=== PATIENT | male | born 1940 | race Caucasian/White ===

== ENCOUNTER 2018-08-10 09:41 | Emergency (ER) | payer MEDICARE, OTHER, SELFPAY ==
[2018-08-10] VITALS (43 sets, daily range): BP systolic 120–156; BP diastolic 71–111; PULSE 92–158; RESP 1–31; TEMP 36.7–37; O2SAT 88–97
--- NOTE | 2018-08-10 09:46 | W.ED.GENAD ---
Discharge Plan Discharge Details Chief Complaint: SOB Reason For Visit: JUD Primary Care Provider: Sania Cherry ED Provider: Fariba Howell Home Meds and New Rx's Prescriptions: No Action ibuprofen 200 mg tablet 600 mg PO QID PRNRF: 0 enoxaparin [Lovenox] 100 mg/mL syringe 100 mg SC Q12H RF: 0 warfarin 5 mg tablet 5 mg PO DAILY Qty: 90 RF: 0 emy [id number] [Apple Cider Vinegar Plus] 1 EACH tablet 2 tab PO BID RF: 0 Chamomile 350 mg PO BID RF: 0 Discharge Data Discharge Date/Time-TO BE ENTERED AT DEPARTURE: 08/10/18 13:53 Medical Decision Making MDM Narrative Medical decision making narrative: Adebayo Amin is a 78 y/o man presents emergency department with shortness of breath. On exam patient is tachycardic, hypoxic, and also tachypneic with minimal exertion. At rest his respiratory rate is acceptable. Concern for PE vs PNA vs less likely COPD vs ACS vs other. Exam/hx not c/w with acute emergent aortic pathology. Plan for EKG, CXR, screening labs, CT chest, IV, telemetry. Pt attempted to stand to use urinal, and become tachypneic in 30s and increasingly tachycardic. High suspicion for PE at this time. Pt believes he may have been treated for a blood clot in his leg in the distant past. Plan for empiric heparinbolus and gtt, Pt to go to CT [facility]. Saddle PE found on CT. Pt continues to be tachycardic but comfortable without respiratory distress when at rest. [facility] contacted emergently when CT resulted, Pt accepted to MICU with plan for transport by helicopter. Accepting physician requests no TPA at this time, they will further evaluate for need at [facility]. No further intervention requested. Will continue heparin gtt. BP continues to be acceptable. No change on multiple reassessments. Pt to be transported to [facility] by air. Clinical Impression: saddle pulmonary embolus Disposition: transfer to [facility] Medical Records Medical records reviewed: Yes I reviewed the patient's medical records. Imaging Data Radiologic Study: Attestation: I personally reviewed and interpreted this imaging study as follows: Radiologist's impression: PORTABLE AP CHEST: Comparison is 11/30/16. The heart is normal in size. The lungs are clear. The mediastinal structures and pleura appear intact. CONCLUSION: Normal chest. PE CHEST CT: CT angiography was performed with multi slice acquisition and multi planar and 3D reconstruction. CT scan of the chest was performed according to the pulmonary embolus protocol. Comparison chest x-ray from the same day. There are filling defects present consistent with pulmonary emboli. There is a saddle embolus bridging the bifurcation of the main pulmonary artery. Extensive thrombus is seen involving branches of the pulmonary arteries in all five lobes. The greatest burden is seen in the left upper lobe and right lower lobe. The heart is mildly enlarged. There does appear to be some evidence suggesting right ventricular dysfunction. No significant pericardial effusion is seen. No significant mediastinal, hilar or axillary adenopathy is present. No pleural effusion or pneumothorax is identified. Atelectatic changes are seen in the lungs. No focal consolidating infiltrates are appreciated. The tracheobronchial tree is unremarkable. No pulmonary nodules are present. Upper abdominal images show no acute abnormality. Note is made of a small hiatal hernia. 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 The thoracic aorta is of normal caliber. No aneurysm or dissection is appreciated. 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 The largest burden is seen in the left upper lobe and right lower lobe. Findings in the heart raise the question of right ventricular dysfunction. Lab Data Lab results reviewed: Yes I reviewed the patient's lab results. Laboratory Tests Range/Units 08/10/18 08/10/18 08/10/18 09:50 09:50 09:50 WBC (4.4-10.8) k/cumm 5.25 RBC (4.50-6.00) m/cumm 5.25 Hgb (13.5-17.5) g/dL 18.1 H Hct (40.0-50.0) % 50.9 H MCV (80-95) fL 97.0 H MCH (27.0-33.0) pg 34.5 H MCHC (32.0-36.0) g/dL 35.6 RDW (11.8-14.1) % 12.3 Plt Count (130-400) x1000/uL 176 MPV (8.0-11.0) fL 9.6 Immature Gran % 0.2 Neutrophils % 47.9 Lymphocytes % 37.1 Monocytes % 11.0 Eosinophils % 3.0 Basophils % 0.8 Absolute Neutrophils (1.2-6.7) k/cumm 2.51 Absolute Lymphocytes (1.2-3.4) k/cumm 1.95 Absolute Monocytes (0.11-0.7) k/cumm 0.58 Absolute Eosinophils (0.0-0.7) k/cumm 0.16 Absolute Basophils (0.0-0.2) k/cumm 0.04 PT (9.3-10.8) sec INR (1.0-3.5) D-Dimer (<500) ng/mlFEU 4325 H VBG pH (7.32-7.43) VBG pCO2 (34-47) mm/Hg VBG pO2 (28-44) mm/Hg VBG HCO3 (22-28) mmol/L VBG Total CO2 (22-29) mmol/L VBG O2 Saturation (70-80) % VBG Base Excess (-3-3) mmol/L Sodium (136-145) mmol/L 139 Potassium (3.5-5.1) mmol/L 3.2 L Chloride (98-107) mmol/L 103 Carbon Dioxide (21.0-32.0) mmol/L 25.9 Anion Gap (3-11) mmol/L 10.1 BUN (7-18) mg/dL 6 L Creatinine (0.70-1.30) mg/dL 0.84 Estimated GFR/1.73 m2 (mL/min/1.73m2) >= 60.00 Glucose (70-100) mg/dL 140 H Lactate (0.6-1.4) mmol/L Calcium (8.5-10.1) mg/dL 8.4 L Total Bilirubin (0.2-1.0) mg/dL 1.5 H AST (15-37) U/L 30 ALT (12-78) U/L 45 Alkaline Phosphatase (46-116) U/L 86 Troponin I (0.00-0.06) ng/mL 0.05 NT-Pro-B Natriuret Pep ( - 299) pg/mL Total Protein (6.4-8.2) g/dL 7.3 Albumin (3.4-5.0) g/dL 3.5 Urine Color (Yellow) Urine Clarity Urine pH (5-8) Ur Specific [place] (1.005-1.025) Urine Protein (Negative) mg/dL Urine Ketones (Negative) mg/dL Urine Blood (Negative) Urine Nitrite (Negative) Urine Bilirubin (Negative) Urine Urobilinogen (Up TO 0.2) EU/dL Ur Leukocyte Esterase (Negative) Urine Glucose (Negative) mg/dL Range/Units 08/10/18 08/10/18 08/10/18 09:50 09:50 09:50 WBC (4.4-10.8) k/cumm RBC (4.50-6.00) m/cumm Hgb (13.5-17.5) g/dL Hct (40.0-50.0) % MCV (80-95) fL MCH (27.0-33.0) pg MCHC (32.0-36.0) g/dL RDW (11.8-14.1) % Plt Count (130-400) x1000/uL MPV (8.0-11.0) fL Immature Gran % Neutrophils % Lymphocytes % Monocytes % Eosinophils % Basophils % Absolute Neutrophils (1.2-6.7) k/cumm Absolute Lymphocytes (1.2-3.4) k/cumm Absolute Monocytes (0.11-0.7) k/cumm Absolute Eosinophils (0.0-0.7) k/cumm Absolute Basophils (0.0-0.2) k/cumm PT (9.3-10.8) sec INR (1.0-3.5) D-Dimer (<500) ng/mlFEU VBG pH (7.32-7.43) 7.46 H VBG pCO2 (34-47) mm/Hg 36 VBG pO2 (28-44) mm/Hg 60 H VBG HCO3 (22-28) mmol/L 26 VBG Total CO2 (22-29) mmol/L 21 L VBG O2 Saturation (70-80) % 92 H VBG Base Excess (-3-3) mmol/L 1.7 Sodium (136-145) mmol/L Potassium (3.5-5.1) mmol/L Chloride (98-107) mmol/L Carbon Dioxide (21.0-32.0) mmol/L Anion Gap (3-11) mmol/L BUN (7-18) mg/dL Creatinine (0.70-1.30) mg/dL Estimated GFR/1.73 m2 (mL/min/1.73m2) Glucose (70-100) mg/dL Lactate (0.6-1.4) mmol/L 2.8 H Calcium (8.5-10.1) mg/dL Total Bilirubin (0.2-1.0) mg/dL AST (15-37) U/L ALT (12-78) U/L Alkaline Phosphatase (46-116) U/L Troponin I (0.00-0.06) ng/mL NT-Pro-B Natriuret Pep ( - 299) pg/mL 296 Total Protein (6.4-8.2) g/dL Albumin (3.4-5.0) g/dL Urine Color (Yellow) Urine Clarity Urine pH (5-8) Ur Specific [place] (1.005-1.025) Urine Protein (Negative) mg/dL Urine Ketones (Negative) mg/dL Urine Blood (Negative) Urine Nitrite (Negative) Urine Bilirubin (Negative) Urine Urobilinogen (Up TO 0.2) EU/dL Ur Leukocyte Esterase (Negative) Urine Glucose (Negative) mg/dL Range/Units 08/10/18 08/10/18 08/10/18 09:54 11:00 14:00 WBC (4.4-10.8) k/cumm RBC (4.50-6.00) m/cumm Hgb (13.5-17.5) g/dL Hct (40.0-50.0) % MCV (80-95) fL MCH (27.0-33.0) pg MCHC (32.0-36.0) g/dL RDW (11.8-14.1) % Plt Count (130-400) x1000/uL MPV (8.0-11.0) fL Immature Gran % Neutrophils % Lymphocytes % Monocytes % Eosinophils % Basophils % Absolute Neutrophils (1.2-6.7) k/cumm Absolute Lymphocytes (1.2-3.4) k/cumm Absolute Monocytes (0.11-0.7) k/cumm Absolute Eosinophils (0.0-0.7) k/cumm Absolute Basophils (0.0-0.2) k/cumm PT (9.3-10.8) sec 10.9 H INR (1.0-3.5) 1.1 D-Dimer (<500) ng/mlFEU VBG pH (7.32-7.43) VBG pCO2 (34-47) mm/Hg VBG pO2 (28-44) mm/Hg VBG HCO3 (22-28) mmol/L VBG Total CO2 (22-29) mmol/L VBG O2 Saturation (70-80) % VBG Base Excess (-3-3) mmol/L Sodium (136-145) mmol/L Potassium (3.5-5.1) mmol/L Chloride (98-107) mmol/L Carbon Dioxide (21.0-32.0) mmol/L Anion Gap (3-11) mmol/L BUN (7-18) mg/dL Creatinine (0.70-1.30) mg/dL Estimated GFR/1.73 m2 (mL/min/1.73m2) Glucose (70-100) mg/dL Lactate (0.6-1.4) mmol/L Calcium (8.5-10.1) mg/dL Total Bilirubin (0.2-1.0) mg/dL AST (15-37) U/L ALT (12-78) U/L Alkaline Phosphatase (46-116) U/L Troponin I (0.00-0.06) ng/mL Cancelled NT-Pro-B Natriuret Pep ( - 299) pg/mL Total Protein (6.4-8.2) g/dL Albumin (3.4-5.0) g/dL Urine Color (Yellow) Yellow Urine Clarity Clear Urine pH (5-8) 7.5 Ur Specific [place] (1.005-1.025) 1.015 Urine Protein (Negative) mg/dL Negative Urine Ketones (Negative) mg/dL Negative Urine Blood (Negative) Negative Urine Nitrite (Negative) Negative Urine Bilirubin (Negative) Negative Urine Urobilinogen (Up TO 0.2) EU/dL 0.2 Ur Leukocyte Esterase (Negative) Negative Urine Glucose (Negative) mg/dL Negative ECG Data Interpretation: EKG shows accelerated junctional rhythm vs ST (prior h/o 1st degree block) with left axis, known LBBB, does not meet STEMI criteria EKG #2 shows unknown tachydysrthmia as above at 124, does not meet STEMI criteria HPI - General Adult General Mode of arrival: EMS. Date/Time Provider Initiated Documentation: 08/10/18 09:46. Limitations to Documentation: no limitations. Information obtained by: patient, RN notes reviewed and old records reviewed. HPI Narrative: Adebayo Amin is a 78 y/o man with h/o tension, sleep apnea, anxiety, and GERD presenting to the emergency department with shortness of breath and lightheadedness. [facility] began to feel like he was having an anxiety attack. He felt short of breath and very anxious, did have some lightheadedness if he was going to pass out. Patient reports that he has had similar symptoms in the past he presented to the emergency department for. At that time he reports that he had a full workup and they found nothing at home and was having a panic attack. Patient reports that he was not exerting himself when symptoms started. He reports that in the past 2 days he has been in his usual state of health without symptoms or recent illness. He reports that he has been eating and drinking normally. No recent travel. Patient reports chest pressure that is coming and going since onset of symptoms this morning, very mild right now. He denies any other pain. Denies fever. Denies cough, vomiting, diarrhea, swelling, weakness, numbness, tingling, visual changes. He reports no history of pulmonary disease and has never smoked. No oxygen requirement at home. Related Data Home Medications Medication Instructions Recorded Confirmed Chamomile 350 mg PO BID 05/23/14 08/13/18 emy [id number]-tea 2 tab PO BID 05/23/14 08/13/18 [Apple Cider Vinegar Plus] enoxaparin 100 mg/mL subcutaneous 100 mg SC Q12H 08/13/18 08/13/18 syringe ibuprofen 200 mg tablet 600 mg PO QID PRN tab 08/13/18 08/13/18 warfarin 5 mg tablet 5 mg PO DAILY #90 tab 08/17/18 08/18/18 Previous Rx's Medication Instructions Recorded warfarin 5 mg tablet 5 mg PO DAILY #90 tab 08/17/18 Allergies Allergy/AdvReac Type Severity Reaction Status Date / Time codeine AdvReac Mild Nausea Verified 08/13/18 10:56 Review of Systems Review of Systems Constitutional: denies fevers Eyes: denies eye pain ENT: denies facial pain, dental pain, sore throat Cardiovascular: reports chest pain, denies edema Respiratory: reports SOB, denies cough GI: denies abdominal pain, vomiting, diarrhea : denies flank pain MSK: denies back pain, neck pain, arthralgias, myalgias Skin: denies rash Neuro: denies headaches, weakness, reports lightheadedness PFSH Family History Mother Heart disease Alzheimer disease Father Heart disease Sister Colon cancer Sister Heart disease Brother Diabetes Medical History History of total hip arthroplasty (Acute) History of total knee replacement (Acute 05/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) Loss of teeth due to extraction (Acute ~06/2013) S/P cataract extraction and insertion of intraocular lens (Acute ~03/17/14) S/P cataract extraction and insertion of intraocular lens (Acute 03/31/14) Social History Smoking/Tobacco Use Status: Former Tobacco Use quit date: 12/23/97 alcohol intake: current alcohol intake frequency: a few times a week Alcohol type: beer Surgical History H/O elbow surgery (Acute) S/P trigger finger release (Acute) H/O shoulder surgery (Chronic) Endoscopic Carpal Tunnel release (06/19/15) Exam Narrative Exam Narrative: Constitutional: [id number], pleasant, converses in short sentences HENT: head atraumatic, normocephalic normal inspection, mucous membranes moist Eyes: conjunctiva normal, sclera normal, pupils 3mm b/l Neck: no stridor, normal ROM, trachea midline Chest: normal inspection Resp: occasional mild tachypnea at rest, able to speak in full sentences. Develops moderate resp distress with getting out of bed, standing. LCTAB Cardio: tachycardic normal rhythm, no murmur appreciated GI: abdomen soft, non-tender, non-distended Back: normal inspection, no rash Skin: warm, dry, normal color, no rash Neuro: alert, not altered, grossly non-focal, normal tone Ext: no edema Psych: normal mood, normal affect, normal behavior Critical Care Time Critical Care Time: Yes Total Critical Care Time: 45 Attestation: I have spent greater than 45 minutes of critical care time with this critically ill patient.
--- NOTE | 2018-08-10 09:53 | DI.RAD_ITS ---
SYMPTOMS/DIAGNOSIS: SHORTNESS OF BREATH, CHEST PAIN PORTABLE AP CHEST: Comparison is 10/23/16. The heart is normal in size. The lungs are clear. The mediastinal structures and pleura appear intact. CONCLUSION: Normal chest.
[2018-08-10 10:10] LABS: Abs Immature Grans 0.01 k/cumm (0.0-0.09); Absolute Basophil Count 0.04 k/cumm (0.0-0.2); Absolute Eosinophil Count 0.16 k/cumm (0.0-0.7); Absolute Lymphocyte Count 1.95 k/cumm (1.2-3.4); Absolute Monocyte Count 0.58 k/cumm (0.11-0.7); Absolute Neutrophil Count 2.51 k/cumm (1.2-6.7); Basophils % 0.8; HCT 50.9 % (40.0-50.0); HGB 18.1 g/dL (13.5-17.5); Immature Grans % 0.2; Lymphocytes % 37.1; Mean Corp. HGB Concentration 35.6 g/dL (32.0-36.0); Mean Corpuscular Hemoglobin 34.5 pg (27.0-33.0); Mean Platelet Volume 9.6 fL (8.0-11.0); Neutrophils % 47.9; Platelet Count 176 x1000/uL (130-400); RBC 5.25 m/cumm (4.50-6.00); RBC Distribution Width 12.3 % (11.8-14.1); White Blood Cell Count 5.25 k/cumm (4.4-10.8)
[2018-08-10 10:11] LABS: BE (Venous) 1.7 mmol/L (-3-3); HCO3 (Venous) 26 mmol/L (22-28); O2 Sat (Venous) 92 % (70-80); TCO2 (Venous) 21 mmol/L (22-29); pCO2 (Venous) 36 mm/Hg (34-47); pH (Venous) 7.46 (7.32-7.43); pO2 (Venous) 60 mm/Hg (28-44)
[2018-08-10] MEDS: Normal Saline 500 ML IV (10:12)
[2018-08-10 10:13] LABS: Lactate-non-spesis 2.8 mmol/L (0.6-1.4)
[2018-08-10] MEDS: Normal Saline Flush 10 ML SYR IVP (10:15)
[2018-08-10 10:32] LABS: ALT 45 U/L (12-78); AST 30 U/L (15-37); Albumin 3.5 g/dL (3.4-5.0); Alkaline Phosphatase 86 U/L (46-116); Anion Gap 10.1 mmol/L (3-11); BUN 6 mg/dL (7-18); Bilirubin, Total 1.5 mg/dL (0.2-1.0); CO2 25.9 mmol/L (21.0-32.0); CREATININE 0.84 mg/dL (0.70-1.30); Calcium 8.4 mg/dL (8.5-10.1); Chloride 103 mmol/L (98-107); Glucose 140 mg/dL (70-100); Potassium 3.2 mmol/L (3.5-5.1); Sodium 139 mmol/L (136-145); Total Protein 7.3 g/dL (6.4-8.2); Troponin I 0.05 ng/mL (0.00-0.06)
[2018-08-10 10:37] LABS: NT-proBNP 296 pg/mL
--- NOTE | 2018-08-10 10:39 | ED.GENADUL_ITS ---
Discharge Plan Discharge Details Chief Complaint: SOB Reason For Visit: JUD Primary Care Provider: Sania Cherry ED Provider: Fariba Howell Home Meds and New Rx's Prescriptions: No Action ibuprofen 200 mg tablet 600 mg PO QID PRNRF: 0 enoxaparin [Lovenox] 100 mg/mL syringe 100 mg SC Q12H RF: 0 warfarin 5 mg tablet 5 mg PO DAILY Qty: 90 RF: 0 emy [id number] [Apple Cider Vinegar Plus] 1 EACH tablet 2 tab PO BID RF: 0 Chamomile 350 mg PO BID RF: 0 Discharge Data Discharge Date/Time-TO BE ENTERED AT DEPARTURE: 08/10/18 13:53 Medical Decision Making MDM Narrative Medical decision making narrative: Adebayo Amin is a 78 y/o man presents emergency department with shortness of breath. On exam patient is tachycardic, hypoxic, and also tachypneic with minimal exertion. At rest his respiratory rate is acceptable. Concern for PE vs PNA vs less likely COPD vs ACS vs other. Exam/hx not c/w with acute emergent aortic pathology. Plan for EKG, CXR, screening labs, CT chest, IV, telemetry. Pt attempted to stand to use urinal, and become tachypneic in 30s and increasingly tachycardic. High suspicion for PE at this time. Pt believes he may have been treated for a blood clot in his leg in the distant past. Plan for empiric heparinbolus and gtt, Pt to go to CT [facility]. Saddle PE found on CT. Pt continues to be tachycardic but comfortable without respiratory distress when at rest. [facility] [place] when CT resulted, Pt accepted to [facility]U with plan for transport by helicopter. Accepting physician requests no TPA at this time, they will further evaluate for need at [facility] No further intervention requested. Will continue heparin gtt. BP continues to be acceptable. No change on multiple reassessments. Pt to be transported [place] [facility] [place]. Clinical Impression: saddle pulmonary embolus Disposition: transfer to [facility] Medical Records Medical records reviewed: Yes I reviewed the patient's medical records. Imaging Data Radiologic Study: Attestation: I personally reviewed and interpreted this imaging study as follows: Radiologist's impression: PORTABLE AP CHEST: Comparison is 11/30/16. The heart is normal in size. The lungs are clear. The mediastinal structures and pleura appear intact. CONCLUSION: Normal chest. PE CHEST CT: CT angiography was performed with multi slice acquisition and multi planar and 3D reconstruction. CT scan of the chest was performed according to the pulmonary embolus protocol. Comparison chest x-ray from the same day. There are filling defects present consistent with pulmonary emboli. There is a saddle embolus bridging the bifurcation of the main pulmonary artery. Extensive thrombus is seen involving branches of the pulmonary arteries in all five lobes. The greatest burden is seen in the left upper lobe and right lower lobe. The heart is mildly enlarged. There does appear to be some evidence suggesting right ventricular dysfunction. No significant pericardial effusion is seen. No significant mediastinal, hilar or axillary adenopathy is present. No pleural effusion or pneumothorax is identified. Atelectatic changes are seen in the lungs. No focal consolidating infiltrates are appreciated. The tracheobronchial tree is unremarkable. No pulmonary nodules are present. Upper abdominal images show no acute abnormality. Note is made of a small hiatal hernia. 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 The thoracic aorta is of normal caliber. No aneurysm or dissection is appreciated. 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 The largest burden is seen in the left upper lobe and right lower lobe. Findings in the heart raise the question of right ventricular dysfunction. Lab Data Lab results reviewed: Yes I reviewed the patient's lab results. Laboratory Tests Range/Units 08/10/18 08/10/18 08/10/18 09:50 09:50 09:50 WBC (4.4-10.8) k/cumm 5.25 RBC (4.50-6.00) m/cumm 5.25 Hgb (13.5-17.5) g/dL 18.1 H Hct (40.0-50.0) % 50.9 H MCV (80-95) fL 97.0 H MCH (27.0-33.0) pg 34.5 H MCHC (32.0-36.0) g/dL 35.6 RDW (11.8-14.1) % 12.3 Plt Count (130-400) x1000/uL 176 MPV (8.0-11.0) fL 9.6 Immature Gran % 0.2 Neutrophils % 47.9 Lymphocytes % 37.1 Monocytes % 11.0 Eosinophils % 3.0 Basophils % 0.8 Absolute Neutrophils (1.2-6.7) k/cumm 2.51 Absolute Lymphocytes (1.2-3.4) k/cumm 1.95 Absolute Monocytes (0.11-0.7) k/cumm 0.58 Absolute Eosinophils (0.0-0.7) k/cumm 0.16 Absolute Basophils (0.0-0.2) k/cumm 0.04 PT (9.3-10.8) sec INR (1.0-3.5) D-Dimer (<500) ng/mlFEU 4325 H VBG pH (7.32-7.43) VBG pCO2 (34-47) mm/Hg VBG pO2 (28-44) mm/Hg VBG HCO3 (22-28) mmol/L VBG Total CO2 (22-29) mmol/L VBG O2 Saturation (70-80) % VBG Base Excess (-3-3) mmol/L Sodium (136-145) mmol/L 139 Potassium (3.5-5.1) mmol/L 3.2 L Chloride (98-107) mmol/L 103 Carbon Dioxide (21.0-32.0) mmol/L 25.9 Anion Gap (3-11) mmol/L 10.1 BUN (7-18) mg/dL 6 L Creatinine (0.70-1.30) mg/dL 0.84 Estimated GFR/1.73 m2 (mL/min/1.73m2) >= 60.00 Glucose (70-100) mg/dL 140 H Lactate (0.6-1.4) mmol/L Calcium (8.5-10.1) mg/dL 8.4 L Total Bilirubin (0.2-1.0) mg/dL 1.5 H AST (15-37) U/L 30 ALT (12-78) U/L 45 Alkaline Phosphatase (46-116) U/L 86 Troponin I (0.00-0.06) ng/mL 0.05 NT-Pro-B Natriuret Pep ( - 299) pg/mL Total Protein (6.4-8.2) g/dL 7.3 Albumin (3.4-5.0) g/dL 3.5 Urine Color (Yellow) Urine Clarity Urine pH (5-8) Ur Specific [place] (1.005-1.025) Urine Protein (Negative) mg/dL Urine Ketones (Negative) mg/dL Urine Blood (Negative) Urine Nitrite (Negative) Urine Bilirubin (Negative) Urine Urobilinogen (Up TO 0.2) EU/dL Ur Leukocyte Esterase (Negative) Urine Glucose (Negative) mg/dL Range/Units 08/10/18 08/10/18 08/10/18 09:50 09:50 09:50 WBC (4.4-10.8) k/cumm RBC (4.50-6.00) m/cumm Hgb (13.5-17.5) g/dL Hct (40.0-50.0) % MCV (80-95) fL MCH (27.0-33.0) pg MCHC (32.0-36.0) g/dL RDW (11.8-14.1) % Plt Count (130-400) x1000/uL MPV (8.0-11.0) fL Immature Gran % Neutrophils % Lymphocytes % Monocytes % Eosinophils % Basophils % Absolute Neutrophils (1.2-6.7) k/cumm Absolute Lymphocytes (1.2-3.4) k/cumm Absolute Monocytes (0.11-0.7) k/cumm Absolute Eosinophils (0.0-0.7) k/cumm Absolute Basophils (0.0-0.2) k/cumm PT (9.3-10.8) sec INR (1.0-3.5) D-Dimer (<500) ng/mlFEU VBG pH (7.32-7.43) 7.46 H VBG pCO2 (34-47) mm/Hg 36 VBG pO2 (28-44) mm/Hg 60 H VBG HCO3 (22-28) mmol/L 26 VBG Total CO2 (22-29) mmol/L 21 L VBG O2 Saturation (70-80) % 92 H VBG Base Excess (-3-3) mmol/L 1.7 Sodium (136-145) mmol/L Potassium (3.5-5.1) mmol/L Chloride (98-107) mmol/L Carbon Dioxide (21.0-32.0) mmol/L Anion Gap (3-11) mmol/L BUN (7-18) mg/dL Creatinine (0.70-1.30) mg/dL Estimated GFR/1.73 m2 (mL/min/1.73m2) Glucose (70-100) mg/dL Lactate (0.6-1.4) mmol/L 2.8 H Calcium (8.5-10.1) mg/dL Total Bilirubin (0.2-1.0) mg/dL AST (15-37) U/L ALT (12-78) U/L Alkaline Phosphatase (46-116) U/L Troponin I (0.00-0.06) ng/mL NT-Pro-B Natriuret Pep ( - 299) pg/mL 296 Total Protein (6.4-8.2) g/dL Albumin (3.4-5.0) g/dL Urine Color (Yellow) Urine Clarity Urine pH (5-8) Ur Specific [place] (1.005-1.025) Urine Protein (Negative) mg/dL Urine Ketones (Negative) mg/dL Urine Blood (Negative) Urine Nitrite (Negative) Urine Bilirubin (Negative) Urine Urobilinogen (Up TO 0.2) EU/dL Ur Leukocyte Esterase (Negative) Urine Glucose (Negative) mg/dL Range/Units 08/10/18 08/10/18 08/10/18 09:54 11:00 14:00 WBC (4.4-10.8) k/cumm RBC (4.50-6.00) m/cumm Hgb (13.5-17.5) g/dL Hct (40.0-50.0) % MCV (80-95) fL MCH (27.0-33.0) pg MCHC (32.0-36.0) g/dL RDW (11.8-14.1) % Plt Count (130-400) x1000/uL MPV (8.0-11.0) fL Immature Gran % Neutrophils % Lymphocytes % Monocytes % Eosinophils % Basophils % Absolute Neutrophils (1.2-6.7) k/cumm Absolute Lymphocytes (1.2-3.4) k/cumm Absolute Monocytes (0.11-0.7) k/cumm Absolute Eosinophils (0.0-0.7) k/cumm Absolute Basophils (0.0-0.2) k/cumm PT (9.3-10.8) sec 10.9 H INR (1.0-3.5) 1.1 D-Dimer (<500) ng/mlFEU VBG pH (7.32-7.43) VBG pCO2 (34-47) mm/Hg VBG pO2 (28-44) mm/Hg VBG HCO3 (22-28) mmol/L VBG Total CO2 (22-29) mmol/L VBG O2 Saturation (70-80) % VBG Base Excess (-3-3) mmol/L Sodium (136-145) mmol/L Potassium (3.5-5.1) mmol/L Chloride (98-107) mmol/L Carbon Dioxide (21.0-32.0) mmol/L Anion Gap (3-11) mmol/L BUN (7-18) mg/dL Creatinine (0.70-1.30) mg/dL Estimated GFR/1.73 m2 (mL/min/1.73m2) Glucose (70-100) mg/dL Lactate (0.6-1.4) mmol/L Calcium (8.5-10.1) mg/dL Total Bilirubin (0.2-1.0) mg/dL AST (15-37) U/L ALT (12-78) U/L Alkaline Phosphatase (46-116) U/L Troponin I (0.00-0.06) ng/mL Cancelled NT-Pro-B Natriuret Pep ( - 299) pg/mL Total Protein (6.4-8.2) g/dL Albumin (3.4-5.0) g/dL Urine Color (Yellow) Yellow Urine Clarity Clear Urine pH (5-8) 7.5 Ur Specific [place] (1.005-1.025) 1.015 Urine Protein (Negative) mg/dL Negative Urine Ketones (Negative) mg/dL Negative Urine Blood (Negative) Negative Urine Nitrite (Negative) Negative Urine Bilirubin (Negative) Negative Urine Urobilinogen (Up TO 0.2) EU/dL 0.2 Ur Leukocyte Esterase (Negative) Negative Urine Glucose (Negative) mg/dL Negative ECG Data Interpretation: EKG shows accelerated junctional rhythm vs ST (prior h/o 1st degree block) with left axis, known LBBB, does not meet STEMI criteria EKG #2 shows unknown tachydysrthmia as above at 124, does not meet STEMI criteria HPI - General Adult General Mode of arrival: EMS . Date/Time Provider Initiated Documentation: 08/10/18 09:46 . Limitations to Documentation: no limitations . Information obtained by: patient, RN notes reviewed and old records reviewed . HPI Narrative: Adebayo Amin is a 78 y/o man with h/o tension, sleep apnea, anxiety, and GERD presenting to the emergency department with shortness of breath and lightheadedness. [facility] began to feel like he was having an anxiety attack. He felt short of breath and very anxious, did have some lightheadedness if he was going to pass out. Patient reports that he has had similar symptoms in the past he presented to the emergency department for. At that time he reports that he had a full workup and they found nothing at home and was having a panic attack. Patient reports that he was not exerting himself when symptoms started. He reports that in the past 2 days he has been in his usual state of health without symptoms or recent illness. He reports that he has been eating and drinking normally. No recent travel. Patient reports chest pressure that is coming and going since onset of symptoms this morning, very mild right now. He denies any other pain. Denies fever. Denies cough, vomiting, diarrhea, swelling, weakness, numbness, tingling, visual changes. He reports no history of pulmonary disease and has never smoked. No oxygen requirement at home. Related Data Home Medications Medication Instructions Recorded Confirmed Chamomile 350 mg PO BID 05/23/14 08/13/18 emy [id number] 2 tab PO BID 05/23/14 08/13/18 [Apple Cider Vinegar Plus] enoxaparin 100 mg/mL subcutaneous 100 mg SC Q12H 08/13/18 08/13/18 syringe ibuprofen 200 mg tablet 600 mg PO QID PRN tab 08/13/18 08/13/18 warfarin 5 mg tablet 5 mg PO DAILY #90 tab 08/17/18 08/18/18 Previous Rx's Medication Instructions Recorded warfarin 5 mg tablet 5 mg PO DAILY #90 tab 08/17/18 Allergies Allergy/AdvReac Type Severity Reaction Status Date / Time codeine AdvReac Mild Nausea Verified 08/13/18 10:56 Review of Systems Review of Systems Constitutional: denies fevers Eyes: denies eye pain ENT: denies facial pain, dental pain, sore throat Cardiovascular: reports chest pain, denies edema Respiratory: reports SOB, denies cough GI: denies abdominal pain, vomiting, diarrhea : denies flank pain MSK: denies back pain, neck pain, arthralgias, myalgias Skin: denies rash Neuro: denies headaches, weakness, reports lightheadedness PFSH Family History Mother Heart disease Alzheimer disease Father Heart disease Sister Colon cancer Sister Heart disease Brother Diabetes Medical History History of total hip arthroplasty (Acute) History of total knee replacement (Acute 05/30/14) Loss of teeth due to extraction (Acute ~06/2013) S/P cataract extraction and insertion of intraocular lens (Acute ~03/17/14) S/P cataract extraction and insertion of intraocular lens (Acute 03/31/14) Social History Smoking/Tobacco Use Status: Former Tobacco Use quit date: 12/23/97 alcohol intake: current alcohol intake frequency: a few times a week Alcohol type: beer Surgical History H/O elbow surgery (Acute) S/P trigger finger release (Acute) H/O shoulder surgery (Chronic) Endoscopic Carpal Tunnel release (06/19/15) Exam Narrative Exam Narrative: Constitutional: [id number], pleasant, converses in short sentences HENT: head atraumatic, normocephalic normal inspection, mucous membranes moist Eyes: conjunctiva normal, sclera normal, pupils 3mm b/l Neck: no stridor, normal ROM, trachea midline Chest: normal inspection Resp: occasional mild tachypnea at rest, able to speak in full sentences. Develops moderate resp distress with getting out of bed, standing. LCTAB Cardio: tachycardic normal rhythm, no murmur appreciated GI: abdomen soft, non-tender, non-distended Back: normal inspection, no rash Skin: warm, dry, normal color, no rash Neuro: alert, not altered, grossly non-focal, normal tone Ext: no edema Psych: normal mood, normal affect, normal behavior Critical Care Time Critical Care Time: Yes Total Critical Care Time: 45 Attestation: I have spent greater than 45 minutes of critical care time with this critically ill patient.
--- NOTE | 2018-08-10 10:50 | DI.CT_ITS ---
SYMPTOMS/DIAGNOSIS: SHORTNESS OF BREATH, HYPOXIA PE CHEST CT: CT angiography was performed with multi slice acquisition and multi planar and 3D reconstruction. CT scan of the chest was performed according to the pulmonary embolus protocol. Comparison chest x-ray from the same day. There are filling defects present consistent with pulmonary emboli. There is a saddle embolus bridging the bifurcation of the main pulmonary artery. Extensive thrombus is seen involving branches of the pulmonary arteries in all five lobes. The greatest burden is seen in the left upper lobe and right lower lobe. The heart is mildly enlarged. There does appear to be some evidence suggesting right ventricular dysfunction. No significant pericardial effusion is seen. No significant mediastinal, hilar or axillary adenopathy is present. No pleural effusion or pneumothorax is identified. Atelectatic changes are seen in the lungs. No focal consolidating infiltrates are appreciated. The tracheobronchial tree is unremarkable. No pulmonary nodules are present. Upper abdominal images show no acute abnormality. Note is made of a small hiatal hernia. 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 The thoracic aorta is of normal caliber. No aneurysm or dissection is appreciated. 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 The largest burden is seen in the left upper lobe and right lower lobe. Findings in the heart raise the question of right ventricular dysfunction. The findings were discussed at 12:00 p.m. on 08/10/[address] Fariba Howell of the emergency department.
[2018-08-10 10:54] LABS: D-Dimer 4325 ng/mlFEU (<500)
[2018-08-10] MEDS: Aspirin 81 MG CHEW 324 MG CH (11:02)
[2018-08-10] MEDS: Albuterol/Ipratropium 3 ML UPD VIAL UPD (11:03)
[2018-08-10 11:16] LABS: Bilirubin Negative (Negative); Blood Negative (Negative); Clarity Clear; Glucose Negative (Negative); Ketones Negative (Negative); Leukocyte Esterase Negative (Negative); Nitrite Negative (Negative); Specific Gravity 1.015 (1.005-1.025); Urobilinogen 0.2 EU/dL (Up TO 0.2); pH 7.5 (5-8)
[2018-08-10 11:30] LABS: INR 1.1 (1.0-3.5); Prothrombin Time 10.9 sec (9.3-10.8)
[2018-08-10] MEDS: Omnipaque 350 MG/ML 100 ML BTL IJ (11:51)
== END 2018-08-10 13:53 ==
LOC: ER 11:05
PROVIDERS: Emergency Provider Student in an Organized Health Care Education/Training Program; PCP Nurse Practitioner
DX: I26.92 Saddle embolus of pulmonary artery without acute cor pulmonale (principal); R79.1 Abnormal coagulation profile; I10 Essential (primary) hypertension
CPT/HCPCS: 36415; 36416; 71275; 80053; 82805; 82962; 93005; 94640; 96361; 96365; 96376; 99291; 71045; 81003; 83605; 83880; 84484; 85025; 85379; 85610; 93010; J3490; J7620

== ENCOUNTER 2018-08-15 09:06 | Outpatient (CLI) | payer MEDICARE, OTHER, SELFPAY ==
[2018-08-15 10:12] LABS: INR 1.3 (1.0-3.5); Prothrombin Time 12.9 sec (9.3-10.8)
== END 2018-08-15 09:26 ==
PROVIDERS: PCP Nurse Practitioner; Visit Provider Nurse Practitioner
DX: I26.99 Other pulmonary embolism without acute cor pulmonale (principal); I82.409 Acute embolism and thrombosis of unspecified deep veins of unspecified lower extremity
CPT/HCPCS: 36415; 85610

== ENCOUNTER 2018-08-20 01:35 | Outpatient (RCR) | payer MEDICARE, OTHER, SELFPAY ==
[2018-08-13] MEDS: Enoxaparin 100 MG/ML SYR SC (20:05)
[2018-08-14 08:36] LABS: Prothrombin Time 11.2 sec (9.3-10.8)
[2018-08-14 08:41] LABS: INR 1.1 (1.0-3.5)
[2018-08-14] MEDS: Enoxaparin 100 MG/ML SYR SC ×2 (08:45→19:45)
[2018-08-15] MEDS: Enoxaparin 100 MG/ML SYR SC ×2 (10:06→20:06)
[2018-08-16] MEDS: Enoxaparin 100 MG/ML SYR SC ×2 (08:18→19:55)
[2018-08-17] MEDS: Enoxaparin 100 MG/ML SYR SC ×2 (11:41→19:55)
[2018-08-18 07:52] LABS: INR 1.5 (1.0-3.5); Prothrombin Time 14.7 sec (9.3-10.8)
[2018-08-18] MEDS: Enoxaparin 100 MG/ML SYR SC ×2 (08:04→19:45)
[2018-08-19 08:32] LABS: Prothrombin Time 18.6 sec (9.3-10.8)
[2018-08-19 08:34] LABS: INR 1.9 (1.0-3.5)
[2018-08-19] MEDS: Enoxaparin 100 MG/ML SYR SC ×2 (08:38→19:42)
[2018-08-20 08:19] LABS: INR 2.2 (1.0-3.5)
[2018-08-20] MEDS: Enoxaparin 100 MG/ML SYR SC (08:31)
== END 2018-08-23 23:59 | disposition home or self-care (01) ==
LOC: INF 01:35
PROVIDERS: PCP Nurse Practitioner; Visit Provider Internal Medicine
DX: I26.99 Other pulmonary embolism without acute cor pulmonale (principal); I82.409 Acute embolism and thrombosis of unspecified deep veins of unspecified lower extremity; Z79.01 Long term (current) use of anticoagulants
CPT/HCPCS: 36415; 96365; 96372; 85610; J1650

== ENCOUNTER → 2018-09-07 08:37 | Outpatient (BNVA) | payer MEDICARE, OTHER, SELFPAY | PROVIDERS: Visit Provider Urology | DX: N40.0 Benign prostatic hyperplasia without lower urinary tract symptoms (principal) | CPT/HCPCS: 99213 ==

== ENCOUNTER 2018-10-04 04:07 | Emergency (ER) | payer MEDICARE, OTHER, SELFPAY ==
[2018-10-04] VITALS (7 sets, daily range): BP systolic 159–165; BP diastolic 73–84; PULSE 88–130; RESP 16–22; TEMP 36.8; O2SAT 6–94
--- NOTE | 2018-10-04 04:27 | W.ED.GENAD ---
Discharge Plan Disposition Patient Disposition: HOME Condition: Improving Discharge Details Chief Complaint: Chest Pain Clinical Impression: Atypical chest pain Primary Care Provider: Sania Cherry ED Provider: Sunil Hawthorne Home Meds and New Rx's Prescriptions: Continue trazodone 50 mg tablet 25 mg PO BID PRN (Reason: anxiety) Qty: 30 RF: 5 warfarin 5 mg tablet 5 mg PO DAILY Qty: 90 RF: 0 emy [id number] [Apple Cider Vinegar Plus] 1 EACH tablet 2 tab PO BID RF: 0 Chamomile 350 mg PO BID RF: 0 Discharge Instructions Instructions: Chest Pain (ED) Additional Instructions: Please hold (skip) 1 dose of your warfarin and then restart. We will ask our care managers to arrange an outpatient follow-up this week at [facility] internal medicine for recheck. As we discussed, you declined further observation and repeat blood work. Return at any time for recurrent sensation of palpitations, shortness of breath, chest discomfort, or any other acute concerns. Medical Decision Making 78-year-old male presents from home with complaint of rapid heart rate and shortness of breath that began after getting out of bed 3:30 in the morning. His past medical recent history is notable for a large pulmonary embolism diagnosed on August 10 for which he is taking an anticoagulant (warfarin). Oxygenation is within normal limits, he is afebrile, his initial pulse at triage was 130, in the 90s time of my exam. Differential diagnosis includes recurrent pulmonary embolism, dysrhythmia, ACS. Patient was placed in a registered nurse cardiac, given small fluid bolus, referred for laboratory testing, EKG and CT scan of the chest. Patient has an elevated INR of 5. He has otherwise reassuring laboratories with a negative troponin and unremarkable BNP. CT scan of the chest without significant acute findings. As the patient is within 30 days of having venous and pulmonary embolism, I feel he is high risk for recurrent embolism and therefore will have him skip 1 dose of his anticoagulant and then resume; we will ask care management to arrange follow-up in clinic this week. I offered & discussed with him further observation and repeat troponin which he declines. He states he feels better and wishes to be discharged home. He will return for any recurrence of symptoms Lab Data Lab results reviewed: Yes I reviewed the patient's lab results. Laboratory Results - last 24 hr 10/04/18 10/04/18 04:30 04:30 WBC 6.76 RBC 5.20 Hgb 17.7 H Hct 48.4 MCV 93.1 MCH 34.0 H MCHC 36.6 H RDW 12.3 Plt Count 274 MPV 9.2 Immature Gran % 0.1 Neutrophils % 51.8 Lymphocytes % 37.4 Monocytes % 9.3 Eosinophils % 1.0 Basophils % 0.4 Absolute Neutrophils 3.49 Absolute Lymphocytes 2.53 Absolute Monocytes 0.63 Absolute Eosinophils 0.07 Absolute Basophils 0.03 Sodium 138 Potassium 3.5 Chloride 100 Carbon Dioxide 26.6 Anion Gap 11.4 H BUN 6 L Creatinine 0.76 Estimated GFR/1.73 m2 >= 60.00 Glucose 119 H Calcium 8.8 Magnesium 1.8 Total Bilirubin 0.5 AST 32 ALT 36 Alkaline Phosphatase 72 Troponin I < 0.02 NT-Pro-B Natriuret Pep 192 Total Protein 7.1 Albumin 3.5 ECG Data Attestation: I personally reviewed and interpreted this ECG (s) as follows: Interpretation: First-degree AV block, rate 90, T waves with nonspecific changes in 1 and aVL. There is no ST segment L of HPI General Mode of arrival: ambulatory. Date/Time Provider Initiated Documentation: 10/04/18 04:20. Limitations to Documentation: no limitations. Information obtained by: patient. History of Present Illness 78 year old M presents to the emergency department with the chief complaint of Heart is pounding and short of breath, described as moderate, Quality is described as dull, and is localized to the chest. Patient reports no radiation. Patient started experiencing this minute(s) and it has been intermittent and now resolved. Rest improves symptom(s), Movement worsens symptoms . Patient notes shortness of breath. HPI Narrative: 78-year-old male presents from home stating that he got up at approximately 3:30 AM and then developed rapid heart rate that he states it measured approximately 130 with associated pounding in my chest and shortness of breath. It is improved with rest. States he has been taking his medications as prescribed after being diagnosed with bilateral pulmonary embolisms in the second week of July. Related Data Home Medications Medication Instructions Recorded Confirmed Chamomile 350 mg PO BID 05/23/14 10/04/18 emy [id number] 2 tab PO BID 05/23/14 10/04/18 [Apple Cider Vinegar Plus] warfarin 5 mg tablet 5 mg PO DAILY #90 tab 08/17/18 10/04/18 trazodone 50 mg tablet 25 mg PO BID PRN #30 tab 09/21/18 10/04/18 Previous Rx's Medication Instructions Recorded warfarin 5 mg tablet 5 mg PO DAILY #90 tab 08/17/18 trazodone 50 mg tablet 25 mg PO BID PRN #30 tab 09/21/18 Allergies Allergy/AdvReac Type Severity Reaction Status Date / Time codeine AdvReac Mild Nausea Verified 10/04/18 04:29 General Stated Complaint: Chest Pain MARTHA: 3 Review of Systems Review of Systems 8 systems reviewed and otherwise neg PFSH Family History Mother Heart disease Alzheimer disease Father Heart disease Sister Colon cancer Sister Heart disease Brother Diabetes Medical History Loss of teeth due to extraction (Acute ~06/2013) Social History lives independently: Yes number of children: 3 current occupational status: retired Smoking/Tobacco Use Status: Former Tobacco Use quit date: 12/23/97 alcohol intake: current alcohol intake frequency: a few times a month Alcohol type: beer substance use type: does not use seatbelt use: always working smoke detector in home: Yes fire extinguisher in home: Yes carbon monox detector in home: Yes Surgical History H/O elbow surgery (Acute) History of total hip arthroplasty (Acute) History of total knee replacement (Acute 05/30/14) S/P cataract extraction and insertion of intraocular lens (Acute ~03/17/14) S/P cataract extraction and insertion of intraocular lens (Acute 03/31/14) S/P trigger finger release (Acute) H/O shoulder surgery (Chronic) Endoscopic Carpal Tunnel release (06/19/15) Exam Narrative Exam Narrative: GEN: awake, alert, oriented 3. Pleasant, well groomed, interactive. HEAD: Normocephalic, atraumatic ENT: Mucous membranes moist, oropharynx unremarkable, External ear exam unremarkable EYES: PERRL, EOMI NECK: Full ROM, no GIRS, no menigismus CHEST/RESP: Nontender, clear to auscultation bilateral, no wheeze/rhonchi/rales CARDIOVASCULAR: RRR, borderline tachycardia, no murmur, rub ishmael. 2+ Rad pulse bilateral ABDOMEN: Soft, nontender, no mass. +Bowel sounds EXT: Full ROM, no edema, no rash Neuro: Grossly normal neurologic exam, conversant, interactive. Psych: Speech fluent, thoughts congruent, affect normal Course Vital Signs Temperature 36.8 C 10/04/18 04:14 Pulse 130 H 10/04/18 04:14 Respiratory Rate 22 10/04/18 04:14 Blood Pressure 165/84 H 10/04/18 04:14 Pulse Oximetry 94 L 10/04/18 04:14 Temperature 36.8 C 10/04/18 04:14 Temperature Source Skin 10/04/18 04:14 Pulse 130 H 10/04/18 04:14 Respiratory Rate 22 10/04/18 04:14 Blood Pressure 165/84 H 10/04/18 04:14 Pulse Oximetry 94 L 10/04/18 04:14 Pain Level 3 10/04/18 04:14
--- NOTE | 2018-10-04 04:32 | ED.GENADUL_ITS ---
Discharge Plan Disposition Patient Disposition: HOME Condition: Improving Discharge Details Chief Complaint: Chest Pain Clinical Impression: Atypical chest pain Primary Care Provider: Sania Cherry ED Provider: Sunil Hawthorne Home Meds and New Rx's Prescriptions: Continue trazodone 50 mg tablet 25 mg PO BID PRN (Reason: anxiety) Qty: 30 RF: 5 warfarin 5 mg tablet 5 mg PO DAILY Qty: 90 RF: 0 emy [id number]-tea [Apple Cider Vinegar Plus] 1 EACH tablet 2 tab PO BID RF: 0 Chamomile 350 mg PO BID RF: 0 Discharge Instructions Instructions: Chest Pain (ED) Additional Instructions: Please hold (skip) 1 dose of your warfarin and then restart. We will ask our care managers to arrange an outpatient follow-up this week at [facility] internal medicine for recheck. As we discussed, you declined further observation and repeat blood work. Return at any time for recurrent sensation of palpitations, shortness of breath , chest discomfort, or any other acute concerns. Medical Decision Making 78-year-old male presents from home with complaint of rapid heart rate and shortness of breath that began after getting out of bed 3:30 in the morning. His past medical recent history is notable for a large pulmonary embolism diagnosed on August 10 for which he is taking an anticoagulant (warfarin). Oxygenation is within normal limits, he is afebrile, his initial pulse at triage was 130, in the 90s time of my exam. Differential diagnosis includes recurrent pulmonary embolism, dysrhythmia, ACS. Patient was placed in a registered nurse cardiac telemetry, given small fluid bolus, referred for laboratory testing, EKG and CT scan of the chest. Patient has an elevated INR of 5. He has otherwise reassuring laboratories with a negative troponin and unremarkable BNP. CT scan of the chest without significant acute findings. As the patient is within 30 days of having venous and pulmonary embolism, I feel he is high risk for recurrent embolism and therefore will have him skip 1 dose of his anticoagulant and then resume; we will ask care management to arrange follow-up in clinic this week. I offered & discussed with him further observation and repeat troponin which he declines. He states he feels better and wishes to be discharged home. He will return for any recurrence of symptoms Lab Data Lab results reviewed: Yes I reviewed the patient's lab results. Laboratory Results - last 24 hr 10/04/18 10/04/18 04:30 04:30 WBC 6.76 RBC 5.20 Hgb 17.7 H Hct 48.4 MCV 93.1 MCH 34.0 H MCHC 36.6 H RDW 12.3 Plt Count 274 MPV 9.2 Immature Gran % 0.1 Neutrophils % 51.8 Lymphocytes % 37.4 Monocytes % 9.3 Eosinophils % 1.0 Basophils % 0.4 Absolute Neutrophils 3.49 Absolute Lymphocytes 2.53 Absolute Monocytes 0.63 Absolute Eosinophils 0.07 Absolute Basophils 0.03 Sodium 138 Potassium 3.5 Chloride 100 Carbon Dioxide 26.6 Anion Gap 11.4 H BUN 6 L Creatinine 0.76 Estimated GFR/1.73 m2 >= 60.00 Glucose 119 H Calcium 8.8 Magnesium 1.8 Total Bilirubin 0.5 AST 32 ALT 36 Alkaline Phosphatase 72 Troponin I < 0.02 NT-Pro-B Natriuret Pep 192 Total Protein 7.1 Albumin 3.5 ECG Data Attestation: I personally reviewed and interpreted this ECG (s) as follows: Interpretation: First-degree AV block, rate 90, T waves with nonspecific changes in 1 and aVL. There is no ST segment L of HPI General Mode of arrival: ambulatory . Date/Time Provider Initiated Documentation: 10/04/18 04:20 . Limitations to Documentation: no limitations . Information obtained by: patient . History of Present Illness 78 year old M presents to the emergency department with the chief complaint of Heart is pounding and short of breath, described as moderate, Quality is described as dull, and is localized to the chest. Patient reports no radiation. Patient started experiencing this minute(s) and it has been intermittent and now resolved. Rest improves symptom(s), Movement worsens symptoms . Patient notes shortness of breath. HPI Narrative: 78-year-old male presents from home stating that he got up at approximately 3:30 AM and then developed rapid heart rate that he states it measured approximately 130 with associated pounding in my chest and shortness of breath. It is improved with rest. States he has been taking his medications as prescribed after being diagnosed with bilateral pulmonary embolisms in the second week of July. Related Data Home Medications Medication Instructions Recorded Confirmed Chamomile 350 mg PO BID 05/23/14 10/04/18 emy [id number]-tea 2 tab PO BID 05/23/14 10/04/18 [Apple Cider Vinegar Plus] warfarin 5 mg tablet 5 mg PO DAILY #90 tab 08/17/18 10/04/18 trazodone 50 mg tablet 25 mg PO BID PRN #30 tab 09/21/18 10/04/18 Previous Rx's Medication Instructions Recorded warfarin 5 mg tablet 5 mg PO DAILY #90 tab 08/17/18 trazodone 50 mg tablet 25 mg PO BID PRN #30 tab 09/21/18 Allergies Allergy/AdvReac Type Severity Reaction Status Date / Time codeine AdvReac Mild Nausea Verified 10/04/18 04:29 General Stated Complaint: Chest Pain MARTHA: 3 Review of Systems Review of Systems 8 systems reviewed and otherwise neg PFSH Family History Mother Heart disease Alzheimer disease Father Heart disease Sister Colon cancer Sister Heart disease Brother Diabetes Medical History Loss of teeth due to extraction (Acute ~06/2013) Social History lives independently: Yes number of children: 3 current occupational status: retired Smoking/Tobacco Use Status: Former Tobacco Use quit date: 12/23/97 alcohol intake: current alcohol intake frequency: a few times a month Alcohol type: beer substance use type: does not use seatbelt use: always working smoke detector in home: Yes fire extinguisher in home: Yes carbon monox detector in home: Yes Surgical History H/O elbow surgery (Acute) History of total hip arthroplasty (Acute) History of total knee replacement (Acute 05/30/14) S/P cataract extraction and insertion of intraocular lens (Acute ~03/17/14) S/P cataract extraction and insertion of intraocular lens (Acute 03/31/14) S/P trigger finger release (Acute) H/O shoulder surgery (Chronic) Endoscopic Carpal Tunnel release (06/19/15) Exam Narrative Exam Narrative: GEN: awake, alert, oriented 3. Pleasant, well groomed, interactive. HEAD: Normocephalic, atraumatic ENT: Mucous membranes moist, oropharynx unremarkable, External ear exam unremarkable EYES: PERRL, EOMI NECK: Full ROM, no GRIS, no menigismus CHEST/RESP: Nontender, clear to auscultation bilateral, no wheeze/rhonchi/rales CARDIOVASCULAR: RRR, borderline tachycardia, no murmur, rub ishmael. 2+ Rad pulse bilateral ABDOMEN: Soft, nontender, no mass. +Bowel sounds EXT: Full ROM, no edema, no rash Neuro: Grossly normal neurologic exam, conversant, interactive. Psych: Speech fluent, thoughts congruent, affect normal Course Vital Signs Temperature 36.8 C 10/04/18 04:14 Pulse 130 H 10/04/18 04:14 Respiratory Rate 22 10/04/18 04:14 Blood Pressure 165/84 H 10/04/18 04:14 Pulse Oximetry 94 L 10/04/18 04:14 Temperature 36.8 C 10/04/18 04:14 Temperature Source Skin 10/04/18 04:14 Pulse 130 H 10/04/18 04:14 Respiratory Rate 22 10/04/18 04:14 Blood Pressure 165/84 H 10/04/18 04:14 Pulse Oximetry 94 L 10/04/18 04:14 Pain Level 3 10/04/18 04:14
[2018-10-04] MEDS: Normal Saline 250 ML IV (04:36)
[2018-10-04 04:40] LABS: Abs Immature Grans 0.01 k/cumm (0.0-0.09); Absolute Basophil Count 0.03 k/cumm (0.0-0.2); Absolute Eosinophil Count 0.07 k/cumm (0.0-0.7); Absolute Lymphocyte Count 2.53 k/cumm (1.2-3.4); Absolute Monocyte Count 0.63 k/cumm (0.11-0.7); Absolute Neutrophil Count 3.49 k/cumm (1.2-6.7); Basophils % 0.4; HCT 48.4 % (40.0-50.0); HGB 17.7 g/dL (13.5-17.5); Immature Grans % 0.1; Lymphocytes % 37.4; Mean Corp. HGB Concentration 36.6 g/dL (32.0-36.0); Mean Corpuscular Volume 93.1 fL (80-95); Mean Platelet Volume 9.2 fL (8.0-11.0); Monocytes % 9.3; Neutrophils % 51.8; Platelet Count 274 x1000/uL (130-400); RBC Distribution Width 12.3 % (11.8-14.1); White Blood Cell Count 6.76 k/cumm (4.4-10.8)
[2018-10-04 04:55] LABS: ALT 36 U/L (12-78); AST 32 U/L (15-37); Albumin 3.5 g/dL (3.4-5.0); Alkaline Phosphatase 72 U/L (46-116); Anion Gap 11.4 mmol/L (3-11); BUN 6 mg/dL (7-18); Bilirubin, Total 0.5 mg/dL (0.2-1.0); CO2 26.6 mmol/L (21.0-32.0); CREATININE 0.76 mg/dL (0.70-1.30); Calcium 8.8 mg/dL (8.5-10.1); Chloride 100 mmol/L (98-107); Glucose 119 mg/dL (70-100); Magnesium 1.8 mg/dL (1.8-2.4); NT-proBNP 192 pg/mL; Potassium 3.5 mmol/L (3.5-5.1); Sodium 138 mmol/L (136-145); Total Protein 7.1 g/dL (6.4-8.2)
[2018-10-04 04:56] LABS: Troponin I < 0.02 ng/mL (0.00-0.06)
[2018-10-04 05:05] LABS: Prothrombin Time 53.5 sec (9.3-10.8)
[2018-10-04 05:24] LABS: INR 5.8 (1.0-3.5)
[2018-10-04] MEDS: Omnipaque 350 MG/ML 100 ML BTL IJ (05:27)
--- NOTE | 2018-10-04 05:30 | DI.CT_ITS ---
SYMPTOMS/DIAGNOSIS: SHORTNESS OF BREATH, RECENT H/O PE CT SCAN OF THE CHEST: CT scan of the chest was performed according to the pulmonary embolus protocol. Comparison examination is 08/10/2018. There is no evidence of a pulmonary embolus. The thoracic aorta is of normal caliber. No aneurysm or dissection is seen. The heart size is within normal limits. No significant pericardial effusion is seen. Coronary artery calcifications are present. No significant pleural effusion or pneumothorax is identified. Mild central lobular emphysematous changes are present in the lungs. Mild dependent atelectatic changes are seen in the lung bases. No significant thoracic adenopathy is present. There is a fluid-filled distal esophagus. This may reflect gastroesophageal reflux disease. There is a question of mild thickening of the peribronchial region and bronchitis should be considered. The bones are intact. IMPRESSION: 1. No evidence of a pulmonary embolus, thoracic aortic dissection or aneurysm. 2. Nonspecific peribronchial cuffing. This may reflect acute or chronic bronchial infection or reactive airway disease.
--- NOTE | 2018-10-04 05:53 | DI.VRAD_ITS ---
EXAM: CT Angiography Chest With Intravenous Contrast EXAM DATE/TIME: 10/04/2018 4:59 AM CLINICAL HISTORY: 78 years old, male; Signs and symptoms; Shortness of breath; Patient HX: SOB since july, patient states had pins put in lungs in july. Patient difficult historian. Recent pe, and dvt. TECHNIQUE: Axial computed tomographic angiography images of the chest with intravenous contrast using CT angiography protocol. All CT scans at this facility use at least one of these dose optimization techniques: automated exposure control; mA and/or kV adjustment per patient size (includes targeted exams where dose is matched to clinical indication); or iterative reconstruction. Coronal and sagittal reformatted images were created and reviewed. MIP reconstructed images were created and reviewed. CONTRAST: 100 ml of omnipaque 350 administered intravenously. COMPARISON: CT CHEST FOR PULMONARY EMBOLUS 02/04/2014 2:43 PM FINDINGS: Pulmonary arteries: There is no evidence for PE. Aorta: Normal. No aortic aneurysm. No aortic dissection. Lungs: Basilar dependent pulmonary atelectasis is present. Peribronchial cuffing is present which is nonspecific, and which may reflect acute or chronic bronchial inflammation. Alternatively, this may reflect an element of reactive airways disease. Basilar dependent pulmonary atelectasis is present. Pleural space: Normal. No pneumothorax. No pleural effusion. Heart: Normal. No cardiomegaly. No pericardial effusion. Mediastinum: Fluid present within the esophagus may reflect GERD Postoperative appearance left hilum. Probable chronic postoperative appearance involving the left lower lobe with non-enhancement of pulmonary vessels including pulmonary veins. No filling defect is identified Bones/joints: Unremarkable. No acute fracture. Soft tissues: Unremarkable. Lymph nodes: Unremarkable. No enlarged lymph nodes. IMPRESSION: Nonspecific peribronchial cuffing. Dictated and Authenticated by: Kenton Leon MD. Ordering:RITU ZARATE MD
== END 2018-10-04 06:20 | disposition home or self-care (01) ==
LOC: ER 06:24
PROVIDERS: Emergency Provider Emergency Medicine; PCP Nurse Practitioner
DX: R07.89 Other chest pain (principal); R79.1 Abnormal coagulation profile; T45.515A Adverse effect of anticoagulants, initial encounter; R06.02 Shortness of breath; Z79.01 Long term (current) use of anticoagulants; Z86.711 Personal history of pulmonary embolism; I10 Essential (primary) hypertension
CPT/HCPCS: 36415; 71275; 80053; 93005; 99285; 71045; 83735; 83880; 84484; 85025; 85610; 85730; 93010; 99284; J3490

== ENCOUNTER 2018-10-04 11:38 | Emergency (ER) | payer MEDICARE, OTHER, SELFPAY ==
[2018-10-04] VITALS (23 sets, daily range): BP systolic 136–160; BP diastolic 71–83; PULSE 66–101; RESP 11–26; TEMP 37.1; O2SAT 92–96
--- NOTE | 2018-10-04 11:47 | DI.RAD_ITS ---
SYMPTOM/DIAGNOSIS: SHORT OF BREATH CHEST X-RAY: Portable AP view. Comparison 08/10/18. There is poor inspiration. Cardiac silhouette appears mildly enlarged. Pulmonary vasculature is within normal limits. No focal consolidating infiltrates, effusions or pneumothoraces are identified. Degenerative changes are seen in the spine. IMPRESSION: No acute pulmonary process.
--- NOTE | 2018-10-04 11:59 | W.ED.GENAD ---
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 He was seen earlier this morning and had negative lab work and CTA that showed no acute pathology, no new Pe. He did not want to stay for second troponin at that time. He went home and again had HR in the 150's so came here. He denies chest pain and HR is now in the 90's, nursing notes his HR when they initially put him on the monitor was 120 and his ekg shows sinus rhythm. Given CTA earlier today do not feel another CTA at this time indicated. Will monitor for arrythmias and evaluate for cardiac ischemia and electrolyte abnormalties and obtain portable chest for possible ptx Differential Diagnosis pe, svt, afib with rvr, electrolyte abnormality ECG Data Attestation: I personally reviewed and interpreted this ECG (s) as follows: Prior ECG tracings: available for review Interpretation: sinus rhythm, rate of 93, 1st degree av block, no acute st t wave changes HPI General Mode of arrival: ambulatory. Date/Time Provider Initiated Documentation: 10/04/18 11:40. Limitations to Documentation: no limitations. Information obtained by: patient. History of Present Illness 78 year old M presents to the emergency department with the chief complaint of shortness of breath, described as moderate, Patient started experiencing this hour(s) (8) and it has been intermittent. No relieving factors improve symptom(s), No exacerbating factors reported . Patient did receive the following treatments prior to arrival, none Related Data Home Medications Medication Instructions Recorded Confirmed Chamomile 350 mg PO BID 05/23/14 10/04/18 emy [id number]-tea 2 tab PO BID 05/23/14 10/04/18 [Apple Cider Vinegar Plus] trazodone 50 mg tablet 25 mg PO BID PRN #30 tab 09/21/18 10/04/18 warfarin 5 mg PO DIRECTED 10/04/18 10/04/18 Previous Rx's Medication Instructions Recorded trazodone 50 mg tablet 25 mg PO BID PRN #30 tab 09/21/18 Allergies Allergy/AdvReac Type Severity Reaction Status Date / Time codeine AdvReac Mild Nausea Verified 10/04/18 11:51 General Stated Complaint: SOB MARTHA: 2 Review of Systems Review of Systems All systems reviewed & are unremarkable except as noted in HPI and below Constitutional Denies chills, Denies fever(s) and Denies weakness Eyes Denies loss of vision ENT Denies change in voice Cardiovascular Denies chest pain Gastrointestinal Denies abdominal pain, Denies nausea and Denies vomiting Genitourinary Denies dysuria Musculoskeletal Denies joint swelling Integumentary/Breasts Denies rash Neurologic Denies loss of vision and Denies weakness Psychiatric Denies depression Endocrine Denies cold intolerance and Denies heat intolerance Allergic/Immunologic Denies urticaria PFSH Family History Mother Heart disease Alzheimer disease Father Heart disease Sister Colon cancer Sister Heart disease Brother Diabetes Medical History Loss of teeth due to extraction (Acute ~06/2013) Social History lives independently: Yes number of children: 3 current occupational status: retired Smoking/Tobacco Use Status: Former Tobacco Use quit date: 12/23/97 alcohol intake: current alcohol intake frequency: a few times a month Alcohol type: beer substance use type: does not use seatbelt use: always working smoke detector in home: Yes fire extinguisher in home: Yes carbon monox detector in home: Yes Surgical History H/O elbow surgery (Acute) History of total hip arthroplasty (Acute) History of total knee replacement (Acute 05/30/14) S/P cataract extraction and insertion of intraocular lens (Acute ~03/17/14) S/P cataract extraction and insertion of intraocular lens (Acute 03/31/14) S/P trigger finger release (Acute) H/O shoulder surgery (Chronic) Endoscopic Carpal Tunnel release (06/19/15) Exam Const General: no acute distress Orientation: alert HENMT Head: normal to inspection Ears: external ears normal General nose exam: external nose normal Mouth: moist mucous membranes Eyes General: appearance normal, both eyes and all related structures Neck Neck: normal visual inspection Resp Effort & Inspection: normal respiratory effort and able to speak in complete sentences Cardio Rate: regular rate Skin General skin exam: no rashes or lesions noted Neuro General: alert and oriented x3 Extrem General: normal to inspection Psych Mental Status: mental status grossly normal Course Vital Signs Temperature 37.1 C 10/04/18 11:44 Pulse 99 H 10/04/18 11:44 Respiratory Rate 20 10/04/18 11:44 Temperature 37.1 C 10/04/18 11:44 Temperature Source Skin 10/04/18 11:44 Pulse 99 H 10/04/18 11:44 Respiratory Rate 20 10/04/18 11:44 Respiratory Effort 10/04/18 11:47 Oxygen Delivery Method Room Air 10/04/18 11:44 Oxygen Flow Rate 0 10/04/18 11:44
--- NOTE | 2018-10-04 12:03 | ED.GENADUL_ITS ---
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 He was seen earlier this morning and had negative lab work and CTA that showed no acute pathology, no new Pe. He did not want to stay for second troponin at that time. He went home and again had HR in the 150's so came here. He denies chest pain and HR is now in the 90's , nursing notes his HR when they initially put him on the monitor was 120 and his ekg shows sinus rhythm. Given CTA earlier today do not feel another CTA at this time indicated. Will monitor for arrythmias and evaluate for cardiac ischemia and electrolyte abnormalties and obtain portable chest for possible ptx Differential Diagnosis pe, svt, afib with rvr, electrolyte abnormality ECG Data Attestation: I personally reviewed and interpreted this ECG (s) as follows: Prior ECG tracings: available for review Interpretation: sinus rhythm, rate of 93, 1st degree av block, no acute st t wave changes HPI General Mode of arrival: ambulatory . Date/Time Provider Initiated Documentation: 10/04/18 11:40 . Limitations to Documentation: no limitations . Information obtained by: patient . History of Present Illness 78 year old M presents to the emergency department with the chief complaint of shortness of breath, described as moderate, Patient started experiencing this hour(s) (8) and it has been intermittent. No relieving factors improve symptom(s), No exacerbating factors reported . Patient did receive the following treatments prior to arrival, none Related Data Home Medications Medication Instructions Recorded Confirmed Chamomile 350 mg PO BID 05/23/14 10/04/18 emy [id number]-Jr-[id number]-tea 2 tab PO BID 05/23/14 10/04/18 [Apple Cider Vinegar Plus] trazodone 50 mg tablet 25 mg PO BID PRN #30 tab 09/21/18 10/04/18 warfarin 5 mg PO DIRECTED 10/04/18 10/04/18 Previous Rx's Medication Instructions Recorded trazodone 50 mg tablet 25 mg PO BID PRN #30 tab 09/21/18 Allergies Allergy/AdvReac Type Severity Reaction Status Date / Time codeine AdvReac Mild Nausea Verified 10/04/18 11:51 General Stated Complaint: SOB MARTHA: 2 Review of Systems Review of Systems All systems reviewed & are unremarkable except as noted in HPI and below Constitutional Denies chills, Denies fever(s) and Denies weakness Eyes Denies loss of vision ENT Denies change in voice Cardiovascular Denies chest pain Gastrointestinal Denies abdominal pain, Denies nausea and Denies vomiting Genitourinary Denies dysuria Musculoskeletal Denies joint swelling Integumentary/Breasts Denies rash Neurologic Denies loss of vision and Denies weakness Psychiatric Denies depression Endocrine Denies cold intolerance and Denies heat intolerance Allergic/Immunologic Denies urticaria PFSH Family History Mother Heart disease Alzheimer disease Father Heart disease Sister Colon cancer Sister Heart disease Brother Diabetes Medical History Loss of teeth due to extraction (Acute ~06/2013) Social History lives independently: Yes number of children: 3 current occupational status: retired Smoking/Tobacco Use Status: Former Tobacco Use quit date: 12/23/97 alcohol intake: current alcohol intake frequency: a few times a month Alcohol type: beer substance use type: does not use seatbelt use: always working smoke detector in home: Yes fire extinguisher in home: Yes carbon monox detector in home: Yes Surgical History H/O elbow surgery (Acute) History of total hip arthroplasty (Acute) History of total knee replacement (Acute 05/30/14) S/P cataract extraction and insertion of intraocular lens (Acute ~03/17/14) S/P cataract extraction and insertion of intraocular lens (Acute 03/31/14) S/P trigger finger release (Acute) H/O shoulder surgery (Chronic) Endoscopic Carpal Tunnel release (06/19/15) Exam Const General: no acute distress Orientation: alert HENMT Head: normal to inspection Ears: external ears normal General nose exam: external nose normal Mouth: moist mucous membranes Eyes General: appearance normal, both eyes and all related structures Neck Neck: normal visual inspection Resp Effort & Inspection: normal respiratory effort and able to speak in complete sentences Cardio Rate: regular rate Skin General skin exam: no rashes or lesions noted Neuro General: alert and oriented x3 Extrem General: normal to inspection Psych Mental Status: mental status grossly normal Course Vital Signs Temperature 37.1 C 10/04/18 11:44 Pulse 99 H 10/04/18 11:44 Respiratory Rate 20 10/04/18 11:44 Temperature 37.1 C 10/04/18 11:44 Temperature Source Skin 10/04/18 11:44 Pulse 99 H 10/04/18 11:44 Respiratory Rate 20 10/04/18 11:44 Respiratory Effort 10/04/18 11:47 Oxygen Delivery Method Room Air 10/04/18 11:44 Oxygen Flow Rate 0 10/04/18 11:44
[2018-10-04 12:11] LABS: Prothrombin Time 49.6 sec (9.3-10.8)
[2018-10-04 12:12] LABS: ALT 36 U/L (12-78); AST 30 U/L (15-37); Albumin 3.8 g/dL (3.4-5.0); Alkaline Phosphatase 77 U/L (46-116); Anion Gap 9.1 mmol/L (3-11); BUN 6 mg/dL (7-18); Bilirubin, Total 0.9 mg/dL (0.2-1.0); CO2 26.9 mmol/L (21.0-32.0); CREATININE 0.83 mg/dL (0.70-1.30); Calcium 9.5 mg/dL (8.5-10.1); Chloride 99 mmol/L (98-107); Glucose 121 mg/dL (70-100); Magnesium 1.6 mg/dL (1.8-2.4); Potassium 3.6 mmol/L (3.5-5.1); Sodium 135 mmol/L (136-145); Total Protein 7.3 g/dL (6.4-8.2)
[2018-10-04 12:14] LABS: Troponin I < 0.02 ng/mL (0.00-0.06)
[2018-10-04 12:23] LABS: Abs Immature Grans 0.03 k/cumm (0.0-0.09); Absolute Basophil Count 0.04 k/cumm (0.0-0.2); Absolute Eosinophil Count 0.02 k/cumm (0.0-0.7); Absolute Lymphocyte Count 1.79 k/cumm (1.2-3.4); Absolute Neutrophil Count 4.76 k/cumm (1.2-6.7); Basophils % 0.5; Eosinophils % 0.3; HCT 49.5 % (40.0-50.0); HGB 17.6 g/dL (13.5-17.5); Immature Grans % 0.4; Lymphocytes % 24.4; Mean Corp. HGB Concentration 35.6 g/dL (32.0-36.0); Mean Corpuscular Volume 92.9 fL (80-95); Mean Platelet Volume 9.5 fL (8.0-11.0); Monocytes % 9.5; Neutrophils % 64.9; Platelet Count 275 x1000/uL (130-400); RBC 5.33 m/cumm (4.50-6.00); RBC Distribution Width 12.3 % (11.8-14.1); White Blood Cell Count 7.34 k/cumm (4.4-10.8)
[2018-10-04 12:27] LABS: INR 5.4 (1.0-3.5)
--- NOTE | 2018-10-04 12:31 | DI.VRAD_ITS ---
EXAM: XR Chest, 1 View EXAM DATE/TIME: 10/04/2018 12:02 PM CLINICAL HISTORY: 78 years old, male; Signs and symptoms; Shortness of breath TECHNIQUE: XR of the chest, 1 view. COMPARISON: CR XR PORTABLE CHEST AP 08/10/2018 10:22 AM FINDINGS: Lungs: Low lung volumes Bibasilar atelectasis Pleural space: Unremarkable. No pleural effusion. No pneumothorax. Heart/Mediastinum: Cardiomegaly Bones/joints: Degenerative changes in the thoracic spine and glenohumeral joints IMPRESSION: No acute process Dictated and Authenticated by: Benitez Charles MD. Ordering:AZRA RUEDA MD
[2018-10-04 14:13] LABS: Troponin I < 0.02 ng/mL (0.00-0.06)
== END 2018-10-04 14:28 | disposition home or self-care (01) ==
PROVIDERS: Emergency Provider Emergency Medicine; PCP Nurse Practitioner
DX: R06.2 Wheezing (principal); Z79.01 Long term (current) use of anticoagulants; Z86.711 Personal history of pulmonary embolism; I10 Essential (primary) hypertension
CPT/HCPCS: 36415; 80053; 93005; 99285; 71045; 83735; 84484; 85025; 85610; 85730; 93010; 99284

== ENCOUNTER 2018-10-06 01:37 | Outpatient (CLI) | payer MEDICARE, OTHER, SELFPAY ==
--- NOTE | 2018-10-29 12:09 | ZIOP_ITS ---
ZIO Patch INTERPRETATION DATE OF DICTATION October 29, 2018 ANALYSIS TIME 12 days and 13 hours. INDICATION Premature ventricular contractions. Predominant underlying rhythm is sinus rhythm with first-degree AV block. Average heart rate when in sinus 72 beats per minute, minimum heart rate when in sinus rhythm 48 beats per minute, maximum heart rate in sinus rhythm 132 beats per minute. Rare short bursts of nonsustained VT. 6 in total. Longest lasting 7 beats. Frequent bursts of SVT, 1722 in total. The longest lasting 51.6 seconds. Some of these episodes of SVT were symptomatic. Second-degree AV block Mobitz type I noted nocturnally. Otherwise rare isolated atrial ectopy. Occasional isolated ventricular ectopy accounting for 1% of total beats. 13 patient triggered events correspond to SVT and sinus rhythm. 13 diary entries with symptoms such as shortness of breath, fluttering, chest pressure corresponding to bursts of SVT occasionally, and otherwise symptoms such as fluttering and racing and shortness of breath mostly corresponding to sinus rhythm. Overall sinus rhythm with frequent bursts of SVT with some of these bursts being symptomatic. Ramona Kwan M.D. SILVESTRE/mik T - 10/29/2018
== END 2018-10-06 01:57 ==
PROVIDERS: PCP Nurse Practitioner; Visit Provider Family Medicine
DX: I49.3 Ventricular premature depolarization (principal); I44.0 Atrioventricular block, first degree; I47.1 Supraventricular tachycardia; I44.1 Atrioventricular block, second degree
CPT/HCPCS: 0298T; 93225

== ENCOUNTER 2018-10-26 00:20 | Outpatient (CLI) | payer MEDICARE, OTHER, SELFPAY ==
--- NOTE | 2018-10-26 09:55 | MERGE_ITS ---
*[facility]* *[facility]* [address] [place] [address] Date of study: 10/26/2018 Transthoracic Echocardiography M-mode, complete 2D, complete spectral Doppler, and color Doppler *STUDY CONCLUSIONS* Summary: 1. Left ventricle: The cavity size was normal. The estimated ejection fraction was 40%. Diffuse hypokinesis. Findings consistent with diastolic dysfunction. There was no evidence of elevated ventricular filling pressure by Doppler parameters. 2. Aortic valve: There was mild regurgitation. 3. Mitral valve: There was mild regurgitation. 4. Left atrium: The atrium was mildly dilated. 5. Right ventricle: The cavity size was mildly dilated. Systolic function was mildly reduced. 6. Right atrium: The atrium was mildly dilated. 7. Atrial septum: No defect or patent foramen ovale was identified. 8. Pulmonary arteries: Pulmonary systolic pressure was in the range of 30mm Hg to 40mm Hg. 9. Inferior vena cava: The vessel was patent and normal in size. The respirophasic diameter changes were in the normal range (greater than or equal to 50%), consistent with normal central venous pressure. *PATIENT PRESENTATION* Height: 172.7cm ((68in) ) S/D Pressure: 133 / 64 Weight: 99.8kg ((219.5lb) ) BSA: 2.22m^2 Test start time: 10:00 AM. Test stop time: 10:50 AM. PERFORMING Unknown PERFORMING [facility] BUSINESS ADMINISTRATION TEACHER RT Deirdre (R)(CT), [facility] ORDERING Sania Cherry REFERRING Sania Cherry *PROCEDURE DATA* Procedure information: The patient was identified by two identifiers. This study was interpreted by [facility]. Pertinent images and digital data are archived for permanent storage and are available for subsequent review. Comparison was made to the study of 02/04/2014. Study status: Routine. Transthoracic echocardiography. M-mode, complete 2D, complete spectral Doppler, and color Doppler. A Transthoracic Echocardiogram was performed. Scanning was performed from the parasternal, apical, subcostal, and suprasternal notch acoustic windows. Images were obtained using an [id number] cardiac ultrasound machine. Image quality was adequate. Study completion: The patient tolerated the procedure well. History: PMH: F/u right heart failure. right heart failure with reduced right ventricular function. *CARDIAC ANATOMY* Left ventricle: The cavity size was normal. The estimated ejection fraction was 40%. Diffuse hypokinesis. The tissue Doppler parameters were abnormal. Findings consistent with diastolic dysfunction. There was no evidence of elevated ventricular filling pressure by Doppler parameters. Aortic valve: Trileaflet. Doppler: There was no stenosis. There was mild regurgitation. VTI ratio of LVOT to aortic valve: 0.63. Valve area (VTI): 2.4cm^2. Indexed valve area (VTI): 1.1cm^2/m^2. Peak velocity ratio of LVOT to aortic valve: 0.64. Valve area (Vmax): 2.4cm^2. Indexed valve area (Vmax): 1.1cm^2/m^2. Mean velocity ratio of LVOT to aortic valve: 0.61. Valve area (Vmean): 2.3cm^2. Indexed valve area (Vmean): 1cm^2/m^2. Mean gradient (S): 3.4mm Hg. Peak gradient (S): 5.9mm Hg. Aorta: Aortic root: The aortic root was normal in size. Ascending aorta: The ascending aorta was mildly dilated. Mitral valve: Doppler: There was no evidence for stenosis. There was mild regurgitation. Valve area by pressure half-time: 3.2cm^2. Indexed valve area by pressure half-time: 1.4cm^2/m^2. Left atrium: The atrium was mildly dilated. Atrial septum: No defect or patent foramen ovale was identified. Right ventricle: The cavity size was mildly dilated. Systolic function was mildly reduced. Pulmonic valve: Doppler: There was no evidence for stenosis. There was no significant regurgitation. Peak gradient (S): 4.5mm Hg. Tricuspid valve: Doppler: There was mild regurgitation. Pulmonary artery: Poorly visualized. Pulmonary systolic pressure was in the range of 30mm Hg to 40mm Hg. Right atrium: The atrium was mildly dilated. Pericardium: There was no pericardial effusion. Systemic veins: Inferior vena cava: The vessel was patent and normal in size. The respirophasic diameter changes were in the normal range (greater than or equal to 50%), consistent with normal central venous pressure. Measurements Left ventricle Value Reference LV ID, ED, PLAX 5.3 cm 3.5 - 6.0 LV ID, ES, PLAX 3.8 cm 2.1 - 4.0 LV PW thickness, ED, PLAX 0.9 cm LV end-diastolic volume, 1-p A2C 76 ml LV ejection fraction, 1-p A2C 34 % LV end-diastolic volume, 1-p A4C 73 ml LV ejection fraction, 1-p A4C 50 % LV e', lateral 0.084 m/sec LV E/e', lateral 5 LV e', medial 0.06 m/sec LV E/e', medial 8 LV e', average 0.072 m/sec LV E/e', average 6 Ventricular septum Value Reference IVS thickness, ED, PLAX 0.8 cm LVOT Value Reference LVOT ID, A-P 2.2 cm LVOT area 3.8 cm^2 LVOT peak velocity, S 0.78 m/sec LVOT mean velocity, S 0.54 m/sec LVOT VTI, S 16.4 cm LVOT peak gradient, S 2.4 mm Hg LVOT mean gradient, S 1.3 mm Hg Stroke volume (SV), LVOT DP 63 ml Stroke index (SV/bsa), LVOT DP 28 ml/m^2 Aortic valve Value Reference Aortic valve peak velocity, S 1.2 m/sec Aortic valve mean velocity, S 0.89 m/sec Aortic valve VTI, S 26.0 cm Aortic mean gradient, S 3.4 mm Hg Aortic peak gradient, S 5.9 mm Hg VTI ratio, LVOT/AV 0.63 Aortic valve area, VTI 2.4 cm^2 Velocity ratio, peak, LVOT/AV 0.64 Aortic valve area, peak velocity 2.4 cm^2 Velocity ratio, mean, LVOT/AV 0.61 Aortic valve area, mean velocity 2.3 cm^2 Aortic valve area/bsa, mean velocity 1 cm^2/m^2 Aorta Value Reference Aortic root ID, ED 3.3 cm Ascending aorta ID, A-P, S 3.5 cm Left atrium Value Reference LA ID, A-P, ES 4.5 cm LA ID/bsa, A-P 2.0 cm/m^2 <=2.2 LA area, ES, A4C 23.1 cm^2 8.8 - 23.4 LA area, ES, A2C 19 cm^2 LA volume/bsa, ES, 1-p A4C 34 ml/m^2 LA volume, ES, 2-p 56 ml LA volume/bsa, ES, 2-p 25 ml/m^2 LA/aortic root ratio 1.36 Mitral valve Value Reference Mitral E-wave peak velocity 0.45 m/sec Mitral A-wave peak velocity 0.68 m/sec Mitral deceleration time (H) 239 ms 150 - 230 Mitral pressure half-time 69 ms Mitral E/A ratio, peak 0.67 Mitral valve area, PHT, DP 3.2 cm^2 Pulmonary veins Value Reference Pulmonary vein peak velocity, S 0.58 m/sec Pulmonary vein peak velocity, D 0.48 m/sec Pulmonary vein velocity ratio, peak, 1.21 S/D Pulmonary vein A-wave reversal peak 0.28 m/sec velocity Tricuspid valve Value Reference Tricuspid regurg peak velocity 2.8 m/sec Tricuspid peak RV-RA gradient 31.3 mm Hg Right atrium Value Reference RA area, ES, A4C (H) 24.7 cm^2 8.3 - 19.5 Pulmonic valve Value Reference Pulmonic peak gradient, S 4.5 mm Hg Legend: (L) and (H) sofia values outside specified reference range. I have personally reviewed the images and have reviewed and edited the reported findings. Electronically signed by Isaac Murray MD 10/26/2018 17:40
== END 2018-10-26 00:40 ==
PROVIDERS: PCP Nurse Practitioner; Visit Provider Nurse Practitioner
DX: I50.810 Right heart failure, unspecified (principal); I50.30 Unspecified diastolic (congestive) heart failure; I34.0 Nonrheumatic mitral (valve) insufficiency; I35.1 Nonrheumatic aortic (valve) insufficiency
CPT/HCPCS: 93306

== ENCOUNTER 2018-10-29 11:20 | Outpatient (CLI) | payer MEDICARE, OTHER, SELFPAY | END 2018-10-29 11:40 | PROVIDERS: PCP Nurse Practitioner; Referring Provider Nurse Practitioner; Visit Provider Internal Medicine Cardiovascular Disease | DX: I49.3 Ventricular premature depolarization (principal); I44.0 Atrioventricular block, first degree; I47.1 Supraventricular tachycardia; I44.1 Atrioventricular block, second degree | CPT/HCPCS: 0298T ==

== ENCOUNTER 2018-11-27 09:07 | Outpatient (CLI) | payer MEDICARE, OTHER, SELFPAY ==
[2018-11-27 09:31] LABS: HCT 52.1 % (40.0-50.0); HGB 18.2 g/dL (13.5-17.5); Mean Corp. HGB Concentration 34.9 g/dL (32.0-36.0); Mean Corpuscular Hemoglobin 32.4 pg (27.0-33.0); Mean Corpuscular Volume 92.7 fL (80-95); Mean Platelet Volume 9.2 fL (8.0-11.0); Platelet Count 253 x1000/uL (130-400); RBC 5.62 m/cumm (4.50-6.00); RBC Distribution Width 13.3 % (11.8-14.1); White Blood Cell Count 8.38 k/cumm (4.4-10.8)
[2018-11-27 10:20] LABS: C-Reactive Protein 0.31 mg/dL (0.0-0.3)
[2018-11-27 11:05] LABS: ESR 3 MM/HR (1-20)
[2018-11-30 13:30] LABS: Rheumatoid Factor 8 IU/mL (<12.5)
[2018-12-02 15:07] LABS: ANA Interpretation Positive (NEGAT); ANA Titer Pattern 1:80 Speckled
== END 2018-11-27 09:27 ==
PROVIDERS: PCP Nurse Practitioner; Visit Provider Nurse Practitioner
DX: M25.50 Pain in unspecified joint (principal)
CPT/HCPCS: 36415; 85027; 85652; 86038; 86140; 86431

== ENCOUNTER → 2018-12-09 09:09 | Outpatient (BNVA) | payer MEDICARE, OTHER, SELFPAY | PROVIDERS: PCP Nurse Practitioner; Visit Provider Student in an Organized Health Care Education/Training Program | DX: I26.09 Other pulmonary embolism with acute cor pulmonale (principal); I82.413 Acute embolism and thrombosis of femoral vein, bilateral; I47.1 Supraventricular tachycardia; Z79.01 Long term (current) use of anticoagulants | CPT/HCPCS: 99205; 99215 ==

== ENCOUNTER 2018-12-10 04:57 | Emergency (ER) | payer MEDICARE, OTHER, SELFPAY ==
[2018-12-10 05:00] VITALS: BP 152/65; PULSE 75; RESP 20; TEMP 36; O2SAT 98
--- NOTE | 2018-12-10 05:10 | W.ED.GENAD ---
Discharge Plan Disposition Patient Disposition: HOME Condition: Good Discharge Details Chief Complaint: Epistaxis Clinical Impression: Left-sided epistaxis, Supratherapeutic INR Primary Care Provider: Sania Cherry ED Provider: Arpan Neville [place] Meds and New Rx's Prescriptions: No Action trazodone 50 mg tablet 50 mg PO HS PRN (Reason: insomnia) Qty: 90 RF: 3 warfarin 5 mg tablet 5 mg PO DIRECTED RF: 0 Apple Cider Vinegar Plus 1 EACH tablet 2 tab PO BID RF: 0 Chamomile 350 mg PO BID RF: 0 Discharge Instructions Instructions: Nosebleed (ED) Additional Instructions: Do not take your Coumadin tonight or tomorrow night. You may resume taking it on Friday. Return to the lab on Friday to have your INR rechecked. Use saline nose drops to keep your nasal mucosa moist. If recurrent bleeding pinch the nostrils together for at least 5-10 minutes. If unable to control bleeding return to ED. Referrals: Sania Cherry, RETAIL SELLING SPECIALIST [Primary Care Provider] - Medical Decision Making There is no active bleeding currently. He does have an area involving left nares anterior septum that is amendable to cauterization. Cotton ball soaked in phenylephrine/lidocaine mixture placed in the left nares. Area cauterized with silver nitrate. Patient tolerated procedure well. PT/INR checked. Patient's INR today is 6.6. In speaking with him he had a few beers last night. May have interfered with his INR. I do not think we need vitamin K. We will have him hold his Coumadin tonight and tomorrow night. Resume Friday night. Recheck INR on Friday. Return to ER for any further bleeding or other concerns. Lab Data Lab results reviewed: Yes I reviewed the patient's lab results. HPI General Mode of arrival: ambulatory. Date/Time Provider Initiated Documentation: 12/10/18 05:06. Limitations to Documentation: no limitations. Information obtained by: patient. HPI Narrative: Patient presents to ED with nosebleed. Patient states he had a little bit of a nosebleed a couple days ago. He is not ill, no URI symptoms. He is on Coumadin. His last INR check was okay. This morning he got up and blew his nose and had a nosebleed that would not stop. It has subsequently stopped on arrival here. He has no other complaints. Related Data Home Medications Medication Instructions Recorded Confirmed Apple Cider Vinegar Plus 2 tab PO BID 05/23/14 12/10/18 Chamomile 350 mg PO BID 05/23/14 12/10/18 trazodone 50 mg tablet 50 mg PO HS PRN #90 tab 10/21/18 12/10/18 warfarin 5 mg tablet 5 mg PO DIRECTED tab 12/09/18 12/10/18 Previous Rx's Medication Instructions Recorded trazodone 50 mg tablet 50 mg PO HS PRN #90 tab 10/21/18 Allergies Allergy/AdvReac Type Severity Reaction Status Date / Time codeine AdvReac Mild Nausea Verified 12/10/18 05:06 General Stated Complaint: Epistaxis MARTHA: 4 Review of Systems Constitutional Denies fever(s) and Denies headache(s) ENT Denies otalgia, Denies headache(s), Reports epistaxis, Denies nasal congestion, Denies nasal discharge, Denies nasal obstruction, Denies nasal trauma, Denies sinus pain, Denies sinus pressure and Denies sore throat Cardiovascular Denies chest pain, Denies syncope, Denies lightheadedness and Denies dyspnea Respiratory Denies cough and Denies dyspnea Neurologic Denies syncope and Denies headache(s) [facility] Medical History 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) DVT (deep venous thrombosis) (Chronic) Pulmonary embolism (Chronic) Hyperlipidemia (Chronic 02/13/12) Hypertension (Chronic) BPH (benign prostatic hypertrophy) (Chronic) Sleep apnea (Chronic) GERD (gastroesophageal reflux disease) (Chronic) Surgical History Endoscopic Carpal Tunnel release (Inactive 06/19/15) H/O elbow surgery (Inactive) H/O shoulder surgery (Inactive) History of total hip arthroplasty (Inactive) 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) S/P cataract extraction and insertion of intraocular lens (Inactive ~03/17/14) S/P cataract extraction and insertion of intraocular lens (Inactive 03/31/14) S/P trigger finger release (Inactive) Social History housing: house lives independently: Yes number of children: 3 current occupational status: retired Smoking/Tobacco Use Status: Former Tobacco Use quit date: 12/23/97 alcohol intake: former substance use type: does not use seatbelt use: always working smoke detector in home: Yes fire extinguisher in home: Yes carbon monox detector in home: Yes Exam Const General: cooperative and no acute distress Orientation: alert and oriented x3 HENMT Head: normocephalic and atraumatic General nose exam: external nose normal and epistaxis on the left anterior source and dried blood present; no active bleeding Mouth: oropharynx normal Neck Neck: trachea midline and supple Neuro General: alert, oriented x3, no focal motor deficits and CN's II-XI intact bilaterally Course Vital Signs Temperature 96.8 F L 12/10/18 05:00 Pulse 75 12/10/18 05:00 Respiratory Rate 20 12/10/18 05:00 Blood Pressure 152/65 H 12/10/18 05:00 Pulse Oximetry 98 12/10/18 05:00 Temperature 96.8 F L 12/10/18 05:00 Pulse 75 12/10/18 05:00 Respiratory Rate 20 12/10/18 05:00 Respiratory Effort Non-Labored 12/10/18 05:03 Blood Pressure 152/65 H 12/10/18 05:00 Blood Pressure Position Sitting 12/10/18 05:00 Pulse Oximetry 98 12/10/18 05:00 Oxygen Delivery Method Room Air 12/10/18 05:00 Oxygen Flow Rate 0 12/10/18 05:00 Pain Level 0 12/10/18 05:00 Procedures Epistaxis Control Nostril: left Nose Prepped With: lidocaine and phenylephrine Direct Inspection: anterior source identified Cautery Used: silver nitrate Patient Tolerated Procedure: well
--- NOTE | 2018-12-10 05:16 | ED.GENADUL_ITS ---
Discharge Plan Disposition Patient Disposition: HOME Condition: Good Discharge Details Chief Complaint: Epistaxis Clinical Impression: Left-sided epistaxis, Supratherapeutic INR Primary Care Provider: Sania Cherry ED Provider: Arpan Neville [place] Meds and New Rx's Prescriptions: No Action trazodone 50 mg tablet 50 mg PO HS PRN (Reason: insomnia) Qty: 90 RF: 3 warfarin 5 mg tablet 5 mg PO DIRECTED RF: 0 Apple Cider Vinegar Plus 1 EACH tablet 2 tab PO BID RF: 0 Chamomile 350 mg PO BID RF: 0 Discharge Instructions Instructions: Nosebleed (ED) Additional Instructions: Do not take your Coumadin tonight or tomorrow night. You may resume taking it on Friday. Return to the lab on Friday to have your INR rechecked. Use saline nose drops to keep your nasal mucosa moist. If recurrent bleeding pinch the nostrils together for at least 5-10 minutes. If unable to control bleeding return to ED. Referrals: Sania Cherry, DROP MAN [Primary Care Provider] - Medical Decision Making There is no active bleeding currently. He does have an area involving left nares anterior septum that is amendable to cauterization. Cotton ball soaked in phenylephrine/lidocaine mixture placed in the left nares. Area cauterized with silver nitrate. Patient tolerated procedure well. PT/INR checked. Patient's INR today is 6.6. In speaking with him he had a few beers last night. May have interfered with his INR. I do not think we need vitamin K. We will have him hold his Coumadin tonight and tomorrow night. Resume Friday night. Recheck INR on Friday. Return to ER for any further bleeding or other concerns. Lab Data Lab results reviewed: Yes I reviewed the patient's lab results. HPI General Mode of arrival: ambulatory . Date/Time Provider Initiated Documentation: 12/10/18 05:06 . Limitations to Documentation: no limitations . Information obtained by: patient . HPI Narrative: Patient presents to ED with nosebleed. Patient states he had a little bit of a nosebleed a couple days ago. He is not ill, no URI symptoms. He is on Coumadin. His last INR check was okay. This morning he got up and blew his nose and had a nosebleed that would not stop. It has subsequently stopped on arrival here. He has no other complaints. Related Data Home Medications Medication Instructions Recorded Confirmed Apple Cider Vinegar Plus 2 tab PO BID 05/23/14 12/10/18 Chamomile 350 mg PO BID 05/23/14 12/10/18 trazodone 50 mg tablet 50 mg PO HS PRN #90 tab 10/21/18 12/10/18 warfarin 5 mg tablet 5 mg PO DIRECTED tab 12/09/18 12/10/18 Previous Rx's Medication Instructions Recorded trazodone 50 mg tablet 50 mg PO HS PRN #90 tab 10/21/18 Allergies Allergy/AdvReac Type Severity Reaction Status Date / Time codeine AdvReac Mild Nausea Verified 12/10/18 05:06 General Stated Complaint: Epistaxis MARTHA: 4 Review of Systems Constitutional Denies fever(s) and Denies headache(s) ENT Denies otalgia, Denies headache(s), Reports epistaxis, Denies nasal congestion, Denies nasal discharge, Denies nasal obstruction, Denies nasal trauma, Denies sinus pain, Denies sinus pressure and Denies sore throat Cardiovascular Denies chest pain, Denies syncope, Denies lightheadedness and Denies dyspnea Respiratory Denies cough and Denies dyspnea Neurologic Denies syncope and Denies headache(s) [facility] Medical History 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) DVT (deep venous thrombosis) (Chronic) Pulmonary embolism (Chronic) Hyperlipidemia (Chronic 02/13/12) Hypertension (Chronic) BPH (benign prostatic hypertrophy) (Chronic) Sleep apnea (Chronic) GERD (gastroesophageal reflux disease) (Chronic) Surgical History Endoscopic Carpal Tunnel release (Inactive 06/19/15) H/O elbow surgery (Inactive) H/O shoulder surgery (Inactive) History of total hip arthroplasty (Inactive) 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) S/P cataract extraction and insertion of intraocular lens (Inactive ~03/17/14) S/P cataract extraction and insertion of intraocular lens (Inactive 03/31/14) S/P trigger finger release (Inactive) Social History housing: house lives independently: Yes number of children: 3 current occupational status: retired Smoking/Tobacco Use Status: Former Tobacco Use quit date: 12/23/97 alcohol intake: former substance use type: does not use seatbelt use: always working smoke detector in home: Yes fire extinguisher in home: Yes carbon monox detector in home: Yes Exam Const General: cooperative and no acute distress Orientation: alert and oriented x3 HENMT Head: normocephalic and atraumatic General nose exam: external nose normal and epistaxis on the left anterior source and dried blood present; no active bleeding Mouth: oropharynx normal Neck Neck: trachea midline and supple Neuro General: alert, oriented x3, no focal motor deficits and CN's II-XI intact bilaterally Course Vital Signs Temperature 96.8 F L 12/10/18 05:00 Pulse 75 12/10/18 05:00 Respiratory Rate 20 12/10/18 05:00 Blood Pressure 152/65 H 12/10/18 05:00 Pulse Oximetry 98 12/10/18 05:00 Temperature 96.8 F L 12/10/18 05:00 Pulse 75 12/10/18 05:00 Respiratory Rate 20 12/10/18 05:00 Respiratory Effort Non-Labored 12/10/18 05:03 Blood Pressure 152/65 H 12/10/18 05:00 Blood Pressure Position Sitting 12/10/18 05:00 Pulse Oximetry 98 12/10/18 05:00 Oxygen Delivery Method Room Air 12/10/18 05:00 Oxygen Flow Rate 0 12/10/18 05:00 Pain Level 0 12/10/18 05:00 Procedures Epistaxis Control Nostril: left Nose Prepped With: lidocaine and phenylephrine Direct Inspection: anterior source identified Cautery Used: silver nitrate Patient Tolerated Procedure: well
[2018-12-10] MEDS: Silver Nitrate Stick 1 EACH TP (05:17)
[2018-12-10 05:36] LABS: Prothrombin Time 67.2 sec (9.3-11.0)
[2018-12-10 05:40] LABS: INR 6.6 (0.9-1.1)
== END 2018-12-10 06:02 | disposition home or self-care (01) ==
LOC: ER 06:06
PROVIDERS: Emergency Provider Emergency Medicine; PCP Nurse Practitioner
DX: R04.0 Epistaxis (principal); R79.1 Abnormal coagulation profile; T45.515A Adverse effect of anticoagulants, initial encounter; Z79.01 Long term (current) use of anticoagulants; I10 Essential (primary) hypertension
CPT/HCPCS: 30901; 36415; 99283; 85610

== ENCOUNTER 2018-12-11 13:54 | Emergency (ER) | payer MEDICARE, OTHER, SELFPAY ==
[2018-12-11 13:58] VITALS: BP 174/76; PULSE 76; RESP 18; TEMP 36.7; O2SAT 98
--- NOTE | 2018-12-11 14:29 | ED.GENADUL_ITS ---
Discharge Plan Disposition Patient Disposition: HOME Discharge Details Chief Complaint: Epistaxis Clinical Impression: Epistaxis Primary Care Provider: Sanai Cherry ED Provider: Sepideh Hooker Home Meds and New Rx's Prescriptions: Continued trazodone 50 mg tablet 50 mg PO HS PRN (Reason: insomnia) Qty: 90 RF: 3 warfarin 5 mg tablet 5 mg PO DIRECTED RF: 0 Apple Cider Vinegar Plus 1 EACH tablet 2 tab PO BID RF: 0 Chamomile 350 mg PO BID RF: 0 Discharge Instructions Instructions: Nosebleed (ED) Additional Instructions: Hold your Coumadin dose for tonight. Take 2.5 mg dose of Coumadin tomorrow night and 5 mg dose Friday night and have your PT/INR checked on Friday morning. Refrain from any nose blowing or picking. If you develop any further bleeding, you can apply pressure or clamp to the nose as well as ice pack to the forehead. Return to the emergency department any worsening or new concerning symptoms. Discharge Data Discharge Date/Time-TO BE ENTERED AT DEPARTURE: 12/11/18 19:57 Discharge Physician: Sepideh Hooker Medical Decision Making 78-year-old male with a history of PE and DVT on Coumadin who presents for epistaxis since 10 AM after taking a hot shower. Patient was seen here yesterday for epistaxis from his left nares which resolved before coming to the ED. Dr. Neville had visualized an area amenable to cauterization and this area was subsequently cauterized with silver nitrate and also had phenylephrine soaked gauze placed. Patient also was noted to have a supratherapeutic INR at 6. It was thought that recent alcohol use may have contributed to this. Pt was discharged to home and advised to hold his coumadin dose last night. Today on exam, there is active bleeding noted in the left nares in septum, appears anterior. This area was cauterized with silver nitrate and placed phenylephrine soaked brody and clamp and will remove and reassess. 1744 --left nares rebleeding after removal of gauze. Will place TXA soaked gauze and clamp and reassess. 1944 --cottonball soaked in TXA removed and no further bleeding after observed for another 30 minutes after removal. There is some red mucus noted in nares b ut no active bleeding. Patient states he feels good to go home. INR 3.9 today. Patient is instructed to hold his Coumadin dose for this evening and take half of his 5 mg dose (2.5mg) tomorrow night, and take 5 mg dose Friday night. Patient usually takes 7.5 mg 3 days weekly, and 5 mg usually on other 4 days. He is instructed to follow-up for recheck of his PT/INR Friday morning. He is instructed return here at any time if worse. Medical Records Medical records reviewed: Yes I reviewed the patient's medical records. Lab Data Lab results reviewed: Yes I reviewed the patient's lab results. Laboratory Tests Range/Units 12/11/18 14:50 PT (9.3-11.0) sec 39.7 H D INR (0.9-1.1) 3.9 H D APTT (21.0-31.4) sec 40.5 H HPI General Mode of arrival: ambulatory . Date/Time Provider Initiated Documentation: 12/11/18 14:24 . Limitations to Documentation: no limitations . Information obtained by: patient . HPI Narrative: Patient is a 78-year-old male with a history of DVT and PE on Coumadin who presents with nosebleed from left nares since 10 AM this morning. Patient was seen here yesterday for nosebleed since 3 AM which had resolved upon arrival. Patient had phenylephrine soaked gauze placed in the nose while here in the ED and he was discharged home. Patient states when he was in the shower this morning, his left nares started bleeding again. Patient denies fever, chest pain, shortness of breath, headache or dizziness. Related Data Home Medications Medication Instructions Recorded Confirmed Apple Cider Vinegar Plus 2 tab PO BID 05/23/14 12/11/18 Chamomile 350 mg PO BID 05/23/14 12/10/18 trazodone 50 mg tablet 50 mg PO HS PRN #90 tab 10/21/18 12/11/18 warfarin 5 mg tablet 5 mg PO DIRECTED tab 12/09/18 12/11/18 Previous Rx's Medication Instructions Recorded trazodone 50 mg tablet 50 mg PO HS PRN #90 tab 10/21/18 Allergies Allergy/AdvReac Type Severity Reaction Status Date / Time codeine AdvReac Mild Nausea Verified 12/11/18 14:02 General Stated Complaint: Epistaxis MARTHA: 3 Review of Systems Review of Systems All systems reviewed & are unremarkable except as noted in HPI and below Constitutional Reports as per HPI, Denies chills and Denies fever(s) Eyes Denies blurry vision ENT Denies dizziness, Denies sore throat and Denies throat swelling Cardiovascular Denies chest pain and Denies dyspnea Respiratory Denies dyspnea Gastrointestinal Denies abdominal pain, Denies diarrhea and Denies vomiting Genitourinary Denies hematuria and Denies dysuria Musculoskeletal Denies back pain and Denies numbness Integumentary/Breasts Denies lesions and Denies rash Neurologic Denies dizziness and Denies numbness Allergic/Immunologic Denies throat swelling [facility] Medical History 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) DVT (deep venous thrombosis) (Chronic) Pulmonary embolism (Chronic) Hyperlipidemia (Chronic 02/13/12) Hypertension (Chronic) BPH (benign prostatic hypertrophy) (Chronic) Sleep apnea (Chronic) GERD (gastroesophageal reflux disease) (Chronic) Surgical History Endoscopic Carpal Tunnel release (Inactive 06/19/15) H/O elbow surgery (Inactive) H/O shoulder surgery (Inactive) History of total hip arthroplasty (Inactive) 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) S/P cataract extraction and insertion of intraocular lens (Inactive ~03/17/14) S/P cataract extraction and insertion of intraocular lens (Inactive 03/31/14) S/P trigger finger release (Inactive) Family History Mother Heart disease Alzheimer disease Father Heart disease Sister Colon cancer Sister Heart disease Brother Diabetes Social History housing: house lives independently: Yes number of children: 3 current occupational status: retired Smoking/Tobacco Use Status: Former Tobacco Use quit date: 12/23/97 alcohol intake: former substance use type: does not use seatbelt use: always working smoke detector in home: Yes fire extinguisher in home: Yes carbon monox detector in home: Yes Exam Const General: cooperative, healthy appearing and no acute distress HENMT Head: normal to inspection Ears: hearing grossly normal bilaterally General nose exam: epistaxis on the left anterior source and active bleeding Mouth: oral mucosae normal Throat: posterior oropharynx normal Eyes General: appearance normal, both eyes and all related structures Neck Neck: normal visual inspection Resp Effort & Inspection: normal respiratory effort and able to speak in complete sentences Auscultation: clear to auscultation bilaterally Cardio Rate: regular rate Rhythm: regular rhythm GI Palpation: soft and nontender Skin General skin exam: no rashes or lesions noted Neuro General: alert, awake and oriented x3 Motor: muscle tone normal throughout Extrem General: normal to inspection and full ROM Psych Appearance: grossly normal Affect: normal affect Course Vital Signs Temperature 98.1 F 12/11/18 13:58 Pulse 76 12/11/18 13:58 Respiratory Rate 18 12/11/18 13:58 Blood Pressure 174/76 H 12/11/18 13:58 Pulse Oximetry 98 12/11/18 13:58 Temperature 98.1 F 12/11/18 13:58 Temperature Source Temporal Artery Scan 12/11/18 13:58 Pulse 76 12/11/18 13:58 Respiratory Rate 18 12/11/18 13:58 Respiratory Effort 12/11/18 14:00 Blood Pressure 174/76 H 12/11/18 13:58 Blood Pressure Position Sitting 12/11/18 13:58 Pulse Oximetry 98 12/11/18 13:58 Oxygen Delivery Method Room Air 12/11/18 13:58 Oxygen Flow Rate 0 12/11/18 13:58 Pain Level 0 12/11/18 13:58
[2018-12-11 15:34] LABS: INR 3.9 (0.9-1.1); PTT Activated 40.5 sec (21.0-31.4); Prothrombin Time 39.7 sec (9.3-11.0)
--- NOTE | 2018-12-11 16:24 | NUR.NOTE ---
Nursing Note: Late Entry 1600 - Pt. still awaiting MD [place], pt. is in no acute distress. Has ambulated to restroom with steady gait, in NAD. Epistaxis continues, minimally. MD Hooker is at the bedside currently.
--- NOTE | 2018-12-11 16:27 | NUR.NOTE ---
Nursing Note: MD Hooker at the bedside applying silver nitrate.
[2018-12-11] MEDS: Tranexamic Acid 1,000 MG/10 ML VIAL 1000 MG NS (18:20)
[2018-12-11 18:49] VITALS: BP 167/76; PULSE 76; RESP 18; O2SAT 94
== END 2018-12-11 19:57 | disposition home or self-care (01) ==
PROVIDERS: Emergency Provider Physician Assistant; PCP Nurse Practitioner
DX: R04.0 Epistaxis (principal); T45.515A Adverse effect of anticoagulants, initial encounter; Z79.01 Long term (current) use of anticoagulants; Z86.711 Personal history of pulmonary embolism; I10 Essential (primary) hypertension
CPT/HCPCS: 30901; 36415; 85610; 85730

== ENCOUNTER 2018-12-11 22:37 | Emergency (ER) | payer MEDICARE, OTHER, SELFPAY ==
[2018-12-11 22:39] VITALS: BP 174/90; PULSE 78; RESP 16; TEMP 36.6; O2SAT 96
[2018-12-11] MEDS: Lidocaine 2% Viscous 15 ML CUP (22:50)
--- NOTE | 2018-12-11 23:10 | W.ED.GENAD ---
Discharge Plan Disposition Patient Disposition: HOME Condition: Good Discharge Details Chief Complaint: Epistaxis Clinical Impression: Epistaxis Primary Care Provider: Sania Cherry ED Provider: Jagdeep Ramirez Home Meds and New Rx's Prescriptions: No Action trazodone 50 mg tablet 50 mg PO HS PRN (Reason: insomnia) Qty: 90 RF: 3 warfarin 5 mg tablet 5 mg PO DIRECTED RF: 0 Apple Cider Vinegar Plus 1 EACH tablet 2 tab PO BID RF: 0 Chamomile 350 mg PO BID RF: 0 Discharge Instructions Instructions: Nosebleed (ED) Additional Instructions: If you start bleeding again please return immediately or contact us in the emergency department at [phone]. Please return on Friday to have the Rhino Rocket taken out. if you notice any worsening of your symptoms, or any new symptoms such as vomiting, diarrhea, fever, chills, shortness of breath, chest pain, numbness, weakness, or fainting , please return immediately to the emergency department for reevaluation. Please follow up with your primary care provider as soon as possible for reassessment and reevaluation. As always, it was a pleasure participating in your medical care today. Referrals: Sania Cherry, NAOMI [Primary Care Provider] - Discharge Data Discharge Date/Time-TO BE ENTERED AT DEPARTURE: 12/11/18 23:16 Medical Decision Making This is a very pleasant 78-year-old male was on Coumadin for DVTs who presents for evaluation of epistaxis. Unfortunately the gentleman has had 2 visits already for treatment of his epistaxis, chemical and pharmaceutical management seems to not be managing it well at this time as he has had Afrin, phenylephrine and TXA with unfortunate return of his bleeding. Physical exam shows no signs of airway compromise. No contraindications to Rhino Rocket. A Rhino Rocket was placed in the patient's left nare, he had complete cessation of his bleeding after this. He tolerated the procedure well. Patient will be discharged home with instructions to closely follow up with his primary care provider or return here Friday morning to have his Rhino Rocket removed. We discussed red flags which return and the patient understands. I have extensively reviewed the treatment plan and discharge instructions with the patient and their family. I have addressed all patient concerns at this time. The patient and family was made aware of what symptoms to monitor for that would warrant a return to the emergency department. Discussed the plan with the patient and family, they demonstrate verbal understanding and agreement with our assessment and plan at this time. HPI General Date/Time Provider Initiated Documentation: 12/11/18 22:38. HPI Narrative: This is a 78-year-old male who is on Coumadin for history of DVTs who presents for his third time today for epistaxis in his nose. Earlier the patient's INR was greater than 6, however repeat today showed that the INR came down to 3. He had 2 episodes of bleeding from his nose earlier today where he was given phenylephrine, Afrin, and TXA. He was eventually discharged home. Unfortunately when he went home he short returned shortly thereafter with repeat bleed from his left nare. He denies any pain, he denies any difficulty breathing. He denies picking at his nose. He has no other complaints at this time. Related Data Home Medications Medication Instructions Recorded Confirmed Apple Cider Vinegar Plus 2 tab PO BID 05/23/14 12/11/18 Chamomile 350 mg PO BID 05/23/14 12/10/18 trazodone 50 mg tablet 50 mg PO HS PRN #90 tab 10/21/18 12/11/18 warfarin 5 mg tablet 5 mg PO DIRECTED tab 12/09/18 12/11/18 Previous Rx's Medication Instructions Recorded trazodone 50 mg tablet 50 mg PO HS PRN #90 tab 10/21/18 Allergies Allergy/AdvReac Type Severity Reaction Status Date / Time codeine AdvReac Mild Nausea Verified 12/11/18 14:02 General Stated Complaint: Epistaxis MARTHA: 3 Review of Systems Review of Systems All systems reviewed & are unremarkable except as noted in HPI and below [facility] Social History housing: house lives independently: Yes number of children: 3 current occupational status: retired Smoking/Tobacco Use Status: Former Tobacco Use quit date: 12/23/97 alcohol intake: former substance use type: does not use seatbelt use: always working smoke detector in home: Yes fire extinguisher in home: Yes carbon monox detector in home: Yes Exam Narrative Exam Narrative: 1.Const: Well-nourished, Well-developed, appearing stated age 2.Eyes: PERRL, no conjunctival injection, and symmetrical lids. 3.ENT: Patient demonstrates bleeding from the anterior component of his left nare. Presumed to be Emily box plexus. No bleeding in the posterior oropharynx. Airway is clear. No other signs of abnormality on exam. 4.CVS: +S1/S2, No murmurs or gallops. Peripheral pulses 2+ and equal in all extremities. Brisk capillary refill in all extremities. 5.RESP: Unlabored respiratory effort. Clear to auscultation bilaterally. No wheezes rales or rhonchi 6.GI: Soft, Nontender/Nondistended, No hepatosplenomegaly. No guarding or rebound. 7.MSK: Normocephalic/Atraumatic, Extremities w/o deformity or ttp No cyanosis or clubbing, Normal movement of all extremities 8.Skin: Warm, Dry. No rashes or lesions. 9.Neuro: ad operations specialist II-XII grossly intact. Sensation grossly intact, no focal neurologic deficits. 10.Psych: (AAO) x3. Appropriate mood and affect Course Vital Signs Temperature 36.6 C 12/11/18 22:39 Pulse 78 12/11/18 22:39 Respiratory Rate 16 12/11/18 22:39 Blood Pressure 174/90 H 12/11/18 22:39 Pulse Oximetry 96 12/11/18 22:39 Temperature 36.6 C 12/11/18 22:39 Temperature Source Skin 12/11/18 22:39 Pulse 78 12/11/18 22:39 Respiratory Rate 16 12/11/18 22:39 Respiratory Effort Non-Labored 12/11/18 22:42 Blood Pressure 174/90 H 12/11/18 22:39 Blood Pressure Position Sitting 12/11/18 22:39 Pulse Oximetry 96 12/11/18 22:39 Oxygen Delivery Method Room Air 12/11/18 22:39 Oxygen Flow Rate 0 12/11/18 22:39 Pain Level 0 12/11/18 22:39
--- NOTE | 2018-12-11 23:13 | ED.GENADUL_ITS ---
Discharge Plan Disposition Patient Disposition: HOME Condition: Good Discharge Details Chief Complaint: Epistaxis Clinical Impression: Epistaxis Primary Care Provider: Sania Cherry ED Provider: Jagdeep Ramirez Home Meds and New Rx's Prescriptions: No Action trazodone 50 mg tablet 50 mg PO HS PRN (Reason: insomnia) Qty: 90 RF: 3 warfarin 5 mg tablet 5 mg PO DIRECTED RF: 0 Apple Cider Vinegar Plus 1 EACH tablet 2 tab PO BID RF: 0 Chamomile 350 mg PO BID RF: 0 Discharge Instructions Instructions: Nosebleed (ED) Additional Instructions: If you start bleeding again please return immediately or contact us in the emergency department at [phone]. Please return on Friday to have the Rhino Rocket taken out. if you notice any worsening of your symptoms, or any new symptoms such as vomiting, diarrhea, fever, chills, shortness of breath, chest pain, numbness, weakness, or fainting , please return immediately to the emergency department for reevaluation. Please follow up with your primary care provider as soon as possible for reassessment and reevaluation. As always, it was a pleasure participating in your medical care today. Referrals: Sania Cherry, NAOMI [Primary Care Provider] - Discharge Data Discharge Date/Time-TO BE ENTERED AT DEPARTURE: 12/11/18 23:16 Medical Decision Making This is a very pleasant 78-year-old male was on Coumadin for DVTs who presents for evaluation of epistaxis. Unfortunately the gentleman has had 2 visits already for treatment of his epistaxis, chemical and pharmaceutical management seems to not be managing it well at this time as he has had Afrin, phenylephrine and TXA with unfortunate return of his bleeding. Physical exam shows no signs of airway compromise. No contraindications to Rhino Rocket. A Rhino Rocket was placed in the patient's left nare, he had complete cessation of his bleeding after this. He tolerated the procedure well. Patient will be discharged home with instructions to closely follow up with his primary care provider or return here Friday morning to have his Rhino Rocket removed. We discussed red flags which return and the patient understands. I have extensively reviewed the treatment plan and discharge instructions with the patient and their family. I have addressed all patient concerns at this time. The patient and family was made aware of what symptoms to monitor for that would warrant a return to the emergency department. Discussed the plan with the patient and family, they demonstrate verbal understanding and agreement with our assessment and plan at this time. HPI General Date/Time Provider Initiated Documentation: 12/11/18 22:38 . HPI Narrative: This is a 78-year-old male who is on Coumadin for history of DVTs who presents for his third time today for epistaxis in his nose. Earlier the patient's INR was greater than 6, however repeat today showed that the INR came down to 3. He had 2 episodes of bleeding from his nose earlier today where he was given phenylephrine, Afrin, and TXA. He was eventually discharged home. Unfortunately when he went home he short returned shortly thereafter with repeat bleed from his left nare. He denies any pain, he denies any difficulty breathing. He denies picking at his nose. He has no other complaints at this time. Related Data Home Medications Medication Instructions Recorded Confirmed Apple Cider Vinegar Plus 2 tab PO BID 05/23/14 12/11/18 Chamomile 350 mg PO BID 05/23/14 12/10/18 trazodone 50 mg tablet 50 mg PO HS PRN #90 tab 10/21/18 12/11/18 warfarin 5 mg tablet 5 mg PO DIRECTED tab 12/09/18 12/11/18 Previous Rx's Medication Instructions Recorded trazodone 50 mg tablet 50 mg PO HS PRN #90 tab 10/21/18 Allergies Allergy/AdvReac Type Severity Reaction Status Date / Time codeine AdvReac Mild Nausea Verified 12/11/18 14:02 General Stated Complaint: Epistaxis MARTHA: 3 Review of Systems Review of Systems All systems reviewed & are unremarkable except as noted in HPI and below REPLACED BY [facility] Social History housing: house lives independently: Yes number of children: 3 current occupational status: retired Smoking/Tobacco Use Status: Former Tobacco Use quit date: 12/23/97 alcohol intake: former substance use type: does not use seatbelt use: always working smoke detector in home: Yes fire extinguisher in home: Yes carbon monox detector in home: Yes Exam Narrative Exam Narrative: 1.Const: Well-nourished, Well-developed, appearing stated age 2.Eyes: PERRL, no conjunctival injection, and symmetrical lids. 3.ENT: Patient demonstrates bleeding from the anterior component of his left nare. Presumed to be Emily box plexus. No bleeding in the posterior oropharynx. Airway is clear. No other signs of abnormality on exam. 4.CVS: +S1/S2, No murmurs or gallops. Peripheral pulses 2+ and equal in all extremities. Brisk capillary refill in all extremities. 5.RESP: Unlabored respiratory effort. Clear to auscultation bilaterally. No wheezes rales or rhonchi 6.GI: Soft, Nontender/Nondistended, No hepatosplenomegaly. No guarding or rebound. 7.MSK: Normocephalic/Atraumatic, Extremities w/o deformity or ttp No cyanosis or clubbing, Normal movement of all extremities 8.Skin: Warm, Dry. No rashes or lesions. 9.Neuro: arrow point attacher II-XII grossly intact. Sensation grossly intact, no focal neurologic deficits. 10.Psych: (AAO) x3. Appropriate mood and affect Course Vital Signs Temperature 36.6 C 12/11/18 22:39 Pulse 78 12/11/18 22:39 Respiratory Rate 16 12/11/18 22:39 Blood Pressure 174/90 H 12/11/18 22:39 Pulse Oximetry 96 12/11/18 22:39 Temperature 36.6 C 12/11/18 22:39 Temperature Source Skin 12/11/18 22:39 Pulse 78 12/11/18 22:39 Respiratory Rate 16 12/11/18 22:39 Respiratory Effort Non-Labored 12/11/18 22:42 Blood Pressure 174/90 H 12/11/18 22:39 Blood Pressure Position Sitting 12/11/18 22:39 Pulse Oximetry 96 12/11/18 22:39 Oxygen Delivery Method Room Air 12/11/18 22:39 Oxygen Flow Rate 0 12/11/18 22:39 Pain Level 0 12/11/18 22:39
== END 2018-12-11 23:16 | disposition home or self-care (01) ==
PROVIDERS: Emergency Provider Student in an Organized Health Care Education/Training Program; PCP Nurse Practitioner
DX: R04.0 Epistaxis (principal)
CPT/HCPCS: 30901

== ENCOUNTER 2018-12-12 02:26 | Emergency (ER) | payer MEDICARE, OTHER, SELFPAY ==
--- NOTE | 2018-12-12 02:41 | ED.GENADUL_ITS ---
Discharge Plan Disposition Patient Disposition: HOME Condition: Good Discharge Details Chief Complaint: Epistaxis Clinical Impression: Epistaxis Primary Care Provider: Sania Cherry ED Provider: Jagdeep Ramirez Home Meds and New Rx's Prescriptions: No Action trazodone 50 mg tablet 50 mg PO HS PRN (Reason: insomnia) Qty: 90 RF: 3 warfarin 5 mg tablet 5 mg PO DIRECTED RF: 0 Apple Cider Vinegar Plus 1 EACH tablet 2 tab PO BID RF: 0 Chamomile 350 mg PO BID RF: 0 Discharge Instructions Instructions: Nosebleed (ED) Additional Instructions: Please return on Friday to have the nasal packing removed. If your bleeding returns please contact us to return immediately. If you notice any worsening of your symptoms, or any new symptoms such as vomiting, diarrhea, fever, chills, shortness of breath, chest pain, numbness, weakness, or fainting , please return immediately to the emergency department for reevaluation. Please follow up with your primary care provider as soon as possible for reassessment and reevaluation. As always, it was a pleasure participating in your medical care today. Referrals: Sania Cherry, [employer] REPAIRER [Primary Care Provider] - Medical Decision Making This is a pleasant 78-year-old gentleman who is on warfarin for an official valve who presents for epistaxis. This is his fourth time presenting for this. On his last visit I did assess him and placed a Rhino Rocket. He initially had some continued bleeding in spite of this however the bleeding eventually stopped and the patient requested to be discharged. He was discharged. However 2-3 hours later his bleeding returned and he came in for further evaluation. On my exam this time the bleeding appears to be less coming from the anterior component more so from the just below the inferior turbinate slightly posterior from the left nare. The area was saturated with medical use cocaine, and then a Merocel packing was placed for better absorption and ergonomics to the interior of the nose. Patient tolerated this well, bleeding is completely resolved. With resolution of his symptoms I feel that definitive management has been achieved at this time to the best of her capabilities. Patient will be discharg ed home. I have extensively reviewed the treatment plan and discharge instructions with the patient. I have addressed all patient concerns at this time. The patient was made aware of what symptoms to monitor for that would warrant a return to the emergency department. Discussed the plan with the patient, they demonstrate verbal understanding and agreement with our assessment and plan at this time. HPI General Date/Time Provider Initiated Documentation: 12/12/18 02:39 . HPI Narrative: This is a 78-year-old male who is on warfarin for aortic heart valve who presents today for epistaxis. He has been here 3 times already today for epistaxis in the left nose. Rhino Rocket was placed on his last visit after chemical and pharmaceutical mechanisms were unsuccessful. Bleeding appears to be mainly in his anterior component over Emily box plexus. The Rhino Rocket did notably tamponade this area but was not able to completely tampon on the anterior component. However in spite of this the patient had resolution of his bleeding and requested discharge home. Patient was discharged however roughly 3 hours later he had return of his bleeding symptoms. He has no additional complaints at this time. Related Data Home Medications Medication Instructions Recorded Confirmed Apple Cider Vinegar Plus 2 tab PO BID 05/23/14 12/11/18 Chamomile 350 mg PO BID 05/23/14 12/10/18 trazodone 50 mg tablet 50 mg PO HS PRN #90 tab 10/21/18 12/11/18 warfarin 5 mg tablet 5 mg PO DIRECTED tab 12/09/18 12/11/18 Previous Rx's Medication Instructions Recorded trazodone 50 mg tablet 50 mg PO HS PRN #90 tab 10/21/18 Allergies Allergy/AdvReac Type Severity Reaction Status Date / Time codeine AdvReac Mild Nausea Verified 12/11/18 14:02 General MARTHA: 3 Review of Systems Review of Systems All systems reviewed & are unremarkable except as noted in HPI and below PFSH Social History housing: house lives independently: Yes number of children: 3 current occupational status: retired Smoking/Tobacco Use Status: Former Tobacco Use quit date: 12/23/97 alcohol intake: former substance use type: does not use seatbelt use: always working smoke detector in home: Yes fire extinguisher in home: Yes carbon monox detector in home: Yes Exam Narrative Exam Narrative: 1.Const: Well-nourished, Well-developed, appearing stated age 2.Eyes: PERRL, no conjunctival injection, and symmetrical lids. 3.ENT: Atraumatic external nose and ears. Moist MM. Neck: Symmetric, trachea midline, No thyromegaly. After notable cleaning, bleeding appears to be coming less from the anterior component more from the area below the inferior turbinate roughly 1 cm posterior from the nares. No other abnormalities on the left. No abnormalities on the right 4.CVS: +S1/S2, No murmurs or gallops. Peripheral pulses 2+ and equal in all extremities. Brisk capillary refill in all extremities. 5.RESP: Unlabored respiratory effort. Clear to auscultation bilaterally. No wheezes rales or rhonchi 6.GI: Soft, Nontender/Nondistended, No hepatosplenomegaly. No guarding or rebound. 7.MSK: Normocephalic/Atraumatic, Extremities w/o deformity or ttp No cyanosis or clubbing, Normal movement of all extremities 8.Skin: Warm, Dry. No rashes or lesions. 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 Sensation grossly intact, no focal neurologic deficits. 10.Psych: (AAO) x3. Appropriate mood and affect
[2018-12-12 02:45] VITALS: BP 162/67; PULSE 74; RESP 18; TEMP 36.4; O2SAT 99
== END 2018-12-12 03:21 | disposition home or self-care (01) ==
PROVIDERS: Emergency Provider Student in an Organized Health Care Education/Training Program; PCP Nurse Practitioner
DX: R04.0 Epistaxis (principal); I10 Essential (primary) hypertension; Z79.01 Long term (current) use of anticoagulants
CPT/HCPCS: 30901

== ENCOUNTER 2018-12-14 07:35 | Outpatient (CLI) | payer MEDICARE, OTHER, SELFPAY ==
[2018-12-14 08:01] LABS: INR 1.5 (0.9-1.1)
== END 2018-12-14 07:55 ==
PROVIDERS: PCP Nurse Practitioner; Visit Provider Nurse Practitioner
DX: I26.99 Other pulmonary embolism without acute cor pulmonale (principal); I82.409 Acute embolism and thrombosis of unspecified deep veins of unspecified lower extremity; Z79.01 Long term (current) use of anticoagulants
CPT/HCPCS: 36415; 85610

== ENCOUNTER 2018-12-14 08:48 | Emergency (ER) | payer MEDICARE, OTHER, SELFPAY ==
[2018-12-14 08:52] VITALS: BP 153/73; PULSE 86; RESP 16; TEMP 36.7; O2SAT 98
--- NOTE | 2018-12-14 08:52 | W.ED.GENAD ---
Discharge Plan Disposition Patient Disposition: HOME Condition: Stable Discharge Details Chief Complaint: Recheck Clinical Impression: Encounter for removal of nasal packing Primary Care Provider: Sania Cherry ED Provider: Isaac Oshea Home Meds and New Rx's Prescriptions: No Action trazodone 50 mg tablet 50 mg PO HS PRN (Reason: insomnia) Qty: 90 RF: 3 warfarin 5 mg tablet 5 mg PO DIRECTED RF: 0 Apple Cider Vinegar Plus 1 EACH tablet 2 tab PO BID RF: 0 Chamomile 350 mg PO BID RF: 0 Discharge Instructions Additional Instructions: do not blow your nose or pick your nose for 3 days if bleeding recurs and you can't control it with pressure return to the emergency department I have placed you on the follow up list to get set up with a Ear, nose and throat specialist Medical Decision Making 78 yo male comes in with left nasal packing removal. He had it placed 2 days ago and has not had any bleeding since. I removed the packing from the left nare without difficulty, has no bleeding now. I advised not to blow his nose or pick his nose for at least 3 days. I am also going to place him on the f/u list to see ENT given this seems to be a recurrent problem for him. Differential Diagnosis epistaxis, packing removal HPI General Mode of arrival: ambulatory. Date/Time Provider Initiated Documentation: 12/14/18 08:48. Limitations to Documentation: no limitations. Information obtained by: patient. History of Present Illness 78 year old M presents to the emergency department with the chief complaint of left nasal packing removal, and is localized to the face. Patient reports no radiation. Patient started experiencing this day(s) (2) and it has been constant. No relieving factors improve symptom(s), No exacerbating factors reported . Patient notes no other symptoms.. Related Data Home Medications Medication Instructions Recorded Confirmed Apple Cider Vinegar Plus 2 tab PO BID 05/23/14 12/14/18 Chamomile 350 mg PO BID 05/23/14 12/14/18 trazodone 50 mg tablet 50 mg PO HS PRN #90 tab 10/21/18 12/14/18 warfarin 5 mg tablet 5 mg PO DIRECTED tab 12/09/18 12/14/18 Previous Rx's Medication Instructions Recorded trazodone 50 mg tablet 50 mg PO HS PRN #90 tab 10/21/18 Allergies Allergy/AdvReac Type Severity Reaction Status Date / Time codeine AdvReac Mild Nausea Verified 12/14/18 08:57 General MARTHA: 3 Review of Systems Review of Systems All systems reviewed & are unremarkable except as noted in HPI and below Constitutional Denies chills, Denies fever(s) and Denies weakness Cardiovascular Denies chest pain Gastrointestinal Denies abdominal pain, Denies nausea and Denies vomiting Integumentary/Breasts Denies rash Neurologic Denies weakness [facility] Medical History 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) DVT (deep venous thrombosis) (Chronic) Pulmonary embolism (Chronic) Hyperlipidemia (Chronic 02/13/12) Hypertension (Chronic) BPH (benign prostatic hypertrophy) (Chronic) Sleep apnea (Chronic) GERD (gastroesophageal reflux disease) (Chronic) Surgical History Endoscopic Carpal Tunnel release (Inactive 06/19/15) H/O elbow surgery (Inactive) H/O shoulder surgery (Inactive) History of total hip arthroplasty (Inactive) 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) S/P cataract extraction and insertion of intraocular lens (Inactive ~03/17/14) S/P cataract extraction and insertion of intraocular lens (Inactive 03/31/14) S/P trigger finger release (Inactive) Family History Mother Heart disease Alzheimer disease Father Heart disease Sister Colon cancer Sister Heart disease Brother Diabetes Social History housing: house lives independently: Yes number of children: 3 current occupational status: retired Smoking/Tobacco Use Status: Former Tobacco Use quit date: 12/23/97 alcohol intake: former substance use type: does not use seatbelt use: always working smoke detector in home: Yes fire extinguisher in home: Yes carbon monox detector in home: Yes Exam Const General: no acute distress Orientation: alert HENMT Head: normal to inspection Ears: external ears normal Mouth: moist mucous membranes Eyes General: appearance normal, both eyes and all related structures Neck Neck: normal visual inspection Resp Effort & Inspection: normal respiratory effort and able to speak in complete sentences Cardio Rate: regular rate Skin General skin exam: no rashes or lesions noted Neuro General: alert and oriented x3 Extrem General: normal to inspection Psych Mental Status: mental status grossly normal
--- NOTE | 2018-12-14 09:03 | ED.GENADUL_ITS ---
Discharge Plan Disposition Patient Disposition: HOME Condition: Stable Discharge Details Chief Complaint: Recheck Clinical Impression: Encounter for removal of nasal packing Primary Care Provider: Sania Cherry ED Provider: Isaac Oshea Home Meds and New Rx's Prescriptions: No Action trazodone 50 mg tablet 50 mg PO HS PRN (Reason: insomnia) Qty: 90 RF: 3 warfarin 5 mg tablet 5 mg PO DIRECTED RF: 0 Apple Cider Vinegar Plus 1 EACH tablet 2 tab PO BID RF: 0 Chamomile 350 mg PO BID RF: 0 Discharge Instructions Additional Instructions: do not blow your nose or pick your nose for 3 days if bleeding recurs and you can't control it with pressure return to the emergency department I have placed you on the follow up list to get set up with a Ear, nose and throat specialist Medical Decision Making 78 yo male comes in with left nasal packing removal. He had it placed 2 days ago and has not had any bleeding since. I removed the packing from the left nare without difficulty, has no bleeding now. I advised not to blow his nose or pick his nose for at least 3 days. I am also going to place him on the f/u list to see ENT given this seems to be a recurrent problem for him. Differential Diagnosis epistaxis, packing removal HPI General Mode of arrival: ambulatory . Date/Time Provider Initiated Documentation: 12/14/18 08:48 . Limitations to Documentation: no limitations . Information obtained by: patient . History of Present Illness 78 year old M presents to the emergency department with the chief complaint of left nasal packing removal, and is localized to the face. Patient reports no radiation. Patient started experiencing this day(s) (2) and it has been constant. No relieving factors improve symptom(s), No exacerbating factors reported . Patient notes no other symptoms.. Related Data Home Medications Medication Instructions Recorded Confirmed Apple Cider Vinegar Plus 2 tab PO BID 05/23/14 12/14/18 Chamomile 350 mg PO BID 05/23/14 12/14/18 trazodone 50 mg tablet 50 mg PO HS PRN #90 tab 10/21/18 12/14/18 warfarin 5 mg tablet 5 mg PO DIRECTED tab 12/09/18 12/14/18 Previous Rx's Medication Instructions Recorded trazodone 50 mg tablet 50 mg PO HS PRN #90 tab 10/21/18 Allergies Allergy/AdvReac Type Severity Reaction Status Date / Time codeine AdvReac Mild Nausea Verified 12/14/18 08:57 General MARTHA: 3 Review of Systems Review of Systems All systems reviewed & are unremarkable except as noted in HPI and below Constitutional Denies chills, Denies fever(s) and Denies weakness Cardiovascular Denies chest pain Gastrointestinal Denies abdominal pain, Denies nausea and Denies vomiting Integumentary/Breasts Denies rash Neurologic Denies weakness [facility] Medical History 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) DVT (deep venous thrombosis) (Chronic) Pulmonary embolism (Chronic) Hyperlipidemia (Chronic 02/13/12) Hypertension (Chronic) BPH (benign prostatic hypertrophy) (Chronic) Sleep apnea (Chronic) GERD (gastroesophageal reflux disease) (Chronic) Surgical History Endoscopic Carpal Tunnel release (Inactive 06/19/15) H/O elbow surgery (Inactive) H/O shoulder surgery (Inactive) History of total hip arthroplasty (Inactive) 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) S/P cataract extraction and insertion of intraocular lens (Inactive ~03/17/14) S/P cataract extraction and insertion of intraocular lens (Inactive 03/31/14) S/P trigger finger release (Inactive) Family History Mother Heart disease Alzheimer disease Father Heart disease Sister Colon cancer Sister Heart disease Brother Diabetes Social History housing: house lives independently: Yes number of children: 3 current occupational status: retired Smoking/Tobacco Use Status: Former Tobacco Use quit date: 12/23/97 alcohol intake: former substance use type: does not use seatbelt use: always working smoke detector in home: Yes fire extinguisher in home: Yes carbon monox detector in home: Yes Exam Const General: no acute distress Orientation: alert HENMT Head: normal to inspection Ears: external ears normal Mouth: moist mucous membranes Eyes General: appearance normal, both eyes and all related structures Neck Neck: normal visual inspection Resp Effort & Inspection: normal respiratory effort and able to speak in complete sentences Cardio Rate: regular rate Skin General skin exam: no rashes or lesions noted Neuro General: alert and oriented x3 Extrem General: normal to inspection Psych Mental Status: mental status grossly normal
--- NOTE | 2018-12-14 10:25 | PDOC.ERCMPRO ---
Care Management Progress Note 12/14-Dr. Oshea requested assistance with an ENT f/u within one week for epistaxis. Referral faxed to ENT this am.
== END 2018-12-14 09:06 | disposition home or self-care (01) ==
LOC: ER 09:08
PROVIDERS: Emergency Provider Emergency Medicine; PCP Nurse Practitioner
DX: R04.0 Epistaxis (principal)
CPT/HCPCS: 36415; 99281; 85610

== ENCOUNTER 2018-12-16 00:22 | Outpatient (CLI) | payer MEDICARE, OTHER, SELFPAY ==
--- NOTE | 2018-12-16 07:24 | MERGEMPI_ITS ---
*[facility]* *[facility]* [address] [place] [address] Myocardial Perfusion Imaging - SPECT Regadenoson Date of study: 12/16/2018 (Report amended ) *PATIENT PRESENTATION* Height: 172.7cm (68in) Blood Pressure: Weight: 98.6kg (217lb) BSA: 2.21m^2 Referring physician: Yanet Del Cid Ordering physician: Anastacio Guy Impressions: - Normal perfusion by Tc99m Sestamibi Imaging. - Abnormal contraction consistent with cardiomyopathy. Summary: 1. Myocardial perfusion imaging: No myocardial perfusion defects noted. 2. The left ventricular end-systolic volume is 92ml. The calculated left ventricular ejection fraction after stress: 45%. LV global systolic function is mildly reduced. Diffuse left ventricular regional motion abnormalities. LV function most likely underestimated due to gating error. 3. Stress ECG conclusions: The stress ECG is negative. 4. Baseline ECG: Normal sinus rhythm with left bundle branch block. 5. Imaging information: gated. Image quality reduced due to body habitus. Indication: I47.2 R06.02. History: REASON FOR VISIT: NON SUSTAINED VENTRICULAR TACHYCARDIA. CHEST PAIN. PULMONARY EMBOLISM. Risk factors: Cholesterol: 172mg/dl. HDL: 76mg/dl. LDL: 81mg/dl. Triglycerides: 80mg/dl. ALLEGIES: CODEINE. MEDICATIONS: TRAZODONE 50 MG Q HS. WARFARIN 5 MG DAILY. APPLE CIDER VINEGAR 2 TABS BID. CHAMOMILE 350 MG BID. Imaging Technique: Protocol: Regadenoson. Acquisition: Gated SPECT; 1 day - rest/stress. The patient was imaged in the supine position. Attenuation correction used. Isotope administration: - Rest. Tc[99m]-sestamibi. Dose: 11.5mCi. Injection time: 09:45 AM. Injection to stress time: 00:45. - Stress. Tc[99m]-sestamibi. Dose: 33mCi. Injection time: 12:20 PM. 1-2 min before end of exercise Baseline ECG: SINUS RHYTHM. INCOMPLETE LBBB. 1ST DEGREE AVB. HR 69 BPM. Normal sinus rhythm with left bundle branch block. Stress protocol: +--------+--+ + + !Stage !HR!BP (mmHg) !Comments ! +--------+--+ + + !Baseline!69!130/76 (94) ! ! +--------+--+ + + !1 min !88!126/70 (89) !Inject Regadenoson.! +--------+--+ + + !3 min !76!130/76 (94) ! ! +--------+--+ + + !5 min !74!136/70 (92) ! ! +--------+--+ + + !6 min !75!142/82 (102)! ! +--------+--+ + + * Stress results: The rate-pressure product for the peak heart rate and blood pressure was 37892nw Hg/min. Stress ECG: STRESS TEST ENDED IN 6 MINUTES & 35 SECONDS. PT EXPERIENCE NO SIGNIFICANT SIDE EFFECTS FROM LEXISCAN INJECTION. NORMAL HEART RATE AND BLOOD PRESSURE RESPONSE TO LEXISCAN INJECTION. INTERMITTENT PVCs & PACs. NO ANGINA NO SIGNIFICANT ST SEGMENT CHANGES The stress ECG is negative. Myocardial perfusion: Imaging information: gated. Image quality reduced due to body habitus. The left ventricle is mildly dilated. No myocardial perfusion defects noted. Ventricular Function (Wall Motion): The left ventricular end-systolic volume is 92ml. The calculated left ventricular ejection fraction after stress: 45%. LV global systolic function is mildly reduced. Diffuse left ventricular regional motion abnormalities. Study data: Anastacio Guy MD supervised and was readily available during the procedure. This study was interpreted by [facility]. Study status: Routine. Consent: The risks, benefits, and alternatives to the procedure were explained to the patient and informed consent was obtained. Procedure: Initial setup. A baseline ECG was recorded. Surface ECG leads and manual cuff blood pressure measurements were monitored. Heart sounds: Normal. Lung sounds: Normal. Regadenoson stress test. Stress testing was performed, with regadenoson by intravenous bolus, for a total dose of 0.4mgover 10.00sec, followed by a 5ml saline flush. The infusion was terminated due to per protocol. Study completion: All catheters inserted during the procedure were removed. The patient tolerated the procedure well and was discharged from the lab. Discharge: The patient left the laboratory in stable condition. Birthdate: Patient birthdate: 1940. Sex: Gender: male. Study date: Study date: 12/16/2018. Study time: 07:24 AM. Signature Documentation: - The imaging portion of this study was interpreted by [employer] Anastacio Guy MD. - The Stress ECG portion of this study was interpreted by Anastacio Guy MD. Electronically signed by Anastacio Guy 12/23/2018 16:13
[2018-12-16] MEDS: Regadenoson 0.4 MG/5 ML SYR IVP (13:06)
== END 2018-12-16 00:42 ==
PROVIDERS: PCP Nurse Practitioner; Visit Provider Student in an Organized Health Care Education/Training Program
DX: I47.2 Ventricular tachycardia (principal); R06.02 Shortness of breath; R94.30 Abnormal result of cardiovascular function study, unspecified; I25.2 Old myocardial infarction
CPT/HCPCS: 78452; 93016; 93018; 93017; J2785

== ENCOUNTER 2019-02-01 13:00 | Outpatient (CLI) | payer MEDICARE, OTHER, SELFPAY ==
--- NOTE | 2019-02-01 13:00 | DI.RAD_ITS ---
SYMPTOMS/DIAGNOSIS: HAND PAIN, M79.643 RIGHT HAND: Three views. At the interphalangeal joints of the hand, varying degrees of joint space narrowing and periarticular spurring are present. The findings are most marked at the distal interphalangeal joints of the index, middle and ring fingers. There is mild narrowing of the 2nd metacarpophalangeal joint, but the metacarpophalangeal joints appear fairly well maintained. The carpal joints appear well maintained. Vascular calcifications are seen in the soft tissues. No suspicious lytic or sclerotic lesions are seen. IMPRESSION: Moderate osteoarthritis of the right hand. LEFT HAND: Three views. There are varying degrees of joint space narrowing and periarticular spurring in the interphalangeal joints of the left hand. Mild periarticular spurring is seen at the 1st carpometacarpal joint. The metacarpophalangeal joints appear fairly well maintained. Vascular calcifications are seen in the soft tissues. IMPRESSION: Moderate osteoarthritis of the left hand.
== END 2019-02-01 13:20 ==
PROVIDERS: PCP Nurse Practitioner; Visit Provider Nurse Practitioner
DX: M79.641 Pain in right hand (principal); M79.642 Pain in left hand; M19.041 Primary osteoarthritis, right hand; M19.042 Primary osteoarthritis, left hand; M18.11 Unilateral primary osteoarthritis of first carpometacarpal joint, right hand; M18.12 Unilateral primary osteoarthritis of first carpometacarpal joint, left hand
CPT/HCPCS: 73130

== ENCOUNTER 2019-05-11 11:13 | Outpatient (REF) | payer MEDICARE, OTHER, SELFPAY ==
[2019-05-11 14:23] LABS: HCT 49.3 % (40.0-50.0); Mean Corp. HGB Concentration 34.5 g/dL (32.0-36.0); Mean Corpuscular Hemoglobin 31.9 pg (27.0-33.0); Mean Corpuscular Volume 92.5 fL (80-95); Mean Platelet Volume 10.1 fL (8.0-11.0); Platelet Count 273 x1000/uL (130-400); RBC 5.33 m/cumm (4.50-6.00); RBC Distribution Width 14.2 % (11.8-14.1); White Blood Cell Count 5.91 k/cumm (4.4-10.8)
[2019-05-11 14:46] LABS: ALT 28 U/L (12-78); AST 26 U/L (15-37); Albumin 3.8 g/dL (3.4-5.0); Alkaline Phosphatase 74 U/L (46-116); Anion Gap 12.8 mmol/L (3-11); BUN 10 mg/dL (7-18); Bilirubin, Total 0.9 mg/dL (0.2-1.0); CO2 24.2 mmol/L (21.0-32.0); CREATININE 0.82 mg/dL (0.70-1.30); Calcium 8.9 mg/dL (8.5-10.1); Chloride 102 mmol/L (98-107); Glucose 107 mg/dL (70-100); Potassium 4.2 mmol/L (3.5-5.1); Sodium 139 mmol/L (136-145); Total Protein 6.9 g/dL (6.4-8.2)
[2019-05-11 14:59] LABS: Calculated LDL 103; Cholesterol 197 mg/dL (50-200); HDL Cholesterol 72 mg/dL (40-60); Triglyceride 111 mg/dL (30-150)
[2019-05-11 16:17] LABS: Hemoglobin A1C 5.4 % (4.5-6.2)
== END 2019-05-11 11:33 ==
LOC: LBN 11:13
PROVIDERS: PCP Nurse Practitioner; Visit Provider Nurse Practitioner
DX: E78.5 Hyperlipidemia, unspecified (principal); I10 Essential (primary) hypertension; R71.8 Other abnormality of red blood cells; R73.01 Impaired fasting glucose
CPT/HCPCS: 80053; 80061; 83721; 85027; 83036

== ENCOUNTER → 2019-07-16 08:42 | Outpatient (BNVA) | payer MEDICARE, OTHER, SELFPAY | PROVIDERS: PCP Nurse Practitioner; Referring Provider Nurse Practitioner; Visit Provider Physical Therapy Assistant | DX: Z12.11 Encounter for screening for malignant neoplasm of colon (principal); Z86.010 Personal history of colon polyps; Z80.0 Family history of malignant neoplasm of digestive organs; I10 Essential (primary) hypertension ==

== ENCOUNTER 2019-08-02 09:53 | Day surgery (SDC) | payer MEDICARE, OTHER, SELFPAY ==
--- NOTE | 2019-08-02 07:13 | W.COLOREPORT ---
Date of service: 08/02/19 Time of Service: 12:26 Colonoscopy Report Date of procedure: 08/02/19 Pre-op diagnosis general: Hx of polyps Post-op diagnosis procedure note: same (Colorectal polyps x19) Procedure: Colonoscopy with polypectomy by cold forceps and hot snare Surgeon: Katelynn Ram Anesthesia proc note operative: other (General/ ASA 3/Vern Sanchez CRNA) Estimated blood loss (mL): 5 Pathology: other (cecal polyp x2, Ascending polyp x13, transverse polyp x3, sigmoid polyp x1) Complications: None Disposition: same day Indications: Mrs. Amin is a pleasant 78 year old male seen in the office for another colonoscopy. His last colonoscopy was in 2012 and he had a tubular adenoma. Risks, benefits and complications have been reviewed. Complications include but are not limited to bleeding, pain, perforation, missed small lesion/polyp, sore throat, aspiration and adverse reaction to the medications. Questions were entertained and answered to their satisfaction and they wished to proceed. No guarantees were given or implied. Prep: Miralax/Dulcolax Procedure Start Time: 12:26 Procedure End Time: 13:34 Retraction Time: 60 minutes Findings: 19 sessile polyps throughout the colon. Most in the right colon Procedure Description: After informed consent was obtained the patient was taken to the procedure room and placed in a left decubitous position. Monitors were applied and a time out was done. The patients name, date of , procedure, allergies to medications and metal in their body was reviewed. The patient was then sedated. Once sedated and comfortable a rectal exam was done. External exam was normal. Internal exam revealed a normal sphincter tone and no palpable masses. Prostate felt smooth. The scope was then introduced and retro-flexed. No internal hemorrhoids, masses or polyps were identified. The scope was then advanced to the cecum with some difficulty. The TI and appendiceal orifice were identified. The prep was adequate. The scope was then slowly retracted over 60 minutes back into the rectum. Polyps were removed with cold forceps and hot snare in the cecum and ascending colon x13, with cold forceps and hot snare in the transverse colon x3, and the sigmoid colon x1. The scope was removed and the patient was woken up and taken back to Same day surgery in stable condition. The patient tolerated the procedure well and there were no immediate complications. Follow up: The patient should follow up in 1 year unless they develop changes in bowel habits or other new gastrointestinal complaints.
--- NOTE | 2019-08-02 07:15 | W.PM.DSUDISC ---
Discharge Plan Disposition Patient Disposition: HOME Condition: Good Discharge Details Reason For Visit: Colonoscopy Attending Provider: Katelynn Ram Primary Care Provider: Sania Cherry Home Meds and New Rx's Prescriptions: Continued trazodone 50 mg tablet 50 mg PO HS PRN (Reason: insomnia) Qty: 90 RF: 3 warfarin 5 mg tablet 5 mg PO DIRECTED RF: 0 enoxaparin [Lovenox] 100 mg/mL syringe 100 mg subcut ONCE Qty: 1 RF: 0 Apple Cider Vinegar Plus 1 EACH tablet 2 tab PO BID RF: 0 Chamomile 350 mg PO DAILY RF: 0 Cbd Oil PO RF: 0 Discontinued polyethylene glycol 3350 17 gram/dose powder 238 g PO ONCE Qty: 238 RF: 0 bisacodyl [Dulcolax (bisacodyl)] 5 mg tablet,delayed release (DR/EC) 5 mg PO ONCE Qty: 4 RF: 0 Discharge Instructions Instructions: Diverticulosis (ED), Colorectal Polyps (GEN) Additional Instructions: Findings: 19 polyps and moderate diverticulosis Follow up: 1 year Please call if you develop: fevers >101.5 Nausea or Vomiting Abdominal pain that is not transient DAY SURGERY UNIT POST ENDOSCOPY INSTRUCTIONS 1. Because there will be medication in your system for the next 24 hours, you may feel a little sleepy. Your coordination will be affected. Therefore: a. Do not drive or operate dangerous equipment for 24 hours. b. Do not drink alcohol beverages for 24 hours (not even beer). c. Plan to go home and rest for the day. 2. Generally there are no restrictions on your activity after a day or so has gone by, but you may feel a bit fatigued for a few days. 3 After you arrive home you may have a light meal and return to a normal diet as you can tolerate it without feeling sick to your stomach. 4. After surgery, you may feel pain or discomfort. This should be only transient, but if it persists please contact your doctor. 5. If there are any questions regarding the findings of your procedure, please feel free to contact your doctor. 6. If you are unable to contact your doctor with a problem, contact the hospital at [phone]. 7. Continue all your regular medications unless directed otherwise. I understand the above instructions and have no questions. Signature of Patient or Responsible Adult Escort Date/Time Name of Responsible Adult Escort Signature of Nurse Date/Time Activity:: Activity as Tolerated Diet:: As Tolerated Discharge Orders Discharge Orders: Discharge Order (Routine); Ordered 08/02/19 Ordered By: Katelynn Ram DS: Diagnosis Discharge Diagnosis (1) S/P colonoscopy: Status: Acute (2) Diverticulosis:
[2019-08-02 10:08] VITALS: BP 129/79; PULSE 69; RESP 16; TEMP 35.9; O2SAT 97
[2019-08-02] MEDS: Lactated Ringers 1,000 ML 80 ML IV (11:36)
--- NOTE | 2019-08-02 12:35 | BOWEL_PTH ---
PATIENT: Adebayo Amin JR LOC: [facility] U#:[id number] AGE/SX: 78/M ROOM: RE08/02/[address]: Katelynn Ram MD : 1940 BED: DIS: 08/02/2019 SPEC #: [id number] RECD: 08/02/19 18:08 STATUS: REBEKA REJanes #: [id number] CRISTINA: 08/02/19 12:[address]: Katelynn Ram DEPT: Surgical Specimen RECD BY: Patricia Gutierres ENTERED: 08/02/19 18:10 SP TYPE: Bowel OTHR DR: Sania Cherry APRN Tissues: 1 - BIOPSY BOWEL 2 - BIOPSY BOWEL 3 - BIOPSY BOWEL 4 - BIOPSY BOWEL Procedures: GROSS AND MICRO LEVEL 4 Comments: [id number]
[2019-08-02 14:04] VITALS: BP 150/80; PULSE 58; RESP 16; TEMP 36.5; O2SAT 97
== END 2019-08-02 14:30 | disposition home or self-care (01) ==
LOC: SUR 10:00
PROVIDERS: PCP Nurse Practitioner; Visit Provider Surgery
PROC: 0DJD8ZZ Inspection of Lower Intestinal Tract, Via Natural or Artificial Opening Endoscopic (ICD-10-PCS; CPT 45378; principal; 2019-08-02 11:45)
DX: Z12.11 Encounter for screening for malignant neoplasm of colon (principal); Z86.010 Personal history of colon polyps; D12.0 Benign neoplasm of cecum; D12.2 Benign neoplasm of ascending colon; D12.3 Benign neoplasm of transverse colon; K63.5 Polyp of colon; Z80.0 Family history of malignant neoplasm of digestive organs; Z79.01 Long term (current) use of anticoagulants; K21.9 Gastro-esophageal reflux disease without esophagitis; I10 Essential (primary) hypertension; F17.210 Nicotine dependence, cigarettes, uncomplicated
CPT/HCPCS: 45385; 45380; 88305

== ENCOUNTER 2019-08-11 02:04 | Outpatient (RCR) | payer MEDICARE, OTHER, SELFPAY ==
[2019-07-28] MEDS: Enoxaparin 100 MG/ML SYR SC ×2 (10:27→18:49)
[2019-07-29] MEDS: Enoxaparin 100 MG/ML SYR SC ×2 (08:10→18:59)
[2019-07-30] MEDS: Enoxaparin 100 MG/ML SYR SC ×2 (08:05→18:38)
[2019-07-31] MEDS: Enoxaparin 100 MG/ML SYR SC ×2 (07:33→18:48)
[2019-08-01] MEDS: Enoxaparin 100 MG/ML SYR SC (07:57)
[2019-08-03] MEDS: Enoxaparin 100 MG/ML SYR SC ×2 (08:09→19:38)
[2019-08-04 09:07] LABS: INR 1.1 (0.9-1.1); Prothrombin Time 10.7 sec (9.3-11.0)
[2019-08-04] MEDS: Enoxaparin 100 MG/ML SYR SC (09:25)
[2019-08-05 08:48] LABS: INR 1.3 (0.9-1.1)
[2019-08-05] MEDS: Enoxaparin 100 MG/ML SYR SC ×2 (09:04→19:00)
[2019-08-06 08:15] LABS: INR 1.4 (0.9-1.1); Prothrombin Time 14.3 sec (9.3-11.0)
[2019-08-09 08:38] LABS: INR 1.1 (0.9-1.1)
[2019-08-09] MEDS: Enoxaparin 100 MG/ML SYR SC ×2 (08:49→19:02)
[2019-08-10 07:56] LABS: INR 1.1 (0.9-1.1); Prothrombin Time 11.1 sec (9.3-11.0)
[2019-08-10] MEDS: Enoxaparin 100 MG/ML SYR SC (08:30)
== END 2019-08-23 23:59 | disposition home or self-care (01) ==
LOC: INF 02:04
PROVIDERS: PCP Nurse Practitioner; Visit Provider Nurse Practitioner
DX: I26.99 Other pulmonary embolism without acute cor pulmonale (principal); I82.403 Acute embolism and thrombosis of unspecified deep veins of lower extremity, bilateral
CPT/HCPCS: 36415; 36592; 96372; 85610; J1650

== ENCOUNTER → 2019-09-07 10:01 | Outpatient (BNVA) | payer MEDICARE, OTHER, SELFPAY | PROVIDERS: PCP Nurse Practitioner; Referring Provider Nurse Practitioner; Visit Provider Internal Medicine Cardiovascular Disease | DX: I50.810 Right heart failure, unspecified (principal); I11.0 Hypertensive heart disease with heart failure; I42.9 Cardiomyopathy, unspecified | CPT/HCPCS: 99204 ==

== ENCOUNTER → 2019-09-10 07:57 | Outpatient (BNVA) | payer MEDICARE, OTHER, SELFPAY | PROVIDERS: PCP Nurse Practitioner; Referring Provider Nurse Practitioner; Visit Provider Urology | DX: N40.1 Benign prostatic hyperplasia with lower urinary tract symptoms (principal); R39.14 Feeling of incomplete bladder emptying; I10 Essential (primary) hypertension; Z79.01 Long term (current) use of anticoagulants | CPT/HCPCS: 81003; 99213 ==

== ENCOUNTER 2019-11-09 11:31 | Outpatient (CLI) | payer MEDICARE, OTHER, SELFPAY ==
[2019-11-09 12:16] LABS: CREATININE 0.83 mg/dL (0.70-1.30)
--- NOTE | 2019-11-09 12:34 | DI.CT_ITS ---
EXAM: CT CHEST PE CTA CLINICAL HISTORY: SOB, CP, hx PE, sometimes misses Warfarin dose. TECHNIQUE: 100 cc Omnipaque 350 IV. PE protocol. Axial CT angiography was performed with multi-slice acquisition and multi-planar and/or 3D reconstruc tions. FINDINGS: No pulmonary emboli or aortic dissection is seen. There are dependent changes in the lungs. No inf iltrates, pleural or pericardial effusions are seen. Changes in the spine with bridging syndesmophyt es may indicate ankylosing spondylitis. The visualized portions of the upper abdomen are unremarkabl e. IMPRESSION: No evidence of pulmonary emboli or other acute abnormality.
[2019-11-09] MEDS: Omnipaque 350 MG/ML 100 ML BTL IJ (12:46)
== END 2019-11-09 11:51 ==
PROVIDERS: PCP Nurse Practitioner; Visit Provider Nurse Practitioner
DX: R06.02 Shortness of breath (principal); R07.9 Chest pain, unspecified; Z79.01 Long term (current) use of anticoagulants; Z86.711 Personal history of pulmonary embolism
CPT/HCPCS: 71275; 82565; J3490

== ENCOUNTER 2020-02-21 12:30 | Emergency (ER) | payer MEDICARE, OTHER, SELFPAY ==
[2020-02-21 12:35] VITALS: BP 157/81; PULSE 88; RESP 16; TEMP 36.8; O2SAT 96
--- NOTE | 2020-02-21 12:39 | ED.GENADUL_ITS ---
Discharge Plan Disposition Patient Disposition: HOME Condition: Stable Discharge Details Chief Complaint: Urinary Clinical Impression: UTI (urinary tract infection), uncomplicated Primary Care Provider: Sania Cherry ED Provider: Karen Spivey Home Meds and New Rx's Prescriptions: New cephalexin 500 mg tablet 500 mg PO BID 7 Days Qty: 14 RF: 0 No Action psyllium husk [Metamucil] 0.4 gram capsule 0.4 gm PO DAILY RF: 0 warfarin 5 mg tablet 5 mg PO DIRECTED Qty: 100 RF: 3 Apple Cider Vinegar Plus 1 EACH tablet 2 tab PO BID RF: 0 Chamomile 350 mg PO DAILY PRNRF: 0 Cbd Oil PO PRNRF: 0 Discharge Instructions Instructions: Urinary Tract Infection in Men (ED) Additional Instructions: Follow up with primary care provider in 3-5 days. Return to ED sooner if any worsening or concerns. Increase oral fluids. Take medications as directed. You had small amounts of leukocytes in your urine at this time the culture is pending. Please return sooner if you have any fever worsening symptoms or no improvement in the next 2 to 3 days. Referrals: Sania Cherry, BARIATRIC PHYSICIAN [Primary Care Provider] - Medical Decision Making Urinalysis ordered, patient able to give approximately 200 ml output of clear urine upon arrival. Patient's urine showed small amount of leukocytes and cultures pending at this time. Patient placed on cephalexin 500 mg twice a day x7 days for possible UTI. Lab Data Lab results reviewed: Yes I reviewed the patient's lab results. HPI General Mode of arrival: ambulatory . Date/Time Provider Initiated Documentation: 02/21/20 12:32 . Limitations to Documentation: no limitations . Information obtained by: patient . HPI Narrative: 79-year-old male presents with urinary frequency since Friday. He was sent here by his PCP to rule out UTI. He denies any pain, no CVA tenderness no abdominal pain denies any fever chills or any other symptoms. He has a history of right heart failure, DVT, PE, hyperlipidemia hypertension, and BPH. Related Data Home Medications Medication Instructions Recorded Confirmed Apple Cider Vinegar Plus 2 tab PO BID 05/23/14 02/21/20 Cbd Oil PO PRN 09/07/19 12/21/19 Chamomile 350 mg PO DAILY PRN 09/07/19 02/21/20 psyllium husk 0.4 gram capsule 0.4 gm PO DAILY 09/07/19 02/21/20 warfarin 5 mg tablet 5 mg PO DIRECTED #100 tab 11/23/19 02/21/20 cephalexin 500 mg PO BID 7 Days #14 tab 02/21/20 Previous Rx's Medication Instructions Recorded warfarin 5 mg tablet 5 mg PO DIRECTED #100 tab 11/23/19 cephalexin 500 mg PO BID 7 Days #14 tab 02/21/20 Allergies Allergy/AdvReac Type Severity Reaction Status Date / Time codeine AdvReac Intermediate N/V Verified 02/21/20 12:41 General MARTHA: 3 Review of Systems Narrative: Constitutional: Negative for weight loss, alert and oriented, well groomed, normal body habitus, appears comfortable. HEENT: Denies trauma, headaches, blurry vision, nasal discharge, sore throat, trouble swallowing. Chest: Denies chest pain, palpitations, irregular rhythm, hypertension. Respiratory: Denies Shortness of breath, cough, hemoptysis. GI: Denies abdominal pain, nausea, vomiting, diarrhea, constipation. : Denies dysuria, hematuria, flank pain, rectal bleeding. Positive urinary frequency. 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 [place] 06/26/2013 [facility] RAHEEM positive (Chronic) Anticoagulation monitoring, INR range 2-3 (Acute) 03/24/19 [facility] [place] Continue warfarin fci for secondary VTE prophylaxis Anxiety (Chronic) BPH (benign prostatic hypertrophy) (Chronic) Carpal tunnel syndrome on both sides (Acute 04/10/15) Cervical radiculopathy (Acute 01/01/17) Depressive disorder (Acute 07/09/13) DISH (diffuse idiopathic skeletal hyperostosis) (Acute 02/07/20) [facility] [place] Diverticulosis (Acute) DVT (deep venous thrombosis) (Chronic) 03/25/19 [facility] [place] Right and Left: extensive, acute, non-occlusive DVT Erectile dysfunction of organic origin (Acute 12/12/15) GERD (gastroesophageal reflux disease) (Chronic) Hyperlipidemia (Chronic 02/13/12) Lipids 2010: 226/115/58/149 Statin made his GERD worse Hypertension (Chronic) Hypogonadism in male (Acute 01/12/16) Impotence of organic origin (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 Friday, 08/10 .. helicoptered to [facility] .. s/p TPA, now on lovenox, starting warfarin. Heart strain noted, fu with cardiology in 3 mos. Hem/Onc work up planned ([facility] [ [place]. Hx Lovenox for PE in past? 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 Not on CPAP. Surgical History Endoscopic Carpal Tunnel release (Inactive 06/19/15) R Dr Moore H/O elbow surgery (Inactive) right H/O shoulder surgery (Inactive) bilaterally History of Surgical Procedure (Chronic) a. Meniscectomy, left knee. b. Right toal knee replacement. c. Right total hip replacement. d. Bilateral cataract surgery. e. Medial epicondylitis surgery. f. Bilateral rotator cuff surgery. g. Left ring finger trigger finger release. h. Multiple surgeries for lipoma excisions. i. Colonoscopies. History of total hip arthroplasty (Inactive) 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) left S/P cataract extraction and insertion of intraocular lens (Inactive ~03/17/14) left S/P cataract extraction and insertion of intraocular lens (Inactive 03/31/14) OD S/P colonoscopy (Acute ~08/02/19) Tubular adenoma x11. Sessile serrated adenoma x7 S/P trigger finger release (Inactive) Family History Mother , 80's, unknown causes Heart disease Alzheimer disease Father , 80's, heart failure Heart disease Sister Colon cancer Sister Heart disease Brother Diabetes Social History Smoking/Tobacco Use Status: Former Tobacco Use Quit Date: 12/23/97 Pack-years: 20 Smokeless tobacco user: other Alcohol Intake: current Alcohol Intake frequency: a few times a week Alcohol type: beer Drug use: Never Substance use type: does not use Housing: house Number of Children: 3 What type of physical activity do you participate in: none Seatbelt use: always Working smoke detector in home: Yes Fire extinguisher in home: Yes Carbon monox detector in home: Yes Do you feel safe at home: Yes Exam Narrative Exam Narrative: Constitutional: Allert and oriented x3. Appears stated age. Normal body habitus. Head: Normocephalic, no trauma. Eyes: Pupils PERRLA, Red reflex noted, EOM's intact. Eyelids symmetrical withour lesions, discharge, or swelling. ENT: Bilateral TM's WNL, External ear normal to inspection, no mastoid TTP, swelling, or erythema, Nasal turbinates WNL, no nasal discharge. Normal dentition, Posterior pharynx WNL, no exudate. Chest: RRR, Normal S1, S2, distal pulses intact. Resp: Lungs clear to auscultation bilaterally, no wheezes, rales, or rhonchi. Abdomen: Soft nontender to palpation normal active bowel sounds all 4 quadrants. Musculoskeletal: Normal gait, 5/5 strength to all four extremities. Skin: No suspicious rashes or lesions. Capillary refill less than 2 sec. Neurologic: Cranial nerves II-XII intact. Alert and oriented x 3. DTR's intact. Hematologic/Lymphatic: No ecchymosis, no lymphadenopathy.
[2020-02-21 12:50] LABS: Bilirubin Negative (Negative); Blood Negative (Negative); Clarity Clear (Clear); Glucose Negative (Negative); Ketones Negative (Negative); Leukocyte Esterase Small (Negative); Nitrite Negative (Negative); Urobilinogen 0.2 EU/dL (Up TO 0.2)
[2020-02-21 13:06] LABS: Bacteria Rare HPF (Negative); C & S Indicated? Yes; Casts Negative LPF (Negative); Crystals Negative HPF (Negative); Epithelial Cells Rare HPF (Negative); Mucus Negative (Negative); RBC 0-2 HPF (0-2)
[2020-02-21 13:10] VITALS: BP 157/81; PULSE 88; RESP 16; O2SAT 96
== END 2020-02-21 13:17 | disposition home or self-care (01) ==
PROVIDERS: Emergency Provider Registered Nurse Emergency; PCP Nurse Practitioner
DX: N39.0 Urinary tract infection, site not specified (principal)
CPT/HCPCS: 99283; 81003; 81015; 87086

== ENCOUNTER 2020-08-29 15:59 | Outpatient (REF) | payer MEDICARE, OTHER, SELFPAY | END 2020-08-29 16:19 | LOC: LBN 15:59 | PROVIDERS: PCP Nurse Practitioner; Visit Provider Family Medicine | DX: N39.0 Urinary tract infection, site not specified (principal) | CPT/HCPCS: 87086 ==

== ENCOUNTER → 2020-09-08 09:31 | Outpatient (BNVA) | payer MEDICARE, OTHER, SELFPAY | PROVIDERS: PCP Nurse Practitioner; Referring Provider Nurse Practitioner; Visit Provider Physical Therapy Assistant | DX: Z86.010 Personal history of colon polyps (principal); Z12.11 Encounter for screening for malignant neoplasm of colon ==

== ENCOUNTER 2020-09-25 09:01 | Day surgery (SDC) | payer MEDICARE, OTHER, SELFPAY ==
--- NOTE | 2020-09-25 07:05 | W.COLOREPORT ---
Date of service: 09/25/20 Time of Service: 10: Colonoscopy Report Date of procedure: 09/25/20 Pre-op diagnosis general: Hx of colon polyps Post-op diagnosis procedure note: other (polyps and diverticulosis) Procedure: Colonoscopy with polypectomy Surgeon: Katelynn Ram Anesthesia proc note operative: other (General/ASA 3/ Jordan Katz CRNA) Estimated blood loss (mL): 3 Pathology: other (cecal polyp, ascending colon polyp x2, transverse colon polyp, sigmoid polyp) Complications: None Disposition: same day Indications: The patient is here for Colonoscopy pre-op. His last screening was in 2019 and was remarkable for Tubular Adenomas x 11 and Sessile serrated x7. He has no family history of colon cancer. He has not had any bowel habit changes. Last seen by cardiology on 09/07/19 with recommended follow up on an as needed basis. -Discussed colonoscopy bowel prep as well as the procedure. Discussed possible complications of the procedure to include bleeding, pain, perforation, missed small lesion/polyp, sore throat, aspiration and adverse reaction to the medications. Questions were answered to patient?s satisfaction. No guarantees were implied or given. Prep: Miralax/Dulcolax Procedure Start Time: 10:20 Procedure End Time: 10:53 Retraction Time: 27 minutes Findings: 5 sessile polyps and diverticulosis Procedure Description: After informed consent was obtained the patient was taken to the procedure room and placed in a left decubitous position. Monitors were applied and a time out was done. The patients name, date of , procedure, allergies to medications and metal in their body was reviewed. The patient was then sedated. Once sedated and comfortable a rectal exam was done. External exam was normal. Internal exam revealed a normal sphincter tone and no palpable masses. The prostate felt smooth and enlarged. The scope was then introduced and retro-flexed. No internal hemorrhoids were identified. The scope was then advanced to the cecum without difficulty. The ileocecal valve and appendiceal orifice were identified. The prep was adequate. The scope was then slowly retracted over 27 minutes back into the rectum. Polyps were removed with cold forceps in the cecum, ascending colon x2, transverse colon and sigmoid colon. There was moderate sigmoid diverticulosis. The scope was removed and the patient was woken up and taken back to Same day surgery in stable condition. The patient tolerated the procedure well and there were no immediate complications. Follow up: The patient should follow up in 3-5 years unless they develop changes in bowel habits or other new gastrointestinal complaints.
--- NOTE | 2020-09-25 07:06 | W.PM.DSUDISC ---
Discharge Plan Disposition Patient Disposition: HOME Condition: Good Discharge Details Reason For Visit: Colonoscopy Attending Provider: Katelynn Ram Primary Care Provider: Sania Cherry Home Meds and New Rx's Prescriptions: Continued psyllium husk [Metamucil] 0.4 gram capsule 0.4 gm PO DAILY RF: 0 warfarin 5 mg tablet 5 mg PO DIRECTED Qty: 100 RF: 3 trazodone 50 mg tablet 25 mg PO HS PRN (Reason: insomnia) Qty: 14 RF: 0 Apple Cider Vinegar Plus 1 EACH tablet 2 tab PO BID RF: 0 Chamomile 350 mg PO DAILY PRNRF: 0 Discontinued polyethylene glycol 3350 17 gram/dose powder 238 g PO ONCE Qty: 238 RF: 0 bisacodyl [Dulcolax (bisacodyl)] 5 mg tablet,delayed release (DR/EC) 5 mg PO ONCE Qty: 4 RF: 0 Discharge Instructions Instructions: Diverticulosis (DC), Colorectal Polyps (DC) Additional Instructions: Findings: 5 polyps and diverticulosis Follow up: 3 years Please call if you develop: fevers >101.5 Nausea or Vomiting Abdominal pain that is not transient DAY SURGERY UNIT POST ENDOSCOPY INSTRUCTIONS 1. Because there will be medication in your system for the next 24 hours, you may feel a little sleepy. Your coordination will be affected. Therefore: a. Do not drive or operate dangerous equipment for 24 hours. b. Do not drink alcohol beverages for 24 hours (not even beer). c. Plan to go home and rest for the day. 2. Generally there are no restrictions on your activity after a day or so has gone by, but you may feel a bit fatigued for a few days. 3 After you arrive home you may have a light meal and return to a normal diet as you can tolerate it without feeling sick to your stomach. 4. After surgery, you may feel pain or discomfort. This should be only transient, but if it persists please contact your doctor. 5. If there are any questions regarding the findings of your procedure, please feel free to contact your doctor. 6. If you are unable to contact your doctor with a problem, contact the hospital at [phone]. 7. Continue all your regular medications unless directed otherwise. I understand the above instructions and have no questions. Signature of Patient or Responsible Adult Escort Date/Time Name of Responsible Adult Escort Signature of Nurse Date/Time Activity:: Activity as Tolerated Diet:: high fiber diet Discharge Orders Discharge Orders: Discharge Order (Routine); Ordered 09/25/20 Ordered By: Katelynn Ram
[2020-09-25 08:55] VITALS: BP 134/81; PULSE 82; RESP 22; TEMP 36.7; O2SAT 97
[2020-09-25] MEDS: Lactated Ringers 1,000 ML 80 ML IV (09:20)
[2020-09-25 09:53] LABS: INR 1.2 (0.9-1.1); Prothrombin Time 11.6 sec (9.3-11.0)
--- NOTE | 2020-09-25 10:21 | BOWEL_PTH ---
PATIENT: Adebayo Amin JR LOC: [facility] U#:[id number] AGE/SX: 80/M ROOM: RE09/25/[address]: Katelynn Ram MD : 1940 BED: DIS: 09/25/2020 SPEC #: [id number] RECD: 09/25/20 13:12 STATUS: REBEKA REQ #: [id number] CRISTINA: 09/25/20 10:[address]: Katelynn Ram DEPT: Surgical Specimen RECD BY: Becky Hargrove ENTERED: 09/25/20 13:13 SP TYPE: Bowel OTHR DR: Sania Cherry APRN Tissues: 1 - BIOPSY BOWEL 2 - BIOPSY BOWEL 3 - BIOPSY BOWEL 4 - BIOPSY BOWEL Procedures: GROSS AND MICRO LEVEL 4 Comments: [id number] ([id number] [facility] [place]
== END 2020-09-25 12:00 | disposition home or self-care (01) ==
LOC: SUR 09:02
PROVIDERS: PCP Nurse Practitioner; Visit Provider Surgery
PROC: 0DJD8ZZ Inspection of Lower Intestinal Tract, Via Natural or Artificial Opening Endoscopic (ICD-10-PCS; CPT 45378; principal; 2020-09-25 09:45)
DX: Z12.11 Encounter for screening for malignant neoplasm of colon (principal); K63.5 Polyp of colon; Z86.010 Personal history of colon polyps; K57.30 Diverticulosis of large intestine without perforation or abscess without bleeding; Z86.718 Personal history of other venous thrombosis and embolism; Z79.01 Long term (current) use of anticoagulants
CPT/HCPCS: 45380; 88305; 85610

== ENCOUNTER 2020-12-19 11:08 | Outpatient (REF) | payer MEDICARE, OTHER, SELFPAY ==
[2020-12-19 14:38] LABS: ALT 26 U/L (16-63); AST 22 U/L (15-37); Albumin 3.5 g/dL (3.4-5.0); Alkaline Phosphatase 56 U/L (46-116); Anion Gap 7.6 mmol/L (3-11); BUN 6 mg/dL (7-18); Bilirubin, Total 0.4 mg/dL (0.2-1.0); CO2 26.4 mmol/L (21.0-32.0); CREATININE 0.74 mg/dL (0.70-1.30); Calcium 8.4 mg/dL (8.5-10.1); Calculated LDL 110 mg/dL (<100); Chloride 105 mmol/L (98-107); Cholesterol 203 mg/dL (<200); Glucose 123 mg/dL (74-106); HDL Cholesterol 52 mg/dL (40-60); Potassium 3.8 mmol/L (3.5-5.1); Sodium 139 mmol/L (136-145); Total Protein 6.4 g/dL (6.4-8.2); Triglyceride 209 mg/dL (<150)
== END 2020-12-19 11:28 ==
LOC: LBN 11:08
PROVIDERS: PCP Nurse Practitioner; Visit Provider Nurse Practitioner
DX: I10 Essential (primary) hypertension (principal); I26.99 Other pulmonary embolism without acute cor pulmonale; Z79.01 Long term (current) use of anticoagulants
CPT/HCPCS: 80053; 80061

== ENCOUNTER 2021-03-05 08:23 | Outpatient (CLI) | payer MEDICARE, OTHER, SELFPAY ==
--- NOTE | 2021-03-05 08:15 | RT.EKG_ITS ---
APPROVED REPORT Exam: Resting ECG Patient Location: O HR:87 bpm ECG Measurements Heart Rate 87 AXIS GA 305 P 249 QRSd 121 QRS -74 QT 356 T 90 QTc 429 Conclusion Sinus or ectopic atrial rhythm...P axis (-45,135) Prolonged GA interval...GA >220, V-rate 50- 90 Left bundle branch block...QRSd>120, broad/notched R
== END 2021-03-05 08:24 | disposition home or self-care (01) ==
LOC: DI.KIM 08:24
PROVIDERS: PCP Nurse Practitioner; Visit Provider Nurse Practitioner
DX: G47.33 Obstructive sleep apnea (adult) (pediatric) (principal); I10 Essential (primary) hypertension; Z79.01 Long term (current) use of anticoagulants
CPT/HCPCS: 93010

== ENCOUNTER 2021-03-22 09:14 | Emergency (ER) | payer MEDICARE, OTHER, SELFPAY ==
[2021-03-22] VITALS (8 sets, daily range): BP systolic 122–168; BP diastolic 47–99; PULSE 70–81; RESP 13–22; TEMP 36.4–36.6; O2SAT 94–96
--- NOTE | 2021-03-22 09:21 | W.ED.GENAD ---
Discharge Plan Disposition Patient Disposition: HOME Condition: Stable Discharge Details Clinical Impression: Cervical strain, acute, CHI (closed head injury) Primary Care Provider: Sania Cherry ED Provider: Karen Spivey Home Meds and New Rx's Prescriptions: New cyclobenzaprine 10 mg tablet 10 mg PO TID PRN (Reason: muscle spasm) Qty: 7 RF: 0 hydrocodone-acetaminophen 5-325 mg tablet 1 tab PO BID PRN (Reason: pain) Qty: 6 RF: 0 Continued psyllium husk [Metamucil] 0.4 gram capsule 0.4 gm PO DAILY RF: 0 mirtazapine 7.5 mg tablet 7.5 mg PO QHS Qty: 30 RF: 3 acetaminophen 325 mg capsule 325 mg PO ONCE PRNRF: 0 sildenafil 100 mg tablet 50 mg PO DAILY PRN (Reason: sexual activity) Qty: 5 RF: 0 warfarin 5 mg tablet 5 mg PO DIRECTED Qty: 100 RF: 3 Apple Cider Vinegar Plus 1 EACH tablet 2 tab PO BID RF: 0 Chamomile 350 mg PO DAILY PRNRF: 0 Discharge Instructions Instructions: Cervical Strain (ED), Head Injury (ED) Additional Instructions: Follow up with primary care provider in 3-5 days. Return to ED sooner if any worsening or concerns. Increase oral fluids. Please take Tylenol or Ibuprofen with food every 4-6 hours as needed for pain and swelling. Alternate ice and heat. Take muscle relaxer and pain medication as directed if needed. Do not operate heavy machinery or drive while on these medications as they may cause you to be sleepy. Referrals: Sania Cherry, CLASSIFICATION CONTROL CLERK [Primary Care Provider] - Medical Decision Making 80-year-old male currently on warfarin daily presents to the ER approximately 5 days status post a head injury with questionable loss of consciousness. He reports hitting his right side of his head on a door woke up on the floor. He was seen by his PCP yesterday. Presents with increased bilateral neck pain today. He does have a healing hematoma and contusion noted to his right periorbital area, does have some midline C-spine tenderness at approximately C7 or C8. Also has some superior orbital tenderness with palpation. No crepitus no step-off he is alert and oriented x4. He also endorses some left upper extremity tingling and numbness Labs and CT ordered to rule out intracranial hemorrhage, acute fracture. Labs are largely within normal limits, PT is 24.0 INR is 2.4 which is therapeutic range. a CT:CT head cerv spine & facial wo EXAM: CT HEAD CERV SPINE FACIAL WO CLINICAL HISTORY: Fall, Right orbit hematoma, Neck pain, On antcoag. TECHNIQUE: Imaging Protocol: Axial computed tomography images with coronal and sagittal reformatted images were created and reviewed COMPARISON: No exams were available for comparison FINDINGS: CT BRAIN: Mild swelling over the right side of the forehead-supraorbital region. There are no skull fractures nor fluid in the visualized paranasal sinuses. There is no evidence of intracranial hemorrhage, mass effect, or shift of midline structures. There are no extra-axial fluid collections. The ventricles are not enlarged or shifted and there is no blood within the ventricular system nor within the basal cisterns. There is abundant bilateral periventricular hypodensity consistent with chronic small vessel disease. CT MAXILLOFACIAL BONES: Subtle nasal bone irregularity may indicate previous fracture. There is no evidence of facial fractures nor fluid in the visualized paranasal sinuses. there is no evidence of orbital blowout fracture. CT CERVICAL SPINE: There is no evidence of acute fracture nor listhesis. Multilevel degenerative disc disease noted as well as multilevel facet arthropathy but no malaligned facet joints evident. No significant osseous lesions. IMPRESSION: No acute intracranial findings on this noninfused CT scan of the brain.Mild scalp hematoma right supraorbital region-right forehead. No fractures evident. There are chronic small-vessel white matter ischemic changes but no evidence of acute infarct nor intracranial hemorrhage. No evidence of facial nor orbital blowout fractures.Subtle nasal bone findings which may be related to acute or chronic fracture. Correlation with clinical findings recommended Chronic degenerative changes in the cervical spine but no evidence of acute fracture nor acute compromise of the cervical spinal canal. 1038: Discussed CT results with patient who verbalized understanding. He is complaining of neck pain. Hydrocodone Tylenol order placed. Patient states he has taken hydrocodone before. Patient reevaluation he states that the hydrocodone has helped somewhat, still complaining a little bit of pain with neck extension. I do suspect at this time is a cervical strain or whiplash versus exacerbation of the degenerative changes in his neck will give Flexeril as muscle relaxer and 3 tablets to go. I did discuss strict return instructions and follow-up with primary care he verbalizes understanding. Patient remained hemodynamically stable throughout stay alert and oriented x4 prior to discharge. HPI General Mode of arrival: ambulatory. Date/Time Provider Initiated Documentation: 03/22/21 09:16. Limitations to Documentation: no limitations and physical limitation (Hard of hearing). Information obtained by: patient, RN notes reviewed and old records reviewed. HPI Narrative: 80-year-old male presents to the ER chief complaint of head injury which occurred on Friday. He reports that he lost his balance hitting his head on a door and awoke on the floor. Questionable loss of consciousness. He does take warfarin daily. He was able to get himself up after the fall. He was seen by his PCP yesterday. He reports today he had a new onset of bilateral neck pain and left arm and hand tingling and numbness. He has a healing periorbital contusion noted to his right eye, no palpable depressed skull fractures, no midline C-spine tenderness. No palpable lateral neck tenderness. He denies any chest pain, shortness of breath no back pain no extremity pain, no other injuries. He is ambulatory and alert and oriented x3. He is hard of hearing. He has a past medical history of GERD, sleep apnea, BPH, hypertension, hyperlipidemia, PE, DVT, sleep apnea. Related Data Home Medications Medication Instructions Recorded Confirmed Apple Cider Vinegar Plus 2 tab PO BID 05/23/14 03/22/21 Chamomile 350 mg PO DAILY PRN 09/07/19 03/22/21 psyllium husk 0.4 gram capsule 0.4 gm PO DAILY 09/07/19 03/22/21 mirtazapine 7.5 mg tablet 7.5 mg PO QHS #30 tab 12/19/20 03/22/21 warfarin 5 mg tablet 5 mg PO DIRECTED #100 tab 02/28/21 03/22/21 acetaminophen 325 mg capsule 325 mg PO ONCE PRN 03/05/21 03/22/21 sildenafil 100 mg tablet 50 mg PO DAILY PRN #5 tab 03/05/21 03/22/21 cyclobenzaprine 10 mg PO TID PRN #7 tab 03/22/21 hydrocodone-acetaminophen 1 tab PO BID PRN #6 tab 03/22/21 Previous Rx's Medication Instructions Recorded mirtazapine 7.5 mg tablet 7.5 mg PO QHS #30 tab 12/19/20 warfarin 5 mg tablet 5 mg PO DIRECTED #100 tab 02/28/21 sildenafil 100 mg tablet 50 mg PO DAILY PRN #5 tab 03/05/21 cyclobenzaprine 10 mg PO TID PRN #7 tab 03/22/21 hydrocodone-acetaminophen 1 tab PO BID PRN #6 tab 03/22/21 Allergies Allergy/AdvReac Type Severity Reaction Status Date / Time codeine AdvReac Intermediate N/V Verified 03/22/21 09:26 General MARTHA: 3 Review of Systems All systems reviewed & are unremarkable except as noted in HPI and below Constitutional Constitutional: Reports as per HPI and Denies headache(s) Eyes Eyes: Denies blurry vision, Denies diplopia, Denies floaters and Denies loss of vision Comments: Right periorbital hematoma, tenderness to superior orbit ENT Ears, Nose, Mouth, and Throat: Denies dental pain, Denies vertigo, Denies dizziness, Denies ear discharge, Denies otalgia, Reports facial pain, Denies headache(s), Denies epistaxis, Denies mouth lesions, Denies mouth pain, Denies nasal discharge, Reports neck pain and Denies tinnitus Cardiovascular Cardiovascular: Denies chest pain and Denies dyspnea Respiratory Respiratory: Denies cough and Denies dyspnea Gastrointestinal Gastrointestinal: Denies abdominal pain Musculoskeletal Musculoskeletal: Reports neck pain and Reports tingling Neurologic Neurologic: Denies abnormal speech, Denies vertigo, Denies dizziness, Denies headache(s), Denies localized weakness, Denies loss of vision, Denies convulsions, Reports tingling and Reports paresthesias (Left arm and hand) [facility] Medical History Abdominal mass 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 Reina 06/26/2013 Sanders RAHEEM positive Anticoagulation monitoring, INR range 2-3 03/24/19 [facility] [place] 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 Anxiety BPH (benign prostatic hypertrophy) Carpal tunnel syndrome on both sides (04/10/15) Cervical radiculopathy (01/01/17) Depressive disorder (07/09/13) DISH (diffuse idiopathic skeletal hyperostosis) (02/07/20) [facility] [place] Diverticulosis DVT (deep venous thrombosis) 03/25/19 [facility] [place] Right and Left: extensive, acute, non-occlusive DVT Erectile dysfunction 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) GERD (gastroesophageal reflux disease) Hyperlipidemia (02/13/12) Lipids 2010: 226/115/58/149 Statin made his GERD worse Hypertension Hypogonadism in male (01/12/16) 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 helicoptered [place] [facility] [place] .. s/p TPA, now on lovenox, starting warfarin. Heart strain noted, fu with cardiology in 3 mos. Hem/Onc work up planned ([facility]. Hx Lovenox for PE in past? Right heart failure with reduced right ventricular function Pt. denies this Right ventricular dilation Sleep apnea a. Not on CPAP. Surgical History Endoscopic Carpal Tunnel release (06/19/15) R Dr Moore H/O elbow surgery right H/O shoulder surgery bilaterally History of Surgical Procedure a. Meniscectomy, left knee. b. Right toal knee replacement. c. Right total hip replacement. d. Bilateral cataract surgery. e. Medial epicondylitis surgery. f. Bilateral rotator cuff surgery. g. Left ring finger trigger finger release. h. Multiple surgeries for lipoma excisions. i. Colonoscopies. History of total hip arthroplasty History of total knee replacement (05/30/14) left S/P cataract extraction and insertion of intraocular lens (~03/17/14) left S/P cataract extraction and insertion of intraocular lens (03/31/14) OD S/P colonoscopy (~08/02/19) Tubular adenoma x11. Sessile serrated adenoma x7 S/P trigger finger release Family History Mother , 80's, unknown causes Heart disease Alzheimer disease Father , 80's, heart failure Heart disease Sister Colon cancer Sister Heart disease Brother Diabetes Social History Smoking/Tobacco Use Status: Former Tobacco Use Quit Date: 12/23/97 Pack-years: 20 Smokeless tobacco user: other Smoking risk assessment performed?: Yes Alcohol Intake: current Alcohol Intake frequency: a few times a month Alcohol type: beer Drug use: Never Substance use type: does not use Housing: house Number of Children: 3 What type of physical activity do you participate in: none Seatbelt use: always Working smoke detector in home: Yes Fire extinguisher in home: Yes Carbon monox detector in home: Yes Do you feel safe at home: Yes Do you feel safe in your relationship?: Yes Additional Social history: lives alone Exam Narrative Exam Narrative: Constitutional: Alert and oriented x3. Appears stated age. Normal body habitus. Head: Normocephalic, no palpable skull fractures no abrasions or lacerations. Eyes: Pupils PERRLA, Red reflex noted, EOM's intact. Right periorbital hematoma, ENT: Bilateral TM's WNL, no hemotympanum bilaterally, external ear normal to inspection, no mastoid TTP, swelling, or erythema, Nasal turbinates WNL, no nasal discharge, no septal hematoma. Normal dentition, dentures in place uppers, no noted dental or intraoral trauma no lip trauma posterior pharynx WNL, no exudate. Neck: No midline C-spine tenderness, she is complaining of bilateral lateral neck pain increased pain with rotation. Chest: RRR, Normal S1, S2, distal pulses intact. Resp: Lungs clear to auscultation bilaterally, no wheezes, rales, or rhonchi. Musculoskeletal: Normal gait, 5/5 strength to all four extremities. Skin: No suspicious rashes or lesions. Capillary refill less than 2 sec. Neurologic: Cranial nerves II-XII intact. Alert and oriented x 3. DTR's intact. Hematologic/Lymphatic: No ecchymosis, no lymphadenopathy. [facility] Head images: 1. Contusion 2. Abrasion 3. Tenderness with palpation
[2021-03-22] MEDS: Normal Saline 500 ML IV (09:34)
[2021-03-22 09:39] LABS: Abs Immature Grans 0.07 10^3/uL (0.0-0.06); Absolute Basophil Count 0.07 10^3/uL (0.0-0.2); Absolute Eosinophil Count 0.12 10^3/uL (0.0-0.7); Absolute Lymphocyte Count 1.61 10^3/uL (1.2-3.4); Absolute Monocyte Count 0.54 10^3/uL (0.1-0.8); Basophils % 0.9; Eosinophils % 1.6; HCT 47.2 % (40.0-50.0); HGB 16.2 g/dL (13.5-17.5); Immature Grans % 0.9; Lymphocytes % 21.4; MCH 32.3 pg (27.0-33.0); MCHC 34.3 % (32.0-36.0); MCV 94.2 fL (80-95); MPV 9.1 fL (8.0-11.0); Monocytes % 7.2; Nucleated RBC 0 %; Platelet Count 260 10^3/uL (130-400); RBC 5.01 10^6/uL (4.36-5.78); RDW 12.6 % (11.8-14.1); RDW-SD 43.8 fL; WBC 7.51 10^3/uL (4.4-10.8)
--- NOTE | 2021-03-22 09:48 | DI.CT_ITS ---
EXAM: CT HEAD CERV SPINE FACIAL WO CLINICAL HISTORY: Fall, Right orbit hematoma, Neck pain, On antcoag. TECHNIQUE: Imaging Protocol: Axial computed tomography images with coronal and sagittal reformatted images were created and reviewed COMPARISON: No exams were available for comparison FINDINGS: CT BRAIN: Mild swelling over the right side of the forehead-supraorbital region. There are no skull fractures nor fluid in the visualized paranasal sinuses. There is no evidence of intracranial hemorrhage, mass effect, or shift of midline structures. There are no extra-axial fluid collections. The ventricles are not enlarged or shifted and there is no blo od within the ventricular system nor within the basal cisterns. There is abundant bilateral periventricular hypodensity consistent with chronic small vessel disease. CT MAXILLOFACIAL BONES: Subtle nasal bone irregularity may indicate previous fracture. There is no evidence of facial fractures nor fluid in the visualized paranasal sinuses. there is no evidence of orbital blowout fracture. CT CERVICAL SPINE: There is no evidence of acute fracture nor listhesis. Multilevel degenerative disc disease noted as well as multilevel facet arthropathy but no malaligned facet joints evident. No significant osseous lesions. IMPRESSION: No acute intracranial findings on this noninfused CT scan of the brain.Mild scalp hematoma right supr aorbital region-right forehead. No fractures evident. There are chronic small-vessel white matter i schemic changes but no evidence of acute infarct nor intracranial hemorrhage. No evidence of facial nor orbital blowout fractures.Subtle nasal bone findings which may be related t o acute or chronic fracture. Correlation with clinical findings recommended Chronic degenerative changes in the cervical spine but no evidence of acute fracture nor acute compro mise of the cervical spinal canal. RADIATION DOSE DELIVERED: 2,063.25mGy.cm Total DLP DATA REPOSITORY: All CT scans at this facility are submitted to the National Radiology Data Registry (NRDR) Dose Index Registry (DIR) with the [employer] (ACR). RADIATION OPTIMIZATION: All CT scans at this facility use at least one of these dose optimization te chniques: automated exposure control; mA and/or kV adjustment per patient size (includes targeted exa ms where dose is matched to clinical indication); or iterative reconstruction.
[2021-03-22 09:51] LABS: INR 2.4 (0.9-1.1)
[2021-03-22] MEDS: HYDROcodone 5/Acetaminophen 325 TAB PO (10:41)
--- NOTE | 2021-03-22 10:42 | NUR.NOTE ---
Nursing Note:ambulates with steady gait to restroom. in nad. resp even and unlabored. skin pwd.
--- NOTE | 2021-03-22 11:04 | NUR.NOTE ---
Nursing Note: pt sts pain better with medication. in nad. status unchanged. awaiting ER PA re-eval
[2021-03-22] MEDS: Cyclobenzaprine 10 MG TAB, 3 TABS/BTL PO (11:54)
[2021-03-22] MEDS: Cyclobenzaprine 10 MG TAB PO (11:54)
== END 2021-03-22 12:12 | disposition home or self-care (01) ==
PROVIDERS: Emergency Provider Registered Nurse Emergency; PCP Nurse Practitioner
DX: S00.11XA Contusion of right eyelid and periocular area, initial encounter (principal); S16.1XXA Strain of muscle, fascia and tendon at neck level, initial encounter; W18.09XA Striking against other object with subsequent fall, initial encounter
CPT/HCPCS: 96360; 99284; 70450; 70486; 72125; 85025; 85610; 99283

== ENCOUNTER → 2021-04-05 13:49 | Outpatient (BNVA) | payer MEDICARE, OTHER, SELFPAY | PROVIDERS: PCP Nurse Practitioner; Referring Provider Nurse Practitioner; Visit Provider Nurse Practitioner Adult Health | DX: G56.02 Carpal tunnel syndrome, left upper limb (principal); E66.9 Obesity, unspecified; G47.33 Obstructive sleep apnea (adult) (pediatric); I26.99 Other pulmonary embolism without acute cor pulmonale; Z79.01 Long term (current) use of anticoagulants; I10 Essential (primary) hypertension; N40.0 Benign prostatic hyperplasia without lower urinary tract symptoms | CPT/HCPCS: 95908; 99203; 99215 ==

== ENCOUNTER 2021-04-06 02:28 | Inpatient (IN) | payer MEDICARE, OTHER, SELFPAY ==
--- NOTE | 2021-04-06 02:31 | W.ED.GENAD ---
Discharge Plan Disposition Patient Disposition: [facility] INPATIENT Condition: Fair Discharge Details Clinical Impression: Acute diverticulitis Primary Care Provider: Sania Cherry ED Provider: Arpan Neville Cecil Meds and New Rx's Prescriptions: No Action warfarin 5 mg tablet 5 mg PO DIRECTED Qty: 100 RF: 3 Medical Decision Making Patient presenting with relatively sudden onset of left-sided abdominal pain without associated symptoms. He has no fever, vomiting, diarrhea, back pain, urinary symptoms. He is tender to palpation. He is mildly tachycardic and hypertensive currently, presumably from pain. IV established and fluids started. Morphine given for pain. Laboratory studies and CT scan ordered. 04:30 - Labs look okay. Lactic acid normal. White count normal. Urinalysis negative. LFTs and chemistries unremarkable. CT scan shows acute diverticulitis involving the descending colon. Pain is better with morphine but still present. press tender short goods to palpation left. Discussed with hospitalist for admission for IV antibiotics and fluids until pain better controlled. Zosyn ordered. Patient admitted in stable condition. Differential Diagnosis Differential Diagnosis: Diverticulitis, bowel obstruction, bowel perforation, kidney stone Medical Records Medical records reviewed: Yes I reviewed the patient's medical records. Lab Data Lab results reviewed: Yes I reviewed the patient's lab results. HPI General Mode of arrival: ambulatory. Date/Time Provider Initiated Documentation: 04/06/21 02:31. Limitations to Documentation: no limitations. Information obtained by: patient and RN notes reviewed. HPI Narrative: Patient presents with left-sided abdominal pain. Patient reports feeling fine all day. He was watching basketball game tonight. He got up to get a glass of water and noticed cramping in the left side of his abdomen. It became severe to the point where he had to sit down to catch his breath. He has had the pain waxing and waning since that time, about 9 PM. He denies any nausea, vomiting, diarrhea. He denies any back pain or urinary symptoms. He denies any fever. He denies any chest pain, cough, shortness of breath. He did take a couple of bisacodyl thinking that it was related to constipation. He did however have a normal bowel movement yesterday. Related Data Home Medications Medication Instructions Recorded Confirmed warfarin 5 mg tablet 5 mg PO DIRECTED #100 tab 02/28/21 04/06/21 Previous Rx's Medication Instructions Recorded warfarin 5 mg tablet 5 mg PO DIRECTED #100 tab 02/28/21 Allergies Allergy/AdvReac Type Severity Reaction Status Date / Time codeine AdvReac Intermediate N/V Verified 04/06/21 02:35 General MARTHA: 3 Review of Systems Narrative: 09/06 Review of Systems completed and is negative except as stated above in HPI (Systems reviewed: Const, Eyes, ENT, Resp, CV, GI, , MSK, Skin, Neuro) [facility] Medical History Abdominal mass 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 Reina 06/26/2013 Sanders RAHEEM positive Anticoagulation monitoring, INR range 2-3 03/24/[place] [facility] [place] 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 Anxiety BPH (benign prostatic hypertrophy) Carpal tunnel syndrome on both sides (04/10/15) Cervical radiculopathy (01/01/17) Depressive disorder (07/09/13) DISH (diffuse idiopathic skeletal hyperostosis) (02/07/20) [facility]verticulosis DVT (deep venous thrombosis) 03/25/19 [facility] [place] Right and Left: extensive, acute, non-occlusive DVT 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) GERD (gastroesophageal reflux disease) Hyperlipidemia (02/13/12) Lipids 2010: 226/115/58/149 Statin made his GERD worse Hypertension Hypogonadism in male (01/12/16) 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 [place] [facility] [place] TPA, now on lovenox, starting warfarin. Heart strain noted, fu with cardiology in 3 mos. Hem/Onc [place] planned [place] [place]. Hx Lovenox for PE in past? Right heart failure with reduced right ventricular function Pt. denies this Right ventricular dilation Sleep apnea a. Not on CPAP. Surgical History Endoscopic Carpal Tunnel release (06/19/15) R Dr Moore H/O elbow surgery right H/O shoulder surgery bilaterally History of Surgical Procedure a. Meniscectomy, left knee. b. Right toal knee replacement. c. Right total hip replacement. d. Bilateral cataract surgery. e. Medial epicondylitis surgery. f. Bilateral rotator cuff surgery. g. Left ring finger trigger finger release. h. Multiple surgeries for lipoma excisions. i. Colonoscopies. History of total hip arthroplasty History of total knee replacement (05/30/14) left S/P cataract extraction and insertion of intraocular lens (~03/17/14) left S/P cataract extraction and insertion of intraocular lens (03/31/14) OD S/P colonoscopy (~08/02/19) Tubular adenoma x11. Sessile serrated adenoma x7 S/P trigger finger release Family History Mother , 80's, unknown causes Heart disease Alzheimer disease Father , 80's, heart failure Heart disease Sister Colon cancer Sister Heart disease Brother Diabetes Social History Smoking/Tobacco Use Status: Former Tobacco Use Quit Date: 12/23/97 Pack-years: 20 Smokeless tobacco user: other Smoking risk assessment performed?: Yes Alcohol Intake: current Alcohol Intake frequency: a few times a month Alcohol type: beer Drug use: Never Substance use type: does not use Housing: house Number of Children: 3 What type of physical activity do you participate in: none Seatbelt use: always Working smoke detector in home: Yes Fire extinguisher in home: Yes Carbon monox detector in home: Yes Do you feel safe at home: Yes Do you feel safe in your relationship?: Yes Additional Social history: lives alone Exam Narrative Exam Narrative: Const: WDWN elderly male in NAD. HEENT: NC/AT. Normal facial exam. Eyes: Normal conjunctiva and sclera. Neck: Supple. Trachea midline. Lungs: Normal respiratory effort. Lungs are clear. Cor: RRR without murmur/gallop. Good radial pulses. GI: Soft and ND. Tender in left abdomen lower and upper, voluntary guarding, no rebound. : No obvious hernia. Back: No CVAT Neuro: A+O x 3. Normal speech, mentation, gait. Cranial nerves II - XII grossly intact. No gross motor or sensory deficit. Ext: No C/C/E. Skin: Warm and dry without rash.
[2021-04-06 02:32] VITALS: BP 143/87; PULSE 104; RESP 18; TEMP 36.6; O2SAT 98
[2021-04-06 02:54] LABS: Abs Immature Grans 0.03 10^3/uL (0.0-0.06); Absolute Basophil Count 0.08 10^3/uL (0.0-0.2); Absolute Eosinophil Count 0.05 10^3/uL (0.0-0.7); Absolute Monocyte Count 1.18 10^3/uL (0.1-0.8); Absolute Neutrophil Count 7.71 10^3/uL (1.2-6.7); Basophils % 0.8; Eosinophils % 0.5; HCT 50.6 % (40.0-50.0); HGB 17.3 g/dL (13.5-17.5); Immature Grans % 0.3; Lymphocytes % 14.2; MCH 32.1 pg (27.0-33.0); MCHC 34.2 % (32.0-36.0); MCV 93.9 fL (80-95); MPV 9.2 fL (8.0-11.0); Monocytes % 11.2; Nucleated RBC 0 %; RBC 5.39 10^6/uL (4.36-5.78); RDW 12.8 % (11.8-14.1); WBC 10.55 10^3/uL (4.4-10.8)
[2021-04-06] MEDS: MORPHine 10 MG/ML VIAL 2 MG IVP (02:54)
[2021-04-06] MEDS: Lactated Ringers 1,000 ML 125 ML IV ×4 (02:55→23:59)
[2021-04-06 02:58] LABS: Platelet Count 363 10^3/uL (130-400)
[2021-04-06 03:05] LABS: Bilirubin Negative (Negative); Blood Negative (Negative); Clarity Clear (Clear); Glucose Negative (Negative); Ketones Negative (Negative); Leukocyte Esterase Negative (Negative); Nitrite Negative (Negative); Specific Gravity 1.015 (1.005-1.025); Urobilinogen 0.2 EU/dL (Up TO 0.2)
[2021-04-06 03:12] LABS: ALT 34 U/L (16-63); AST 18 U/L (15-37); Albumin 3.7 g/dL (3.4-5.0); Alkaline Phosphatase 82 U/L (46-116); Anion Gap 11.5 mmol/L (3-11); BUN 12 mg/dL (7-18); Bilirubin, Total 0.9 mg/dL (0.2-1.0); CO2 24.5 mmol/L (21.0-32.0); CREATININE 0.9 mg/dL (0.70-1.30); Calcium 9.2 mg/dL (8.5-10.1); Chloride 101 mmol/L (98-107); Glucose 110 mg/dL (74-106); Potassium 4.3 mmol/L (3.5-5.1); Sodium 137 mmol/L (136-145); Total Protein 7.9 g/dL (6.4-8.2)
[2021-04-06 03:20] LABS: Lipase 108 U/L (73-393)
[2021-04-06 03:34] LABS: INR 3.6 (0.9-1.1); Prothrombin Time 35.3 sec (9.3-11.0)
[2021-04-06] MEDS: Omnipaque 350 MG/ML 100 ML BTL IJ (03:39)
[2021-04-06] MEDS: Normal Saline Flush 10 ML SYR IVP ×8 (03:39→22:56)
[2021-04-06] MEDS: Normal Saline - Diluent 50 ML VIAL IV (03:40)
--- NOTE | 2021-04-06 03:56 | DI.CT_ITS ---
Exam(s) CT ABDOMEN PELVIS W EXAM: CT ABDOMEN PELVIS W CLINICAL HISTORY: left side abdominal pain. TECHNIQUE: Imaging Protocol: Axial computed tomography images with coronal and sagittal reformatted images were created and reviewed CONTRAST MATERIAL: Intravenous: Omnipaque 350 Contrast volume:100 ml Oral: / no COMPARISON: CR PELVIS AP from 01/30/2010 CR PELVIS AP from 01/30/2010 CT CHEST FOR PULMONARY EMBOLUS from 02/04/2014 CR RT HIP COMPLETE AP PELVIS from 09/17/[address] CHEST PE CTA from 11/09/2019 FINDINGS: ABDOMEN: Lung Bases: Respiratory motion and dependent changes. Mild cardiomegaly. Liver: Normal density. No measurable mass. Gallbladder and biliary tract: No radiodense calculus or dilation. Pancreas: Normal density, no abnormal calcifications or inflammatory process. Spleen: Normal. Kidneys: Normal size, contour and axis. No radiodense stones or obstructive uropathy. No suspicious m asses seen. Adrenal glands: No masses seen. Abdominal Aorta: Abdominal portion non-dilated. Moderate calcification. PELVIS: Bladder: Symmetric distention, no gross wall thickening. Bowel: Small hiatal hernia. Diverticulosis of the descending colon. Inflammatory changes in the adj acent fat of the mid to lower descending colon, consistent with diverticulitis. There is some adjace nt fluid. There is no evidence of abscess or perforation. No small bowel dilatation. Bones: Moderate to severe compression fracture of L5 which appears old. Degenerative disc changes an d facet degenerative changes. Right hip prosthesis. Reproductive organs: Markedly enlarged prostate. Lymph nodes: Unremarkable. Impression: Diverticulitis of the mid descending colon. No abscess or perforation. RADIATION DOSE DELIVERED: 1,082.78mGy.cm Total DLP DATA REPOSITORY: All CT scans at this facility are submitted to the National Radiology Data Registry (NRDR) Dose Index Registry (DIR) with the [employer] (ACR). RADIATION OPTIMIZATION: All CT scans at this facility use at least one of these dose optimization te chniques: automated exposure control; mA and/or kV adjustment per patient size (includes targeted exa ms where dose is matched to clinical indication); or iterative reconstruction.
[2021-04-06 04:09] VITALS: BP 123/62; PULSE 85; PULSE 95; RESP 25; O2SAT 91
--- NOTE | 2021-04-06 04:14 | DI.VRAD_ITS ---
PROCEDURE INFORMATION: Exam: CT Abdomen And Pelvis With Contrast Exam date and time: 04/06/2021 2:46 AM Age: 80 years old Clinical indication: Abdominal pain; Localized; Left; Prior surgery; Surgery type: Shoulder, stents, hip TECHNIQUE: Imaging protocol: Computed tomography of the abdomen and pelvis with contrast. Radiation optimization: All CT scans at this facility use at least one of these dose optimization techniques: automated exposure control; mA and/or kV adjustment per patient size (includes targeted exams where dose is matched to clinical indication); or iterative reconstruction. Contrast material: [id number]; Contrast volume: 100 ml; Contrast route: INTRAVENOUS (IV); COMPARISON: CR RT HIP COMPLETE AP PELVIS 09/17/2016 9:38 AM FINDINGS: Liver: Normal. No mass. Gallbladder and bile ducts: Normal. No calcified stones. No ductal dilation. Pancreas: Normal. No ductal dilation. Spleen: Normal. No splenomegaly. Adrenal glands: Normal. No mass. Kidneys and ureters: Normal. No hydronephrosis. Stomach and bowel: Colonic diverticula. Acute diverticulitis of the descending colon. Appendix: No evidence of appendicitis. Intraperitoneal space: No colon perforation or abscess. Vasculature: Unremarkable. No abdominal aortic aneurysm. Lymph nodes: Unremarkable. No enlarged lymph nodes. Urinary bladder: Unremarkable as visualized. Reproductive: Unremarkable as visualized. Bones/joints: Unremarkable. No acute fracture. Soft tissues: Unremarkable. IMPRESSION: Acute diverticulitis of the descending colon. Dictated and Authenticated by: Isaac Adams MD. Ordering:JOY Antony MD
[2021-04-06 04:31] VITALS: BP 118/59; PULSE 90; PULSE 91; RESP 16; O2SAT 93
[2021-04-06 04:38] LABS: Source Nasal/Nares
[2021-04-06] MEDS: PIPERACILLIN/TAZO 4.5 GM in Normal Saline 100 ML IVPB ×4 (04:38→22:55)
[2021-04-06 05:18] VITALS: BP 129/74; PULSE 87; RESP 18; TEMP 36.6; O2SAT 95
[2021-04-06] MEDS: MORPHine 4 MG/ML SYR IVP (05:20)
--- NOTE | 2021-04-06 05:58 | W.PM.HP.N ---
Date of service: 04/06/21 Time of Service: 05:58 Assessment and Plan Assessment and plan (1) Acute diverticulitis: Status: Acute Assessment and plan: Exam and CT consistent with acute diverticulitis. Onset was more sudden than typical, but assessment does not suggest other causes for pain. No complications such as perforation on exam, but given severity of pain will keep NPO on IV fluids this morning in case he worsens and needs surgical assessment. He was starting on pip/tazo in the ED given acuity of onset. I will continue this, but look to step down if improving. 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 No evidence of recurrence. His INR is a little above 2-3 goal, will hold warfarin and recheck INR this afternoon. (3) Obstructive sleep apnea syndrome: Status: Acute Assessment and plan: BiPAP prescribes but he does not use regularly. (4) Hypertension: Status: Chronic Assessment and plan: BP okay off medication. (5) Discharge planning issues: Status: Acute Assessment and plan: He will likely need 2 days or so of IV antibiotics, home when pain improved and eating and able to take oral antibiotics. He is currently stable on the floor. He has confirmed his desire for DNR/DNI status. History of Present Illness History of Present Illness Chief Complaint: abdominal pain Narrative: 80 yo M with history of DVT/PE on warfarin, known history of diverticula, who experienced sudden onset crampy left sided abdominal pain while eating dinner on the evening prior to admission. He noted pain after he had takes a few bites of his hoagie sandwich, and stood up to get a glass of water. He describes the pain as severe cramps, like he was terribly constipated. Pain would worsen in waves. Left side, does not radiate. He tried a bisocodyl but it didn't help. Not a/w fever, nausea, or vomiting. No urinary symptoms. No diarrhea or blood in stool. He had a normal bowel movement the day prior to pain onset. He has not had this pain in the past. He called the doctor senior receptionist around 2:30am when the pain was not improving and was told to present to the emergency room. Of note, he had a serrated adenoma on 09/2020 colonoscopy, and diverticula were noted then. He has not had abdominal surgery. Review of Systems Constitutional Constitutional: Denies anorexia, Denies chills, Denies fever(s), Denies headache(s), Denies weakness and Denies weight loss Eyes Eyes: Denies change in vision and Denies irritation ENT Ears, Nose, Mouth, and Throat: Denies dysphagia, Denies dizziness, Denies headache(s), Denies nasal congestion and Denies sore throat Cardiovascular Cardiovascular: Denies chest pain, Denies palpitations and Denies orthopnea Respiratory Respiratory: Denies cough, Denies excessive phlegm production and Denies wheezing Comments: hurts in abdomen to take a deep breath Gastrointestinal Gastrointestinal: Denies melena, Denies hematochezia, Denies change in bowel habits, Denies constipation, Reports cramping, Denies dysphagia, Denies heartburn, Denies nausea and Denies vomiting Genitourinary Genitourinary: Denies hematuria, Denies dysuria and Denies urinary incontinence Integumentary/Breasts Skin/Breast: Denies rash and Denies skin ulcer Neurologic Neurologic: Denies dizziness, Denies headache(s), Denies sensory deficit and Denies weakness Psychiatric Psychiatric: Denies mood swings and Denies panic attacks Endocrine Endocrine: Denies palpitations Hematologic/Lymphatic Hematologic/Lymphatic: Denies easy bleeding Comments: no recent change in warfarin Allergic/Immunologic Allergic/Immunologic: Denies wheezing REPLACED BY [facility] Medical History Abdominal mass 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 Reina 06/26/2013 Tommy RAHEEM positive Anticoagulation monitoring, [place] range 2-3 [place] [facility] [place]far[place] for secondary VTE prophylaxis Anxiety BPH (benign prostatic hypertrophy) Carpal tunnel syndrome on both sides (04/10/15) Cervical radiculopathy (01/01/17) Depressive disorder (07/09/13) DISH (diffuse idiopathic skeletal hyperostosis) (02/07/20) [facility]verticulosis DVT (deep venous thrombosis) [place]/25/[place] [facility] [place] Right and Left: extensive, acute, non-occlusive DVT 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) GERD (gastroesophageal reflux disease) Hyperlipidemia (02/13/12) Lipids 2010: 226/115/58/149 Statin made his GERD worse Hypertension Hypogonadism in male (01/12/16) 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 Friday, 08/10 .. [place] [facility] [place] TPA, now on lovenox, starting warfarin. Heart strain noted, fu with cardiology in 3 mos. Hem/Onc work up planned [place] [place]. Hx Lovenox for PE in past? Right heart failure with reduced right ventricular function Pt. denies this Right ventricular dilation Sleep apnea a. Not on CPAP. Surgical History Endoscopic Carpal Tunnel release (06/19/15) R Dr Moore H/O elbow surgery right H/O shoulder surgery bilaterally History of Surgical Procedure a. Meniscectomy, left knee. b. Right toal knee replacement. c. Right total hip replacement. d. Bilateral cataract surgery. e. Medial epicondylitis surgery. f. Bilateral rotator cuff surgery. g. Left ring finger trigger finger release. h. Multiple surgeries for lipoma excisions. i. Colonoscopies. History of total hip arthroplasty History of total knee replacement (05/30/14) left S/P cataract extraction and insertion of intraocular lens (~03/17/14) left S/P cataract extraction and insertion of intraocular lens (03/31/14) OD S/P colonoscopy (~08/02/19) Tubular adenoma x11. Sessile serrated adenoma x7 S/P trigger finger release Family History Mother , 80's, unknown causes Heart disease Alzheimer disease Father , 80's, heart failure Heart disease Sister Colon cancer Sister Heart disease Brother Diabetes Social History (Updated 04/06/21 @ 06:07 by Alec Calderon Smoking/Tobacco Use Status: Former Tobacco Use Quit Date: 12/23/97 Pack-years: 20 Smokeless tobacco user: other Smoking risk assessment performed?: Yes Alcohol Intake: current Alcohol Intake frequency: a few times a month Alcohol type: beer Drug use: Never Substance use type: does not use Housing: house Number of Children: 3 What type of physical activity do you participate in: none Seatbelt use: always Working smoke detector in home: Yes Fire extinguisher in home: Yes Carbon monox detector in home: Yes Do you feel safe at home: Yes Do you feel safe in your relationship?: Yes Additional Social history: lives alone, but has local intermodal truck driver girlfriend Lashon x 28 years 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 No acute distress at rest. HEENT: Head atraumatic. Conjunctiva clear, no icterus. PEERL, EOMI. no rhinorrhea. MMM, OP benign. Neck is supple with no masses or lymphadenopathy, nl thyroid. LUNGS: CTAB with normal effort CV: RRR with no murmurs, gallops, or rubs. ABD: +BS in 4 quadrants, but less in LLQ. slight distention. Abdomen soft, but very tender in LLQ with guarding with deep palpation. Mild rebound to the left side. EXT: no cyanosis, clubbing, or edema. legs not tender. MSK: No joint redness or swelling. many scars NEURO: CN 2-12 grossly intact. Normal movement of 4 extremities. Normal speech and coordination SKIN: No rashs or open wounds. no large bruises PSYCH: normal mood and affect Results CT A/P with contrast: Acute diverticulitis of the descending colon. Labs Result diagrams: 04/06/21 02:40 04/06/21 02:40 Labs: Laboratory Results - last 24 hr 04/06/21 04/06/21 04/06/21 02:40 02:40 02:40 WBC 10.55 RBC 5.39 Hgb 17.3 Hct 50.6 H MCV 93.9 MCH 32.1 MCHC 34.2 RDW 12.8 Plt Count 363 D MPV 9.2 Immature Gran % 0.3 Neutrophils % 73.0 Lymphocytes % 14.2 Monocytes % 11.2 Eosinophils % 0.5 Basophils % 0.8 Nucleated RBC % 0 Absolute Neutrophils 7.71 H Absolute Lymphocytes 1.50 Absolute Monocytes 1.18 H Absolute Eosinophils 0.05 Absolute Basophils 0.08 PT INR VBG Lactate 1.0 Sodium 137 Potassium 4.3 Chloride 101 Carbon Dioxide 24.5 Anion Gap 11.5 H BUN 12 Creatinine 0.9 Estimated GFR/1.73 m2 >= 60.00 Glucose 110 H Calcium 9.2 Total Bilirubin 0.9 AST 18 ALT 34 Alkaline Phosphatase 82 Total Protein 7.9 Albumin 3.7 Lipase 108 Urine Color Urine Clarity Urine pH Ur Specific [place] Urine Protein Urine Ketones Urine Blood Urine Nitrite Urine Bilirubin Urine Urobilinogen Ur Leukocyte Esterase Urine Glucose COVID-19 Source 04/06/21 04/06/21 04/06/21 02:40 02:55 04:30 WBC RBC Hgb Hct MCV MCH MCHC RDW Plt Count MPV Immature Gran % Neutrophils % Lymphocytes % Monocytes % Eosinophils % Basophils % Nucleated RBC % Absolute Neutrophils Absolute Lymphocytes Absolute Monocytes Absolute Eosinophils Absolute Basophils PT 35.3 H D INR 3.6 H D VBG Lactate Sodium Potassium Chloride Carbon Dioxide Anion Gap BUN Creatinine Estimated GFR/1.73 m2 Glucose Calcium Total Bilirubin AST ALT Alkaline Phosphatase Total Protein Albumin Lipase Urine Color Yellow Urine Clarity Clear Urine pH 6.0 Ur Specific [place] 1.015 Urine Protein Negative Urine Ketones Negative Urine Blood Negative Urine Nitrite Negative Urine Bilirubin Negative Urine Urobilinogen 0.2 Ur Leukocyte Esterase Negative Urine Glucose Negative COVID-19 Source Nasal/nares Last Vital Signs Temp 36.6 C 04/06/21 05:18 Pulse 87 04/06/21 05:18 Resp 18 04/06/21 05:18 BP 129/74 04/06/21 05:18 Pulse Ox 95 04/06/21 05:18 COVID-19 Screening Have you, or household traveled for leisure in last 14 days?: Yes Had IN PERSON contact w/suspected or confirmed C-19 person: No
[2021-04-06 07:56] VITALS: BP 115/70; PULSE 93; RESP 19; TEMP 36.4; O2SAT 94
[2021-04-06 08:11] LABS: INR 3.5 (0.9-1.1); Prothrombin Time 34.3 sec (9.3-11.0)
[2021-04-06] MEDS: MORPHine 4 MG/ML SYR 3 MG IVP ×4 (09:13→23:59)
[2021-04-06] MEDS: Pantoprazole 40 MG TABCR PO (10:11)
[2021-04-06] MEDS: Normal Saline 500 ML 100 ML IV (10:29)
[2021-04-06 10:32] LABS: COVID-19 PCR Negative (Negative)
[2021-04-06 14:59] VITALS: BP 129/72; PULSE 64; RESP 19; TEMP 36.6; O2SAT 97
--- NOTE | 2021-04-06 15:09 | PGE_ITS ---
Date of Service Date of service: 04/06/21 Time of Service: 15:09 Subjective Subjective Interval history since last seen: No nausea or vomiting, Still having some pain with palpitation Will trial clears. Objective Last Vital Signs Temp 36.6 C 04/06/21 14:59 Pulse 64 04/06/21 14:59 Resp 19 04/06/21 14:59 BP 129/72 04/06/21 14:59 Pulse Ox 97 04/06/21 14:59 Laboratory Results - last 24 hr 04/06/21 04/06/21 04/06/21 02:40 02:40 02:40 WBC 10.55 RBC 5.39 Hgb 17.3 Hct 50.6 H MCV 93.9 MCH 32.1 MCHC 34.2 RDW 12.8 Plt Count 363 D MPV 9.2 Immature Gran % 0.3 Neutrophils % 73.0 Lymphocytes % 14.2 Monocytes % 11.2 Eosinophils % 0.5 Basophils % 0.8 Nucleated RBC % 0 Absolute Neutrophils 7.71 H Absolute Lymphocytes 1.50 Absolute Monocytes 1.18 H Absolute Eosinophils 0.05 Absolute Basophils 0.08 PT INR VBG Lactate 1.0 Sodium 137 Potassium 4.3 Chloride 101 Carbon Dioxide 24.5 Anion Gap 11.5 H BUN 12 Creatinine 0.9 Estimated GFR/1.73 m2 >= 60.00 Glucose 110 H Calcium 9.2 Total Bilirubin 0.9 AST 18 ALT 34 Alkaline Phosphatase 82 Total Protein 7.9 Albumin 3.7 Lipase 108 Urine Color Urine Clarity Urine pH Ur Specific [place] Urine Protein Urine Ketones Urine Blood Urine Nitrite Urine Bilirubin Urine Urobilinogen Ur Leukocyte Esterase Urine Glucose COVID-19 Source SARS-CoV-2 (PCR) 04/06/21 04/06/21 04/06/21 02:40 02:55 04:30 WBC RBC Hgb Hct MCV MCH MCHC RDW Plt Count MPV Immature Gran % Neutrophils % Lymphocytes % Monocytes % Eosinophils % Basophils % Nucleated RBC % Absolute Neutrophils Absolute Lymphocytes Absolute Monocytes Absolute Eosinophils Absolute Basophils PT 35.3 H D INR 3.6 H D VBG Lactate Sodium Potassium Chloride Carbon Dioxide Anion Gap BUN Creatinine Estimated GFR/1.73 m2 Glucose Calcium Total Bilirubin AST ALT Alkaline Phosphatase Total Protein Albumin Lipase Urine Color Yellow Urine Clarity Clear Urine pH 6.0 Ur Specific [place] 1.015 Urine Protein Negative Urine Ketones Negative Urine Blood Negative Urine Nitrite Negative Urine Bilirubin Negative Urine Urobilinogen 0.2 Ur Leukocyte Esterase Negative Urine Glucose Negative COVID-19 Source Nasal/nares SARS-CoV-2 (PCR) Negative 04/06/21 07:52 WBC RBC Hgb Hct MCV MCH MCHC RDW Plt Count MPV Immature Gran % Neutrophils % Lymphocytes % Monocytes % Eosinophils % Basophils % Nucleated RBC % Absolute Neutrophils Absolute Lymphocytes Absolute Monocytes Absolute Eosinophils Absolute Basophils PT 34.3 H INR 3.5 H VBG Lactate Sodium Potassium Chloride Carbon Dioxide Anion Gap BUN Creatinine Estimated GFR/1.73 m2 Glucose Calcium Total Bilirubin AST ALT Alkaline Phosphatase Total Protein Albumin Lipase Urine Color Urine Clarity Urine pH Ur Specific [place] Urine Protein Urine Ketones Urine Blood Urine Nitrite Urine Bilirubin Urine Urobilinogen Ur Leukocyte Esterase Urine Glucose COVID-19 Source SARS-CoV-2 (PCR)
--- NOTE | 2021-04-06 16:57 | PHA.REVIEW ---
Pharmacy Admission Review - Admission Clinical Review (Last Reviewed 04/06/21 @ 06:06 by Alec Vuong) Discharge planning issues (Acute) Acute diverticulitis (Acute) Obstructive sleep apnea syndrome (Acute 02/13/13) codeine Adverse Reaction (Intermediate, Verified 04/06/21 02:35) N/V Height 5 ft 7 in Weight 92.4 kg - Renal Dosing Renal Dosing: BUN 12 mg/dL (7-18) 04/06/21 02:40 Creatinine 0.9 mg/dL (0.70-1.30) 04/06/21 02:40 Medications needing adjustments: Reviewed (Crcl ~72.1 mL/min using adjusted body weight. Current meds okay.) - Anticoagulation Anticoagulation: Hgb 17.3 g/dL (13.5-17.5) 04/06/21 02:40 Hct 50.6 % (40.0-50.0) H 04/06/21 02:40 Plt Count 363 10^3/uL (130-400) D 04/06/21 02:40 INR 3.5 (0.9-1.1) H 04/06/21 07:52 Creatinine 0.9 mg/dL (0.70-1.30) 04/06/21 02:40 DVT Prohphylaxis: N/A Therapeutic Anticoagulation: Reviewed Medications: Warfarin (warfarin on hold) - Opiate Usage Evaluate Pain Scale/Pains Meds: Reviewed Scheduled Bowel Reg ordered if on Opiates?: No - Relevant Labs Sodium 137 mmol/L (136-145) 04/06/21 02:40 Potassium 4.3 mmol/L (3.5-5.1) 04/06/21 02:40 Chloride 101 mmol/L (98-107) 04/06/21 02:40 Electrolytes, C-Reactive P, ESR: Reviewed - DM Control DM Control: Glucose 110 mg/dL (74-106) H 04/06/21 02:40 Insulin Dosing: N/A - Heart Failure/ME EF%, ANDREW's, B-Blockers, Diuretics: N/A - BP Control BP Control: Blood Pressure 129/72 Blood Pressure 115/70 Blood Pressure 129/74 - Qtc Review If Elevated: N/A - IV to PO Switch IV Medications: Reviewed - Home Meds Home Med List reviewed: Reviewed Relevent Home Meds Not ordered & why?: warfarin (on hold due to INR) - Current meds Current Medication Order Review: Intervened (Discontinued duplicate med order as well as DI meds (had already been given).) - Comments Comments/Follow Ups: Watch VS, labs, INR, and for med changes (resumption of warfarin, possible need BM meds). Antibiotic Activity - Pharmacy Antibiotic Review Pharmacy Antibiotic Activity: Reviewed, no change (Zosyn ordered (day 1).)
--- NOTE | 2021-04-06 18:29 | INITIAL_ITS ---
- If Service Date Differs Date of service: 04/06/21 Time of Service: 18:29 Care Management Initial Assess REASON FOR HOSPITALIZATION:: Acute diverticulitis PAST MEDICAL HISTORY/PAST SURGICAL HISTORY:: Abdominal mass. 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 2007 Reina 06/26/2013 Tommy. RAHEEM positive. Anticoagulation monitoring, INR range 2-3. [place] [facility] [place] warfarin termination clerk for secondary VTE prophylaxis. Anxiety. BPH (benign prostatic hy pertrophy). Carpal tunnel syndrome on both sides (04/10/15). Cervical radiculopathy (01/01/17). Depressive disorder (07/09/13). DISH (diffuse idiopathic skeletal hyperostosis) (02/07/20). [facility] [place] Diverticulosis. DVT (deep venous thrombosis). 03/25/[place] [facility] [place] Right and Left: extensive, acute, non- occlusive DVT. 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 GERD (gastroesophageal reflux disease). Hyperlipidemia (02/13/12). Lipids 2009: 226/115/58/149. Statin made his GERD worse. Hypertension. Hypogonadism in male (01/12/16). 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 Insomnia. Knee pain, left. Left carpal tunnel syndrome. Libido, decreased (12/12/15). Long-term (current) use of anticoagulants, INR goal 2.0-3.0. Nicotine dependence (07/09/13). Numbness and tingling in both hands. Obesity (04/22/13). Osteoarthritis of knee (06/16/13). Other seborrheic keratosis (02/13/12). Back. Periodic limb movement disorder (02/13/13). [facility] 02/13/13. Pulmonary embolism. Acute saddle PE found @ [facility] Friday, 08/10 .. [place] [facility] [place] s/p TPA, now on lovenox, starting warfarin. Heart strain noted, fu with cardiology in 3 mos. Hem/Onc work up planned [place]. Hx Lovenox for PE in past? Right heart failure with reduced right ventricular function. Pt. denies this. Right ventricular dilation. Sleep apnea. a. Not on CPAP. Endoscopic Carpal Tunnel release (06/19/15). Saul Moore. H/O elbow surgery. right. H/O shoulder surgery. bilaterally. History of Surgical Procedure. a. Meniscectomy, left knee. b. R ight toal knee replacement. c. Right total hip replacement. d. Bilateral cataract surgery. e. Medial epicondylitis surgery. f. Bilateral rotator cuff surgery. g. Left ring finger trigger finger release. h. Multiple surgeries for lipoma excisions. i. Colonoscopies. History of total hip arthroplasty. History of total knee replacement (05/30/14). left. S/P cataract extraction and insertion of intraocular lens (~03/17/14). left. S/P cataract extraction and insertion of intraocular lens (03/31/14). OD. S/P colonoscopy (~08/02/19). Tubular adenoma x11. Sessile serrated adenoma x7. S/P trigger finger release PREVIOUS FUNCTIONAL STATUS/SOCIAL/FAMILY SUPPORTS:: Adebayo resides in [facility]. He reports that he likes having his own space and is managing well at home. His girlfriend of thirty years, Lashon also has her own place which he reports works well for the couple. He is independent at baseline in the community. Adebayo reports his two children and sibling reside in the [facility] and keep in contact. CURRENT FUNCTIONAL STATUS:: Adebayo is lying in bed when CM meets with him, he reports his pain is present but manageable and his only bother at this time is urinating frequently. He reports the pain medication is making him a bit wobbly so staff are helping him to the bathroom. He reports having a vehicle in the parkinglot but anticipating Lashon will drive him home. He shares frustrations around diverticulitis as he reports taking metamucil each day and following medical recommendations. ADVANCE DIRECTIVES:: On file, Kenton Amin as agent. Others include sister, Nancy Hoyt and friend, Lashon. Has patient been provided with info about the portal/API?: Yes Did the patient sign up for the portal?: No CODE STATUS:: DNR/DNI INSURANCE COVERAGE / FINANCIAL ISSUES:: Medicare. [facility] PRIMARY CARE PHYSICIAN:: Sania Cherry POTENTIAL DISCHARGE NEEDS:: Follow up appointments. PATIENT/FAMILY EDUCATION NEEDS:: Review discharge instructions, discuss Ask Me Three. ANTICIPATED BARRIERS TO DISCHARGE:: None identified. TRANSPORTATION:: Via private vehicle with his girlfriend, Lashon. PLAN:: Anticipate Adebayo will return home when ready per MD. He will follow up with his PCP and plan of care as prescribed. He will transport home via private vehicle with his girlfriend, Lashon.
[2021-04-07 00:45] VITALS: BP 119/65; PULSE 64; RESP 16; TEMP 36.4; O2SAT 95
[2021-04-07 03:15] VITALS: BP 121/72; PULSE 72; RESP 18; TEMP 36.4; O2SAT 95
[2021-04-07] MEDS: PIPERACILLIN/TAZO 4.5 GM in Normal Saline 100 ML IVPB (03:35)
[2021-04-07] MEDS: MORPHine 4 MG/ML SYR 3 MG IVP ×2 (03:35→07:58)
[2021-04-07 07:01] LABS: Abs Immature Grans 0.01 10^3/uL (0.0-0.06); Absolute Basophil Count 0.06 10^3/uL (0.0-0.2); Absolute Eosinophil Count 0.14 10^3/uL (0.0-0.7); Absolute Lymphocyte Count 1.92 10^3/uL (1.2-3.4); Absolute Monocyte Count 0.67 10^3/uL (0.1-0.8); Absolute Neutrophil Count 2.92 10^3/uL (1.2-6.7); Eosinophils % 2.4; HGB 14.1 g/dL (13.5-17.5); Immature Grans % 0.2; Lymphocytes % 33.6; MCH 32.1 pg (27.0-33.0); MCHC 33.6 % (32.0-36.0); MCV 95.7 fL (80-95); MPV 9.6 fL (8.0-11.0); Monocytes % 11.7; Neutrophils % 51.1; Nucleated RBC 0 %; Platelet Count 250 10^3/uL (130-400); RBC 4.39 10^6/uL (4.36-5.78); RDW-SD 46.5 fL; WBC 5.72 10^3/uL (4.4-10.8)
[2021-04-07 07:08] LABS: Anion Gap 5.1 mmol/L (3-11); BUN 6 mg/dL (7-18); CO2 29.9 mmol/L (21.0-32.0); CREATININE 0.8 mg/dL (0.70-1.30); Calcium 8.4 mg/dL (8.5-10.1); Chloride 107 mmol/L (98-107); Glucose 87 mg/dL (74-106); Potassium 4.7 mmol/L (3.5-5.1); Sodium 142 mmol/L (136-145)
[2021-04-07 07:20] VITALS: BP 124/69; PULSE 62; RESP 18; TEMP 36.8; O2SAT 98
[2021-04-07] MEDS: Pantoprazole 40 MG TABCR PO (07:58)
[2021-04-07] MEDS: Normal Saline Flush 10 ML SYR IVP ×2 (07:59→11:02)
[2021-04-07] MEDS: Lactated Ringers 1,000 ML 125 ML IV (08:34)
--- NOTE | 2021-04-07 08:42 | PDOC.CMPRO ---
- If Service Date Differs Date of service: 04/07/21 Time of Service: 08:42 Care Management Progress Note S/O:Adebayo was sitting up in bed when CM met with him. He was pleasant and engaged readily with CM. He shared that he was feeling well and hoped to be discharged today. He said he is tolerating his diet so far and that his pain has improved. A: Adebayo is a 80 year old man admitted on 04/06/21 with diverticulitis P:Anticipate Adebayo will return home when ready per MD. He will follow up with his PCP and plan of care as prescribed. He will transport home via private vehicle with his girlfriend, Lashon.
[2021-04-07] MEDS: cefTRIAXone 2 GM/50 ML BAG IVPB (09:42)
[2021-04-07] MEDS: metroNIDAZOLE 500 MG/100 ML BAG 100 MG IVPB ×2 (09:51→18:14)
[2021-04-07 09:53] LABS: INR 2.5 (0.9-1.1); Prothrombin Time 24.4 sec (9.3-11.0)
[2021-04-07] MEDS: Docusate Sodium 100 MG CAP PO ×2 (10:23→20:37)
[2021-04-07] MEDS: Polyethylene Glycol 3350 17 GM PACKET PO ×2 (10:23→20:37)
--- NOTE | 2021-04-07 14:50 | W.PM.PROGNOT ---
Date of Service Date of service: 04/07/21 Time of Service: 14:50 Assessment and Plan Assessment and plan (1) Acute diverticulitis: Start date: 04/07/21 Start time: 14:53 Status: Acute Assessment and plan: Exam and CT consistent with acute diverticulitis. Improving symptoms today, feeling much better, antibiotics downgraded with anticipation to discharge home tomorrow on PO. Ceftriaxone and flagyl Tolerating regular diet IVF dcd Will trial po pain management with tramadol BM this afternoon soft no blood. 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 INR 2.5 resume coumadin (3) Obstructive sleep apnea syndrome: Start date: 04/07/21 Start time: 14:56 Status: Acute Assessment and plan: BiPAP prescribes but he does not use regularly. (4) Hypertension: Start date: 04/07/21 Start time: 14:56 Status: Chronic Assessment and plan: BP okay off medication. (5) Discharge planning issues: Start date: 04/07/21 Start time: 14:56 Status: Acute Assessment and plan: Home when medically ready. discussed with dr. rousseau Subjective Subjective Patient reports: feels better Interval history since last seen: Feeling better tolerating regular diet. Would like to stay another night due to concern for pain. Will trial on po pain medication with intent to discharge in am on oral antbx. Downgraded from zosyn. He did have a BM today. Denies N/V/D, CP, SOB Exam Narrative Exam Narrative: GEN: Alert and oriented x 3, pleasant and cooperative. No acute distress at rest. Sitting up in bed HEENT: Head atraumatic. Conjunctiva clear, no icterus. PEERL, EOMI. no rhinorrhea. MMM, OP benign. Neck is supple with no masses or lymphadenopathy, nl thyroid. LUNGS: CTAB with normal effort CV: RRR with no murmurs, gallops, or rubs. ABD: +BS in 4 quadrants, but less in LLQ. slight distention. Abdomen soft, no guarding to abd today, improved pain with palpation, tolerating diet EXT: no cyanosis, clubbing, or edema. legs not tender. MSK: No joint redness or swelling. many scars NEURO: CN 2-12 grossly intact. Normal movement of 4 extremities. Normal speech and coordination SKIN: No rashs or open wounds. no large bruises PSYCH: normal mood and affect Objective Last Vital Signs Temp 36.8 C 04/07/21 07:20 Pulse 62 04/07/21 07:20 Resp 18 04/07/21 07:20 BP 124/69 04/07/21 07:20 Pulse Ox 98 04/07/21 07:20 Laboratory Results - last 24 hr 04/07/21 04/07/21 04/07/21 06:35 06:35 09:35 WBC 5.72 D RBC 4.39 Hgb 14.1 D Hct 42.0 MCV 95.7 H MCH 32.1 MCHC 33.6 RDW 13.0 Plt Count 250 D MPV 9.6 Immature Gran % 0.2 Neutrophils % 51.1 Lymphocytes % 33.6 Monocytes % 11.7 Eosinophils % 2.4 Basophils % 1.0 Nucleated RBC % 0 Absolute Neutrophils 2.92 Absolute Lymphocytes 1.92 Absolute Monocytes 0.67 Absolute Eosinophils 0.14 Absolute Basophils 0.06 PT 24.4 H D INR 2.5 H D Sodium 142 Potassium 4.7 Chloride 107 Carbon Dioxide 29.9 Anion Gap 5.1 BUN 6 L Creatinine 0.8 Estimated GFR/1.73 m2 >= 60.00 Glucose 87 Calcium 8.4 L
[2021-04-07] MEDS: traMADol 50 MG TAB PO ×2 (15:03→20:37)
[2021-04-07 15:14] VITALS: BP 124/72; PULSE 65; RESP 18; TEMP 37.1; O2SAT 94
[2021-04-07] MEDS: Warfarin 5 MG TAB PO (20:37)
[2021-04-07 23:45] VITALS: BP 133/65; PULSE 70; RESP 18; TEMP 36.5; O2SAT 92
[2021-04-08] MEDS: metroNIDAZOLE 500 MG/100 ML BAG 100 MG IVPB (02:17)
[2021-04-08] MEDS: traMADol 50 MG TAB PO (02:17)
[2021-04-08] MEDS: Normal Saline Flush 10 ML SYR IVP ×3 (02:17→09:35)
[2021-04-08 07:30] VITALS: BP 124/62; PULSE 63; RESP 16; TEMP 36.4; O2SAT 97
[2021-04-08 07:51] LABS: INR 1.8 (0.9-1.1); Prothrombin Time 18.3 sec (9.3-11.0)
[2021-04-08] MEDS: Polyethylene Glycol 3350 17 GM PACKET PO (08:33)
[2021-04-08] MEDS: cefTRIAXone 2 GM/50 ML BAG IVPB (08:33)
[2021-04-08] MEDS: Docusate Sodium 100 MG CAP PO (08:33)
[2021-04-08] MEDS: Pantoprazole 40 MG TABCR PO (08:33)
[2021-04-08 08:42] LABS: Abs Immature Grans 0.02 10^3/uL (0.0-0.06); Absolute Basophil Count 0.06 10^3/uL (0.0-0.2); Absolute Eosinophil Count 0.15 10^3/uL (0.0-0.7); Absolute Lymphocyte Count 1.91 10^3/uL (1.2-3.4); Absolute Monocyte Count 0.55 10^3/uL (0.1-0.8); Absolute Neutrophil Count 2.26 10^3/uL (1.2-6.7); Basophils % 1.2; HCT 46.8 % (40.0-50.0); HGB 15.5 g/dL (13.5-17.5); Immature Grans % 0.4; Lymphocytes % 38.6; MCH 32.4 pg (27.0-33.0); MCHC 33.1 % (32.0-36.0); MCV 97.7 fL (80-95); MPV 9.9 fL (8.0-11.0); Monocytes % 11.1; Neutrophils % 45.7; Nucleated RBC 0 %; Platelet Count 270 10^3/uL (130-400); RBC 4.79 10^6/uL (4.36-5.78); RDW 12.7 % (11.8-14.1); RDW-SD 45.7 fL; WBC 4.95 10^3/uL (4.4-10.8)
--- NOTE | 2021-04-08 09:39 | DSE_ITS ---
Date of service: 04/08/21 Time of Service: 09:39 DS: Diagnosis Discharge Diagnosis (1) Acute diverticulitis: Start date: 04/08/21 Start time: 09:39 Status: Acute Asessment and Plan: Improved. Pain is gone. Tolerating regular diet. Recommend high fiber. He states he takes Metamucil at home. Continue antibx, due to no pain, no white count, no bloody stool and being on warfarin will transition to augmentin for 7 days po BID. Protonix daily and tramodal for pain He has a follow up with PCP on the . Keep follow up appt. He denies N/V/D. Soft large no bloody bm yesterday (2) Pulmonary embolism: Start date: 04/08/21 Start time: 09:42 Status: Chronic Asessment and Plan: continue warfarin, He was subtheraputic this am at 1.8 will give him 2.5 dose this am and have him take 5 this evening this should put him at theraputic level of 2.5-3 (3) Obstructive sleep apnea syndrome: Start date: 04/08/21 Start time: 09:43 Status: Chronic Asessment and Plan: Confirmed but does not wear cpap or bipap at night, does not like wearing a machine while sleeping (4) Hypertension: Start date: 04/08/21 Start time: 09:44 Status: Chronic Asessment and Plan: Normotensive while in the hospital not taking anything at this time, does not appear to need medication above case discussed with Dr. Simmons Discharge Plan Disposition Patient Disposition: HOME Condition: Improving Discharge Details Reason For Visit: ACUTE DIVERTICULITIS Admit Date/Time: 04/06/21 04:30 Admit Provider: Alec Vuong Attending Provider: Alec Vuong Primary Care Provider: Sania Cherry Hospital Course Hospital Course: 80 y.o male presented to [facility] ED with acute severe abd pain. He has been afebrile since admission. Labs on admission unremarkable. CT revealing diverticulitis of mild desceding colon. No abscess or perf. He was placed on pip/gus on admission. Pain was in LLQ. He was down graded yesterday to ceftriaxone and flagyl. Diet increased to regular. He had a normal soft bm without any bloody stool. Today he feels great. No pain to abd. No nausea or vomiting. His INR was only 1.8 today. Will give an additional dose 2.5 mg dose of coumadin with his 5 mg daily dose to make him theraputic. He is being discharged home on augmenting x 7 days. Protonix daily. Will also send him home with tramodal prn. Recommend high fiber diet. Denies CP, SOB, N/V/D. He has an appt with his PCP on 04/18. Keep appt and follow up then. Home Meds and New Rx's Prescriptions: New amoxicillin-pot clavulanate [Augmentin] 875-125 mg tablet 1 tab PO BID Qty: 14 RF: 0 tramadol 50 mg Tablet 50 mg PO Q4H PRN PRNQty: 20 RF: 0 pantoprazole 40 mg Tablet,Delayed Release (Dr/Ec) 40 mg PO DAILY@0730 Qty: 30 RF: 0 Continued warfarin 5 mg tablet 5 mg PO DIRECTED Qty: 100 RF: 3 Discharge Instructions Instructions: Amoxicillin/Clavulanate Potassium (By mouth), Diverticulitis (DC), High Fiber Diet (DC), Diverticulitis Diet (DC) Additional Instructions: Follow up with your PCP as scheduled on April 18 Take normal dose of coumadin this evening. Take all medications as prescribed Recommend high fiber diet. Activity:: Activity as Tolerated Equipment/Supplies:: No Equipment Needed Diet:: high fiber Discharge Orders Discharge Orders: Discharge Order (Routine); Ordered 04/08/21 Ordered By: Silvia Medina DS: Summary Time Spent with Patient providing and/or coordinating discharge services: Less than 30 minutes (less than 30 min) Status at Discharge Functional status at discharge: independent ambulation Overall status at discharge: patient is back to baseline Mental Status: mental status grossly normal Speech and Movement: speech and movement normal Mood: congruent mood Affect: normal affect Exam Narrative Exam Narrative: GEN: Alert and oriented x 3, pleasant and cooperative. No acute distress at rest. Sitting up in bed HEENT: Head atraumatic. Conjunctiva clear, no icterus. PEERL, EOMI. no rhinorrhea. MMM, OP benign. Neck is supple with no masses or lymphadenopathy, nl thyroid. LUNGS: CTAB with normal effort CV: RRR with no murmurs, gallops, or rubs. ABD: +BS in 4 quadrants, soft no pain EXT: no cyanosis, clubbing, or edema. legs not tender. MSK: No joint redness or swelling. many scars NEURO: CN 2-12 grossly intact. Normal movement of 4 extremities. Normal speech and coordination SKIN: No rashs or open wounds. no large bruises PSYCH: normal mood and affect Psych Mental Status: mental status grossly normal Speech and Movement: speech and movement normal Mood: congruent mood Affect: normal affect DS: Data Vitals/I&O Vitals and I&O: Vital Signs Temperature 36.4 C L 04/08/21 07:30 Temperature Source Skin 04/08/21 07:30 Pulse 63 04/08/21 07:30 Pulse Rhythm Regular 04/08/21 02:00 Pulse 91 H 04/06/21 04:31 Respiratory Rate 16 04/08/21 07:30 Respiratory Effort Non-Labored 04/08/21 02:00 Respiratory Depth Normal 04/08/21 02:00 Respiratory Pattern Normal 04/08/21 02:00 Blood Pressure 124/62 04/08/21 07:30 Blood Pressure Mean 74 04/06/21 04:31 Blood Pressure Position Sitting 04/06/21 02:32 Pulse Oximetry 97 04/08/21 07:30 Oxygen Delivery Method Room Air 04/08/21 07:30 Oxygen Flow Rate 0 04/08/21 07:30 Pain Level 0 04/08/21 07:30 Comment 04/07/21 11:30 Intake & Output 04/07/21 04/07/21 04/08/21 11:59 23:59 11:59 Intake Total 3625.667 / 5266.084 1640.417 / 5266.084 1153.333 / 1153.333 Output Total 3275 / 5525 2250 / 5525 1150 / 1150 Balance 350.667 / -258.916 -609.583 / -258.916 3.333 / 3.333 Weight 92.9 kg Intake: IV 1345.667 / 1956.084 610.417 / 1956.084 103.333 / 103.333 Oral 2280 / 3310 1030 / 3310 1050 / 1050 Output: Urine 3275 / 5525 2250 / 5525 1150 / 1150 Other: Urine Color Pale Yellow Straw Yellow Urine Appearance Clear Clear Clear Urine Odor Normal Normal Normal Comment Void x1 in the toilet. Void x1 in the toilet. Stool Characteristics Formed Brown Voiding Methods Toilet Urinal Toilet Data Completed and Pending Completed studies during hospitalization [Text1]: : 1940 Age: 80 ? Exam(s) a CT:CT abdomen & pelvis w Exam(s) CT ABDOMEN ? PELVIS W EXAM:? CT ABDOMEN ? PELVIS W CLINICAL HISTORY: ? left side abdominal pain.? TECHNIQUE:? Imaging Protocol: Axial computed tomography images with coronal and sagittal reformatted images were created and reviewed CONTRAST MATERIAL:? Intravenous: Omnipaque 350 Contrast volume:100 ml Oral: / no COMPARISON:? CR PELVIS AP from 01/30/2010 CR PELVIS AP from 01/30/2010 CT CHEST FOR PULMONARY EMBOLUS from 02/04/2014 CR RT HIP COMPLETE ? AP PELVIS from 09/17/[address] CHEST PE CTA from 11/09/2019 FINDINGS: ABDOMEN: Lung Bases: Respiratory motion and dependent changes.? Mild cardiomegaly. Liver: Normal density. No measurable mass. Gallbladder and biliary tract: No radiodense calculus or dilation.? Pancreas: Normal density, no abnormal calcifications or inflammatory process. Spleen: Normal. Kidneys: Normal size, contour and axis. No radiodense stones or obstructive uropathy. No suspicious masses seen. Adrenal glands: No masses seen. Abdominal Aorta: Abdominal portion non-dilated. Moderate calcification. PELVIS:? Bladder: Symmetric distention, no gross wall thickening. Bowel: Small hiatal hernia.? Diverticulosis of the descending colon.? Inflammatory changes in the adjacent fat of the mid to lower descending colon, consistent with diverticulitis.? There is some adjacent fluid.? There is no evidence of abscess or perforation.? No small bowel dilatation.? Bones: Moderate to severe compression fracture of L5 which appears old.? Degenerative disc changes and facet degenerative changes.? Right hip prosthesis.? Reproductive organs: Markedly enlarged prostate.? Lymph nodes: Unremarkable.? Impression: Diverticulitis of the mid descending colon.? No abscess or perforation.? Labs on day of discharge: Labs from last 24 hours 04/08/21 04/08/21 04/07/21 07:05 07:05 09:35 WBC 4.95 RBC 4.79 Hgb 15.5 Hct 46.8 MCV 97.7 H MCH 32.4 MCHC 33.1 RDW 12.7 Plt Count 270 MPV 9.9 Immature Gran % 0.4 Neutrophils % 45.7 Lymphocytes % 38.6 Monocytes % 11.1 Eosinophils % 3.0 Basophils % 1.2 Nucleated RBC % 0 Absolute Neutrophils 2.26 Absolute Lymphocytes 1.91 Absolute Monocytes 0.55 Absolute Eosinophils 0.15 Absolute Basophils 0.06 PT 18.3 H D 24.4 H D INR 1.8 H D 2.5 H D PFSH Medical History Abdominal mass 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 Re[place] 06/26/2013 [facility] RAHEEM positive Anticoagulation monitoring, [place] range 2-3 [place] [facility] [place] 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 Anxiety BPH (benign prostatic hypertrophy) Carpal tunnel syndrome on both sides (04/10/15) Cervical radiculopathy (01/01/17) Depressive disorder (07/09/13) DISH (diffuse idiopathic skeletal hyperostosis) (02/07/20) [facility] [place]verticulosis DVT (deep venous thrombosis) 03[place]25/[place] [facility] [place] Right and Left: extensive, acute, non-occlusive DVT 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) GERD (gastroesophageal reflux disease) Hyperlipidemia (02/13/12) Lipids 2010: 226/115/58/149 Statin made his GERD worse Hypertension Hypogonadism in male (01/12/16) 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 [place] [facility] [place] TPA, now on lovenox, starting warfarin. Heart strain noted, fu with cardiology in 3 mos. Hem[place]Onc [place] planned [place] [place]. Hx Lovenox for PE in past? Right heart failure with reduced right ventricular function Pt. denies this Right ventricular dilation Sleep apnea a. Not on CPAP. Surgical History Endoscopic Carpal Tunnel release (06/19/15) R Dr Moore H/O elbow surgery right H/O shoulder surgery bilaterally History of Surgical Procedure a. Meniscectomy, left knee. b. Right toal knee replacement. c. Right total hip replacement. d. Bilateral cataract surgery. e. Medial epicondylitis surgery. f. Bilateral rotator cuff surgery. g. Left ring finger trigger finger release. h. Multiple surgeries for lipoma excisions. i. Colonoscopies. History of total hip arthroplasty History of total knee replacement (05/30/14) left S/P cataract extraction and insertion of intraocular lens (~03/17/14) left S/P cataract extraction and insertion of intraocular lens (03/31/14) OD S/P colonoscopy (~08/02/19) Tubular adenoma x11. Sessile serrated adenoma x7 S/P trigger finger release Family History Mother , 80's, unknown causes Heart disease Alzheimer disease Father , 80's, heart failure Heart disease Sister Colon cancer Sister Heart disease Brother Diabetes Social History Smoking/Tobacco Use Status: Former Tobacco Use Quit Date: 12/23/97 Pack-years: 20 Smokeless tobacco user: other Smoking risk assessment performed?: Yes Alcohol Intake: current Alcohol Intake frequency: a few times a month Alcohol type: beer Drug use: Never Substance use type: does not use Housing: house Number of Children: 3 What type of physical activity do you participate in: none Seatbelt use: always Working smoke detector in home: Yes Fire extinguisher in home: Yes Carbon monox detector in home: Yes Do you feel safe at home: Yes Do you feel safe in your relationship?: Yes Additional Social history: lives alone, but has group home girlfriend Lashon x 28 years 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
--- NOTE | 2021-04-08 18:30 | PDOC.CMDIS ---
- If Service Date Differs Date of service: 04/08/21 Time of Service: 18:30 LACE Index Scoring Tool - Questions: Length of Stay (in days): 2 Acuity (Admit via E.D.?): Yes Comorbidities: Congestive Heart Failure E.D. Visits: 2 - Answers: Total Score: 9 Risk of Readmission: Low Risk Care Management Discharge Reason for Hospitalization: Acute diverticulitis Discharge Plan: Adebayo will return home with no new services. He will follow up with his PCP and plan of care as prescribed. He will transport home via private vehicle with his girlfriend, Lashon. Patient/Family Education Needs: Review discharge instructions, discuss Ask Me Three.
== END 2021-04-08 10:47 | disposition home or self-care (01) | DRG 392 ==
LOC: ER 04:36 → MS 05:09
PROVIDERS: Nurse Practitioner Family; Admitting Provider Family Medicine; Emergency Provider Emergency Medicine; PCP Nurse Practitioner; Visit Provider Family Medicine
DX: K57.32 Diverticulitis of large intestine without perforation or abscess without bleeding (principal); Z86.718 Personal history of other venous thrombosis and embolism; Z86.711 Personal history of pulmonary embolism; Z79.01 Long term (current) use of anticoagulants; G47.33 Obstructive sleep apnea (adult) (pediatric); I10 Essential (primary) hypertension; F41.9 Anxiety disorder, unspecified; N40.0 Benign prostatic hyperplasia without lower urinary tract symptoms; F32.9 Major depressive disorder, single episode, unspecified; M54.12 Radiculopathy, cervical region; M48.10 Ankylosing hyperostosis [Forestier], site unspecified; K21.9 Gastro-esophageal reflux disease without esophagitis; E78.5 Hyperlipidemia, unspecified; G47.00 Insomnia, unspecified; E66.9 Obesity, unspecified; G47.61 Periodic limb movement disorder; Z87.891 Personal history of nicotine dependence; Z20.822 Contact with and (suspected) exposure to COVID-19
CPT/HCPCS: 36415; 80048; 80053; 83690; 87635; 96361; 96365; 96375; 96376; 99285; 74177; 81003; 83605; 85025; 85610; 99232; 99238; J2270; J2543; J3490

== ENCOUNTER → 2021-06-07 08:57 | Outpatient (BNVA) | payer MEDICARE, OTHER, SELFPAY ==
--- NOTE | 2021-06-08 10:40 | W.ANESCON ---
General Date of Service Date of Service: 06/08/21 Reason for Consult Requesting Provider: Maykel Rogers How Consult Conducted:: Chart Review Reason for Consult:: AILEEN, H/O PE, HTN Consult Recommendation after Review:: Patient received an anesthetic for a colonoscopy in the past 6 months and did well. He is fine to proceed. Meds Allergies and Home Medications Allergies Allergy/AdvReac Type Severity Reaction Status Date / Time codeine AdvReac Intermediate N/V Verified 06/07/21 09:02 Home Medication Medication Instructions Recorded warfarin 5 mg tablet 5 mg PO DIRECTED #100 tab 02/28/21 pantoprazole 40 mg PO DAILY@0730 #30 tab 04/08/21 psyllium husk 3.4 gram/5.4 gram 1 tbsp PO DAILY 04/18/21 oral powder tramadol 50 mg tablet 50 mg PO QHS PRN #28 tab 05/22/21 PFSH Active Problems Active Problems: Problem Status Onset Code History of DVT (deep vein thrombosis) Z86.718 History of pulmonary embolism Z86.711 History of diverticulitis Z87.19 Discharge planning issues Z02.9 Acute diverticulitis K57.92 Left carpal tunnel syndrome G56.02 Cervical strain, acute S16.1XXA CHI (closed head injury) S09.90XA Erectile dysfunction N52.9 Numbness and tingling in both hands R20.0, R20.2 IFG (impaired fasting glucose) R73.01 Insomnia G47.00 Serrated adenoma of colon ~09/2020 D12.6 Hyperplastic colon polyp ~09/2020 K63.5 Tubular adenoma of colon ~09/2020 D12.6 Esophageal reflux 02/13/12 K21.9 History of tobacco use 04/22/13 Z87.891 Obstructive sleep apnea syndrome 02/13/13 G47.33 SOB (shortness of breath) R06.02 Chest tightness R07.89 Cough R05 Urinary frequency R35.0 Dysuria R30.0 UTI (urinary tract infection), uncomplicated N39.0 Burning with urination R30.0 Abdominal mass R19.00 DISH (diffuse idiopathic skeletal hyperostosis) 02/07/20 M48.10 Long-term (current) use of anticoagulants, INR goal 2.0-3.0 Z79.01 S/P colonoscopy ~08/02/19 Z98.890 Anxiety F41.9 History of Surgical Procedure Z98.89 Knee pain, left M25.562 Adenoma of large intestine 04/22/13 D12.6 Carpal tunnel syndrome on both sides 04/10/15 G56.03 Cervical radiculopathy 01/01/17 M54.12 Erectile dysfunction of organic origin 12/12/15 N52.9 Hypogonadism in male 01/12/16 E29.1 Libido, decreased 12/12/15 R68.82 Other seborrheic keratosis 02/13/12 L82.1 Obesity 04/22/13 E66.9 Osteoarthritis of knee 06/16/13 M17.10 Periodic limb movement disorder 02/13/13 G47.61 Right ventricular dilation I51.7 Anticoagulation monitoring, INR range 2-3 Z79.01 RAHEEM positive R76.8 Nicotine dependence 07/09/13 F17.200 Depressive disorder 07/09/13 F32.9 Right heart failure with reduced right ventricular function I50.810 Hyperlipidemia 02/13/12 E78.5 Hypertension I10 BPH (benign prostatic hypertrophy) N40.0 Sleep apnea G47.30 GERD (gastroesophageal reflux disease) K21.9 Medical History Medical History Abdominal mass 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 Reina 06/26/2013 Tommy RAHEEM positive Anticoagulation monitoring, INR range 2-3 03/24/19 [facility] [place] Continue warfarin custodial for secondary VTE prophylaxis Anxiety BPH (benign prostatic hypertrophy) Carpal tunnel syndrome on both sides (04/10/15) Cervical radiculopathy (01/01/17) Depressive disorder (07/09/13) DISH (diffuse idiopathic skeletal hyperostosis) (02/07/20) [facility] – [place] Diverticulosis DVT (deep venous thrombosis) 03/25/19 [facility] [place] Right and Left: extensive, acute, non-occlusive DVT 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) GERD (gastroesophageal reflux disease) History of diverticulitis History of DVT (deep vein thrombosis) History of pulmonary embolism Hyperlipidemia (02/13/12) Lipids 2010: 226/115/58/149 Statin made his GERD worse Hypertension Hypogonadism in male (01/12/16) 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, SLEEP STUD[facility] 02/13/13 Pulmonary embolism Acute saddle PE found @ [facility] Friday, 08/10 .. helicoptered to [facility] [place] .. s/p TPA, now on lovenox, starting warfarin. Heart strain noted, fu with cardiology in 3 mos. Hem/Onc work up planned ([facility] [place] [ ]).. Hx Lovenox for PE in past? Right heart failure with reduced right ventricular function Pt. denies this Right ventricular dilation Sleep apnea a. Not on CPAP. Surgical History Surgical History Endoscopic Carpal Tunnel release (06/19/15) R Dr Moore H/O elbow surgery right H/O shoulder surgery bilaterally History of Surgical Procedure a. Meniscectomy, left knee. b. Right toal knee replacement. c. Right total hip replacement. d. Bilateral cataract surgery. e. Medial epicondylitis surgery. f. Bilateral rotator cuff surgery. g. Left ring finger trigger finger release. h. Multiple surgeries for lipoma excisions. i. Colonoscopies. History of total hip arthroplasty History of total knee replacement (05/30/14) left S/P cataract extraction and insertion of intraocular lens (~03/17/14) left S/P cataract extraction and insertion of intraocular lens (03/31/14) OD S/P colonoscopy (~08/02/19) Tubular adenoma x11. Sessile serrated adenoma x7 S/P trigger finger release Tobacco Smoking/Tobacco Use Status: Former Tobacco Use Smokeless tobacco user: other Alcohol Alcohol Intake: current Alcohol intake frequency: a few times a month Alcohol type: beer Substance Use Substance use: Never Substance use type: does not use Vital Signs & Lab Results Point of Care Results Nursing Point of Care Results: No Data to Display Lab Results Blood Type / Crossmatch: No Data to Display Complete Blood Count: No Data to Display Complete Metabolic Panel: No Data to Display Liver Function Panel: No Data to Display Coagulation Panel: INR International Normalized Ratio 3.9 (0.9-1.1) H 05/29/21 09:17 05/29/21 Cardiac Panel: No Data to Display Arterial Blood Gas: No Data to Display Venous Blood Gas: No Data to Display Pancreas Panel: No Data to Display Thyroid Panel: No Data to Display Infectious Disease: No Data to Display Blood Cultures: No Data to Display Toxicology Panel: No Data to Display Imaging and Studies Imaging and Studies EKG Summary: 03/05/21 Conclusion Sinus or ectopic atrial rhythm...P axis (-45,135) Prolonged KY interval...KY >220, V-rate 50- 90 Left bundle branch block...QRSd>120, broad/notched R Stress Test Summary: 12/16/2018 1. Myocardial perfusion imaging: No myocardial perfusion defects noted. 2. The left ventricular end-systolic volume is 92ml. The calculated left ventricular ejection fraction after stress: 45%. LV global systolic function is mildly reduced. Diffuse left ventricular regional motion abnormalities. LV function most likely underestimated due to gating error. 3. Stress ECG conclusions: The stress ECG is negative. 4. Baseline ECG: Normal sinus rhythm with left bundle branch block. 5. Imaging information: gated. Image quality reduced due to body habitus. Echocardiogram Summary: 10/26/2018 1. Left ventricle: The cavity size was normal. The estimated ejection fraction was 40%. Diffuse hypokinesis. Findings consistent with diastolic dysfunction. There was no evidence of elevated ventricular filling pressure by Doppler parameters. 2. Aortic valve: There was mild regurgitation. 3. Mitral valve: There was mild regurgitation. 4. Left atrium: The atrium was mildly dilated. 5. Right ventricle: The cavity size was mildly dilated. Systolic function was mildly reduced. 6. Right atrium: The atrium was mildly dilated. 7. Atrial septum: No defect or patent foramen ovale was identified. 8. Pulmonary arteries: Pulmonary systolic pressure was in the range of 30mm Hg to 40mm Hg. 9. Inferior vena cava: The vessel was patent and normal in size. The respirophasic diameter changes were in the normal range (greater than or equal to 50%), consistent with normal central venous pressure. Pulmonary Function Summary: 01/31/2014 INTERPRETATION SPIROMETRY: Spirometry shows no evidence of obstructive airways disease. No bronchodilator testing was carried out. LUNG VOLUMES: Lung volumes show no evidence of restriction. DIFFUSION CAPACITY: Normal. AIRWAY RESISTANCE: Normal. IMPRESSION: Normal pulmonary function study. Clinical correlation recommended. Anesthesia Assessment and Plan Anesthesia History Personal History: No History of Anesthesia Complications Family History: No Family History of Anesthesia Complications Exercise Tolerance Exercise Tolerance: Metabolic Equivalents>4 Pertinent Negatives Pertinent Negatives: No Symptoms of GERD, No Major Cardiovascular Symptoms or Complaints (EF 40%, Right heart failure with reduced right ventricular function), No Major Pulmonary Symptoms or Complaints (Hx of a PE and DVT), No History of CVA/TIA and Other Cardiac & Pulmonary Exam Cardiac Exam: Normal S1/S2 Heart Sounds Pulmonary Exam: Clear Bilateral Breath Sounds Airway Exam Known Difficult Airway: No Mallampati Class: 1 Mouth Opening: Normal (> 3cm) Thyromental Distance: Greater than 3 cm Neck Range of Motion: Full ROM Neck Circumference: Normal Teeth Condition: Normal Dentition (poor condition per last record) ASA Classification ASA Score: ASA 3 Emergency Case?: No NPO Status NPO Status: NPO Clears >2 hours, Solids >8 hours Anesthesia Plan Anesthesia Technique: General Anesthesia Airway Planned: Natural Airway Monitors Used: Standard Monitors
== END ==
PROVIDERS: PCP Nurse Practitioner; Referring Provider Nurse Practitioner Adult Health; Visit Provider Student in an Organized Health Care Education/Training Program
DX: G56.02 Carpal tunnel syndrome, left upper limb (principal)
CPT/HCPCS: 99213

== ENCOUNTER 2021-06-11 02:58 | Outpatient (CLI) | payer MEDICARE, OTHER, SELFPAY ==
[2021-06-11 11:35] LABS: Source Nasal/Nares
[2021-06-11 16:50] LABS: COVID-19 PCR Negative (Negative)
== END 2021-06-11 02:59 | disposition home or self-care (01) ==
LOC: LBO 02:58
PROVIDERS: PCP Nurse Practitioner; Visit Provider Student in an Organized Health Care Education/Training Program
DX: Z20.822 Contact with and (suspected) exposure to COVID-19 (principal); Z01.818 Encounter for other preprocedural examination
CPT/HCPCS: 87635

== ENCOUNTER 2021-06-13 07:47 | Day surgery (SDC) | payer MEDICARE, OTHER, SELFPAY ==
--- NOTE | 2021-06-13 07:38 | PDOC.DSDIS_ITS ---
Discharge Plan Disposition Patient Disposition: HOME Condition: Good Discharge Details Reason For Visit: Left carpal tunnel syndrome Attending Provider: Maykel Rogers Primary Care Provider: Sania Cherry Home Meds and New Rx's Prescriptions: New hydrocodone-acetaminophen 5-325 mg tablet 1 tab PO Q6H PRN (Reason: severe pain) Qty: 4 RF: 0 acetaminophen 500 mg tablet 500 mg PO Q6H PRN (Reason: pain) Qty: 60 RF: 2 ibuprofen 600 mg tablet 600 mg PO TID PRN (Reason: pain) Qty: 60 RF: 0 Continued tramadol 50 mg tablet 50 mg PO QHS PRN (Reason: pain) Qty: 28 RF: 0 warfarin 5 mg tablet 5 mg PO DIRECTED Qty: 100 RF: 3 Metamucil 3.4 gram/5.4 gram powder 1 tbsp PO DAILY RF: 0 pantoprazole 40 mg Tablet,Delayed Release (Dr/Ec) 40 mg PO DAILY@0730 Qty: 30 RF: 0 Discharge Instructions Stand Alone Forms: Ken Coronado Tunnel Release Referrals: Maykel Rogers MD [ [facility] STAFF PHYSICIAN] - Activity:: Elevate Remove Dressings/Wound Care:: 48 hours Shower/Bathe:: 48 hours Diet:: As Tolerated Discharge Orders Discharge Orders: Discharge Order (Routine); Ordered 06/13/21 Ordered By: Esmer Rondon DS: Diagnosis Discharge Diagnosis (1) Left carpal tunnel syndrome: Status: Acute
[2021-06-13 08:01] VITALS: BP 147/76; PULSE 77; RESP 17; TEMP 36; O2SAT 99
[2021-06-13] MEDS: Lactated Ringers 1,000 ML 80 ML IV (08:23)
--- NOTE | 2021-06-13 08:49 | ANES.PREOP_ITS ---
General Info Date of Service Date Performed: 06/13/21 Height: 5 ft 7 in Weight: 92.9 kg Body Mass Index (BMI): 32.1 Surgical Procedure: Operation Date: 06/13/21 09:55 Proposed Procedures Side Surgeon p Wrist ECTR Left Maykel Rogers MD Meds Allergies and Home Medications Allergies Allergy/AdvReac Type Severity Reaction Status Date / Time codeine AdvReac Intermediate N/V Verified 06/13/21 08:09 Home Medication Medication Instructions Recorded psyllium husk 3.4 gram/5.4 gram 1 tbsp PO DAILY 04/18/21 oral powder tramadol 50 mg tablet 50 mg PO QHS PRN #28 tab 06/11/21 warfarin 5 mg tablet 5 mg PO DIRECTED #100 tab 06/12/21 acetaminophen 500 mg PO Q6H PRN #60 tab 06/13/21 hydrocodone-acetaminophen 1 tab PO Q6H PRN #4 tab 06/13/21 ibuprofen 600 mg PO TID PRN #60 tab 06/13/21 Current Visit Medications: Current Medications Generic Name Dose Route Start Last Admin Trade Name Freq PRN Reason Stop Dose Admin Acetaminophen 650 mg 06/13/21 07:38 Acetaminophen 325 Mg Tab PO Q4H PRN PRN Hydrocodone Bitart/Acetaminophen 0 tab 06/13/21 07:38 Hydrocodone 5/Acetaminophen 325 Tab PO Q3H PRN PRN Pain Ringer's Solution 1,000 mls @ 80 mls/hr 06/13/21 06:00 06/13/21 08:23 IV 07/12/21 23:59 80 mls/hr INFUSION VITA Administration IV Miscellaneous Supplies 1 each 06/13/21 06:00 Iv Access IV 07/12/21 23:59 DIRECTED VITA Sodium Chloride 0 ml 06/13/21 06:00 Normal Saline Flush 10 Ml Syr IV 07/12/21 23:59 PRN PRN Sodium Chloride 0 ml 06/13/21 06:00 Normal Saline 10 Ml Vial IJ 07/12/21 23:59 DIRECTED PRN Sterile Water 0 ml 06/13/21 06:00 Water,Injection,Sterile 10 Ml Vial IJ 07/12/21 23:59 DIRECTED PRN PFSH Active Problems Active Problems: Problem Status Onset Code History of DVT (deep vein thrombosis) Z86.718 History of pulmonary embolism Z86.711 History of diverticulitis Z87.19 Discharge planning issues Z02.9 Acute diverticulitis K57.92 Left carpal tunnel syndrome G56.02 Cervical strain, acute S16.1XXA CHI (closed head injury) S09.90XA Erectile dysfunction N52.9 Numbness and tingling in both hands R20.0, R20.2 IFG (impaired fasting glucose) R73.01 Insomnia G47.00 Serrated adenoma of colon ~09/2020 D12.6 Hyperplastic colon polyp ~09/2020 K63.5 Tubular adenoma of colon ~09/2020 D12.6 Esophageal reflux 02/13/12 K21.9 History of tobacco use 04/22/13 Z87.891 Obstructive sleep apnea syndrome 02/13/13 G47.33 SOB (shortness of breath) R06.02 Chest tightness R07.89 Cough R05 Urinary frequency R35.0 Dysuria R30.0 UTI (urinary tract infection), uncomplicated N39.0 Burning with urination R30.0 Abdominal mass R19.00 DISH (diffuse idiopathic skeletal hyperostosis) 02/07/20 M48.10 Long-term (current) use of anticoagulants, INR goal 2.0-3.0 Z79.01 S/P colonoscopy ~08/02/19 Z98.890 Anxiety F41.9 History of Surgical Procedure Z98.89 Knee pain, left M25.562 Adenoma of large intestine 04/22/13 D12.6 Carpal tunnel syndrome on both sides 04/10/15 G56.03 Cervical radiculopathy 01/01/17 M54.12 Erectile dysfunction of organic origin 12/12/15 N52.9 Hypogonadism in male 01/12/16 E29.1 Libido, decreased 12/12/15 R68.82 Other seborrheic keratosis 02/13/12 L82.1 Obesity 04/22/13 E66.9 Osteoarthritis of knee 06/16/13 M17.10 Periodic limb movement disorder 02/13/13 G47.61 Right ventricular dilation I51.7 Anticoagulation monitoring, INR range 2-3 Z79.01 RAHEEM positive R76.8 Nicotine dependence 07/09/13 F17.200 Depressive disorder 07/09/13 F32.9 Right heart failure with reduced right ventricular function I50.810 Hyperlipidemia 02/13/12 E78.5 Hypertension I10 BPH (benign prostatic hypertrophy) N40.0 Sleep apnea G47.30 GERD (gastroesophageal reflux disease) K21.9 Medical History Medical History Abdominal mass 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 Reina 06/26/2013 Sanders RAHEEM positive Anticoagulation monitoring, INR range 2-3 03/24/19 [facility] [place] Continue warfarin intermediate frame tender for secondary VTE prophylaxis Anxiety BPH (benign prostatic hypertrophy) Carpal tunnel syndrome on both sides (04/10/15) Cervical radiculopathy (01/01/17) Depressive disorder (07/09/13) DISH (diffuse idiopathic skeletal hyperostosis) (02/07/20) [facility] [place] Diverticulosis DVT (deep venous thrombosis) 03/25/19 [facility] [place] Right and Left: extensive, acute, non-occlusive DVT 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) GERD (gastroesophageal reflux disease) History of diverticulitis History of DVT (deep vein thrombosis) History of pulmonary embolism Hyperlipidemia (02/13/12) Lipids 2010: 226/115/58/149 Statin made his GERD worse Hypertension Hypogonadism in male (01/12/16) 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 helicoptered to [facility] [place] .. s/p TPA, now on lovenox, starting warfarin. Heart strain noted, fu with cardiology in 3 mos. Hem/Onc work up planned ([facility] [place] [ ]).. Hx Lovenox for PE in past? Right heart failure with reduced right ventricular function Pt. denies this Right ventricular dilation Sleep apnea a. Not on CPAP. Surgical History Surgical History Endoscopic Carpal Tunnel release (06/19/15) R Dr Moore H/O elbow surgery right H/O shoulder surgery bilaterally History of Surgical Procedure a. Meniscectomy, left knee. b. Right toal knee replacement. c. Right total hip replacement. d. Bilateral cataract surgery. e. Medial epicondylitis surgery. f. Bilateral rotator cuff surgery. g. Left ring finger trigger finger release. h. Multiple surgeries for lipoma excisions. i. Colonoscopies. History of total hip arthroplasty History of total knee replacement (05/30/14) left S/P cataract extraction and insertion of intraocular lens (~03/17/14) left S/P cataract extraction and insertion of intraocular lens (03/31/14) OD S/P colonoscopy (~08/02/19) Tubular adenoma x11. Sessile serrated adenoma x7 S/P trigger finger release Tobacco Smoking/Tobacco Use Status: Former Tobacco Use Smokeless tobacco user: other Alcohol Alcohol Intake: current Alcohol intake frequency: a few times a month Alcohol type: beer Substance Use Substance use: Never Substance use type: does not use Vital Signs and Lab Results Vital Signs Most Recent Vital Signs in EMR: Most Recent Vital Signs Temp Pulse Resp BP Pulse Ox 36.0 C L 77 17 147/76 H 99 06/13/21 08:01 06/13/21 08:01 06/13/21 08:01 06/13/21 08:01 06/13/21 08:01 Lab Results Blood Type / Crossmatch: No Data to Display Complete Blood Count: No Data to Display Complete Metabolic Panel: No Data to Display Liver Function Panel: No Data to Display Coagulation Panel: INR International Normalized Ratio 1.4 (0.9-1.1) H 06/11/21 08:16 06/11/21 Cardiac Panel: No Data to Display Arterial Blood Gas: No Data to Display Venous Blood Gas: No Data to Display Pancreas Panel: No Data to Display Thyroid Panel: No Data to Display Infectious Disease: Coronavirus (COVID-19)(PCR) Negative (Negative) 06/11/21 08:45 06/11/21 Coronavirus 2019 Source Nasal/Nares 06/11/21 08:45 06/11/21 Blood Cultures: No Data to Display Toxicology Panel: No Data to Display Imaging and Studies Imaging and Studies EKG Summary: 03/05/21 Conclusion Sinus or ectopic atrial rhythm...P axis (-45,135) Prolonged ND interval...ND >220, V-rate 50- 90 Left bundle branch block...QRSd>120, broad/notched R Stress Test Summary: 12/16/2018 1. Myocardial perfusion imaging: No myocardial perfusion defects noted. 2. The left ventricular end-systolic volume is 92ml. The calculated left ventricular ejection fraction after stress: 45%. LV global systolic function is mildly reduced. Diffuse left ventricular regional motion abnormalities. LV function most likely underestimated due to gating error. 3. Stress ECG conclusions: The stress ECG is negative. 4. Baseline ECG: Normal sinus rhythm with left bundle branch block. 5. Imaging information: gated. Image quality reduced due to body habitus. Echocardiogram Summary: 10/26/2018 1. Left ventricle: The cavity size was normal. The estimated ejection fraction was 40%. Diffuse hypokinesis. Findings consistent with diastolic dysfunction. There was no evidence of elevated ventricular filling pressure by Doppler parameters. 2. Aortic valve: There was mild regurgitation. 3. Mitral valve: There was mild regurgitation. 4. Left atrium: The atrium was mildly dilated. 5. Right ventricle: The cavity size was mildly dilated. Systolic function was mildly reduced. 6. Right atrium: The atrium was mildly dilated. 7. Atrial septum: No defect or patent foramen ovale was identified. 8. Pulmonary arteries: Pulmonary systolic pressure was in the range of 30mm Hg to 40mm Hg. 9. Inferior vena cava: The vessel was patent and normal in size. The respirophasic diameter changes were in the normal range (greater than or equal to 50%), consistent with normal central venous pressure. Pulmonary Function Summary: 01/31/2014 INTERPRETATION SPIROMETRY: Spirometry shows no evidence of obstructive airways disease. No bronchodilator testing was carried out. LUNG VOLUMES: Lung volumes show no evidence of restriction. DIFFUSION CAPACITY: Normal. AIRWAY RESISTANCE: Normal. IMPRESSION: Normal pulmonary function study. Clinical correlation recommended. Anesthesia Assessment and Plan Anesthesia History Personal History: No History of Anesthesia Complications Family History: No Family History of Anesthesia Complications Exercise Tolerance Exercise Tolerance: Metabolic Equivalents>4 Pertinent Negatives Pertinent Negatives: No Symptoms of GERD Cardiac & Pulmonary Exam Cardiac Exam: Normal S1/S2 Heart Sounds Pulmonary Exam: Clear Bilateral Breath Sounds Airway Exam Known Difficult Airway: No Mallampati Class: 1 Mouth Opening: Normal (> 3cm) Thyromental Distance: Greater than 3 cm Neck Range of Motion: Full ROM Neck Circumference: Normal Teeth Condition: Normal Dentition (poor condition per last record) ASA Classification ASA Score: ASA 3 Emergency Case?: No NPO Status NPO Status: NPO Clears >2 hours, Solids >8 hours Anesthesia Plan Resuscitation Status: Full Code Anesthesia Technique: General Anesthesia Airway Planned: Natural Airway Monitors Used: Standard Monitors
[2021-06-13 08:58] VITALS: BMI 32.1
[2021-06-13] MEDS: Sodium Bicarbonate 50 MEQ/50 ML VIAL (09:50)
[2021-06-13 10:08] VITALS: BP 115/65; PULSE 79; RESP 16; TEMP 36.3; O2SAT 95
--- NOTE | 2021-06-13 10:17 | ROE_ITS ---
Date of service: 06/13/21 Time of Service: 10:17 Operative Note Operative Note DATE OF PROCEDURE: 06/13/21 PRE-OP DIAGNOSIS: Left Carpal Tunnel Syndrome POST-OP DIAGNOSIS: same PROCEDURE: Left Endoscopic Carpal Tunnel Release SURGEON: Maykel Rogers ANESTHESIA TYPE: General:No Airway Refer to Anesthesia Record ESTIMATED BLOOD LOSS: 0 PATHOLOGY: none sent TOURNIQUET TIME: 6 COMPLICATIONS: None Patient was transported to: same day Patient's condition: stable Indications: I have seen Adebayo in clinic for symptoms of carpal tunnel syndrome. The numbness, tingling, and pain limited function. Clinical exam findings with nerve conduction tests confirmed the diagnosis of carpal tunnel syndrome. Nonoperative measures such as bracing, time, activity modifications had been tried but disability and pain persisted. I discussed carpal tunnel release with the patient. I reviewed the risks of the procedure to include, but not limited to, bleeding, infection, pain, stiffness, incomplete release, damage to nerves or vessels, persistent numbness, recurrence. Despite these risks, the patient elected to proceed. Findings: There was tightened carpal tunnel. This was dilated and released successfully with the endoscopic with increased space within the tunnel. The an tebrachial fascia was released proximally freeing the median nerve at the wrist. Procedure Description: Adebayo was greeted in the preoperative holding area where the correct side was identified and marked. The consent was reviewed with the patient and signed. The history and physical was updated. All questions were answered. He was taken back to the operating room. The patient was placed into the supine position on the operating room table with the left arm on an arm board. A nonsterile tourniquet was placed high onto the arm. All bony prominences were well padded. Prophylactic antibiotics in the form of Cefazolin were administered. The left arm was then prepped with Chloraprep and draped in a standard fashion with stockinette and extremity drape. A timeout to confirm correct identity, side and site, procedure, allergies, anesthesia, and medical concerns was performed. The surgical site was marked in the volar wrist creases in line with the radial border of the fourth ray. This area was anesthetized with approximately 6cc of 1% Lidocaine. The limb was then exsanguinated with an Esmarch. The skin was incised with a 15 blade, approximately 1cm. The skin only was cut and the deeper tissue was dissected bluntly with a tenotomy scissor, avoiding passing nerve and venous structures. The fascia was penetrated and opened bluntly. A two-prong skin hook was placed under this proximal fascial edge. A series of hamate finders were used to identify and dilate the carpal tunnel. Synovial elevator was used to free synovial attachments to the underside of the transverse carpal ligament. My thumb was kept in the palm to sofia the distal extent of the carpal tunnel and correctly position the hand. The Microaire endoscope was inserted without difficulty and without resistance. Excellent visualization showed horizontally running fibers of the transverse carpal ligament (TCL). The distal extent of the TCL was visualized and the end of the scope palpated with the thumb. The blade was elevated and withdrawn from distal to proximal. The TCL was split into two flaps. The endoscope was reinserted to confirm complete release and any remnant ligament was incised. The scope was withdrawn and the proximal aspect of the carpal tunnel was grossly inspected and appeared release with the median nerve visible. The antebrachial fascia at the level of the wrist was then freed from the overlying skin and then the underlying median nerve with blunt dissection. This was transected longitudinally for about 3cm proximal to the wrist incision. The wound was then irrigated with easy flow of irrigant distally and proximally. The incision was closed with a single 4-0 Nylon suture. The wound was dressed with Xeroform, Gauze, Kerlix and Usman. The tourniquet was deflated with the initial dressing and held with some pressure. Blood flow returned easily to all digits with capillary refill less than 2 seconds. The patient tolerated the procedure well and was returned to the Same Day Surgery area in a stable condition suffering no known complication.
--- NOTE | 2021-06-13 10:37 | W.ANESPOSTOP ---
Postoperative Evaluation Date, Time and Location Date Performed: 06/13/21 Time Performed: 10:37 Patient Location: Day Surgery Unit Vital Signs Most Recent Imported Vital Signs: Most Recent Vital Signs Temp Pulse Resp BP Pulse Ox 36.3 C L 79 16 115/65 95 06/13/21 10:08 06/13/21 10:08 06/13/21 10:08 06/13/21 10:08 06/13/21 10:08 Pain Score Most Recent Pain Score: Most Recent Pain Score Pain Level 0 06/13/21 10:08 Assessment Mental Status: Awake (Alert & Oriented to Patient Baseline) Airway and Respiratory Function: Patent airway with normal (patient baseline) respiratory exam Cardiovascular Function: Hemodynamically Stable Hydration Status: Adequately Hydrated Nausea & Vomiting: No Nausea or Vomiting Pain: Pt. Denies Any Pain Peripheral Nerve Block: Patient did not receive a nerve block
[2021-06-13 10:38] VITALS: BP 131/59; PULSE 66; RESP 17; TEMP 36.4; O2SAT 96
== END 2021-06-13 10:50 | disposition home or self-care (01) ==
LOC: SUR 07:47
PROVIDERS: PCP Nurse Practitioner; Visit Provider Student in an Organized Health Care Education/Training Program
PROC: 01N54ZZ Release Median Nerve, Percutaneous Endoscopic Approach (ICD-10-PCS; CPT 29848; principal; 2021-06-13 09:45)
DX: G56.02 Carpal tunnel syndrome, left upper limb (principal); I10 Essential (primary) hypertension; E78.5 Hyperlipidemia, unspecified
CPT/HCPCS: 29848; J0690; J2405

== ENCOUNTER → 2021-06-20 08:54 | Outpatient (BNVA) | payer MEDICARE, OTHER, SELFPAY | PROVIDERS: PCP Nurse Practitioner; Referring Provider Nurse Practitioner | DX: Z47.89 Encounter for other orthopedic aftercare (principal); M25.532 Pain in left wrist ==

== ENCOUNTER 2021-07-09 10:21 | Outpatient (REF) | payer MEDICARE, OTHER, SELFPAY | END 2021-07-09 10:22 | disposition home or self-care (01) | LOC: LBN 10:21 | PROVIDERS: PCP Nurse Practitioner; Referring Provider Nurse Practitioner; Visit Provider Nurse Practitioner | DX: N39.0 Urinary tract infection, site not specified (principal); R30.0 Dysuria | CPT/HCPCS: 87077; 87086; 87186 ==

== ENCOUNTER 2021-07-10 05:15 | Emergency (ER) | payer MEDICARE, OTHER, SELFPAY ==
[2021-07-10 05:18] VITALS: BP 108/88; PULSE 88; RESP 18; TEMP 36.3; O2SAT 97
--- NOTE | 2021-07-10 05:52 | W.ED.GENAD ---
Discharge Plan Disposition Patient Disposition: HOME Condition: Good Discharge Details Clinical Impression: Hematuria, Supratherapeutic INR Primary Care Provider: Sania Cherry ED Provider: Jagdeep Ramirez Home Meds and New Rx's Prescriptions: Continued warfarin 5 mg tablet 5 mg PO DIRECTED Qty: 100 RF: 3 hydrocortisone 2.5 % cream 1 applic topical TID PRN (Reason: skin irritation) Qty: 30 RF: 0 cefpodoxime 200 mg tablet 200 mg PO BID Qty: 14 RF: 0 Metamucil 3.4 gram/5.4 gram powder 1 tbsp PO DAILY RF: 0 apple cider vinegar 1 oz PO DAILY RF: 0 acetaminophen 500 mg tablet 500 mg PO Q6H PRN (Reason: pain) Qty: 60 RF: 2 Discharge Instructions Instructions: Hematuria (ED) Additional Instructions: Your INR is still elevated at 4.1. I would also skip today for your Coumadin as well as tomorrow. Please follow-up closely with your primary care provider for reassessment please continue taking your antibiotic as directed. We will place a referral with the urologist Dr. Mario for follow-up. If you notice any worsening of your symptoms, or any new symptoms such as vomiting, diarrhea, fever, chills, shortness of breath, chest pain, numbness, weakness, or fainting , please return immediately to the emergency department for reevaluation. Please follow up with your primary care provider as soon as possible for reassessment and reevaluation. As always, it was a pleasure participating in your medical care today. Referrals: Sania Cherry, [employer] [Primary Care Provider] - Medical Decision Making 80-year-old male with a past medical history of previous DVT on Coumadin, COPD, hyperostosis, previous self-catheterization secondary to prostate hypertrophy, presents today for evaluation of hematuria. L4-5 days ago the patient did notice some burning, felt the symptoms are consistent with a urinary tract infection. He contacted his PCP and was evaluated. His diagnosis of UTI and started on Cefpodoxime 200 mg twice daily. He has been taking this as directed. This morning 4 AM he woke up and had difficulty peeing, he self catheterized himself which is done before but not for quite some time, and then noticed a significant amount of blood. He has been able to urinate since then, and is continued to notice blood. No clots. He denies any new pain or discomfort. He denies any current feeling of being unable to empty everything. He has no other complaints at this time. No fevers, no chills, no flank pain, no penile pain. Exam demonstrates no abnormalities on genital exam, no tenderness of blood. Patient's last INR was 4, he did skip 1 day of his Coumadin tablet. Suspect patient is having hematuria secondary to his cystitis, and self-catheterization episode, compounded by his elevated INR. We will get a repeat INR level as he was supposed to restart his Coumadin today. Recommend continuation for his antibiotic, and as he is able to still urinate no indication for recatheterization at this time. 6:33 AM Patient's INR is 4.1. Will recommend that he hold off on his Coumadin for the next 2 days still. Is likely the cause of his bleeding in conjunction with the other aforementioned factors. We'll place a referral with Dr. Mario for close follow-up. Patient is otherwise doing well. No other complaints at this time. Stable for discharge. I have extensively reviewed the treatment plan and discharge instructions with the patient. I have addressed all patient concerns at this time. The patient was made aware of what symptoms to monitor for that would warrant a return to the emergency department. Discussed the plan with the patient, they demonstrate verbal understanding and agreement with our assessment and plan at this time. The documentation in this chart was dictated using Any.DO dictation software. Please excuse any dictation errors. HPI General Date/Time Provider Initiated Documentation: 07/10/21 05:28. HPI Narrative: 80-year-old male with a past medical history of previous DVT on Coumadin, COPD, hyperostosis, previous self-catheterization secondary to prostate hypertrophy, presents today for evaluation of hematuria. L4-5 days ago the patient did notice some burning, felt the symptoms are consistent with a urinary tract infection. He contacted his PCP and was evaluated. His diagnosis of UTI and started on Cefpodoxime 200 mg twice daily. He has been taking this as directed. This morning 4 AM he woke up and had difficulty peeing, he self catheterized himself which is done before but not for quite some time, and then noticed a significant amount of blood. He has been able to urinate since then, and is continued to notice blood. No clots. He denies any new pain or discomfort. He denies any current feeling of being unable to empty everything. He has no other complaints at this time. No fevers, no chills, no flank pain, no penile pain. Related Data Home Medications Medication Instructions Recorded Confirmed psyllium husk 3.4 gram/5.4 gram 1 tbsp PO DAILY 04/18/21 07/10/21 oral powder warfarin 5 mg tablet 5 mg PO DIRECTED #100 tab 06/12/21 07/10/21 acetaminophen 500 mg PO Q6H PRN #60 tab 06/13/21 07/10/21 apple cider vinegar 1 oz PO DAILY 07/02/21 07/10/21 cefpodoxime 200 mg tablet 200 mg PO BID #14 tab 07/09/21 07/10/21 hydrocortisone 2.5 % topical cream 1 applic TOPICAL TID PRN #30 g 07/09/21 07/10/21 Previous Rx's Medication Instructions Recorded warfarin 5 mg tablet 5 mg PO DIRECTED #100 tab 06/12/21 acetaminophen 500 mg PO Q6H PRN #60 tab 06/13/21 cefpodoxime 200 mg tablet 200 mg PO BID #14 tab 07/09/21 hydrocortisone 2.5 % topical cream 1 applic TOPICAL TID PRN #30 g 07/09/21 Allergies Allergy/AdvReac Type Severity Reaction Status Date / Time codeine AdvReac Intermediate N/V Verified 07/10/21 05:26 General Stated Complaint: Urinary MARTHA: 3 Review of Systems All systems reviewed & are unremarkable except as noted in HPI and below [facility] Medical History Abdominal mass 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 [place] 06/26/2013 [facility] RAHEEM positive Anticoagulation monitoring, [place] 2-3 [place] [facility] [place] warfarin [place] home for secondary VTE prophylaxis Anxiety BPH (benign prostatic hypertrophy) Carpal tunnel syndrome on both sides (04/10/15) Cervical radiculopathy (01/01/17) Depressive disorder (07/09/13) DISH (diffuse idiopathic skeletal hyperostosis) (02/07/20[place] [facility] [place] Diverticulosis DVT (deep venous thrombosis) [place]25/[place] [facility] [place] Right and Left: extensive, acute, non-occlusive DVT 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) GERD (gastroesophageal reflux disease) History of diverticulitis History of DVT (deep vein thrombosis) History of pulmonary embolism Hyperlipidemia (02/13/12) Lipids 2010: 226/115/58/149 Statin made his GERD worse Hypertension Hypogonadism in male (01/12/16) 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 [place] [facility] [place] s/p TPA, now on lovenox, starting warfarin. Heart strain noted, fu with cardiology in 3 mos. Hem/Onc work [place] planned [place] [place]. Hx Lovenox for PE in past? Right heart failure with reduced right ventricular function Pt. denies this Right ventricular dilation Sleep apnea a. Not on CPAP. Surgical History Endoscopic Carpal Tunnel release (06/19/15) R Dr Moore H/O elbow surgery right H/O shoulder surgery bilaterally History of Surgical Procedure a. Meniscectomy, left knee. b. Right toal knee replacement. c. Right total hip replacement. d. Bilateral cataract surgery. e. Medial epicondylitis surgery. f. Bilateral rotator cuff surgery. g. Left ring finger trigger finger release. h. Multiple surgeries for lipoma excisions. i. Colonoscopies. History of total hip arthroplasty History of total knee replacement (05/30/14) left S/P cataract extraction and insertion of intraocular lens (~03/17/14) left S/P cataract extraction and insertion of intraocular lens (03/31/14) OD S/P colonoscopy (~08/02/19) Tubular adenoma x11. Sessile serrated adenoma x7 S/P trigger finger release Family History Mother , 80's, unknown causes Heart disease Alzheimer disease Father , 80's, heart failure Heart disease Sister Colon cancer Sister Heart disease Brother Diabetes Social History Smoking/Tobacco Use Status: Former Tobacco Use Quit Date: 12/23/97 Pack-years: 20 Smokeless tobacco user: other Smoking risk assessment performed?: Yes Alcohol Intake: current Alcohol Intake frequency: a few times a month Alcohol type: beer Drug use: Never Substance use type: does not use Housing: house Number of Children: 3 What type of physical activity do you participate in: none Seatbelt use: always Working smoke detector in home: Yes Fire extinguisher in home: Yes Carbon monox detector in home: Yes Do you feel safe at home: Yes Do you feel safe in your relationship?: Yes Additional Social history: lives alone, but has emt intermediate girlfriend Lashon x 28 years 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 3.ENT: Atraumatic external nose and ears. Moist MM. Neck: Symmetric, trachea midline, No thyromegaly. 4.CVS: +S1/S2, No murmurs or gallops. Peripheral pulses 2+ and equal in all extremities. Brisk capillary refill in all extremities. 5.RESP: Unlabored respiratory effort. Clear to auscultation bilaterally. No wheezes rales or rhonchi 6.GI: Soft, Nontender/Nondistended, No hepatosplenomegaly. No guarding or rebound. Penile exam shows no redness, no blood, no tenderness, no dilated bladder. 7.MSK: Normocephalic/Atraumatic, Extremities w/o deformity or ttp No cyanosis or clubbing, Normal movement of all extremities 8.Skin: Warm, Dry. No rashes or lesions. 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 Sensation grossly intact, no focal neurologic deficits. 10.Psych: (AAO) x3. Appropriate mood and affect Course Vital Signs Vital signs: Vital Signs Temperature 36.3 C L 07/10/21 05:18 Pulse 88 07/10/21 05:18 Respiratory Rate 18 07/10/21 05:18 Blood Pressure 108/88 07/10/21 05:18 Pulse Oximetry 97 07/10/21 05:18 Temperature 36.3 C L 07/10/21 05:18 Temperature Source Temporal Artery Scan 07/10/21 05:18 Pulse 88 07/10/21 05:18 Respiratory Rate 18 07/10/21 05:18 Respiratory Effort Non-Labored 07/10/21 05:24 Blood Pressure 108/88 07/10/21 05:18 Blood Pressure Position Sitting 07/10/21 05:18 Pulse Oximetry 97 07/10/21 05:18 Oxygen Delivery Method Room Air 07/10/21 05:18 Oxygen Flow Rate 0 07/10/21 05:18 Pain Level 0 07/10/21 05:28
[2021-07-10 06:32] LABS: INR 4.1 (0.9-1.1); Prothrombin Time 39.4 sec (9.3-11.0)
[2021-07-10 06:40] VITALS: BP 123/75; PULSE 78; RESP 16; O2SAT 96
--- NOTE | 2021-07-10 07:43 | NUR.NOTE ---
Nursing Note: Referral faxed to [facility] for follow up in 1 - 3 weeks for hematuria/prostate issues. Dana Boogie
== END 2021-07-10 06:46 | disposition home or self-care (01) ==
PROVIDERS: Emergency Provider Student in an Organized Health Care Education/Training Program; PCP Nurse Practitioner
DX: R31.9 Hematuria, unspecified (principal); R79.1 Abnormal coagulation profile; T45.515A Adverse effect of anticoagulants, initial encounter; Z79.01 Long term (current) use of anticoagulants; N39.0 Urinary tract infection, site not specified
CPT/HCPCS: 36415; 99283; 85610

== ENCOUNTER → 2021-07-19 09:28 | Outpatient (BNVA) | payer MEDICARE, OTHER, SELFPAY | PROVIDERS: PCP Nurse Practitioner; Visit Provider Student in an Organized Health Care Education/Training Program | DX: Z47.89 Encounter for other orthopedic aftercare (principal) ==

== ENCOUNTER → 2021-07-26 14:58 | Outpatient (BNVA) | payer MEDICARE, OTHER, SELFPAY | PROVIDERS: PCP Nurse Practitioner; Referring Provider Nurse Practitioner; Visit Provider Urology | DX: N40.1 Benign prostatic hyperplasia with lower urinary tract symptoms (principal); Z87.448 Personal history of other diseases of urinary system | CPT/HCPCS: 81003; 99203; 99215 ==

== ENCOUNTER → 2021-08-09 13:54 | Outpatient (BNVA) | payer MEDICARE, OTHER, SELFPAY | PROVIDERS: PCP Nurse Practitioner; Referring Provider Nurse Practitioner; Visit Provider Urology | DX: R69 Illness, unspecified (principal) ==

== ENCOUNTER → 2021-08-13 08:40 | Outpatient (BNVA) | payer MEDICARE, OTHER, SELFPAY | PROVIDERS: PCP Nurse Practitioner; Referring Provider Nurse Practitioner; Visit Provider Urology | DX: R36.1 Hematospermia (principal); Z79.01 Long term (current) use of anticoagulants | CPT/HCPCS: 99442 ==

== ENCOUNTER → 2021-09-04 12:46 | Outpatient (BNVA) | payer MEDICARE, OTHER, SELFPAY | PROVIDERS: PCP Nurse Practitioner; Referring Provider Nurse Practitioner; Visit Provider Urology | DX: R31.9 Hematuria, unspecified (principal) | CPT/HCPCS: 52000; 81003; 99213 ==

== ENCOUNTER → 2021-10-23 08:14 | Outpatient (BNVA) | payer MEDICARE, OTHER, SELFPAY | PROVIDERS: PCP Nurse Practitioner; Referring Provider Nurse Practitioner; Visit Provider Surgery | DX: R69 Illness, unspecified (principal) ==

== ENCOUNTER 2021-10-23 08:36 | Emergency (ER) | payer MEDICARE, OTHER, SELFPAY ==
[2021-10-23 08:41] VITALS: BP 143/76; PULSE 93; RESP 17; TEMP 36.9; O2SAT 96
--- NOTE | 2021-10-23 08:45 | DI.CT_ITS ---
Exam(s) CT ABDOMEN PELVIS W EXAM: CT ABDOMEN PELVIS W CLINICAL HISTORY: Bilateral lower abd pain, R/O Diverticulitis, Appy TECHNIQUE: Imaging Protocol: Axial computed tomography images with coronal and sagittal reformatted images were created and reviewed CONTRAST MATERIAL: Intravenous: Omnipaque 350 Contrast volume:100 mL Oral: No COMPARISON: CT CT ABDOMEN PELVIS W from 04/06/2021 FINDINGS: The examination is limited due to patient motion artifact. ABDOMEN: Lung Bases: Coronary artery calcifications. Mild cardiomegaly. Hiatal hernia. Dependent atelectasi s. Liver: There is decreased attenuation of the liver suggesting fatty infiltration. No measurable mass . Tiny hypodensities seen in the posterior segment of the right lobe of the liver. It is too small f or further characterization but likely reflect small cysts. Portal, Superior Mesenteric, and Splenic Veins: Unremarkable. Gallbladder and Biliary Tract: No radiodense calculus or dilation. Pancreas: Normal density, no abnormal calcifications or inflammatory process. Spleen: Normal. Adrenals: No masses seen. Kidneys: Normal size, contour and axis. No radiodense stones or obstructive uropathy. Stable renal cy sts. No follow-up is recommended. Abdominal Aorta: Abdominal portion non-dilated. Atherosclerosis. Bowel: No obstruction or bowel wall thickening. No evidence of appendicitis. Colonic diverticulosis but no evidence of acute diverticulitis. There is a 7 cm segment of sigmoid colon which lacks the no rmal haustral markings. Peritoneal Cavity: No ascites, collection or mesenteric inflammatory response. No free air. Lymph Nodes: Within normal limits. Bones: Within normal limits for the patient's age. There is a right total hip replacement. There is ankylosis of the sacroiliac joints. Multilevel degenerative changes are seen in the spine resulting in central spinal canal stenosis at the L3-L4 level. Old L5 compression deformity is seen. Soft Tissues: Fat containing umbilical hernia. PELVIS: Bladder: Symmetric distention, no gross wall thickening. Reproductive Organs: Enlarged prostate gland which impinges upon the base of the urinary bladder. Lymph Nodes: Within normal limits. Bones: Please see above. IMPRESSION: 1. No acute abdominal or pelvic process. 2. Colonic diverticulosis but no evidence of acute diverticulitis. 3. 7 cm segment of sigmoid colon which lacks normal wall markings. This may represent scarring or st ricture or normal peristalsis. A barium enema or colonoscopy may be considered for further evaluatio n. No evidence of bowel obstruction. 4. Results of this exam have been verbally communicated with provider. RADIATION DOSE DELIVERED: 1,777.54mGy.cm Total DLP DATA REPOSITORY: All CT scans at this facility are submitted to the National Radiology Data Registry (NRDR) Dose Index Registry (DIR) with the [employer] (ACR). RADIATION OPTIMIZATION: All CT scans at this facility use at least one of these dose optimization te chniques: automated exposure control; mA and/or kV adjustment per patient size (includes targeted exa ms where dose is matched to clinical indication); or iterative reconstruction.
--- NOTE | 2021-10-23 08:54 | ED.GENADUL_ITS ---
Discharge Plan Disposition Patient Disposition: HOME Condition: Stable Discharge Details Clinical Impression: Abdominal pain Primary Care Provider: Sania Cherry ED Provider: Karen Spivey Home Meds and New Rx's Prescriptions: Continued warfarin 5 mg tablet 5 mg PO DIRECTED Qty: 100 RF: 3 hydrocortisone 2.5 % cream 1 applic topical TID PRN (Reason: skin irritation) Qty: 30 RF: 0 Metamucil 3.4 gram/5.4 gram powder 1 tbsp PO DAILY RF: 0 apple cider vinegar 1 oz PO DAILY RF: 0 acetaminophen 500 mg tablet 500 mg PO Q6H PRN (Reason: pain) Qty: 60 RF: 2 Discharge Instructions Instructions: Abdominal Pain (ED) Additional Instructions: CT today shows nothing acute. Maintain clear liquid diet for the next 48 hours and advance as tolerated. I did speak with Dr. Schuster regarding the CT results. She recommends a follow-up appointment later this week. She also related that they did cancel your appointment for the colonoscopy on October 29, that will need to be rescheduled. Follow up with primary care provider/general surgery in 3-5 days. Return to ED sooner if any worsening or concerns. Increase oral fluids. Please take Tylenol or Ibuprofen with food every 4-6 hours as needed for pain and swelling. Referrals: Katelynn Schuster MD [ [facility] STAFF PHYSICIAN] - 1 week Sania Cherry NP [Primary Care Provider] - Medical Decision Making 81-year-old male presents to the ER with chief complaint of bilateral lower abdominal pain which began approximately 4:00 this morning. Patient describes pain as constant and like constipation. He denies any nausea vomiting diarrhea. Last normal bowel movement was yesterday. Patient was seen at surgeon's office this morning who referred him to the emergency room for labs and a CT exam to rule out UTI or diverticulitis versus appendicitis. Patient has a past medical history of PE, DVT, diverticulitis, tubular adenoma of colon, UTI, obesity, osteoarthritis, sleep apnea. Patient does take warfarin on a daily basis last took it on 10/21/2021. CBC, CMP, urinalysis, CT abdomen pelvis with IV contrast ordered. CBC shows no leukocytosis, absolute neutrophil 7.39, PT 38.8 INR 4.08 HCT 40.0, lactate is elevated at 2.4, CMP is largely unremarkable anion gap slightly elevated 11.1, urinalysis shows 15 ketones no evidence for urinary tract infection. FINDINGS: The examination is limited due to patient motion artifact. ABDOMEN: Lung Bases: Coronary artery calcifications. Mild cardiomegaly. Hiatal hernia. Dependent atelectasis. Liver: There is decreased attenuation of the liver suggesting fatty infiltration. No measurable mass. Tiny hypodensities seen in the posterior segment of the right lobe of the liver. It is too small for further charact erization but likely reflect small cysts. Portal, Superior Mesenteric, and Splenic Veins: Unremarkable. Gallbladder and Biliary Tract: No radiodense calculus or dilation. Pancreas: Normal density, no abnormal calcifications or inflammatory process. Spleen: Normal. Adrenals: No masses seen. Kidneys: Normal size, contour and axis. No radiodense stones or obstructive uropathy. Stable renal cysts. No follow-up is recommended. Abdominal Aorta: Abdominal portion non-dilated. Atherosclerosis. Bowel: No obstruction or bowel wall thickening. No evidence of appendicitis. Colonic diverticulosis but no evidence of acute diverticulitis. There is a 7 cm segment of sigmoid colon which lacks the normal haustral markings. Peritoneal Cavity: No ascites, collection or mesenteric inflammatory response. No free air. Lymph Nodes: Within normal limits. Bones: Within normal limits for the patient's age. There is a right total hip replacement. There is ankylosis of the sacroiliac joints. Multilevel degenerative changes are seen in the spine resulting in central spinal canal stenosis at the L3-L4 level. Old L5 compression deformity is seen. Soft Tissues: Fat containing umbilical hernia. PELVIS: Bladder: Symmetric distention, no gross wall thickening. Reproductive Organs: Enlarged prostate gland which impinges upon the base of the urinary bladder. Lymph Nodes: Within normal limits. Bones: Please see above. IMPRESSION: 1. No acute abdominal or pelvic process. 2. Colonic diverticulosis but no evidence of acute diverticulitis. 3. 7 cm segment of sigmoid colon which lacks normal wall markings. This may represent scarring or stricture or normal peristalsis. A barium enema or colonoscopy may be considered for further evaluation. No evidence of bowel obstruction. 4. Results of this exam have been verbally communicated with provider. 1037: Discussed rresults with patient, He reports resolution of his Abd pain after the Morphine, he also relays increased gas production with this pain, will discuss with Surgery to relay information. 1058: Spoke with Dr. schuster regarding CT results and patient case, she ok's to discharge patient and have mi follow up later this week. Confirmed with radiologist that no evidence for appendicitis. Patient discharged with instructions to follow-up with outpatient general surgery, verbalized understanding. Given strict return instructions. This text was generated using [employer] dictation system, please disregard any oddities of phrase or misspellings. HPI General Mode of arrival: ambulatory . Date/Time Provider Initiated Documentation: 10/23/21 08:42 . Limitations to Documentation: no limitations . Information obtained by: patient, RN notes reviewed and old records reviewed . HPI Narrative: 81-year-old male presents to the ER with chief complaint of bilateral lower abdominal pain which began approximately 4:00 this morning. Patient describes pain as constant and like constipation. He denies any nausea vomiting diarrhea. Last normal bowel movement was yesterday. Patient was seen at surgeon's office this morning who referred him to the emergency room for labs and a CT exam to rule out UTI or diverticulitis versus appendicitis. Patient has a past medical history of PE, DVT, diverticulitis, tubular adenoma of colon, UTI, obesity, osteoarthritis, sleep apnea. Patient does take warfarin on a daily basis last took it on 10/21/2021. Related Data Home Medications Medication Instructions Recorded Confirmed psyllium husk 3.4 gram/5.4 gram 1 tbsp PO DAILY 04/18/21 10/23/21 oral powder warfarin 5 mg tablet 5 mg PO DIRECTED #100 tab 06/12/21 10/23/21 acetaminophen 500 mg PO Q6H PRN #60 tab 06/13/21 10/23/21 apple cider vinegar 1 oz PO DAILY 07/02/21 10/23/21 hydrocortisone 2.5 % topical cream 1 applic TOPICAL TID PRN #30 g 07/23/21 10/23/21 Previous Rx's Medication Instructions Recorded warfarin 5 mg tablet 5 mg PO DIRECTED #100 tab 06/12/21 acetaminophen 500 mg PO Q6H PRN #60 tab 06/13/21 hydrocortisone 2.5 % topical cream 1 applic TOPICAL TID PRN #30 g 07/23/21 Allergies Allergy/AdvReac Type Severity Reaction Status Date / Time codeine AdvReac Intermediate N/V Verified 10/23/21 08:20 General Stated Complaint: Abd Prob MARTHA: 3 Review of Systems All systems reviewed & are unremarkable except as noted in HPI and below Gastrointestinal Gastrointestinal: Reports abdominal pain, Denies diarrhea, Denies nausea and Denies vomiting [facility] Active Problem List Abdominal pain (Acute) History of carpal tunnel surgery of left wrist (Acute 06/13/21) History of DVT (deep vein thrombosis) (Acute) History of pulmonary embolism (Acute) Acute diverticulitis (Acute) Left carpal tunnel syndrome (Acute) Cervical strain, acute (Acute) Hyperplastic colon polyp (Acute ~09/2020) Tubular adenoma of colon (Acute ~09/2020) History of tobacco use (Acute 04/22/13) Urinary frequency (Acute) Dysuria (Acute) UTI (urinary tract infection), uncomplicated (Acute) Burning with urination (Acute) Abdominal mass (Acute) Long-term (current) use of anticoagulants, INR goal 2.0-3.0 (Acute) S/P colonoscopy (Acute ~08/02/19) History of Surgical Procedure (Chronic) Knee pain, left (Acute) Adenoma of large intestine (Acute 04/22/13) Carpal tunnel syndrome on both sides (Acute 04/10/15) Erectile dysfunction of organic origin (Acute 12/12/15) Hypogonadism in male (Acute 01/12/16) Libido, decreased (Acute 12/12/15) Other seborrheic keratosis (Acute 02/13/12) Obesity (Acute 04/22/13) Osteoarthritis of knee (Acute 06/16/13) Anticoagulation monitoring, INR range 2-3 (Acute) RAHEEM positive (Chronic) Nicotine dependence (Acute 07/09/13) 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) Sleep apnea (Chronic) Medical History Anxiety BPH (benign prostatic hypertrophy) Cervical radiculopathy (01/01/17) Chest tightness CHI (closed head injury) Cough Depressive disorder (07/09/13) DISH (diffuse idiopathic skeletal hyperostosis) (02/07/20) [facility] Diverticulosis DVT (deep venous thrombosis) 03/25/19 [facility] Right and Left: extensive, acute, non-occlusive DVT Erectile dysfunction Esophageal reflux (02/13/12) GERD (gastroesophageal reflux disease) Hematuria Hemorrhoids History of diverticulitis Hyperlipidemia (02/13/12) Lipids 2010: 226/115/58/149 Statin made his GERD worse Hypertension IFG (impaired fasting glucose) 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 helicoptered to [facility] .. s/p TPA, now on lovenox, starting warfarin. Heart strain noted, fu with cardiology in 3 mos. Hem/Onc work up planned ([facility] [ ]).. Hx Lovenox for PE in past? Right ventricular dilation Serrated adenoma of colon (~09/2020) SOB (shortness of breath) Surgical History Endoscopic Carpal Tunnel release (06/19/15) R Dr Moore H/O elbow surgery right H/O shoulder surgery bilaterally History of total hip arthroplasty History of total knee replacement (05/30/14) left S/P cataract extraction and insertion of intraocular lens (~03/17/14) left S/P cataract extraction and insertion of intraocular lens (03/31/14) OD S/P trigger finger release Family History Mother , 80's, unknown causes Heart disease Alzheimer disease Father , 80's, heart failure Heart disease Sister Colon cancer Sister Heart disease Brother Diabetes Social History Smoking/Tobacco Use Status: Former Tobacco Use Quit Date: 12/23/97 Pack-years: 20 Smokeless tobacco user: other Smoking risk assessment performed?: Yes Alcohol Intake: current Alcohol Intake frequency: a few times a month Alcohol type: beer Drug use: Never Substance use type: does not use Housing: house Number of Children: 3 What type of physical activity do you participate in: none Seatbelt use: always Working smoke detector in home: Yes Fire extinguisher in home: Yes Carbon monox detector in home: Yes Do you feel safe at home: Yes Do you feel safe in your relationship?: Yes Additional Social history: lives alone, but has exterminator termite girlfriend Lashon x 28 years 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 Appears stated age. Normal body habitus. Head: Normocephalic, no trauma. Eyes: Pupils PERRL, Red reflex noted, EOM's intact. Eyelids symmetrical without lesions, discharge, or swelling. ENT: Bilateral TM's WNL, External ear normal to inspection, no mastoid TTP, swelling, or erythema, Nasal turbinates WNL, no nasal discharge. Normal dentition, Posterior pharynx WNL, no exudate. Chest: RRR, Normal S1, S2, distal pulses intact. Resp: Lungs clear to auscultation bilaterally, no wheezes, rales, or rhonchi. Abdomen: Soft, non-distended, Normoactive bowel sounds all 4 quads. Tender with palpation left lower quadrant right lower quadrant. Small umbilical hernia noted. Musculoskeletal: Normal gait, 5/5 strength to all four extremities. Skin: No suspicious rashes or lesions. Capillary refill less than 2 sec. Neurologic: Cranial nerves II-XII intact. Alert and oriented x 3. Motor: No deficits noted. Sensory: Intact bilaterally all 4 extremities. Reflexes: DTR's intact bilaterally.. Hematologic/Lymphatic: No ecchymosis, no lymphadenopathy. Course Vital Signs Vital signs: Vital Signs Temperature 36.9 C 10/23/21 08:41 Pulse 93 H 10/23/21 08:41 Respiratory Rate 17 10/23/21 08:41 Blood Pressure 143/76 H 10/23/21 08:41 Pulse Oximetry 96 10/23/21 08:41 Temperature 36.9 C 10/23/21 08:41 Temperature Source Temporal Artery Scan 10/23/21 08:41 Pulse 93 H 10/23/21 08:41 Respiratory Rate 17 10/23/21 08:41 Respiratory Effort Non-Labored 10/23/21 08:45 Blood Pressure 143/76 H 10/23/21 08:41 Blood Pressure Position Sitting 10/23/21 08:41 Pulse Oximetry 96 10/23/21 08:41 Oxygen Delivery Method Room Air 10/23/21 08:41 Oxygen Flow Rate 0 10/23/21 08:41 Pain Level 4 10/23/21 08:45 PAWSS Have you Been Recently Intoxicated or Drunk Within the Last 30 days?: No Have you Ever Experienced Previous Episodes of Alcohol Withdrawal?: No Have you ever Experienced Withdrawal Seizures?: No Have you ever Experienced Delirium Tremens(DT)s?: No Have you ever undergone Alcohol Rehabilitation Treatment (i.e, inpt ot outpatient treatment programs)?: No Have you ever Experienced Blackouts?: No Have you ever Combined Alcohol with other Downers within the last 90 days?: No Have you ever Combined Alcohol with any other Substance of Abuse during the last 90 days?: No Positive Blood Alcohol level on Presentation? [PCS.BAL]: No Evidence of Increased Autonomic Activity (i.e. HR>120, tremor, sweating, agitation, nausea)?: No Result: 0
[2021-10-23 09:07] LABS: Lactate 2.4 mmol/L (0.6-1.4)
[2021-10-23 09:11] LABS: Abs Immature Grans 0.03 10^3/uL (0.0-0.06); Absolute Basophil Count 0.08 10^3/uL (0.0-0.2); Absolute Eosinophil Count 0.02 10^3/uL (0.0-0.7); Absolute Lymphocyte Count 1.44 10^3/uL (1.2-3.4); Absolute Monocyte Count 0.78 10^3/uL (0.1-0.8); Absolute Neutrophil Count 7.39 10^3/uL (1.2-6.7); Basophils % 0.8; Eosinophils % 0.2; HCT 51.1 % (40.0-50.0); HGB 17.4 g/dL (13.5-17.5); Immature Grans % 0.3; Lymphocytes % 14.8; MCH 32.2 pg (27.0-33.0); MCHC 34.1 % (32.0-36.0); MCV 94.6 fL (80-95); MPV 8.8 fL (8.0-11.0); Neutrophils % 75.9; Nucleated RBC 0 %; Platelet Count 308 10^3/uL (130-400); RDW 12.9 % (11.8-14.1); RDW-SD 45.3 fL; WBC 9.74 10^3/uL (4.4-10.8)
[2021-10-23 09:13] LABS: Bilirubin Negative (Negative); Blood Negative (Negative); Clarity Clear (Clear); Glucose Negative (Negative); Ketones 15 mg/dL (Negative); Leukocyte Esterase Negative (Negative); Nitrite Negative (Negative); Specific Gravity >= 1.030 (1.005-1.025); Urobilinogen 0.2 EU/dL (Up TO 0.2); pH 5.5 (5-8)
[2021-10-23] MEDS: Ondansetron 4 MG/2 ML VIAL IVP (09:16)
[2021-10-23] MEDS: Normal Saline 1,000 ML 1000 ML IV (09:23)
[2021-10-23 09:33] LABS: Prothrombin Time 38.8 sec (9.3-11.0)
[2021-10-23 09:34] LABS: ALT 44 U/L (16-63); AST 36 U/L (15-37); Albumin 3.7 g/dL (3.4-5.0); Alkaline Phosphatase 79 U/L (46-116); Anion Gap 11.1 mmol/L (3-11); BUN 16 mg/dL (7-18); Bilirubin, Total 0.7 mg/dL (0.2-1.0); CO2 25.9 mmol/L (21.0-32.0); CREATININE 0.8 mg/dL (0.70-1.30); Calcium 8.7 mg/dL (8.5-10.1); Chloride 103 mmol/L (98-107); Glucose 104 mg/dL (74-106); Lipase 73 U/L (73-393); Magnesium 1.8 mg/dL (1.8-2.4); Potassium 3.7 mmol/L (3.5-5.1); Sodium 140 mmol/L (136-145); Total Protein 7.2 g/dL (6.4-8.2)
[2021-10-23] MEDS: Omnipaque 350 MG/ML 100 ML BTL IJ (09:49)
[2021-10-23] MEDS: Normal Saline Flush 10 ML SYR IVP (09:50)
[2021-10-23 11:10] VITALS: BP 150/74; PULSE 91; RESP 16; TEMP 36.5; O2SAT 94
--- NOTE | 2021-10-23 14:52 | NUR.NOTE ---
referral to surgery for ab pain
== END 2021-10-23 11:19 | disposition home or self-care (01) ==
PROVIDERS: Emergency Provider Registered Nurse Emergency; PCP Nurse Practitioner
DX: R10.31 Right lower quadrant pain (principal); R10.32 Left lower quadrant pain
CPT/HCPCS: 36415; 80053; 83690; 96361; 96374; 96375; 99212; 99285; 74177; 81003; 83605; 83735; 85025; 85610; 85730; 99284; J2405; J3490

== ENCOUNTER 2021-10-25 14:42 | Outpatient (CLI) | payer MEDICARE, OTHER, SELFPAY ==
--- NOTE | 2021-10-25 14:30 | RT.EKG_ITS ---
APPROVED REPORT Exam: Resting ECG Reason for Exam: lightheadedness Patient Location: O HR:75 bpm ECG Measurements Heart Rate 75 AXIS DC 270 P 29 QRSd 140 QRS -75 QT 400 T 78 QTc 448 Conclusion Sinus rhythm...normal P axis, V-rate 60- 99 Prolonged DC interval...DC >220, V-rate 50- 90 Left bundle branch block...QRSd>120, broad/notched R
== END 2021-10-25 14:43 | disposition home or self-care (01) ==
LOC: DI.KIM 14:43
PROVIDERS: PCP Nurse Practitioner; Visit Provider Nurse Practitioner
DX: R42 Dizziness and giddiness (principal)
CPT/HCPCS: 93010

== ENCOUNTER → 2021-11-02 08:30 | Outpatient (BNVA) | payer MEDICARE, OTHER, SELFPAY | PROVIDERS: PCP Nurse Practitioner; Referring Provider Nurse Practitioner; Visit Provider Physical Therapy Assistant | DX: Z12.11 Encounter for screening for malignant neoplasm of colon (principal); Z86.010 Personal history of colon polyps ==

== ENCOUNTER 2021-11-19 03:52 | Outpatient (CLI) | payer MEDICARE, OTHER, SELFPAY ==
[2021-11-19 10:39] LABS: Source Nasal/Nares
[2021-11-19 14:17] LABS: COVID-19 PCR Negative (Negative)
== END 2021-11-19 03:53 | disposition home or self-care (01) ==
LOC: LBO 03:52
PROVIDERS: PCP Nurse Practitioner; Visit Provider Surgery
DX: Z20.822 Contact with and (suspected) exposure to COVID-19 (principal); Z01.818 Encounter for other preprocedural examination
CPT/HCPCS: 87635

== ENCOUNTER 2021-11-20 07:30 | Day surgery (SDC) | payer MEDICARE, OTHER, SELFPAY ==
--- NOTE | 2021-11-20 06:41 | COLE_ITS ---
Colonoscopy Report Date of procedure: 11/20/21 Pre-op diagnosis general: Hx of polyps Procedure: Colonoscopy Surgeon: Katelynn Ram Anesthesia Type: General:No Airway Complications: None Disposition: same day Indications: The patient is here for Colonoscopy pre-op. His last screening was in 2012 and was remarkable for multiple tubular adenoma's. He has no family history of colon cancer. He has not had any bowel habit changes. -Discussed colonoscopy bowel prep as well as the procedure. Discussed possible complications of the procedure to include bleeding, pain, perforation, missed small lesion/polyp, sore throat, aspiration and adverse reaction to the medications. Questions were answered to patient?s satisfaction. No guarantees were implied or given. Prep: Miralax/Dulcolax Procedure Start Time: 09:20 Procedure End Time: 10:00 Retraction Time: 26 minutes Findings: Multiple polyps moderate sigmoid diverticulosis Procedure Description: After informed consent was obtained the patient was taken to the procedure room and placed in a left decubitous position. Monitors were applied and a time out was done. The patients name, date of , p rocedure, allergies to medications and metal in their body was reviewed. The patient was then sedated. Once sedated and comfortable a rectal exam was done. External exam was normal. Internal exam revealed a normal sphincter tone and no palpable masses. The prostate felt smooth but enlarged. The scope was then introduced and retro-flexed. No internal hemorrhoids, polyps or masses were identified on retro-flexion. The scope was then advanced to the cecum with some difficulty. The patient had to be placed on his back and then I was able to get the scope to move into the cecum. The ileocecal vlave and appendiceal orifice were identified. The prep was good. The scope was then slowly retracted over 26 minutes back into the rectum. Polyps were removed with cold forceps in the ascending colon, transverse polyp x4, descending polyp x3, sigmoid polyp and rectal polyp x2. There was moderate sigmoid diverticulosis noted. The scope was removed and the patient was woken up and taken back to Same day surgery in stable condition. The patient tolerated the procedure well and there were no immediate complications. Follow up: The patient should follow up in 3-5 years unless they develop changes in bowel habits or other new gastrointestinal complaints.
--- NOTE | 2021-11-20 06:43 | W.PM.DSUDISC ---
Discharge Plan Disposition Patient Disposition: HOME Condition: Good Discharge Details Reason For Visit: Colonoscopy Attending Provider: Katelynn Ram Primary Care Provider: Sania Cherry Home Meds and New Rx's Prescriptions: Continued warfarin 5 mg tablet 5 mg PO DIRECTED Qty: 100 RF: 3 Metamucil 3.4 gram/5.4 gram powder 1 tbsp PO DAILY RF: 0 apple cider vinegar 1 oz PO DAILY RF: 0 calcium carbonate [Tums] 200 mg calcium (500 mg) tablet,chewable 200 mg PO BID PRNRF: 0 acetaminophen 500 mg tablet 500 mg PO Q6H PRN (Reason: pain) Qty: 60 RF: 2 Discontinued polyethylene glycol 3350 17 gram/dose powder 238 g PO ONCE Qty: 238 RF: 0 bisacodyl [Dulcolax (bisacodyl)] 5 mg tablet,delayed release (DR/EC) 5 mg PO ONCE Qty: 4 RF: 0 Discharge Instructions Instructions: Colorectal Polyps (DC), Diverticulosis (DC) Additional Instructions: Findings: multiple polyps moderate diverticulosis Follow up: 3-5 years Please call if you develop: fevers >101.5 Nausea or Vomiting Abdominal pain that is not transient Rectal bleeding that is more then a tbsp A hard abdomen and inability to pass gas DAY SURGERY UNIT POST ENDOSCOPY INSTRUCTIONS Instructions for everyone who is given Anesthesia: For your safety, please do the following for the next 24 Hours: a. Do not drive or operate dangerous equipment b. Do not drink alcohol beverages or use any recreational drugs for the first 24 hours or while taking pain medications. The medications in your body may have a reaction that can be dangerous. c. Do not make any important decisions or sign any important papers 1. Generally there are no restrictions on your activity after a day or so has gone by, but you may feel a bit fatigued for a few days. 2. After you arrive home you may have a light meal and return to a normal diet as you can tolerate it without feeling sick to your stomach. 3. After surgery, you may feel pain or discomfort. This should be only transient, but if it persists please contact your doctor. 4. If there are any questions regarding the findings of your procedure, please feel free to contact your doctor. 6. If you are unable to contact your doctor with a problem, contact the hospital at [phone]. 7. Continue all your regular medications unless directed otherwise. I understand the above instructions and have no questions. Signature of Patient or Responsible Adult Escort Date/Time Name of Responsible Adult Escort Signature of Nurse Date/Time Activity:: Activity as Tolerated Diet:: high fiber diet Discharge Orders Discharge Orders: Discharge Order (Routine); Ordered 11/20/21 Ordered By: Katelynn Ram
[2021-11-20 07:47] VITALS: BP 128/87; PULSE 91; RESP 18; TEMP 36.9; O2SAT 97
[2021-11-20 08:00] LABS: Prothrombin Time 10.4 sec (9.3-11.0)
--- NOTE | 2021-11-20 08:02 | W.ANESPRE ---
General Info Date of Service Date Performed: 11/20/21 Height: 5 ft 7 in Weight: 90.9 kg Body Mass Index (BMI): 31.4 Surgical Procedure: Operation Date: 11/20/21 09:05 Proposed Procedures Side Surgeon p Teodora Ram MD Meds Allergies and Home Medications Allergies Allergy/AdvReac Type Severity Reaction Status Date / Time codeine AdvReac Intermediate N/V Verified 11/20/21 07:53 Home Medication Medication Instructions Recorded psyllium husk 3.4 gram/5.4 gram 1 tbsp PO DAILY 04/18/21 oral powder warfarin 5 mg tablet 5 mg PO DIRECTED #100 tab 06/12/21 acetaminophen 500 mg PO Q6H PRN #60 tab 06/13/21 apple cider vinegar 1 oz PO DAILY 07/02/21 calcium carbonate 200 mg calcium 200 mg PO BID PRN 10/25/21 (500 mg) chewable tablet bisacodyl 5 mg tablet,delayed 5 mg PO ONCE #4 tab 11/02/21 release polyethylene glycol 3350 17 238 g PO ONCE #238 g 11/02/21 gram/dose oral powder Current Visit Medications: Current Medications Generic Name Dose Route Start Last Admin Trade Name Freq PRN Reason Stop Dose Admin Hyoscyamine Sulfate 0.125 mg 11/20/21 06:43 Hyoscyamine 0.125 Mg Sl/Oral/Chew SL DIRECTED PRN Ringer's Solution 1,000 mls @ 80 mls/hr 11/20/21 06:00 IV 12/19/21 23:59 [facility]ION [facility] IV Miscellaneous Supplies 1 each 11/20/21 06:00 Iv Access IV 12/19/21 23:59 DIRECTED VITA Ondansetron HCl 4 mg 11/20/21 06:43 Ondansetron 4 Mg/2 Ml Vial IVP Q4H PRN PRN Nausea / Vomiting Sodium Chloride 0 ml 11/20/21 06:00 Normal Saline Flush 10 Ml Syr IV 12/19/21 23:59 PRN PRN Sodium Chloride 0 ml 11/20/21 06:00 Normal Saline 10 Ml Vial IJ 12/19/21 23:59 DIRECTED PRN Sterile Water 0 ml 11/20/21 06:00 Water,Injection,Sterile 10 Ml Vial IJ 12/19/21 23:59 DIRECTED PRN PFSH Active Problems Active Problems: Problem Status Onset Code Abdominal pain R10.9 History of carpal tunnel surgery of left wrist 06/13/21 Z98.890 History of DVT (deep vein thrombosis) Z86.718 History of pulmonary embolism Z86.711 Acute diverticulitis K57.92 Left carpal tunnel syndrome G56.02 Cervical strain, acute S16.1XXA Hyperplastic colon polyp ~09/2020 K63.5 Tubular adenoma of colon ~09/2020 D12.6 History of tobacco use 04/22/13 Z87.891 Urinary frequency R35.0 Dysuria R30.0 UTI (urinary tract infection), uncomplicated N39.0 Burning with urination R30.0 Abdominal mass R19.00 Long-term (current) use of anticoagulants, INR goal 2.0-3.0 Z79.01 S/P colonoscopy ~08/02/19 Z98.890 History of Surgical Procedure Z98.89 Knee pain, left M25.562 Adenoma of large intestine 04/22/13 D12.6 Carpal tunnel syndrome on both sides 04/10/15 G56.03 Erectile dysfunction of organic origin 12/12/15 N52.9 Hypogonadism in male 01/12/16 E29.1 Libido, decreased 12/12/15 R68.82 Other seborrheic keratosis 02/13/12 L82.1 Obesity 04/22/13 E66.9 Osteoarthritis of knee 06/16/13 M17.10 Anticoagulation monitoring, INR range 2-3 Z79.01 RAHEEM positive R76.8 Nicotine dependence 07/09/13 F17.200 Right heart failure with reduced right ventricular function I50.810 Sleep apnea G47.30 Medical History Medical History Anxiety BPH (benign prostatic hypertrophy) Cervical radiculopathy (01/01/17) Chest tightness CHI (closed head injury) Cough Depressive disorder (07/09/13) DISH (diffuse idiopathic skeletal hyperostosis) (02/07/20) [facility] Diverticulosis DVT (deep venous thrombosis) 03/25/19 [facility] Right and Left: extensive, acute, non-occlusive DVT Erectile dysfunction Esophageal reflux (02/13/12) GERD (gastroesophageal reflux disease) Hematuria Hemorrhoids History of diverticulitis Hyperlipidemia (02/13/12) Lipids 2010: 226/115/58/149 Statin made his GERD worse Hypertension IFG (impaired fasting glucose) Impotence of organic origin (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, SLEEP STUDY 02/13/13 BIPAP RECOMMENDED ([place]) PT ISN'T USING and returned BiPAP on own 04/2013 Periodic limb movement disorder (02/13/13) [facility], SLEEP STUDY 02/13/13 Pulmonary embolism Acute saddle PE found @ [facility] Friday, 08/10 .. helicoptered to [facility] .. s/p TPA, now on lovenox, starting warfarin. Heart strain noted, fu with cardiology in 3 mos. Hem/Onc work up planned ([facility] [ ]).. Hx Lovenox for PE in past? Right ventricular dilation Serrated adenoma of colon (~09/2020) SOB (shortness of breath) Surgical History Surgical History Endoscopic Carpal Tunnel release (06/19/15) R Dr Moore H/O elbow surgery right H/O shoulder surgery bilaterally History of total hip arthroplasty History of total knee replacement (05/30/14) left S/P cataract extraction and insertion of intraocular lens (~03/17/14) left S/P cataract extraction and insertion of intraocular lens (03/31/14) OD S/P trigger finger release Tobacco Smoking/Tobacco Use Status: Former Tobacco Use Smokeless tobacco user: other Alcohol Alcohol Intake: current Alcohol intake frequency: a few times a month Alcohol type: beer Substance Use Substance use: Never Substance use type: does not use Vital Signs and Lab Results Vital Signs Most Recent Vital Signs in EMR: Most Recent Vital Signs Temp Pulse Resp BP Pulse Ox 36.9 C 91 H 18 128/87 97 11/20/21 07:47 11/20/21 07:47 11/20/21 07:47 11/20/21 07:47 11/20/21 07:47 Lab Results Blood Type / Crossmatch: No Data to Display Complete Blood Count: White Blood Count 9.74 10^3/uL (4.4-10.8) 10/23/21 08:55 10/23/21 Red Blood Count 5.40 10^6/uL (4.36-5.78) 10/23/21 08:55 10/23/21 Hemoglobin 17.4 g/dL (13.5-17.5) 10/23/21 08:55 10/23/21 Hematocrit 51.1 % (40.0-50.0) H 10/23/21 08:55 10/23/21 Platelet Count 308 10^3/uL (130-400) 10/23/21 08:55 10/23/21 Venous Blood Lactate 2.4 mmol/L (0.6-1.4) H* 10/23/21 08:55 10/23/21 Complete Metabolic Panel: Sodium Level 140 mmol/L (136-145) 10/23/21 08:55 10/23/21 Potassium Level 3.7 mmol/L (3.5-5.1) 10/23/21 08:55 10/23/21 Chloride Level 103 mmol/L (98-107) 10/23/21 08:55 10/23/21 Carbon Dioxide Level 25.9 mmol/L (21.0-32.0) 10/23/21 08:55 10/23/21 Blood Urea Nitrogen 16 mg/dL (7-18) 10/23/21 08:55 10/23/21 Creatinine 0.8 mg/dL (0.70-1.30) 10/23/21 08:55 10/23/21 Estimated GFR/1.73 m2 >= 60.00 (mL/min/1.73m2) 10/23/21 08:55 10/23/21 Magnesium Level 1.8 mg/dL (1.8-2.4) 10/23/21 08:55 10/23/21 Calcium Level 8.7 mg/dL (8.5-10.1) 10/23/21 08:55 10/23/21 Albumin 3.7 g/dL (3.4-5.0) 10/23/21 08:55 10/23/21 Glucose Level 104 mg/dL (74-106) 10/23/21 08:55 10/23/21 Liver Function Panel: Alanine Aminotransferase (ALT/SGPT) 44 U/L (16-63) 10/23/21 08:55 10/23/21 Aspartate Amino Transf (AST/SGOT) 36 U/L (15-37) 10/23/21 08:55 10/23/21 Coagulation Panel: INR International Normalized Ratio 2.0 (0.9-1.1) H 11/09/21 14:33 11/09/21 Prothrombin Time 38.8 sec (9.3-11.0) H 10/23/21 08:55 10/23/21 Activated Partial Thromboplast Time 40.0 sec (21.0-27.5) H 10/23/21 08:55 10/23/21 Cardiac Panel: No Data to Display Arterial Blood Gas: No Data to Display Venous Blood Gas: No Data to Display Pancreas Panel: Lipase 73 U/L (73-393) 10/23/21 08:55 10/23/21 Thyroid Panel: No Data to Display Infectious Disease: Coronavirus (COVID-19)(PCR) Negative (Negative) 11/19/21 09:03 11/19/21 Coronavirus 2019 Source Nasal/Nares 11/19/21 09:03 11/19/21 Blood Cultures: No Data to Display Toxicology Panel: No Data to Display Imaging and Studies Imaging and Studies Study information below may be from another EMR and interpreted by another provider. Please see original notes in EMR for more complete details. EKG Summary: 03/05/21 Conclusion Sinus or ectopic atrial rhythm...P axis (-45,135) Prolonged IA interval...IA >220, V-rate 50- 90 Left bundle branch block...QRSd>120, broad/notched R Stress Test Summary: 12/16/2018 1. Myocardial perfusion imaging: No myocardial perfusion defects noted. 2. The left ventricular end-systolic volume is 92ml. The calculated left ventricular ejection fraction after stress: 45%. LV global systolic function is mildly reduced. Diffuse left ventricular regional motion abnormalities. LV function most likely underestimated due to gating error. 3. Stress ECG conclusions: The stress ECG is negative. 4. Baseline ECG: Normal sinus rhythm with left bundle branch block. 5. Imaging information: gated. Image quality reduced due to body habitus. Echocardiogram Summary: 10/26/2018 1. Left ventricle: The cavity size was normal. The estimated ejection fraction was 40%. Diffuse hypokinesis. Findings consistent with diastolic dysfunction. There was no evidence of elevated ventricular filling pressure by Doppler parameters. 2. Aortic valve: There was mild regurgitation. 3. Mitral valve: There was mild regurgitation. 4. Left atrium: The atrium was mildly dilated. 5. Right ventricle: The cavity size was mildly dilated. Systolic function was mildly reduced. 6. Right atrium: The atrium was mildly dilated. 7. Atrial septum: No defect or patent foramen ovale was identified. 8. Pulmonary arteries: Pulmonary systolic pressure was in the range of 30mm Hg to 40mm Hg. 9. Inferior vena cava: The vessel was patent and normal in size. The respirophasic diameter changes were in the normal range (greater than or equal to 50%), consistent with normal central venous pressure. Pulmonary Function Summary: 01/31/2014 INTERPRETATION SPIROMETRY: Spirometry shows no evidence of obstructive airways disease. No bronchodilator testing was carried out. LUNG VOLUMES: Lung volumes show no evidence of restriction. DIFFUSION CAPACITY: Normal. AIRWAY RESISTANCE: Normal. IMPRESSION: Normal pulmonary function study. Clinical correlation recommended. Anesthesia Assessment and Plan Anesthesia History Personal History: No History of Anesthesia Complications Family History: No Family History of Anesthesia Complications Exercise Tolerance Exercise Tolerance: Metabolic Equivalents>4 Cardiac & Pulmonary Exam Cardiac Exam: Normal S1/S2 Heart Sounds Pulmonary Exam: Clear Bilateral Breath Sounds Implantable Cardiac Device Does patient have a Pacemaker or an ICD?: No Airway Exam Known Difficult Airway: No Mallampati Class: 1 Mouth Opening: Normal (> 3cm) Thyromental Distance: Greater than 3 cm Neck Range of Motion: Full ROM Neck Circumference: Normal Teeth Condition: Normal Dentition ASA Classification ASA Score: ASA 3 Emergency Case?: No NPO Status NPO Status: NPO Clears >2 hours, Solids >8 hours Anesthesia Plan Resuscitation Status: Full Code Anesthesia Technique: General Anesthesia Airway Planned: Natural Airway Monitors Used: Standard Monitors Preoperative Comments:: 81 yo male for colo with history of polys. Sig PMHx: DVT/PE, HTN, GERD, AILEEN, cervical radiculopathy, former smoker. Previous anes: ECTR/colo x 2 in past with prop only - no issues.
[2021-11-20] MEDS: Lactated Ringers 1,000 ML 80 ML IV (08:06)
[2021-11-20 08:07] VITALS: BMI 31.4
--- NOTE | 2021-11-20 09:33 | BOWEL_PTH ---
PATIENT: Adebayo Amin JR LOC: [facility] U#:[id number] AGE/SX: 81/M ROOM: RE11/20/[address]: Katelynn Ram MD : [id number] BED: DIS: 11/20/2021 SPEC #: [id number] RECD: 11/20/21 12:44 STATUS: REBEKA REQ #: [id number] CRISTINA: 11/20/21 09:[address]: Katelynn Ram DEPT: Surgical Specimen RECD BY: Patricia Gutierres ENTERED: 11/20/21 12:45 SP TYPE: Bowel OTHR DR: Sania Cherry APRN Tissues: 1 - BIOPSY BOWEL 2 - BIOPSY BOWEL 3 - BIOPSY BOWEL 4 - BIOPSY BOWEL 5 - BIOPSY BOWEL Procedures: GROSS AND MICRO LEVEL 4 Comments: [id number]
[2021-11-20 10:08] VITALS: BP 136/88; PULSE 79; RESP 20; TEMP 36.2; O2SAT 97
--- NOTE | 2021-11-20 10:11 | W.ANESPOSTOP ---
Postoperative Evaluation Date, Time and Location Date Performed: 11/20/21 Time Performed: 10:11 Patient Location: Day Surgery Unit Vital Signs Most Recent Imported Vital Signs: Most Recent Vital Signs Temp Pulse Resp BP Pulse Ox 36.9 C 91 H 18 128/87 97 11/20/21 07:47 11/20/21 07:47 11/20/21 07:47 11/20/21 07:47 11/20/21 07:47 Most Recent Manually Entered Vital Signs: Adult Blood Pressure: 136/88 Heart Rate: 79 Respirations: 12 Oxygen Saturation (%): 98 Temperature (C): 36.2 C Pain Score (0-10 Scale): 0 Pain Score Most Recent Pain Score: Most Recent Pain Score Pain Level 0 11/20/21 07:47 Assessment Mental Status: Awake (Alert & Oriented to Patient Baseline) Airway and Respiratory Function: Patent airway with normal (patient baseline) respiratory exam Cardiovascular Function: Hemodynamically Stable Hydration Status: Adequately Hydrated Nausea & Vomiting: No Nausea or Vomiting Pain: Pt. Denies Any Pain Peripheral Nerve Block: Patient did not receive a nerve block
[2021-11-20 10:12] VITALS: BP 136/88; PULSE 79; RESP 12; TEMPC 36.2; O2SAT 98
[2021-11-20] MEDS: Hyoscyamine 0.125 MG SL/ORAL/CHEW SL (10:27)
[2021-11-20 10:40] VITALS: BP 155/88; PULSE 77; RESP 18; TEMP 36.2; O2SAT 98
== END 2021-11-20 11:13 | disposition home or self-care (01) ==
LOC: SUR 07:30
PROVIDERS: PCP Nurse Practitioner; Visit Provider Surgery
PROC: 0DJD8ZZ Inspection of Lower Intestinal Tract, Via Natural or Artificial Opening Endoscopic (ICD-10-PCS; CPT 45378; principal; 2021-11-20 09:00)
DX: Z12.11 Encounter for screening for malignant neoplasm of colon (principal); D12.2 Benign neoplasm of ascending colon; D12.8 Benign neoplasm of rectum; Z86.010 Personal history of colon polyps; K57.30 Diverticulosis of large intestine without perforation or abscess without bleeding
CPT/HCPCS: 45380; 36415; 88305; 85610; J3490

== ENCOUNTER 2022-04-14 16:12 | Inpatient (IN) | payer MEDICARE, OTHER, SELFPAY ==
[2022-04-14] VITALS (17 sets, daily range): BP systolic 155–169; BP diastolic 73–92; PULSE 66–87; RESP 15–25; TEMP 36.8–36.9; O2SAT 96–99
--- NOTE | 2022-04-14 16:15 | RT.EKG_ITS ---
APPROVED REPORT Exam: Resting ECG Reason for Exam: dizzy Patient Location: E HR:73 bpm ECG Measurements Heart Rate 73 AXIS VT 330 P 38 QRSd 136 QRS -72 QT 400 T 65 QTc 443 Conclusion Sinus rhythm. Prolonged VT interval. Left bundle branch block. No significant change from previous
--- NOTE | 2022-04-14 16:30 | DI.CT_ITS ---
Exam(s) CT HEAD WO EXAM: CT HEAD WO CLINICAL HISTORY: Near syncope. TECHNIQUE: Imaging Protocol: Axial computed tomography images with coronal and sagittal reformatted images were created and reviewed COMPARISON: CT CT HEAD CERV SPINE FACIAL WO from 03/22/2021 FINDINGS: Ventricles and Extra axial spaces: Normal in size and morphology for the patient's age. Hemorrhage: None. Cerebral parenchyma: Atrophy. White matter changes consistent with small vessel disease. 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 Midline shift: None. Brainstem/Cerebellum: Normal. Calvarium: Normal. Visualized Paranasal sinuses/Mastoids: Clear. IMPRESSION: No acute abnormality. RADIATION DOSE DELIVERED: 772.93mGy.cm Total DLP 772.93mGy.cm Total DLP DATA REPOSITORY: All CT scans at this facility are submitted to the National Radiology Data Registry (NRDR) Dose Index Registry (DIR) with the [employer] ([employer]). RADIATION OPTIMIZATION: All CT scans at this facility use at least one of these dose optimization te chniques: automated exposure control; mA and/or kV adjustment per patient size (includes targeted exa ms where dose is matched to clinical indication); or iterative reconstruction.
--- NOTE | 2022-04-14 16:46 | W.ED.GENAD ---
Discharge Plan Disposition Patient Disposition: [facility] INPATIENT Condition: Stable Discharge Details Clinical Impression: Near syncope, Subtherapeutic international normalized ratio (INR) Admit Date/Time: 04/14/22 21:03 Admit Provider: Irineo Simmons Attending Provider: Irineo Simmons Primary Care Provider: Sania Cherry ED Provider: Jagdeep Ramirez Discharge Data Discharge Date/Time-TO BE ENTERED AT DEPARTURE: 04/14/22 22:05 Medical Decision Making This is an 81-year-old male who presents with his longtime partner. He noted lightheadedness with rising today slightly felt as if he was going to pass out. Resolved with sitting but then repeated itself with recurrent episodes at attempted ambulation. He had no chest pain, no headache. He states he recently had his warfarin held (10 days) due to dental extractions and did have a fair amount of bloody discharge this past week. He has not had any dark or bloody stools. Patient's history is notable for history of hypertension, right heart strain and failure due to history of pulmonary embolism. History of cardiomyopathy with low normal ejection fraction. Note of myocardial for feeling scan performed last on December 16, 2018. On exam the patient is well-appearing, he is slightly orthostatic with position changes. Differential diagnosis includes dehydration, anemia, electrolyte abnormalities, must exclude intracranial process or occult HI. With a history of PE and lack of recent deflation for his dental extractions, would also consider atypical presentation of PE. Patient IV access established, screening labs, EKG obtained and he is referred for noncontrast CT scan of the head. CT of the head with no acute intracranial abnormality. Chest x-ray with no acute cardiopulmonary process. Patient's laboratories note unremarkable CBC, reassuring electrolytes, BUN 5 with a creatinine of 0.8. Initial troponin elevated at 178. D-dimer elevated at 934. Given the patient's history of PE, 10 days without anticoagulation (which he restarted 2 days ago, INR 1.1 today), he was referred for CT scan of the chest to evaluate for pulmonary embolism. We will sign the patient out to Dr. Ramirez pending review of CT images/results as well as repeat troponin. Please see his note. HPI General Mode of arrival: ambulatory. Date/Time Provider Initiated Documentation: 04/14/22 16:15. Limitations to Documentation: no limitations. Information obtained by: patient and family. History of Present Illness 81 year old M presents to the emergency department with the chief complaint of Lightheaded with rising today, described as moderate, and is localized to the head. Patient reports no radiation. Patient started experiencing this hour(s) and it has been intermittent. Rest improves symptom(s), Other factors that worsen symptoms (Standing up) . Patient notes denies chest pain, headaches, shortness of breath and syncope. Patient did receive the following treatments prior to arrival, none Related Data Home Medications Medication Instructions Recorded Confirmed psyllium husk 3.4 gram/5.4 gram 1 tbsp PO DAILY 04/18/21 04/14/22 oral powder (Metamucil) acetaminophen 500 mg tablet 500 mg PO Q6H PRN pain #60 tabs 06/13/21 04/14/22 apple cider vinegar 1 oz PO DAILY 07/02/21 04/05/22 calcium carbonate 200 mg calcium 200 mg PO BID PRN 10/25/21 04/14/22 (500 mg) chewable tablet (Tums) CBD oil topical Right shoulder pain 12/07/21 04/05/22 tramadol 50 mg tablet 50 mg PO TID PRN pain #9 tabs 03/14/22 04/14/22 warfarin 5 mg tablet 5 mg PO DIRECTED #100 tabs 04/02/22 04/14/22 Previous Rx's Medication Instructions Recorded acetaminophen 500 mg tablet 500 mg PO Q6H PRN pain #60 tabs 06/13/21 tramadol 50 mg tablet 50 mg PO TID PRN pain #9 tabs 03/14/22 warfarin 5 mg tablet 5 mg PO DIRECTED #100 tabs 04/02/22 Allergies Allergy/AdvReac Type Severity Reaction Status Date / Time codeine AdvReac Intermediate N/V Verified 04/14/22 16:29 General Stated Complaint: Dizzy/Sync MARTHA: 2 Review of Systems Narrative: No syncope. No headache. Recently had dental extractions for which she had his warfarin held. Restarted yesterday. Eating and drinking less than normal. 8 systems were reviewed and otherwise negative PFSH All Active Problems (Updated 04/14/22 @ 21:34 by Irineo Simmons) Elevated troponin I level (Acute) Near syncope (Acute) Subtherapeutic international normalized ratio (INR) (Acute) Abdominal pain (Acute) History of carpal tunnel surgery of left wrist (Acute 06/13/21) History of DVT (deep vein thrombosis) (Acute) History of pulmonary embolism (Acute) Acute diverticulitis (Acute) Left carpal tunnel syndrome (Acute) Cervical strain, acute (Acute) Hyperplastic colon polyp (Acute ~09/2020) Tubular adenoma of colon (Acute ~09/2020) History of tobacco use (Acute 04/22/13) Chew, quit 2011 Urinary frequency (Acute) Dysuria (Acute) UTI (urinary tract infection), uncomplicated (Acute) Burning with urination (Acute) Abdominal mass (Acute) Long-term (current) use of anticoagulants, INR goal 2.0-3.0 (Acute) S/P colonoscopy (Acute ~08/02/19) Tubular adenoma x11. Sessile serrated adenoma x7 History of Surgical Procedure (Chronic) a. Meniscectomy, left knee. b. Right toal knee replacement. c. Right total hip replacement. d. Bilateral cataract surgery. e. Medial epicondylitis surgery. f. Bilateral rotator cuff surgery. g. Left ring finger trigger finger release. h. Multiple surgeries for lipoma excisions. i. Colonoscopies. Knee pain, left (Acute) Adenoma of large intestine (Acute 04/22/13) 2007 [facility] 06/26/2013 [facility] Carpal tunnel syndrome on both sides (Acute 04/10/15) Erectile dysfunction of organic origin (Acute 12/12/15) Hypogonadism in male (Acute 01/12/16) Libido, decreased (Acute 12/12/15) Other seborrheic keratosis (Acute 02/13/12) Back Obesity (Acute 04/22/13) Osteoarthritis of knee (Acute 06/16/13) Anticoagulation monitoring, INR range 2-3 (Acute) 03/24/19 [facility] Continue warfarin mcc for secondary VTE prophylaxis ARHEEM positive (Chronic) Nicotine dependence (Acute 07/09/13) 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 denies this Sleep apnea (Chronic) a. Not on CPAP. Medical History Anxiety BPH (benign prostatic hypertrophy) Cervical radiculopathy (01/01/17) Chest tightness CHI (closed head injury) Cough Depressive disorder (07/09/13) DISH (diffuse idiopathic skeletal hyperostosis) (02/07/20) [facility] Diverticulosis DVT (deep venous thrombosis) 03/25/19 [facility] Right and Left: extensive, acute, non-occlusive DVT Erectile dysfunction Esophageal reflux (02/13/12) GERD (gastroesophageal reflux disease) Hematuria Hemorrhoids History of diverticulitis Hyperlipidemia (02/13/12) Lipids 2010: 226/115/58/149 Statin made his GERD worse Hypertension IFG (impaired fasting glucose) Impotence of organic origin (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 helicoptered to [facility] .. s/p TPA, now on lovenox, starting warfarin. Heart strain noted, fu with cardiology in 3 mos. Hem/Onc work up planned ([facility] [ ]).. Hx Lovenox for PE in past? Right ventricular dilation Serrated adenoma of colon (~09/2020) SOB (shortness of breath) Surgical History Endoscopic Carpal Tunnel release (06/19/15) R Dr Moore H/O elbow surgery right H/O shoulder surgery bilaterally History of colonoscopy (~10/2021) History of total hip arthroplasty History of total knee replacement (05/30/14) left S/P cataract extraction and insertion of intraocular lens (~03/17/14) left S/P cataract extraction and insertion of intraocular lens (03/31/14) OD S/P trigger finger release Family History Mother , 80's, unknown causes Heart disease Alzheimer disease Father , 80's, heart failure Heart disease Sister Colon cancer Sister Heart disease Brother Diabetes Social History Smoking/Tobacco Use Status: Former Tobacco Use Quit Date: 12/23/97 Pack-years: 20 Smokeless tobacco user: other Smoking risk assessment performed?: Yes Alcohol Intake: current Alcohol Intake frequency: a few times a month Alcohol type: beer Drug use: Never Substance use type: does not use Housing: house Number of Children: 3 What type of physical activity do you participate in: none Seatbelt use: always Working smoke detector in home: Yes Fire extinguisher in home: Yes Carbon monox detector in home: Yes Do you feel safe at home: Yes Do you feel safe in your relationship?: Yes Additional Social history: lives alone, but has mcc girlfriend [address] 28 years 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 Pleasant, well groomed, interactive. HEAD: Normocephalic, atraumatic ENT: Mucous membranes moist, oropharynx unremarkable -healing extraction sites without evidence of active bleeding, External ear exam unremarkable EYES: PERRL, EOMI NECK: Full ROM, no GRIS, no menigismus CHEST/RESP: Nontender, clear to auscultation bilateral, no wheeze/rhonchi/rales CARDIOVASCULAR: Distant but regular, no murmur, rub ishmael. 2+ Rad pulse bilateral ABDOMEN: Soft, nontender, no mass. +Bowel sounds EXT: Full ROM, no edema, no rash Neuro: Grossly normal neurologic exam, conversant, interactive. Psych: Speech fluent, thoughts congruent, affect normal Course Vital Signs Vital signs: Vital Signs Temperature 36.8 C 04/14/22 16:23 Pulse 80 04/14/22 16:23 Respiratory Rate 19 04/14/22 16:23 Blood Pressure 164/84 H 04/14/22 16:23 Pulse Oximetry 96 04/14/22 16:23 Temperature 36.8 C 04/14/22 16:23 Temperature Source Tympanic 04/14/22 16:23 Pulse 80 04/14/22 16:23 Respiratory Rate 19 04/14/22 16:23 Blood Pressure 164/84 H 04/14/22 16:23 Blood Pressure Position Supine 04/14/22 16:23 Pulse Oximetry 96 04/14/22 16:23 Oxygen Delivery Method Room Air 04/14/22 16:23 Oxygen Flow Rate 0 04/14/22 16:23 Pain Level 0 04/14/22 16:23 Sign Out Sign Out Data: Sign Out Comment: Followup CT/repeat Trop Last updated by Sunil Hawthorne MD at 04/14/22 19:44
--- NOTE | 2022-04-14 17:09 | DI.RAD_ITS ---
Exam(s) XR CHEST 2V PA LATERAL EXAM: XR CHEST 2V PA LATERAL CLINICAL HISTORY: Near syncope TECHNIQUE: 2D digital imaging was performed. COMPARISON: CR XR PORTABLE CHEST AP from 10/04/2018 FINDINGS: MEDIASTINUM: Normal. HEART: Normal. PULMONARY VASCULATURE: Normal. LUNGS: Clear. PLEURAL SPACE: No pleural effusion or pneumothorax. BONE:Unremarkable for age. IMPRESSION: No acute abnormality. DATA REPOSITORY: RADIATION DOSE DELIVERED:
[2022-04-14] MEDS: Normal Saline 1,000 ML 1000 ML IV (17:12)
[2022-04-14 17:14] LABS: Abs Immature Grans 0.02 10^3/uL (0.0-0.06); Absolute Basophil Count 0.03 10^3/uL (0.0-0.2); Absolute Eosinophil Count 0.07 10^3/uL (0.0-0.7); Absolute Lymphocyte Count 1.28 10^3/uL (1.2-3.4); Absolute Monocyte Count 0.47 10^3/uL (0.1-0.8); Absolute Neutrophil Count 3.22 10^3/uL (1.2-6.7); Basophils % 0.6; Eosinophils % 1.4; HCT 45.2 % (40.0-50.0); HGB 15.4 g/dL (13.5-17.5); Immature Grans % 0.4; Lymphocytes % 25.1; MCH 32.8 pg (27.0-33.0); MCHC 34.1 % (32.0-36.0); MCV 96 fL (80-95); MPV 8.8 fL (8.0-11.0); Monocytes % 9.2; Neutrophils % 63.3; Platelet Count 274 10^3/uL (130-400); RBC 4.69 10^6/uL (4.36-5.78); RDW 12.7 % (11.8-14.1); RDW-SD 44.9 fL; WBC 5.09 10^3/uL (4.4-10.8)
[2022-04-14 17:24] LABS: INR 1.1 (0.9-1.1); Prothrombin Time 11.5 sec (9.3-11.0)
[2022-04-14 17:29] LABS: ALT 27 U/L (16-63); AST 25 U/L (15-37); Albumin 3.2 g/dL (3.4-5.0); Alkaline Phosphatase 73 U/L (46-116); Anion Gap 8.5 mmol/L (3-11); BUN 5 mg/dL (7-18); Bilirubin, Total 0.4 mg/dL (0.2-1.0); CO2 24.5 mmol/L (21.0-32.0); CREATININE 0.8 mg/dL (0.70-1.30); Calcium 8.3 mg/dL (8.5-10.1); Chloride 106 mmol/L (98-107); Glucose 122 mg/dL (74-106); Magnesium 1.9 mg/dL (1.8-2.4); Potassium 3.7 mmol/L (3.5-5.1); Sodium 139 mmol/L (136-145); Total Protein 6.9 g/dL (6.4-8.2)
[2022-04-14 17:36] LABS: Troponin I 178 ng/L (<or=60)
--- NOTE | 2022-04-14 17:59 | DI.VRAD_ITS ---
PROCEDURE INFORMATION: Exam: CT Head Without Contrast Exam date and time: 04/14/2022 5:30 PM Age: 81 years old Clinical indication: Other: Near syncope TECHNIQUE: Imaging protocol: Computed tomography of the head without contrast. Radiation optimization: All CT scans at this facility use at least one of these dose optimization techniques: automated exposure control; mA and/or kV adjustment per patient size (includes targeted exams where dose is matched to clinical indication); or iterative reconstruction. COMPARISON: CT HEAD CERV SPINE FACIAL WO 03/22/2021 9:43 AM FINDINGS: Brain: No acute large territorial infarction or intracranial hemorrhage. 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 No mass effect or midline shift. Vascular calcifications. 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 Cerebral ventricles: No ventriculomegaly. Paranasal sinuses: Visualized sinuses are unremarkable. No fluid levels. Mastoid air cells: Visualized mastoid air cells are well aerated. Orbital cavities: Status post lens replacement. Bones/joints: No calvarial fracture. Soft tissues: Unremarkable. IMPRESSION: No acute intracranial abnormality. Dictated and Authenticated by: Carolina Carrington MD. Ordering:RITU Barber MD
--- NOTE | 2022-04-14 18:00 | DI.VRAD_ITS ---
PROCEDURE INFORMATION: Exam: XR Chest Exam date and time: 04/14/2022 5:44 PM Age: 81 years old Clinical indication: Other: Near syncope TECHNIQUE: Imaging protocol: XR of the chest. Views: 2 views. COMPARISON: SC XR PORTABLE CHEST AP 10/04/2018 12:00 PM FINDINGS: Lungs: No focal consolidation. Pleural spaces: Unremarkable. No pleural effusion. No pneumothorax. Heart/Mediastinum: Cardiomediastinal countour within normal limits. Bones/joints: No acute osseous abnormality. IMPRESSION: No acute cardiopulmonary process. Dictated and Authenticated by: Carolina Carrington MD. Ordering:RITU Barber MD
--- NOTE | 2022-04-14 18:30 | DI.CT_ITS ---
Exam(s) CT CHEST PE CTA EXAM: CT CHEST PE CTA CLINICAL HISTORY: Near syncope, hx PE, off anticoagulation. TECHNIQUE: Imaging Protocol: Axial CT angiography was performed with multi-slice acquisition and mu lti-planar reconstructions as well as axial, coronal and sagittal MIP reconstructions. CONTRAST MATERIAL: Intravenous: Visipaque 75 millimeters COMPARISON: CT CT ABDOMEN PELVIS W from 10/23/2021 CR,XR XR CHEST 2V PA LATERAL from 04/14/2022 FINDINGS: Pulmonary Arteries: Exam mildly limited by respiratory motion at the lung bases. Some narrowing of t he left lower lobe pulmonary artery which appears stable. No evidence of filling defect to suggest p ulmonary emboli. Tracheobronchial tree: Patent where visualized. Mediastinum and Deanne: No dominant adenopathy or fluid collection. Pulmonary parenchyma: Mild respiratory motion. Mild dependent changes. No consolidation or dominan t measurable mass. Pleura: No effusion or pneumothorax. Heart: The heart is mildly dilated. Mild coronary artery calcifications are seen. Aorta: Thoracic aorta non-dilated. No aneurysm. No dissection. Upper abdomen: Hiatal hernia. Fatty liver. Bones: Flowing osteophytes. Bones appear osteoporotic. No fractures. IMPRESSION: No evidence of pulmonary embolism or other acute abnormality.. RADIATION DOSE DELIVERED: 359.15mGy.cm Total DLP DATA REPOSITORY: All CT scans at this facility are submitted to the National Radiology Data Registry (NRDR) Dose Index Registry (DIR) with the [employer] (ACR). RADIATION OPTIMIZATION: All CT scans at this facility use at least one of these dose optimization te chniques: automated exposure control; mA and/or kV adjustment per patient size (includes targeted exa ms where dose is matched to clinical indication); or iterative reconstruction.
[2022-04-14 18:33] LABS: D-Dimer 934 ng/mlFEU (<500)
[2022-04-14] MEDS: Normal Saline 500 ML IV (19:45)
--- NOTE | 2022-04-14 20:21 | DI.VRAD_ITS ---
PROCEDURE INFORMATION: Exam: CTA Chest With Contrast Exam date and time: 04/14/2022 6:55 PM Age: 81 years old Clinical indication: Other: HX of pe off anticoagulants; Patient HX: Near syncope TECHNIQUE: Imaging protocol: Computed tomographic angiography of the chest with contrast. 3D rendering (Not supervised by radiologist): MIP and/or 3D reconstructed images were created by the technologist. Radiation optimization: All CT scans at this facility use at least one of these dose optimization techniques: automated exposure control; mA and/or kV adjustment per patient size (includes targeted exams where dose is matched to clinical indication); or iterative reconstruction. Contrast material: VISPIPAQUE 320; Contrast volume: 75 ml; Contrast route: INTRAVENOUS (IV); COMPARISON: CT CHEST PE CTA 11/09/2019 12:34 PM FINDINGS: Limitations: Artifact from breathing motion. Pulmonary arteries: Exam not tailored to evaluate the pulmonary arterial vasculature. Axial imaging was provided at 5 mm slice thickness. Within the limits of the exam, no large central pulmonary embolism is demonstrated in the pulmonary trunk or main pulmonary arteries. The small and distal pulmonary arteries are not adequately evaluated to diagnose or exclude small or distal pulmonary emboli, particularly through the left lower lung zone where the vasculature is also partially obscured by artifact from breathing motion. If additional high-resolution axial imaging at 3 mm or thinner slice thickness is provided, an addendum can be rendered. Aorta: No thoracic aortic aneurysm or dissection. Thyroid: Thyroid gland partially obscured by artifact but normal in size. Lungs: No pulmonary consolidation. Pleural spaces: No pleural effusion or pneumothorax. Heart: Normal sized heart. Lymph nodes: Shotty mediastinal and hilar lymph nodes. Diaphragm: 2.8 cm hiatal hernia. Liver: Diffuse fatty infiltration of the liver. Bones/joints: Lower ribs partially excluded from view and incompletely evaluated. Otherwise, no acute fracture seen among the bones of the chest. Soft tissues: No gross soft tissue mass or fluid collection seen in the chest wall. IMPRESSION: 1. No active disease is seen in the chest. 2. Exam not tailored to evaluate the pulmonary arterial vasculature. Within the limits of the exam, no large central pulmonary embolism demonstrated in the pulmonary trunk or main pulmonary arteries. Please see comments above. 3. Diffuse fatty infiltration of the liver. 4. 2.8 cm hiatal hernia. Dictated and Authenticated by: Jamey Oneal MD. Ordering:RITU Barber MD
[2022-04-14 20:40] LABS: Troponin I 190 ng/L (<or=60)
--- NOTE | 2022-04-14 20:58 | DI.VRAD_ITS ---
Addendum created by Jamey Oneal MD on 04/14/2022 8:57:33 PM EDT: We are asked to clarify Shotty mediastinal and hilar lymph nodes. There are scattered small mediastinal and hilar lymph nodes of doubtful clinical significance. Additionally noted, high-resolution axial imaging prepared at 2 mm slice thickness has been received. There is diminished or delayed enhancement of the left lower lobe pulmonary arteries through the mid-lower lung zones. This appearance is also seen on prior exams from November 09, 2019 and October 04, 2018. There is apparent narrowing of the descending/interlobar pulmonary artery, likely accounting for this finding although small pulmonary emboli would be difficult to exclude at the left lung base. Of note, the pulmonary artery to the superior segment of the left lower lobe arises from the main left pulmonary artery and enhances normally. No pulmonary embolism is seen in the right lung. The small and distal pulmonary arteries of the lingula are partially obscured by motion and not well evaluated. Otherwise, no left upper lobe pulmonary embolism is seen. Initial report created on 04/14/2022 8:21:33 PM EDT: PROCEDURE INFORMATION: Exam: CTA Chest With Contrast Exam date and time: 04/14/2022 6:55 PM Age: 81 years old Clinical indication: Other: HX of pe off anticoagulants; Patient HX: Near syncope TECHNIQUE: Imaging protocol: Computed tomographic angiography of the chest with contrast. 3D rendering (Not supervised by radiologist): MIP and/or 3D reconstructed images were created by the technologist. Radiation optimization: All CT scans at this facility use at least one of these dose optimization techniques: automated exposure control; mA and/or kV adjustment per patient size (includes targeted exams where dose is matched to clinical indication); or iterative reconstruction. Contrast material: VISPIPAQUE 320; Contrast volume: 75 ml; Contrast route: INTRAVENOUS (IV); COMPARISON: CT CHEST PE CTA 11/09/2019 12:34 PM FINDINGS: Limitations: Artifact from breathing motion. Pulmonary arteries: Exam not tailored to evaluate the pulmonary arterial vasculature. Axial imaging was provided at 5 mm slice thickness. Within the limits of the exam, no large central pulmonary embolism is demonstrated in the pulmonary trunk or main pulmonary arteries. The small and distal pulmonary arteries are not adequately evaluated to diagnose or exclude small or distal pulmonary emboli, particularly through the left lower lung zone where the vasculature is also partially obscured by artifact from breathing motion. If additional high-resolution axial imaging at 3 mm or thinner slice thickness is provided, an addendum can be rendered. Aorta: No thoracic aortic aneurysm or dissection. Thyroid: Thyroid gland partially obscured by artifact but normal in size. Lungs: No pulmonary consolidation. Pleural spaces: No pleural effusion or pneumothorax. Heart: Normal sized heart. Lymph nodes: Shotty mediastinal and hilar lymph nodes. Diaphragm: 2.8 cm hiatal hernia. Liver: Diffuse fatty infiltration of the liver. Bones/joints: Lower ribs partially excluded from view and incompletely evaluated. Otherwise, no acute fracture seen among the bones of the chest. Soft tissues: No gross soft tissue mass or fluid collection seen in the chest wall. IMPRESSION: 1. No active disease is seen in the chest. 2. Exam not tailored to evaluate the pulmonary arterial vasculature. Within the limits of the exam, no large central pulmonary embolism demonstrated in the pulmonary trunk or main pulmonary arteries. Please see comments above. 3. Diffuse fatty infiltration of the liver. 4. 2.8 cm hiatal hernia. Dictated and Authenticated by: Jamey Oneal MD. Ordering:RITU Barber MD
--- NOTE | 2022-04-14 21:07 | W.EDPROG ---
Date of service: 04/14/22 Time of Service: 20:07 Medical Decision Making Case was signed out to me by my colleague Dr. Sunil Hawthorne. Please refer to his HPI, physical exam, assessment and plan. At time of signout we are waiting on repeat troponin and CTA. CT does not show evidence of significant or large pulmonary emboli. There is a slight filling defect, but it is suspected that this is less likely a PE per radiology. Patient remains notably asymptomatic at this time. He states that he feels well well While lying in the room. He denies any chest pain whatsoever. Bedside limited echo shows slightly enlarged left ventricle, ejection fraction appears around 50%. Right ventricle does not appear overly dilated. No large pericardial effusion. Initial troponin is slightly elevated in the 170s, repeat troponin is 190. EKG shows left bundle which is unchanged and is negative for SCARBOSSA criteria. Patient remained stable. As he is subtherapeutic on his INR at this time we will start heparinization for PE protocol out of an abundance of caution. Discussed the case with the hospitalist Dr. Wylie, he agrees with the assessment and plan. I will place bridging orders on his behalf. I have extensively reviewed the treatment plan with the patient. I have addressed all patient concerns at this time. I have also discussed the plan with the admitting physician and they agree with the current assessment and plan and have agreed to assume responsibility for the patient. All parties demonstrate verbal understanding and agreement with our assessment and plan at this time. The documentation in this chart was dictated using [email or web address] dictation software. Please excuse any dictation errors. Addendum created by Jamey Oneal MD on 04/14/2022 8:57 PM Eastern Time ([place] & [place]): We are asked to clarify Shotty mediastinal and hilar lymph nodes. There are scattered small mediastinal and hilar lymph nodes of doubtful clinical significance. Additionally noted, high-resolution axial imaging prepared at 2 mm slice thickness has been received. There is diminished or delayed enhancement of the left lower lobe pulmonary arteries through the mid-lower lung zones. This appearance is also seen on prior exams from November 09, 2019 and October 04, 2018. There is apparent narrowing of the descending/interlobar pulmonary artery, likely accounting for this finding although small pulmonary emboli would be difficult to exclude at the left lung base. Of note, the pulmonary artery to the superior segment of the left lower lobe arises from the main left pulmonary artery and enhances normally. No pulmonary embolism is seen in the right lung. The small and distal pulmonary arteries of the lingula are partially obscured by motion and not well evaluated. Otherwise, no left upper lobe pulmonary embolism is seen. FINDINGS: Limitations: Artifact from breathing motion. Pulmonary arteries: Exam not tailored to evaluate the pulmonary arterial vasculature. Axial imaging was provided at 5 mm slice thickness. Within the limits of the exam, no large central pulmonary embolism is demonstrated in the pulmonary trunk or main pulmonary arteries. The small and distal pulmonary arteries are not adequately evaluated to diagnose or exclude small or distal pulmonary emboli, particularly through the left lower lung zone where the vasculature is also partially obscured by artifact from breathing motion. If additional high-resolution axial imaging at 3 mm or thinner slice thickness is provided, an addendum can be rendered. Aorta: No thoracic aortic aneurysm or dissection. Thyroid: Thyroid gland partially obscured by artifact but normal in size. Lungs: No pulmonary consolidation. Pleural spaces: No pleural effusion or pneumothorax. Heart: Normal sized heart. Lymph nodes: Shotty mediastinal and hilar lymph nodes. Diaphragm: 2.8 cm hiatal hernia. Liver: Diffuse fatty infiltration of the liver. Bones/joints: Lower ribs partially excluded from view and incompletely evaluated. Otherwise, no acute fracture seen among the bones of the chest. Soft tissues: No gross soft tissue mass or fluid collection seen in the chest wall. IMPRESSION: 1. No active disease is seen in the chest. 2. Exam not tailored to evaluate the pulmonary arterial vasculature. Within the limits of the exam, no large central pulmonary embolism demonstrated in the pulmonary trunk or main pulmonary arteries. Please see comments above. 3. Diffuse fatty infiltration of the liver. 4. 2.8 cm hiatal hernia. Thank you for allowing us to participate in the care of your patient. Dictated and Authenticated by: Jamey Oneal MD 04/14/2022 8:21 PM Eastern Time ([place] & [place]) Sign Out Sign Out Data: Sign Out Comment: Followup CT/repeat Trop Last updated by Sunil Hawthorne MD at 04/14/22 19:44 Discharge Plan Disposition Patient Disposition: [facility] INPATIENT Condition: Stable Discharge Details Clinical Impression: Near syncope, Subtherapeutic international normalized ratio (INR) Primary Care Provider: Sania Cherry ED Provider: Jagdeep Ramirez Home Meds and New Rx's Prescriptions: No Action CBD oil topical tramadol 50 mg tablet 50 mg PO TID PRN (Reason: pain) Qty: 9 0RF Metamucil 3.4 gram/5.4 gram powder 1 tbsp PO DAILY Rx Instructions: mix into at least 8 oz of water or juice before administering apple cider vinegar 1 oz PO DAILY calcium carbonate [Tums] 200 mg calcium (500 mg) tablet,chewable 200 mg PO BID PRN warfarin 5 mg tablet 5 mg PO DIRECTED Qty: 100 3RF Hold Instructions: Home Medication placed on hold at Doctor's office Protocol: Dose Management Condition: Friday Dose/Route: 0 mg Instruction: 0 tablets Condition: Friday Dose/Route: 0 mg Instruction: 0 tablets Condition: Friday Dose/Route: 0 mg Instruction: 0 tablets Condition: Friday Dose/Route: 0 mg Instruction: 0 tablets Condition: Dose/Route: 0 mg Instruction: 0 tablets Condition: Friday Dose/Route: 0 mg Instruction: 0 tablets Condition: Friday Dose/Route: 0 mg Instruction: 0 tablets Protocol Text: Adjustment Start Date: Friday04/05/22 INR Value: 0.8 INR Date: 04/05/22 Recheck Date: 04/12/22 Additional Instructions: Written instructions for Mr. Amin: 04/05/22, per Dr. Arreola. DO NOT TAKE WARFARIN until your gums have stopped bleeding for at least 24hrs. Once your gums have stopped bleeding for 24hrs, 1. Restart Coumadin at 5mg nightly AND 2.Call the clinic to schedule an INR check in 1 WEEK from your 1st day back on Eusebio. acetaminophen 500 mg tablet 500 mg PO Q6H PRN (Reason: pain) Qty: 60 2RF
[2022-04-14 21:14] LABS: Source Nasal/Nares
--- NOTE | 2022-04-14 21:32 | W.PM.HP.N ---
Date of service: 04/14/22 Time of Service: 20:32 Assessment and Plan Assessment and plan (1) Near syncope: Status: Acute Assessment and plan: r/o arrhythmia, r/o ACS, doubt acute PE as cause for symptoms since his main pulmonary arteries are patent. will admit to med/surg on tele for monitoring and heparinze while we try to get his warfarin therapeutic, continue to cycle his troponin and check echo in the morning. If no new wall motion abnormalites and no CP then consider outpatient stress MPI. (2) Subtherapeutic international normalized ratio (INR): Status: Acute Assessment and plan: heparinze while we get his warfarin up to therapeutic levels (3) History of pulmonary embolism: Status: Acute Assessment and plan: no overt large vessel P.E. on current CTA however less than ideal study quality per radiology. POCUS echo per Dr. Ramirez did not show any RV dilatation. Patient w/ hx of massive PE w/ saddle block embolus in 08/10/2018. For a PE to cause him to have syncope/near syncope he would have to have a large PE which his current CTA does not show. (4) Elevated troponin I level: Status: Acute Assessment and plan: unclear etiology, will trend levels, monitor his rhythm and symptoms and check echo in the a.m. History of Present Illness History of Present Illness Chief Complaint: Near syncope Narrative: 81 yr old male w/ PMH of massive saddle block PE in 08/10/2018, chronically anticoagulated w/ warfarin who went off his warfarin to have dental extractions. He had his lower teeth extracted on 04/04 and went off his warfarin 5 days prior and was told to not restart his warfarin until 2 days after his gums stop bleeding. He just restarted his warfarin on 04/12. He presents to the ED w/ near syncope spell. He was watching TV this evening and got up to go into another room and became very lightheaded and felt as if he were about to black out. He did not lose consciousness but sat back down. When he tried to get up again he felt the same. NO chest pain or dyspnea nor any palpitations. he has had no GI bleeding. Because of his hx of PE and DVT'S he had a d-dimer which came back mildly elevated above his age adjusted level at 934 and his troponin I was elevated at 178. EKG demonstrates NSR w/ LBBB (unchanged from prior EKG from 10/25/21. He underwent CTA of the chest that did not show any large filling defects in his main pulmmonary arteries but showed diminished / delayed enhancement of the left lower lobe pulmonary artery (similar to prior studies from 11/09/19 and 10/04/18). There is narrowing of the left descending/interlobar artery but the artery to the superior segment of the LLL arises from the left main pulmonary artery and fills normally. The patient was treated w/ an bolus of iv fluids. He feels better now but his repeat troponin I remained elevated at 190. Note he has hx of RV dilatation related to his PE and he has hx of abnormal MPI stress test w/ global LV dysfunction w/ LVEF OF 45% but imaging was degraded d/t body habitus and gating error which was felt to have given falsely low LVEF. Patient does not recall having any TN. He is admitted to telemetry to rule out arrhythmias for cause of his near syncope and to rule ACS. It is unlikely that the LLL filling defect explains his near syncope. He is subtherapeutic on his INR which is now normal at 1.1. He will be heparinized and his warfarin dose will be adjusted. We will get an echo in the morning to evaluate for any new wall motion abnormalities and check serial troponin I levels. Review of Systems All systems reviewed & are unremarkable except as noted in HPI and below PFSH All Active Problems (Updated 04/14/22 @ 21:34 by Irineo Simmons) Elevated troponin I level (Acute) Near syncope (Acute) Subtherapeutic international normalized ratio (INR) (Acute) Abdominal pain (Acute) History of carpal tunnel surgery of left wrist (Acute 06/13/21) History of DVT (deep vein thrombosis) (Acute) History of pulmonary embolism (Acute) Acute diverticulitis (Acute) Left carpal tunnel syndrome (Acute) Cervical strain, acute (Acute) Hyperplastic colon polyp (Acute ~09/2020) Tubular adenoma of colon (Acute ~09/2020) History of tobacco use (Acute 04/22/13) Chew, quit 2011 Urinary frequency (Acute) Dysuria (Acute) UTI (urinary tract infection), uncomplicated (Acute) Burning with urination (Acute) Abdominal mass (Acute) Long-term (current) use of anticoagulants, INR goal 2.0-3.0 (Acute) S/P colonoscopy (Acute ~08/02/19) Tubular adenoma x11. Sessile serrated adenoma x7 History of Surgical Procedure (Chronic) a. Meniscectomy, left knee. b. Right toal knee replacement. c. Right total hip replacement. d. Bilateral cataract surgery. e. Medial epicondylitis surgery. f. Bilateral rotator cuff surgery. g. Left ring finger trigger finger release. h. Multiple surgeries for lipoma excisions. i. Colonoscopies. Knee pain, left (Acute) Adenoma of large intestine (Acute 04/22/13) 2007 Reina 06/26/2013 Sanders Carpal tunnel syndrome on both sides (Acute 04/10/15) Erectile dysfunction of organic origin (Acute 12/12/15) Hypogonadism in male (Acute 01/12/16) Libido, decreased (Acute 12/12/15) Other seborrheic keratosis (Acute 02/13/12) Back Obesity (Acute 04/22/13) Osteoarthritis of knee (Acute 06/16/13) Anticoagulation monitoring, INR range 2-3 (Acute) 03/24/19 [facility] [place] Continue warfarin halfway for secondary VTE prophylaxis RAHEEM positive (Chronic) Nicotine dependence (Acute 07/09/13) 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 denies this Sleep apnea (Chronic) a. Not on CPAP. Medical History Anxiety BPH (benign prostatic hypertrophy) Cervical radiculopathy (01/01/17) Chest tightness CHI (closed head injury) Cough Depressive disorder (07/09/13) DISH (diffuse idiopathic skeletal hyperostosis) (02/07/20) [facility] [place] Diverticulosis DVT (deep venous thrombosis) 03/25/19 [facility] [place] Right and Left: extensive, acute, non-occlusive DVT Erectile dysfunction Esophageal reflux (02/13/12) GERD (gastroesophageal reflux disease) Hematuria Hemorrhoids History of diverticulitis Hyperlipidemia (02/13/12) Lipids 2009: 226/115/58/149 Statin made his GERD worse Hypertension IFG (impaired fasting glucose) 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 helicoptered to [facility] [place] .. s/p TPA, now on lovenox, starting warfarin. Heart strain noted, fu with cardiology in 3 mos. Hem/Onc work up planned ([facility] [place] [ ]).. Hx Lovenox for PE in past? Right ventricular dilation Serrated adenoma of colon (~09/2020) SOB (shortness of breath) Surgical History Endoscopic Carpal Tunnel release (06/19/15) R Dr Moore H/O elbow surgery right H/O shoulder surgery bilaterally History of colonoscopy (~10/2021) History of total hip arthroplasty History of total knee replacement (05/30/14) left S/P cataract extraction and insertion of intraocular lens (~03/17/14) left S/P cataract extraction and insertion of intraocular lens (03/31/14) OD S/P trigger finger release Family History Mother , 80's, unknown causes Heart disease Alzheimer disease Father , 80's, heart failure Heart disease Sister Colon cancer Sister Heart disease Brother Diabetes Social History Smoking/Tobacco Use Status: Former Tobacco Use Quit Date: 12/23/97 Pack-years: 20 Smokeless tobacco user: other Smoking risk assessment performed?: Yes Alcohol Intake: current Alcohol Intake frequency: a few times a month Alcohol type: beer Drug use: Never Substance use type: does not use Housing: house Number of Children: 3 What type of physical activity do you participate in: none Seatbelt use: always Working smoke detector in home: Yes Fire extinguisher in home: Yes Carbon monox detector in home: Yes Do you feel safe at home: Yes Do you feel safe in your relationship?: Yes Additional Social history: lives alone, but has specialist managers girlfriend Lashon x 28 years 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 Meds Allergies and Home Medications Allergies Allergy/AdvReac Type Severity Reaction Status Date / Time codeine AdvReac Intermediate N/V Verified 04/14/22 16:29 Home Medications Medication Instructions Recorded Confirmed Type psyllium husk 3.4 gram/5.4 gram 1 tbsp PO DAILY 04/18/21 04/14/22 History oral powder (Metamucil) acetaminophen 500 mg tablet 500 mg PO Q6H PRN pain #60 tabs 06/13/21 04/14/22 Rx apple cider vinegar 1 oz PO DAILY 07/02/21 04/05/22 History calcium carbonate 200 mg calcium 200 mg PO BID PRN 10/25/21 04/14/22 History (500 mg) chewable tablet (Tums) CBD oil topical Right shoulder pain 12/07/21 04/05/22 History tramadol 50 mg tablet 50 mg PO TID PRN pain #9 tabs 03/14/22 04/14/22 Rx warfarin 5 mg tablet 5 mg PO DIRECTED #100 tabs 04/02/22 04/14/22 Rx Exam Narrative Exam Narrative: Elderly white male sitting up on his ER [facility]. He is alert and oriented to person/place/time and circumstances. he is in no distress, able to converse in complete sentences. Neck: supple, no adenopathy, normal carotid pulses, no JVD Lungs: clear to ausculatation Heart: RRR, no murmur or rub or gallops Abdomen: soft, nontender, non-distended, normal bowel sounds, no bruits Legs: no cyanosis nor any edema; no calf swelling nor tenderness. Neuro: grossly normal Results Imaging CT scan - chest: report reviewed EKG: image reviewed Labs Result diagrams: 04/14/22 17:03 04/14/22 17:03 Labs: Laboratory Results - last 24 hr 04/14/22 04/14/22 04/14/22 17:03 17:03 17:03 WBC 5.09 RBC 4.69 Hgb 15.4 Hct 45.2 MCV 96 H MCH 32.8 MCHC 34.1 RDW 12.7 Plt Count 274 MPV 8.8 Immature Gran % 0.4 Neutrophils % 63.3 Band Neutrophils % Lymphocytes % 25.1 Atypical Lymphs % Monocytes % 9.2 Eosinophils % 1.4 Basophils % 0.6 Metamyelocytes % Myelocytes % Promyelocytes % Other Cells % Nucleated RBC % 0.0 Absolute Neutrophils 3.22 Absolute Lymphocytes 1.28 Absolute Monocytes 0.47 Absolute Eosinophils 0.07 Absolute Basophils 0.03 RBC Morphology Polychromasia Hypochromasia Poikilocytosis Basophilic Stippling Anisocytosis Microcytosis Macrocytosis Spherocytes Tear Drop Cells Ovalocytes Stomatocytes Mir-Hermann Bodies [place] Cells/Echinocytes Acanthocytes (Spur) Schistocytes PT 11.5 H INR 1.1 D-Dimer Sodium 139 Potassium 3.7 Chloride 106 Carbon Dioxide 24.5 Anion Gap 8.5 BUN 5 L Creatinine 0.8 Estimated GFR/1.73 m2 >= 60.00 Glucose 122 H Calcium 8.3 L Magnesium 1.9 Total Bilirubin 0.4 AST 25 ALT 27 Alkaline Phosphatase 73 Troponin I 178 H* Total Protein 6.9 Albumin 3.2 L Lipase COVID-19 Source 04/14/22 04/14/22 04/14/22 17:03 20:10 21:00 WBC RBC Hgb Hct MCV MCH MCHC RDW Plt Count MPV Immature Gran % Neutrophils % Band Neutrophils % Lymphocytes % Atypical Lymphs % Monocytes % Eosinophils % Basophils % Metamyelocytes % Myelocytes % Promyelocytes % Other Cells % Nucleated RBC % Absolute Neutrophils Absolute Lymphocytes Absolute Monocytes Absolute Eosinophils Absolute Basophils RBC Morphology Polychromasia Hypochromasia Poikilocytosis Basophilic Stippling Anisocytosis Microcytosis Macrocytosis Spherocytes Tear Drop Cells Ovalocytes Stomatocytes Mir-Hermann Bodies [place] Cells/Echinocytes Acanthocytes (Spur) Schistocytes PT INR D-Dimer 934 H Sodium Cancelled Potassium Cancelled Chloride Cancelled Carbon Dioxide Cancelled Anion Gap Cancelled BUN Cancelled Creatinine Cancelled Estimated GFR/1.73 m2 Cancelled Glucose Cancelled Calcium Cancelled Magnesium Total Bilirubin Cancelled AST Cancelled ALT Cancelled Alkaline Phosphatase Cancelled Troponin I 190 H* Cancelled Total Protein Cancelled Albumin Cancelled Lipase Cancelled COVID-19 Source 04/14/22 04/14/22 21:00 21:05 WBC Cancelled RBC Cancelled Hgb Cancelled Hct Cancelled MCV Cancelled MCH Cancelled MCHC Cancelled RDW Cancelled Plt Count Cancelled MPV Cancelled Immature Gran % Cancelled Neutrophils % Cancelled Band Neutrophils % Cancelled Lymphocytes % Cancelled Atypical Lymphs % Cancelled Monocytes % Cancelled Eosinophils % Cancelled Basophils % Cancelled Metamyelocytes % Cancelled Myelocytes % Cancelled Promyelocytes % Cancelled Other Cells % Cancelled Nucleated RBC % Cancelled Absolute Neutrophils Cancelled Absolute Lymphocytes Cancelled Absolute Monocytes Cancelled Absolute Eosinophils Cancelled Absolute Basophils Cancelled RBC Morphology Cancelled Polychromasia Cancelled Hypochromasia Cancelled Poikilocytosis Cancelled Basophilic Stippling Cancelled Anisocytosis Cancelled Microcytosis Cancelled Macrocytosis Cancelled Spherocytes Cancelled Tear Drop Cells Cancelled Ovalocytes Cancelled Stomatocytes Cancelled Mir-Hermann Bodies Cancelled Orin Cells/Echinocytes Cancelled Acanthocytes (Spur) Cancelled Schistocytes Cancelled PT INR D-Dimer Sodium Potassium Chloride Carbon Dioxide Anion Gap BUN Creatinine Estimated GFR/1.73 m2 Glucose Calcium Magnesium Total Bilirubin AST ALT Alkaline Phosphatase Troponin I Total Protein Albumin Lipase COVID-19 Source Nasal/Nares Last Vital Signs Temp 36.8 C 04/14/22 16:23 Pulse 73 04/14/22 19:03 Resp 19 04/14/22 19:30 BP 160/73 H 04/14/22 19:03 Pulse Ox 96 04/14/22 19:30
[2022-04-14 22:04] LABS: COVID-19 PCR Negative (Negative)
[2022-04-14 23:57] LABS: Troponin I 196 ng/L (<or=60)
[2022-04-15] VITALS (8 sets, daily range): BP systolic 131–156; BP diastolic 72–83; PULSE 70–78; RESP 15–18; TEMP 36.4–37.1; O2SAT 92–98
[2022-04-15] MEDS: Warfarin 5 MG TAB 10 MG PO (00:41)
[2022-04-15 07:15] LABS: INR 1.3 (0.9-1.1); Prothrombin Time 13.2 sec (9.3-11.0)
[2022-04-15 07:38] LABS: Troponin I 181 ng/L (<or=60)
[2022-04-15] MEDS: LORazepam 0.5 MG TAB PO (08:35)
[2022-04-15] MEDS: Psyllium PKT 1 EACH PO (11:02)
--- NOTE | 2022-04-15 11:06 | DI.US_ITS ---
APPROVED REPORT EXAM: Comprehensive 2D, Doppler, and color-flow Echocardiogram Patient Location: In-Patient Room/Bed: 208 Hourly Shift: Ophelia Barnett RDCS (AE) Other Information Study Quality: Adequate Conclusion Normal left ventricular wall thickness and chamber size. Estimated ejection fraction is 45% with lulu bal hypokinesis Normal right ventricular size and systolic function Both atria are normal in size The aortic valve is trileaflet and sclerotic with trace to mild regurgitation. No aortic stenosis Thickened mitral leaflets with mild regurgitation Normal tricuspid valve with trace regurgitation Estimated right ventricular systolic pressure is 26 mmHg Wall motion Left Ventricle The left ventricle is normal size. Left ventricular systolic function is mildly decreased. There is n ormal left ventricular wall thickness. There is global hypokinesis of the left ventricle. There is no ventricular septal defect visualized. LVEF is 45%. Right Ventricle The right ventricle is normal size. Right ventricular systolic function is grossly normal. The RVSP i s 26.3mmHg. Atria The left atrium size is normal. The right atrium size is normal. The atrial septum is aneurysmal. The interatrial septum is intact with no evidence for an atrial septal defect. Aortic Valve The Aortic valve is sclerotic. Aortic valve is trileaflet. There is no aortic valvular stenosis. Trac e to mild aortic regurgitation. Mitral Valve Mitral valve leaflets are thickened. No evidence of mitral valve stenosis. Mild mitral regurgitation. Tricuspid Valve The tricuspid valve is normal in structure. There is no tricuspid valve stenosis. Trace tricuspid reg urgitation. Pulmonic Valve The pulmonary valve is normal in structure. There is no pulmonic valvular stenosis. Trace pulmonic re gurgitation. Great Vessels The aortic root is normal in size. The ascending aorta is normal in size. Aortic arch is not well vis ualized. IVC is normal in size and collapses >50% with inspiration. Pericardium There is no pericardial effusion. 2D Dimensions IVSD d PLAX 0.96 cm M: 0.6-1.2 LV Vol A2C d MOD 92.7 mL LVPW d PLAX 0.96 cm M: 0.6 - 1.2 LV Vol A4C d MOD 128.4 mL LVID d PLAX 4.58 cm M: 4.2 - 5.8 LA Area A4C s MOD 20.21 cm2 LVDs 3.50 cm M: 2.5 - 4.0 LA Area A2C s MOD 18.78 cm2 Ao Root d 3.00 cm M: 3.1 - 3.7 LV EF A4C MOD 45.5 % RA Area A4C 16.18 cm2 LV EF A2C MOD 45.4 % Ao Asc Diam d 3.38 cm M: 2.6 - 3.4 LV EF Biplane MOD 45.5 % LV EF Teichholz 47.0 % SV 49.99 mL LVEF (Mcdermott's) 45.46 % M: 52 - 72 LV Volume 109.95 mL M: 62 - 150 LV Volume Index 55.25 mL/m2 M: 34 - 74 LV Vol Biplane MOD 110.0 mL FS 23.40 % M-Mode TAPSE 1.89 cm (M/F) >1.7 LV Diastology MV E' medial 0.068 (>0.07 m/s) E/A Ratio 0.4 LV E/e MED 4.85 (<14) MV E Vmax 0.33 (0.4-1.3 m/s) MV E' lateral 0.075 (>0.1 m/s) MV A Vmax 0.75 (0.4-1.3 m/s) LV E/e LAT 4.40 (<14) MV E/A Ratio 0.42 MV E/E' medial 4.86 MV E/E' lateral 4.43 Aortic Valve LVOT Area 3.50 cm2 AoV Area Vmax 2.37 cm2 LVOT Vmax 0.74 m/s KIRILL Mean Doron. 2.08 cm2 LVOT Mean Doron. 0.50 m/s AR DT 2102 msec LVOT Peak Grad 2.2 mmHg AR PHT 610 msec LVOT Mean Grad 1.2 mmHg LVOT VTI 0.145 m LVOT Diam s 2.10 cm AoV Vmax 1.10 m/s Velocity Ratio 0.67 AoV Mean Doron. 0.85 m/s AoV Peak Grad 4.8 mmHg LVOT SV 50.90 mL AoV Mean Grad 3.0 mmHg AoV VTI 0.200 m AoV Area VTI 2.55 cm2 Mitral Valve MV DT 274 (160-240 msec) MV PHT 80 msec MV Area PHT 2.77 cm2 MV VTI 0.129 m MV Area VTI 3.93 (4.0-6.0 cm2) Pulmonary Valve PV Vmax 0.96 (0.5-1.5 m/s) RVOT Peak Gr. 1.09 mmHg PV Peak Grad 3.7 mmHg RVOT Mean Gr. 0.50 mmHg PV Mean Grad 1.5 mmHg RVOT VTI 0.097 m PV VTI 0.143 m RVOT Vmax 0.52 m/s Tricuspid Valve TR Peak Grad 23.3 mmHg TR Vmax 2.42 m/s RA Pressure 3.00 mmHg RVSP (TR) 26.3 mmHg
--- NOTE | 2022-04-15 11:52 | INITIAL_ITS ---
- If Service Date Differs Date of service: 04/15/22 Time of Service: 11:52 Care Management Initial Assess REASON FOR HOSPITALIZATION:: Syncope PAST MEDICAL HISTORY/PAST SURGICAL HISTORY:: Medical History . Anxiety. BPH (benign prostatic hypertrophy). Cervical radiculopathy (01/01/17). Chest tightness. CHI (closed head injury). Cough. Depressive disorder (07/09/13). DISH (diffuse idiopathic skeletal h yperostosis) (02/07/20[place] [facility] Diverticulosis. DVT (deep venous thrombosis). 03/25/19 [facility] Right and Left: extensive, acute, non-occlusive DVT. Erectile dysfunction. Esophageal reflux (02/13/12). GERD (gastroesophageal reflux disease). Hematuria. Hemorrhoids. History of diverticulitis. Hyperlipidemia (02/13/12). Lipids 2009: 226/115/58/149. Statin made his GERD worse. Hypertension. IFG (impaired fasting glucose). 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 Insomnia. Numbness and tingling in both hands. Obstructive sleep apnea syndrome (02/13/13). [facility], SLEEP STUDY 02/13/13. BIPAP RECOMMENDED ([facility]). PT ISN'T USING and returned BiPAP on own 04/2013. Periodic limb movement disorder (02/13/13). [facility] SLEEP [facility]ORD[facility], SLEEP STUDY 02/13/13. Pulmonary embolism. Acute saddle PE found @ [facility] Friday, 08/10 .. [place] [facility] [place] s/p TPA, now on lovenox, starting warfarin. Heart strain noted, fu with cardiology in 3 mos. Hem/Onc work up planned [place] [place]. Hx Lovenox for PE in past? Right ventricular dilation. Serrated adenoma of colon (~09/2020). SOB (shortness of breath). Surgical History . Endoscopic Carpal Tunnel release (06/19/15). [facility]. H/O elbow surgery. right. H/O shoulder surgery. bilaterally. History of colonoscopy (~10/2021). History of total hip arthroplasty. History of total knee replacement (05/30/14). left. S/P cataract extraction and insertion of intraocular lens (~03/17/14). left. S/P cataract extraction and insertion of intraocular lens (03/31/14). OD. S/P trigger finger release PREVIOUS FUNCTIONAL STATUS/SOCIAL/FAMILY SUPPORTS:: Adebayo resides in [facility], [facility]. He reports that he likes having his own space and is managing well at home. His girlfriend of thirty years, Lashon also has her own place which he reports works well for the couple. He is independent at baseline in the community. Adebayo reports his two children and sibling reside in the [facility] and keep in contact. CURRENT FUNCTIONAL STATUS:: Adebayo was out of the room when CM attempted to meet with him, per MD he will hve an ECHO today. ADVANCE DIRECTIVES:: Nancy Fung Linda Has patient been provided with info about the portal/API?: Yes Did the patient sign up for the portal?: Yes CODE STATUS:: Full Code INSURANCE COVERAGE / FINANCIAL ISSUES:: Medicare. [employer] CURRENT HOME/COMMUNITY SERVICES/EQUIPMENT:: Ramsey Chavez in [facility] PRIMARY CARE PHYSICIAN:: Sania Cherry POTENTIAL DISCHARGE NEEDS:: ECHO, tele PATIENT/FAMILY EDUCATION NEEDS:: Review of discharge instructions, discuss Ask Me Three. ANTICIPATED BARRIERS TO DISCHARGE:: None identified. TRANSPORTATION:: Via private vehicle with Lashon. PLAN:: Adebayo will return home when ready per MD. He will follow up with his PCP and plan of care as prescribed. He will transport via private vehicle with Lashon, his significant other.
[2022-04-15 16:04] LABS: PTT Activated 98.6 sec (21.0-27.5)
--- NOTE | 2022-04-15 17:18 | W.PM.PROGNOT ---
Date of Service Date of service: 04/15/22 Time of Service: 16:18 Assessment and Plan Assessment and plan (1) Near syncope: Status: Acute Assessment and plan: While by description the episodes on Friday are c/w a panic attack, the patient is at a risk of a cardiac arrhythmia given his h/o CHFrEF. He has not had any arrhythmias here. Continue to monitor on tele. Would consider discharging home with a cardiac event recorder. However, will also consider that this could have, indeed, been a panic attack - and will consult psychiatry for help with psychiatric management. (2) Elevated troponin I level: Status: Acute Assessment and plan: In setting of a near syncopal episode and CHFrEF. His echo actually looks better today than it did in 2018. Will plan to obtain an MPI stress test. (3) Chronic HFrEF (heart failure with reduced ejection fraction): Status: Chronic Assessment and plan: Euvolemic. EF is 45% by echo today, up from 40% in 2018. Obtain MPI stress test (negative in 2018). (4) Panic attacks: Status: Acute Assessment and plan: C/s psychiatry (5) Subtherapeutic international normalized ratio (INR): Status: Acute Assessment and plan: Heparin gtt bridge. (6) Discharge planning issues: Status: Acute Assessment and plan: Full code Anticipate discharge home tomorrow Subjective Subjective Interval history since last seen: Mr Amin states he is feeling better today, but did have a panic attack this morning - felt like the one he had yesterday, while on the monitor, with stable rhythm on tele and VSS. He has seen psychotherapists before and they did not help. He saw a psychiatrist once before - he had a bad experience - but is willing to give a psychiatrist here a chance. Ativan did help this morning. Denies dizziness, chest pain, shortness of breath, nausea now. Exam Narrative Exam Narrative: General: Pleasant elderly male, does appear anxious, A&Ox3 HEENT: EOMI, MMM Heart: RRR Lungs: CTAB Abdomen: soft, nontender, nondistended Extremities: no edema BLEs Objective Last Vital Signs Temp 36.8 C 04/15/22 14:58 Pulse 70 04/15/22 15:03 Resp 18 04/15/22 14:58 BP 137/83 04/15/22 14:58 Pulse Ox 97 05/23/22 14:58 Laboratory Results - last 24 hr 04/14/22 04/14/22 04/14/22 17:03 17:03 17:03 WBC RBC Hgb Hct MCV MCH MCHC RDW Plt Count MPV Immature Gran % Neutrophils % Band Neutrophils % Lymphocytes % Atypical Lymphs % Monocytes % Eosinophils % Basophils % Metamyelocytes % Myelocytes % Promyelocytes % Other Cells % Nucleated RBC % Absolute Neutrophils Absolute Lymphocytes Absolute Monocytes Absolute Eosinophils Absolute Basophils RBC Morphology Polychromasia Hypochromasia Poikilocytosis Basophilic Stippling Anisocytosis Microcytosis Macrocytosis Spherocytes Tear Drop Cells Ovalocytes Stomatocytes Mir-[place] Bodies Orin Cells/Echinocytes Acanthocytes (Spur) Schistocytes PT 11.5 H INR 1.1 APTT D-Dimer 934 H Sodium 139 Potassium 3.7 Chloride 106 Carbon Dioxide 24.5 Anion Gap 8.5 BUN 5 L Creatinine 0.8 Estimated GFR/1.73 m2 >= 60.00 Glucose 122 H Calcium 8.3 L Magnesium 1.9 Total Bilirubin 0.4 AST 25 ALT 27 Alkaline Phosphatase 73 Troponin I 178 H* Total Protein 6.9 Albumin 3.2 L Lipase COVID-19 Source SARS-CoV-2 (PCR) 04/14/22 04/14/22 04/14/22 20:10 21:00 21:00 WBC Cancelled RBC Cancelled Hgb Cancelled Hct Cancelled MCV Cancelled MCH Cancelled MCHC Cancelled RDW Cancelled Plt Count Cancelled MPV Cancelled Immature Gran % Cancelled Neutrophils % Cancelled Band Neutrophils % Cancelled Lymphocytes % Cancelled Atypical Lymphs % Cancelled Monocytes % Cancelled Eosinophils % Cancelled Basophils % Cancelled Metamyelocytes % Cancelled Myelocytes % Cancelled Promyelocytes % Cancelled Other Cells % Cancelled Nucleated RBC % Cancelled Absolute Neutrophils Cancelled Absolute Lymphocytes Cancelled Absolute Monocytes Cancelled Absolute Eosinophils Cancelled Absolute Basophils Cancelled RBC Morphology Cancelled Polychromasia Cancelled Hypochromasia Cancelled Poikilocytosis Cancelled Basophilic Stippling Cancelled Anisocytosis Cancelled Microcytosis Cancelled Macrocytosis Cancelled Spherocytes Cancelled Tear Drop Cells Cancelled Ovalocytes Cancelled Stomatocytes Cancelled Mir-[place] Bodies Cancelled Torreon Cells/Echinocytes Cancelled Acanthocytes (Spur) Cancelled Schistocytes Cancelled PT INR APTT D-Dimer Sodium Cancelled Potassium Cancelled Chloride Cancelled Carbon Dioxide Cancelled Anion Gap Cancelled BUN Cancelled Creatinine Cancelled Estimated GFR/1.73 m2 Cancelled Glucose Cancelled Calcium Cancelled Magnesium Total Bilirubin Cancelled AST Cancelled ALT Cancelled Alkaline Phosphatase Cancelled Troponin I 190 H* Cancelled Total Protein Cancelled Albumin Cancelled Lipase Cancelled COVID-19 Source SARS-CoV-2 (PCR) 04/14/22 04/14/22 04/15/22 21:05 23:30 06:15 WBC RBC Hgb Hct MCV MCH MCHC RDW Plt Count MPV Immature Gran % Neutrophils % Band Neutrophils % Lymphocytes % Atypical Lymphs % Monocytes % Eosinophils % Basophils % Metamyelocytes % Myelocytes % Promyelocytes % Other Cells % Nucleated RBC % Absolute Neutrophils Absolute Lymphocytes Absolute Monocytes Absolute Eosinophils Absolute Basophils RBC Morphology Polychromasia Hypochromasia Poikilocytosis Basophilic Stippling Anisocytosis Microcytosis Macrocytosis Spherocytes Tear Drop Cells Ovalocytes Stomatocytes Mir-[place] Bodies Torreon Cells/Echinocytes Acanthocytes (Spur) Schistocytes PT INR APTT > 155.1 H* D-Dimer Sodium Potassium Chloride Carbon Dioxide Anion Gap BUN Creatinine Estimated GFR/1.73 m2 Glucose Calcium Magnesium Total Bilirubin AST ALT Alkaline Phosphatase Troponin I 196 H* Total Protein Albumin Lipase COVID-19 Source Nasal/Nares SARS-CoV-2 (PCR) Negative 04/15/22 04/15/22 04/15/22 06:15 06:15 15:05 WBC RBC Hgb Hct MCV MCH MCHC RDW Plt Count MPV Immature Gran % Neutrophils % Band Neutrophils % Lymphocytes % Atypical Lymphs % Monocytes % Eosinophils % Basophils % Metamyelocytes % Myelocytes % Promyelocytes % Other Cells % Nucleated RBC % Absolute Neutrophils Absolute Lymphocytes Absolute Monocytes Absolute Eosinophils Absolute Basophils RBC Morphology Polychromasia Hypochromasia Poikilocytosis Basophilic Stippling Anisocytosis Microcytosis Macrocytosis Spherocytes Tear Drop Cells Ovalocytes Stomatocytes Mir-[place] Bodies Orin Cells/Echinocytes Acanthocytes (Spur) Schistocytes PT 13.2 H INR 1.3 H APTT 98.6 H* D-Dimer Sodium Potassium Chloride Carbon Dioxide Anion Gap BUN Creatinine Estimated GFR/1.73 m2 Glucose Calcium Magnesium Total Bilirubin AST ALT Alkaline Phosphatase Troponin I 181 H* Total Protein Albumin Lipase COVID-19 Source SARS-CoV-2 (PCR) Objective Narrative Objective Narrative: Echo; Normal left ventricular wall thickness and chamber size.? Estimated ejection fraction is 45% with global hypokinesis Normal right ventricular size and systolic function Both atria are normal in size The aortic valve is trileaflet and sclerotic with trace to mild regurgitation.? No aortic stenosis Thickened mitral leaflets with mild regurgitation Normal tricuspid valve with trace regurgitation Estimated right ventricular systolic pressure is 26 mmHg PAWSS Have you Been Recently Intoxicated or Drunk Within the Last 30 days?: No Have you Ever Experienced Previous Episodes of Alcohol Withdrawal?: No Have you ever Experienced Withdrawal Seizures?: No Have you ever Experienced Delirium Tremens(DT)s?: No Have you ever undergone Alcohol Rehabilitation Treatment (i.e, inpt ot outpatient treatment programs)?: No Have you ever Experienced Blackouts?: No Have you ever Combined Alcohol with other Downers within the last 90 days?: No Have you ever Combined Alcohol with any other Substance of Abuse during the last 90 days?: No Positive Blood Alcohol level on Presentation? [PCS.BAL]: No Evidence of Increased Autonomic Activity (i.e. HR>120, tremor, sweating, agitation, nausea)?: No Result: 0
[2022-04-15] MEDS: WARFARIN 5 MG, WARFARIN 2.5 MG 7.5 MG PO (19:37)
[2022-04-15 23:16] LABS: PTT Activated 67.7 sec (21.0-27.5)
[2022-04-16] VITALS: PULSE 68
[2022-04-16 03:41] VITALS: BP 148/89; PULSE 74; RESP 15; TEMP 36.6; O2SAT 97
[2022-04-16 06:43] LABS: Abs Immature Grans 0.02 10^3/uL (0.0-0.06); Absolute Basophil Count 0.05 10^3/uL (0.0-0.2); Absolute Eosinophil Count 0.08 10^3/uL (0.0-0.7); Absolute Lymphocyte Count 1.81 10^3/uL (1.2-3.4); Absolute Monocyte Count 0.44 10^3/uL (0.1-0.8); Absolute Neutrophil Count 2.96 10^3/uL (1.2-6.7); Basophils % 0.9; Eosinophils % 1.5; HCT 46.9 % (40.0-50.0); Immature Grans % 0.4; Lymphocytes % 33.8; MCH 32.6 pg (27.0-33.0); MCHC 34.1 % (32.0-36.0); MCV 96 fL (80-95); MPV 8.7 fL (8.0-11.0); Monocytes % 8.2; Neutrophils % 55.2; Platelet Count 258 10^3/uL (130-400); RBC 4.91 10^6/uL (4.36-5.78); RDW 12.7 % (11.8-14.1); RDW-SD 45.5 fL; WBC 5.36 10^3/uL (4.4-10.8)
[2022-04-16 06:53] LABS: INR 1.7 (0.9-1.1); Prothrombin Time 17.2 sec (9.3-11.0)
[2022-04-16 06:56] LABS: PTT Activated 67.3 sec (21.0-27.5)
[2022-04-16 06:56] LABS: Anion Gap 7.7 mmol/L (3-11); BUN 6 mg/dL (7-18); CO2 25.3 mmol/L (21.0-32.0); CREATININE 0.7 mg/dL (0.70-1.30); Calcium 8.4 mg/dL (8.5-10.1); Chloride 106 mmol/L (98-107); Glucose 89 mg/dL (74-106); Magnesium 2.1 mg/dL (1.8-2.4); Potassium 3.6 mmol/L (3.5-5.1); Sodium 139 mmol/L (136-145)
[2022-04-16 07:00] VITALS: PULSE 72
[2022-04-16 07:17] VITALS: BP 133/77; PULSE 70; RESP 16; TEMP 36.2; O2SAT 96
[2022-04-16] MEDS: Psyllium PKT 1 EACH PO (08:23)
--- NOTE | 2022-04-16 11:10 | DSE_ITS ---
Date of service: 04/16/22 Time of Service: 08:50 DS: Diagnosis Discharge Diagnosis (1) Near syncope: Status: Acute (2) Elevated troponin I level: Status: Acute (3) Chronic HFrEF (heart failure with reduced ejection fraction): Status: Chronic (4) Panic attacks: Status: Acute (5) Subtherapeutic international normalized ratio (INR): Status: Acute Discharge Plan Disposition Patient Disposition: AGAINST MEDICAL ADVICE Condition: Stable Discharge Details Reason For Visit: Syncope Admit Date/Time: 04/14/22 21:03 Admit Provider: Irineo Simmons Attending Provider: Irineo Simmons Primary Care Provider: Sania Cherry Hospital Course Hospital Course: Mr Amin is an 81 year old male with PMHx of DVT/PE on coumadin as well as h/o chronic systolic CHF with prior known EF of 40%/NICMO, and a panic disorder, not currently under treatment, who was a patient on [facility] hospitalist service from 04/14/22 until 04/16/22 (when he left AMA) for two episodes of near syncope and elevated troponin. The patient described the episodes as dizziness and palpitations and felt that they were consistent with his prior h/o panic attacks. The patient had a subtherapeutic INR on presentation and was bridged with heparin drip. His troponins were mildly elevated (178 ng/L ->190 -> 196-> 181) without changes on the EKG. His echocardiogram revealed LVEF of 45%, global hypokinesis, RVSP of 26 mmHg, no aortic stenosis, trace aortic reguritation, mild mitral regurgitation, trace tricuspid regurgitation. The patient had an episode of symptoms similar to what brought him in the hospital while on telemetry with normal vital signs - and these responded to ativan, suggesting that they were, in fact, due to a panic attack. However, I cannot definitively rule out a cardiac etiology without appropriate ischemic testing. The patient was slotted to have an inpatient MPI stress test which, unfortunately, was not available today due to not having cardiology coverage. The patient did not want to wait for any further testing and wanted to go home today, even if it meant that he had an unaddressed heart issue and that it was against medical advice. He did not want to wait for new prescriptions. He asked to have his records forwarded to his PCP so that he could follow up. While at the hospital, the patient initially agreed to speak with Dr Wilson of psychiatry, but left before being able to be evaluated for his panic disorder. It is my recommendation that his PCP arrange for a two week patient monitor, such as a Zio patch. The patient would benefit from a psychiatric evaluation for a panic disorder, if he is willing. Finally, I am ordering an outpatient MPI stress test for him. The patient is recommended to be on a baby aspirin daily. Care for patient as well as completion of his discharge summary on day of discharge took 45 minutes. Home Meds and New Rx's Prescriptions: New aspirin 81 mg tablet,chewable 81 mg PO DAILY Qty: 30 0RF Continued CBD oil topical tramadol 50 mg tablet 50 mg PO TID PRN (Reason: pain) Qty: 9 0RF Metamucil 3.4 gram/5.4 gram powder 1 tbsp PO DAILY Rx Instructions: mix into at least 8 oz of water or juice before administering apple cider vinegar 1 oz PO DAILY calcium carbonate [Tums] 200 mg calcium (500 mg) tablet,chewable 200 mg PO BID PRN warfarin 5 mg tablet 5 mg PO DIRECTED Qty: 100 3RF Hold Instructions: Home Medication placed on hold at Doctor's office Protocol: Dose Management Condition: Friday Dose/Route: 0 mg Instruction: 0 tablets Condition: Friday Dose/Route: 0 mg Instruction: 0 tablets Condition: Friday Dose/Route: 0 mg Instruction: 0 tablets Condition: Friday Dose/Route: 0 mg Instruction: 0 tablets Condition: Dose/Route: 0 mg Instruction: 0 tablets Condition: Friday Dose/Route: 0 mg Instruction: 0 tablets Condition: Friday Dose/Route: 0 mg Instruction: 0 tablets Protocol Text: Adjustment Start Date: Friday04/05/22 INR Value: 0.8 INR Date: 04/05/22 Recheck Date: 04/12/22 Additional Instructions: Written instructions for Mr. Amin: 04/05/22, per Dr. Arreola. DO NOT TAKE WARFARIN until your gums have stopped bleeding for at least 24hrs. Once your gums have stopped bleeding for 24hrs, 1. Restart Coumadin at 5mg nightly AND 2.Call the clinic to schedule an INR check in 1 WEEK from your 1st day back on Comadin. acetaminophen 500 mg tablet 500 mg PO Q6H PRN (Reason: pain) Qty: 60 2RF Discharge Instructions Instructions: Panic Disorder (DC), Cardiac Stress Test (DC) Additional Instructions: Follow up with your PCP. Follow up for your stress test. Strongly consider talking to a psychiatrist about your panic attacks. Referrals: Sania Cherry NP [Primary Care Provider] - Activity:: Activity as Tolerated Equipment/Supplies:: No Equipment Needed Diet:: heart healthy Discharge Orders Discharge Orders: Discharge Order (Routine); Ordered 04/16/22 Ordered By: Lorri Romero Other Ambulatory Orders: NM MPI rest & stress grp (Routine) Timeframe: 1 Week Facility: [facility] - Location: DIAGNOSTIC IMAGING Ordered By: Lorri Romero Discharge Data Discharge Date/Time-TO BE ENTERED AT DEPARTURE: 04/16/22 09:28 Discharge Comment: RASHARD DS: Summary Time Spent with Patient providing and/or coordinating discharge services: Greater than 30 minutes Status at Discharge Functional status at discharge: independent ambulation Overall status at discharge: patient is back to baseline Mental Status: mental status grossly normal Speech and Movement: speech and movement normal Mood: anxious mood and labile mood Affect: anxious affect and irritable affect Exam Narrative Exam Narrative: General: Pleasant elderly male, does appear anxious/impulsive, A&Ox3 HEENT: EOMI, MMM Heart: not auscultated on day of leaving AMA Lungs: nonlabored breathing Abdomen: soft, nontender, nondistended Extremities: no edema BLEs Psych Mental Status: mental status grossly normal Speech and Movement: speech and movement normal Mood: anxious mood and labile mood Affect: anxious affect and irritable affect DS: Data Vitals/I&O Vitals and I&O: Vital Signs Temperature 36.2 C L 04/16/22 07:17 Temperature Source Tympanic 04/16/22 07:17 Pulse 70 04/16/22 07:17 Pulse Rhythm Regular 04/16/22 08:57 Pulse 70 04/14/22 19:30 Respiratory Rate 16 04/16/22 07:17 Respiratory Effort Non-Labored 04/16/22 08:57 Respiratory Depth Normal 04/16/22 08:57 Respiratory Pattern Normal 04/16/22 08:57 Blood Pressure 133/77 04/16/22 07:17 Blood Pressure Mean 96 04/14/22 19:03 Blood Pressure Position Supine 04/14/22 16:23 Pulse Oximetry 96 04/16/22 07:17 Oxygen Delivery Method Room Air 04/16/22 07:17 Oxygen Flow Rate 0 04/16/22 07:17 Pain Level 0 04/16/22 07:17 Intake & Output 04/15/22 04/15/22 04/16/22 11:59 23:59 11:59 Intake Total 629.066 / 1220.933 591.867 / 1220.933 147 / 147 Output Total 1225 / 2725 1500 / 2725 1200 / 1200 Balance -595.934 / -1504.067 -908.133 / -1504.067 -1053 / -1053 Weight 88.1 kg 86.1 kg Intake: IV 389.066 / 480.933 91.867 / 480.933 147 / 147 Oral 240 / 740 500 / 740 Output: Urine 1225 / 2725 1500 / 2725 1200 / 1200 Other: Urine Color Yellow Yellow Yellow Urine Appearance Clear Cloudy Clear Urine Odor Normal Normal None Stool Size Moderate Stool Characteristics Soft Formed Voiding Methods Urinal Urinal Urinal Data Completed and Pending Labs on day of discharge: Labs from last 24 hours 04/16/22 04/16/22 04/16/22 06:15 06:15 06:15 WBC 5.36 RBC 4.91 Hgb 16.0 Hct 46.9 MCV 96 H MCH 32.6 MCHC 34.1 RDW 12.7 Plt Count 258 MPV 8.7 Immature Gran % 0.4 Neutrophils % 55.2 Lymphocytes % 33.8 Monocytes % 8.2 Eosinophils % 1.5 Basophils % 0.9 Nucleated RBC % 0.0 Absolute Neutrophils 2.96 Absolute Lymphocytes 1.81 Absolute Monocytes 0.44 Absolute Eosinophils 0.08 Absolute Basophils 0.05 PT 17.2 H INR 1.7 H APTT Sodium 139 Potassium 3.6 Chloride 106 Carbon Dioxide 25.3 Anion Gap 7.7 BUN 6 L Creatinine 0.7 Estimated GFR/1.73 m2 >= 60.00 Glucose 89 Calcium 8.4 L Magnesium 2.1 04/16/22 04/15/22 04/15/22 06:11 22:56 15:05 WBC RBC Hgb Hct MCV MCH MCHC RDW Plt Count MPV Immature Gran % Neutrophils % Lymphocytes % Monocytes % Eosinophils % Basophils % Nucleated RBC % Absolute Neutrophils Absolute Lymphocytes Absolute Monocytes Absolute Eosinophils Absolute Basophils PT INR APTT 67.3 H 67.7 H 98.6 H* Sodium Potassium Chloride Carbon Dioxide Anion Gap BUN Creatinine Estimated GFR/1.73 m2 Glucose Calcium Magnesium Additional Comments Additional comments: CT head w/o contrast: No acute abnormality. CXR: No acute abnormality.? CTA chest: No evidence of pulmonary embolism or other acute abnormality..? Echo: Normal left ventricular wall thickness and chamber size.? Estimated ejection fraction is 45% with global hypokinesis Normal right ventricular size and systolic function Both atria are normal in size The aortic valve is trileaflet and sclerotic with trace to mild regurgitation.? No aortic stenosis Thickened mitral leaflets with mild regurgitation Normal tricuspid valve with trace regurgitation Estimated right ventricular systolic pressure is 26 mmHg PFSH All Active Problems (Updated 04/15/22 @ 17:26 by Lorri Romero MD) Chronic HFrEF (heart failure with reduced ejection fraction) (Chronic) Discharge planning issues (Acute) Panic attacks (Acute) Elevated troponin I level (Acute) Near syncope (Acute) Subtherapeutic international normalized ratio (INR) (Acute) Abdominal pain (Acute) History of carpal tunnel surgery of left wrist (Acute 06/13/21) History of DVT (deep vein thrombosis) (Acute) History of pulmonary embolism (Acute) Acute diverticulitis (Acute) Left carpal tunnel syndrome (Acute) Cervical strain, acute (Acute) Hyperplastic colon polyp (Acute ~09/2020) Tubular adenoma of colon (Acute ~09/2020) History of tobacco use (Acute 04/22/13) Chew, quit 2011 Urinary frequency (Acute) Dysuria (Acute) UTI (urinary tract infection), uncomplicated (Acute) Burning with urination (Acute) Abdominal mass (Acute) Long-term (current) use of anticoagulants, INR goal 2.0-3.0 (Acute) S/P colonoscopy (Acute ~08/02/19) Tubular adenoma x11. Sessile serrated adenoma x7 History of Surgical Procedure (Chronic) a. Meniscectomy, left knee. b. Right toal knee replacement. c. Right total hip replacement. d. Bilateral cataract surgery. e. Medial epicondylitis surgery. f. Bilateral rotator cuff surgery. g. Left ring finger trigger finger release. h. Multiple surgeries for lipoma excisions. i. Colonoscopies. Knee pain, left (Acute) Adenoma of large intestine (Acute 04/22/13) 2007 Reina 06/26/2013 Sanders Carpal tunnel syndrome on both sides (Acute 04/10/15) Erectile dysfunction of organic origin (Acute 12/12/15) Hypogonadism in male (Acute 01/12/16) Libido, decreased (Acute 12/12/15) Other seborrheic keratosis (Acute 02/13/12) Back Obesity (Acute 04/22/13) Osteoarthritis of knee (Acute 06/16/13) Anticoagulation monitoring, INR range 2-3 (Acute) [place] [facility] [place] warfarin shelter for secondary VTE prophylaxis RAHEEM positive (Chronic) Nicotine dependence (Acute 07/09/13) 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 denies this Sleep apnea (Chronic) a. Not on CPAP. Medical History Anxiety BPH (benign prostatic hypertrophy) Cervical radiculopathy (01/01/17) Chest tightness CHI (closed head injury) Cough Depressive disorder (07/09/13) DISH (diffuse idiopathic skeletal hyperostosis) (02/07/20) [facility] [place] Diverticulosis DVT (deep venous thrombosis) 03[place]25[place]19 [facility] [place] Right and Left: extensive, acute, non-occlusive DVT Erectile dysfunction Esophageal reflux (02/13/12) GERD (gastroesophageal reflux disease) Hematuria Hemorrhoids History of diverticulitis Hyperlipidemia (02/13/12) Lipids 2010: 226/115/58/149 Statin made his GERD worse Hypertension IFG (impaired fasting glucose) 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 [place] [facility] [place] s/p TPA, now on lovenox, starting warfarin. Heart strain noted, fu with cardiology in 3 mos. Hem[place]Onc [place] [place]. Hx Lovenox for PE in past? Right ventricular dilation Serrated adenoma of colon (~09/2020) SOB (shortness of breath) Surgical History Endoscopic Carpal Tunnel release (06/19/15) R Dr Moore H/O elbow surgery right H/O shoulder surgery bilaterally History of colonoscopy (~10/2021) History of total hip arthroplasty History of total knee replacement (05/30/14) left S/P cataract extraction and insertion of intraocular lens (~03/17/14) left S/P cataract extraction and insertion of intraocular lens (03/31/14) OD S/P trigger finger release Family History Mother , 80's, unknown causes Heart disease Alzheimer disease Father , 80's, heart failure Heart disease Sister Colon cancer Sister Heart disease Brother Diabetes Social History Smoking/Tobacco Use Status: Former Tobacco Use Quit Date: 12/23/97 Pack-years: 20 Smokeless tobacco user: other Smoking risk assessment performed?: Yes Alcohol Intake: current Alcohol Intake frequency: a few times a month Alcohol type: beer Drug use: Never Substance use type: does not use Housing: house Number of Children: 3 What type of physical activity do you participate in: none Seatbelt use: always Working smoke detector in home: Yes Fire extinguisher in home: Yes Carbon monox detector in home: Yes Do you feel safe at home: Yes Do you feel safe in your relationship?: Yes Additional Social history: lives alone, but has shelter girlfriend Lashon x 28 years 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
== END 2022-04-16 09:28 | disposition left against medical advice (07) | DRG 880 ==
LOC: ER 21:11 → MS 22:03
PROVIDERS: Emergency Medicine; General Practice; Internal Medicine; Admitting Provider Internal Medicine; Emergency Provider Student in an Organized Health Care Education/Training Program; PCP Nurse Practitioner; Visit Provider Internal Medicine
DX: F41.0 Panic disorder [episodic paroxysmal anxiety] (principal); I50.22 Chronic systolic (congestive) heart failure; I42.9 Cardiomyopathy, unspecified; F32.A Depression, unspecified; R55 Syncope and collapse; R79.1 Abnormal coagulation profile; I34.0 Nonrheumatic mitral (valve) insufficiency; I11.0 Hypertensive heart disease with heart failure; R74.8 Abnormal levels of other serum enzymes; N40.0 Benign prostatic hyperplasia without lower urinary tract symptoms; M54.12 Radiculopathy, cervical region; M48.19 Ankylosing hyperostosis [Forestier], multiple sites in spine; K21.9 Gastro-esophageal reflux disease without esophagitis; E78.5 Hyperlipidemia, unspecified; R73.01 Impaired fasting glucose; G47.33 Obstructive sleep apnea (adult) (pediatric); G47.00 Insomnia, unspecified; G47.61 Periodic limb movement disorder; I44.7 Left bundle-branch block, unspecified; Z96.651 Presence of right artificial knee joint; Z96.641 Presence of right artificial hip joint; Z86.718 Personal history of other venous thrombosis and embolism; Z86.010 Personal history of colon polyps; Z87.891 Personal history of nicotine dependence; Z86.711 Personal history of pulmonary embolism
CPT/HCPCS: 36415; 71275; 80048; 80053; 83690; 85027; 87635; 93005; 93306; 96361; 96365; 99285; 70450; 71046; 83735; 84484; 85025; 85379; 85610; 85730; 93010; 99223; 99233; 99239

== ENCOUNTER → 2022-04-29 00:41 | Outpatient (CLI) | payer MEDICARE, OTHER, SELFPAY ==
--- NOTE | 2022-04-29 08:00 | DI.NM_ITS ---
APPROVED REPORT Exam: Exercise Treadmill Patient Location: Out-Patient Room/Bed: Stress Nurse: Felisha Juares RN Ordering Provider:KANG CHURCH, Contact Number: [phone] BMI: 30.53 Baseline Rhythm: Sinus Rhythm Comment: Inverted T wave lead III, PVC Indications: elevated troponin, CHF Medical History Medical History: abd. mass, adenoma of lg. intestine, anxiety, BPH, closed head injuiry, depression, ED, GERD, DISH, DVT, PE, HLD/HTN, AILEEN, total knee and hip replacements, heart failure with reduced EF and syncope Cardiac Medications: Warfarin, Aspirin Allergies: Codeine Cardiac Risk Factors: +Family history, HTN, HLD, history of smoking, obesity Previous Cardiac Procedures: None Pretest Chest Pain Characteristics: None Exercise History: Sedentary Physical Disabilities: None Lung Sounds: Clear Heart Sounds: s1/s2, regular Stress Test Details Test: Exercise stress testing was performed using a modified Holden protocol. Nuclear Acquisition: Rest Tc-99m/Stress Tc-99m 1 day Rest Isotope: Tc-99m Sestamibi. Dose: 10.3 Date: 04/29/2022 Injection Time: 1100 Stress Isotope: Tc-99m Sestamibi. Dose: 33 Date: 04/29/2022 Injection Time: 1314 HR Resting HR Supine: 68 bpm Max Heart Rate (APMHR): 140.668380 bpm Resting HR Standin bpm Target HR (85% APMHR): 119.573896 bpm Max HR Achieved: 136 bpm % of APMHR: 97.14 Recovery HR: 76 bpm HR response to stress: Normal HR response to stress BP Resting BP Supine: 148/88 mmHg Resting BP Standin/90 mmHg Max BP: 184/88 mmHg Recovery BP: 138/88 mmHg BP response to stress: Normal blood pressure response to stress. ECG Resting ECst degree AV block Ectopy: PVC's Comment: inverted T wave in lead III, T wave returned to normal when patient stood Stress ECG: Sinus Tachycardia, 1st degree AV block ST Change: No significant ST segment changes noted Arrhythmia: PVC's, PAC's Recovery ECG: Sinus Rhythm, 1st degree AV block Recovery ST Change: No significant ST segment changes noted Recovery Arrhythmia: PVC's, PAC's Clinical Reason for Termination: Fatigue, Target HR Achieved Stress Symptoms: General Fatigue Exercise duration: 4 min sec Highest Stage Reached: Stage 1: 1.7 mph at 10% grade. Exercise capacity: 4.64 METs Angina Score: None Sawyer Treadmill Score: 2.8 Rate Pressure Product: 36370 Stress ECG Conclusion 1. Resting electrocardiogram shows left axis deviation, left bundle branch block 2. Patient exercised on Holden protocol and completed a workload of 4.64 METS, stopping due to fatigue 3. Peak heart rate achieved was 97% of predicted for age 4. The electrocardiographic portion of the test was nondiagnostic due to resting ST-T abnormalities ( LBBB) 5. Atrial and ventricular ectopic beats were seen 6. See MPI report Sawyer Treadmill Score is 2.8 which is Moderate risk. Stress Test Summary STAGE Time (mins) Speed (mph) Grade (%) HR BP SYMPTOMS METS Supine 68 148/88 Standing 82 154/90 1 3 1.7 10 130 4.6 1 min recovery 101 184/88 3 min recovery 78 172/84 6 min recovery 76 138/88 Speed and elevation modified in stage 1 to encourage continuation of exercise. MPI Conclusion There is no evidence of myocardial ischemia. The inferior wall appears infarcted EF is 39%. There is inferior wall akinesis Radiologist Interpretation Radiologist agrees with Supervisor Roving Department's Interpretation. Radiologist Interpretation by: Michelle Patino MD Interpretation Date/Time: 04/29/2022 15:47:09
== END ==
PROVIDERS: PCP Nurse Practitioner; Visit Provider Internal Medicine
DX: R77.8 Other specified abnormalities of plasma proteins (principal); I50.9 Heart failure, unspecified
CPT/HCPCS: 78452; 93016; 93018; 93017

== ENCOUNTER 2022-04-30 10:22 | Outpatient (CLI) | payer MEDICARE, OTHER, SELFPAY ==
--- NOTE | 2022-04-30 10:15 | RT.EKG_ITS ---
APPROVED REPORT Exam: Resting ECG Reason for Exam: episodic dizziness Patient Location: O HR:76 bpm ECG Measurements Heart Rate 76 AXIS WA 279 P 7 QRSd 136 QRS -78 QT 393 T 78 QTc 440 Conclusion Sinus rhythm...normal P axis, V-rate 60- 99 Prolonged WA interval...WA >220, V-rate 50- 90 Left bundle branch block...QRSd>120, broad/notched R
== END 2022-04-30 10:23 | disposition home or self-care (01) ==
LOC: DI.KIM 10:23
PROVIDERS: PCP Nurse Practitioner; Visit Provider Nurse Practitioner
DX: R42 Dizziness and giddiness (principal)
CPT/HCPCS: 93010

== ENCOUNTER 2022-08-14 09:11 | Outpatient (CLI) | payer MEDICARE, OTHER, SELFPAY ==
--- NOTE | 2022-08-14 08:00 | DI.RAD_ITS ---
Exam(s) XR SHOULDER LT COMPLETE 2+V EXAM: XR SHOULDER LT COMPLETE 2+V CLINICAL HISTORY: shoulder pain. TECHNIQUE: 2D digital imaging was performed. COMPARISON: CR XR SHOULDER RT COMPLETE 2+V from 08/14/2022 FINDINGS: Two views: There is evidence of previous rotator cuff surgery with 2 fastener devices in the lateral humeral hea d. There is no evidence of fracture or dislocation nor significant diminution of the subacromial spa ce. However, there is advanced osteoarthritic narrowing of the glenohumeral joint noted. No promine nt osteophytes. Small degenerative subarticular cysts are seen in the inferior aspect of the osseous glenoid. IMPRESSION: Previous rotator cuff surgery. Subacromial space is not diminished. Advanced degenerative narrowing of the glenohumeral joint evident. DATA REPOSITORY: RADIATION DOSE DELIVERED:
--- NOTE | 2022-08-14 08:00 | DI.RAD_ITS ---
Exam(s) XR SHOULDER RT COMPLETE 2+V EXAM: XR SHOULDER RT COMPLETE 2+V CLINICAL HISTORY: shoulder pain. TECHNIQUE: 2D digital imaging was performed. COMPARISON: CR LEFT SHOULDER COMPLETE from 06/10/2017 FINDINGS: Two views: No evidence of fracture or dislocation. Evidence of prior surgery with surgical fastener stable dinorah ce in the superolateral aspect humeral head, most probably related to prior rotator cuff surgery. Th ere is moderate narrowing of the inferior aspect of the glenohumeral joint. The upper aspect of the glenohumeral joint exhibits normal space. Subacromial space exhibits this few small calcifications t herein, consistent with calcific tendinitis. No ominous osseous lesions. Bone density is age-appropriate. IMPRESSION: DATA REPOSITORY: RADIATION DOSE DELIVERED:
== END 2022-08-14 09:12 | disposition home or self-care (01) ==
LOC: DIORS 09:11
PROVIDERS: PCP Nurse Practitioner; Referring Provider Nurse Practitioner; Visit Provider Student in an Organized Health Care Education/Training Program
DX: M25.519 Pain in unspecified shoulder (principal); M19.011 Primary osteoarthritis, right shoulder; M19.012 Primary osteoarthritis, left shoulder; Z98.890 Other specified postprocedural states
CPT/HCPCS: 20610; 99214; 73030; J1030

== ENCOUNTER → 2022-09-03 14:31 | Outpatient (BNVA) | payer MEDICARE, OTHER, SELFPAY | PROVIDERS: PCP Nurse Practitioner; Referring Provider Nurse Practitioner; Visit Provider Urology | DX: R31.0 Gross hematuria (principal); R36.1 Hematospermia; N52.9 Male erectile dysfunction, unspecified | CPT/HCPCS: 99214 ==

== ENCOUNTER → 2022-09-17 10:42 | Outpatient (BNVA) | payer MEDICARE, OTHER, SELFPAY | PROVIDERS: PCP Nurse Practitioner; Referring Provider Nurse Practitioner; Visit Provider Student in an Organized Health Care Education/Training Program | DX: M19.011 Primary osteoarthritis, right shoulder (principal); M19.012 Primary osteoarthritis, left shoulder; M75.101 Unspecified rotator cuff tear or rupture of right shoulder, not specified as traumatic | CPT/HCPCS: 20610; 99214; J1030 ==

== ENCOUNTER → 2022-10-14 09:25 | Outpatient (BNVA) | payer MEDICARE, OTHER, SELFPAY | PROVIDERS: PCP Nurse Practitioner; Referring Provider Nurse Practitioner; Visit Provider Physician Assistant | DX: G56.22 Lesion of ulnar nerve, left upper limb (principal); M18.12 Unilateral primary osteoarthritis of first carpometacarpal joint, left hand; Z98.890 Other specified postprocedural states | CPT/HCPCS: 99213 ==

== ENCOUNTER → 2022-11-07 08:30 | Outpatient (BNVA) | payer MEDICARE, OTHER, SELFPAY | PROVIDERS: PCP Nurse Practitioner; Referring Provider Student in an Organized Health Care Education/Training Program; Visit Provider Nurse Practitioner Adult Health | DX: G56.22 Lesion of ulnar nerve, left upper limb (principal); G56.02 Carpal tunnel syndrome, left upper limb | CPT/HCPCS: 95886; 95909; 99214 ==

== ENCOUNTER 2022-11-10 02:51 | Emergency (ER) | payer MEDICARE, OTHER, SELFPAY ==
--- NOTE | 2022-11-10 02:45 | RT.EKG_ITS ---
APPROVED REPORT Exam: Resting ECG Reason for Exam: chest pain Patient Location: E HR:76 bpm ECG Measurements Heart Rate 76 AXIS DC 312 P 35 QRSd 133 QRS -73 QT 403 T 88 QTc 451 Conclusion Sinus rhythm Atrial premature complex. Prolonged DC interval. Left ventricular hypertrophy. LBBB
[2022-11-10 02:54] VITALS: BP 116/66; PULSE 75; RESP 20; TEMP 37; O2SAT 96
--- NOTE | 2022-11-10 02:59 | ED.GENADUL_ITS ---
Discharge Plan Disposition Patient Disposition: Home Condition: Improving Discharge Details Clinical Impression: Supratherapeutic INR Primary Care Provider: Sania Cherry ED Provider: Sunil Hawthorne Home Meds and New Rx's Prescriptions: Continued CBD oil topical PRN (Reason: Right shoulder pain) atorvastatin 40 mg tablet 40 mg PO QPM Qty: 90 3RF tramadol 50 mg tablet 50 mg PO TID PRN (Reason: pain) Qty: 9 0RF Metamucil 3.4 gram/5.4 gram powder 1 tbsp PO DAILY Rx Instructions: mix into at least 8 oz of water or juice before administering apple cider vinegar 1 oz PO DAILY sildenafil 100 mg tablet 100 mg PO DAILY PRN (Reason: sexual activity) Qty: 5 0RF Rx Instructions: administer 30 minutes to 4 hours before activity calcium carbonate [Tums] 200 mg calcium (500 mg) tablet,chewable 200 mg PO BID PRN acetaminophen 500 mg tablet 500 mg PO Q6H PRN (Reason: pain) Qty: 60 2RF No Action warfarin 5 mg tablet 5 mg PO DIRECTED Qty: 100 3RF Hold Instructions: Home Medication placed on hold at Doctor's office Protocol: Dose Management Condition: Friday Dose/Route: 5 mg Instruction: 1 x 5 mg tablet Condition: Friday Dose/Route: 5 mg Instruction: 1 x 5 mg tablet Condition: Friday Dose/Route: 5 mg Instruction: 1 x 5 mg tablet Condition: Friday Dose/Route: 5 mg Instruction: 1 x 5 mg tablet Condition: Dose/Route: 5 mg Instruction: 1 x 5 mg tablet Condition: Friday Dose/Route: 5 mg Instruction: 1 x 5 mg tablet Condition: Friday Dose/Route: 5 mg Instruction: 1 x 5 mg tablet Protocol Text: Adjustment Start Date: Friday10/28/22 INR Value: 2.2 INR Date: 10/28/22 Recheck Date: 11/25/22 Discharge Instructions Additional Instructions: Your work-up in the emergency department included cardiac troponin, CT imaging of the chest and basic lab work. Your INR was elevated today at 5.4. We will ask our care managers to arrange a follow-up for you to have it rechecked in clinic in the next 2 to 3 days time. Hold your warfarin until you are seen in clinic for recheck this week. Return to the emergency department for any acute concerns. Medical Decision Making 82-year-old male presents with left-sided chest discomfort that he states is worse with taking a deep breath. He has a history of DVT, is anticoagulated on warfarin. Differential diagnosis is broad including muscular strain, atypical chest pain, must exclude underlying PE or pulmonary hemorrhage. Patient IV access established, screening labs are obtained and he is referred for EKG and imaging studies. The patient's diagnostic studies reveal a white count of 7, hematocrit 38, platelets 228. Sodium 146, potassium 3.9, chloride 108, bicarb 29, BUN 7, creatinine 0.7. Troponin is negative. INR is supratherapeutic at 5.4. Ethanol is 175. Chest x-ray unremarkable. Due to my concern for the patient's elevated INR he was referred for CT imaging to rule out mass or hemorrhage. No active disease is seen. See the formal report. Patient improved. He is given 5 mg of vitamin K. We will ask care management to arrange an outpatient recheck of his warfarin level and he will hold his warfarin level until rechecked in 2 to 3 days time. HPI General Mode of arrival: EMS . Date/Time Provider Initiated Documentation: 11/10/22 02:58 . Limitations to Documentation: no limitations . Information obtained by: patient and EMS . History of Present Illness 82 year old M presents to the emergency department with the chief complaint of Chest pain at home, now improving, described as moderate, and is localized to the chest. Patient reports no radiation. Patient started experiencing this minute(s) and it has been other (Improving). No relieving factors improve symptom(s), No exacerbating factors reported . Patient notes chest pain; denies syncope. Patient did receive the following treatments prior to arrival, Aspirin and other (Nitroglycerin) Related Data Home Medications Medication Instructions Recorded Confirmed psyllium husk 3.4 gram/5.4 gram 1 tbsp PO DAILY 04/18/21 11/07/22 oral powder (Metamucil) acetaminophen 500 mg tablet 500 mg PO Q6H PRN pain #60 tabs 06/13/21 11/07/22 apple cider vinegar 1 oz PO DAILY 07/02/21 11/07/22 calcium carbonate 200 mg calcium 200 mg PO BID PRN 10/25/21 11/07/22 (500 mg) chewable tablet (Tums) warfarin 5 mg tablet 5 mg PO DIRECTED #100 tabs 04/02/22 11/07/22 CBD oil topical PRN Right shoulder pain 07/24/22 11/07/22 atorvastatin 40 mg tablet 40 mg PO QPM #90 tabs 09/03/22 11/07/22 sildenafil 100 mg tablet 100 mg PO DAILY PRN sexual 09/03/22 11/07/22 activity #5 tabs tramadol 50 mg tablet 50 mg PO TID PRN pain #9 tabs 10/08/22 11/07/22 Previous Rx's Medication Instructions Recorded acetaminophen 500 mg tablet 500 mg PO Q6H PRN pain #60 tabs 06/13/21 warfarin 5 mg tablet 5 mg PO DIRECTED #100 tabs 04/02/22 atorvastatin 40 mg tablet 40 mg PO QPM #90 tabs 09/03/22 sildenafil 100 mg tablet 100 mg PO DAILY PRN sexual 09/03/22 activity #5 tabs tramadol 50 mg tablet 50 mg PO TID PRN pain #9 tabs 10/08/22 Allergies Allergy/AdvReac Type Severity Reaction Status Date / Time codeine AdvReac Intermediate N/V Verified 11/07/22 08:42 General MARTHA: 2 Review of Systems Narrative: Denies recent illness. States has been taking his medications. PFSH All Active Problems (Updated 11/10/22 @ 05:24 by Sunil Hawthorne MD) Supratherapeutic INR (Acute) Left carpal tunnel syndrome (Acute) 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 (Acute) Cubital tunnel syndrome on left (Acute) Rotator cuff tear, right (Acute) Ischemic cardiomyopathy (Acute ~07/2022) ASCVD (arteriosclerotic cardiovascular disease) (Acute ~07/2022) Osteoarthritis of left shoulder region (Acute) Steroid injection: 08/14/2022 Osteoarthritis of right shoulder region (Acute) Steroid injection: 08/14/2022 Chronic HFrEF (heart failure with reduced ejection fraction) (Chronic) Panic attacks (Acute) Elevated troponin I level (Acute) Near syncope (Acute) Subtherapeutic international normalized ratio (INR) (Acute) Abdominal pain (Acute) History of DVT (deep vein thrombosis) (Acute) History of pulmonary embolism (Acute) Acute diverticulitis (Acute) Left carpal tunnel syndrome (Acute) Cervical strain, acute (Acute) Hyperplastic colon polyp (Acute ~09/2020) Tubular adenoma of colon (Acute ~09/2020) History of tobacco use (Acute 04/22/13) Chew, quit 2011 Urinary frequency (Acute) Dysuria (Acute) UTI (urinary tract infection), uncomplicated (Acute) Burning with urination (Acute) Abdominal mass (Acute) Long-term (current) use of anticoagulants, INR goal 2.0-3.0 (Acute) S/P colonoscopy (Acute ~08/02/19) Tubular adenoma x11. Sessile serrated adenoma x7 History of Surgical Procedure (Chronic) a. Meniscectomy, left knee. b. Right toal knee replacement. c. Right total hip replacement. d. Bilateral cataract surgery. e. Medial epicondylitis surgery. f. Bilateral rotator cuff surgery. g. Left ring finger trigger finger release. h. Multiple surgeries for lipoma excisions. i. Colonoscopies. Knee pain, left (Acute) Adenoma of large intestine (Acute 04/22/13) 2007 Reina 06/26/2013 Tommy Erectile dysfunction of organic origin (Acute 12/12/15) Hypogonadism in male (Acute 01/12/16) Libido, decreased (Acute 12/12/15) Other seborrheic keratosis (Acute 02/13/12) Back Obesity (Acute 04/22/13) Osteoarthritis of knee (Acute 06/16/13) Anticoagulation monitoring, INR range 2-3 (Acute) 03/24/19 [facility] [place] Continue warfarin long term care administrator for secondary VTE prophylaxis RAHEEM positive (Chronic) Nicotine dependence (Acute 07/09/13) 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 denies this Sleep apnea (Chronic) a. Not on CPAP. Medical History Anxiety BPH (benign prostatic hypertrophy) Cervical radiculopathy (01/01/17) Chest tightness CHI (closed head injury) Cough Depressive disorder (07/09/13) DISH (diffuse idiopathic skeletal hyperostosis) (02/07/20) [facility] [place] Diverticulosis DVT (deep venous thrombosis) 03/25/19 [facility] [place] Right and Left: extensive, acute, non-occlusive DVT Erectile dysfunction Esophageal reflux (02/13/12) GERD (gastroesophageal reflux disease) Hematuria Hemorrhoids History of diverticulitis Hyperlipidemia (02/13/12) Lipids 2010: 226/115/58/149 Statin made his GERD worse Hypertension IFG (impaired fasting glucose) Impotence of organic origin (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, SLEEP STUDY 02/13/13 BIPAP RECOMMENDED ([facility]) PT ISN'T USING and returned BiPAP on own 04/2013 Periodic limb movement disorder (02/13/13) [facility], SLEEP STUDY 02/13/13 Pulmonary embolism Acute saddle PE found @ [facility] Friday, 08/10 .. helicoptered to [facility] [place] .. s/p TPA, now on lovenox, starting warfarin. Heart strain noted, fu with cardiology in 3 mos. Hem/Onc work up planned ([facility] [place] [ [place]. Hx Lovenox for PE in past? Right ventricular dilation Serrated adenoma of colon (~09/2020) SOB (shortness of breath) Surgical History Endoscopic Carpal Tunnel release (06/19/15) R Dr Moore H/O elbow surgery right H/O shoulder surgery bilaterally History of carpal tunnel surgery of left wrist (06/13/21) History of colonoscopy (~10/2021) History of total hip arthroplasty History of total knee replacement (05/30/14) left S/P cataract extraction and insertion of intraocular lens (~03/17/14) left S/P cataract extraction and insertion of intraocular lens (03/31/14) OD S/P trigger finger release Family History Mother , 80's, unknown causes Heart disease Alzheimer disease Father , 80's, heart failure Heart disease Sister Colon cancer Sister Heart disease Brother Diabetes Social History Smoking/Tobacco Use Status: Former Tobacco Use Quit Date: 12/23/97 Pack-years: 20 Smokeless tobacco user: other Smoking risk assessment performed?: Yes Alcohol Intake: current Alcohol Intake frequency: a few times a month Alcohol type: beer Drug use: Never Substance use type: does not use Housing: house Number of Children: 3 Current gender identity: male What type of physical activity do you participate in: none Seatbelt use: always Working smoke detector in home: Yes Fire extinguisher in home: Yes Carbon monox detector in home: Yes Do you feel safe at home: Yes Do you feel safe in your relationship?: Yes Additional Social history: lives alone, but has shelter girlfriend Lashon x 28 years 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
--- NOTE | 2022-11-10 03:00 | DI.RAD_ITS ---
Exam(s) XR CHEST 2V PA LATERAL EXAM: XR CHEST 2V PA LATERAL CLINICAL HISTORY: L CP TECHNIQUE: 2D digital imaging was performed. COMPARISON: CT CT CHEST PE CTA from 04/14/2022 FINDINGS: HEART: Normal size. Aorta: Not dilated. PULMONARY VASCULATURE: Normal. LUNGS: Clear. PLEURAL SPACE: No pleural effusion or pneumothorax. BONE:Unremarkable for age. IMPRESSION: No acute abnormality. DATA REPOSITORY: RADIATION DOSE DELIVERED:
[2022-11-10 03:15] LABS: Abs Immature Grans 0.03 10^3/uL (0.0-0.06); Absolute Basophil Count 0.07 10^3/uL (0.0-0.2); Absolute Eosinophil Count 0.41 10^3/uL (0.0-0.7); Absolute Lymphocyte Count 2.23 10^3/uL (1.2-3.4); Absolute Monocyte Count 0.56 10^3/uL (0.1-0.8); Basophils % 0.9; Eosinophils % 5.3; HCT 38.5 % (40.0-50.0); HGB 12.7 g/dL (13.5-17.5); Immature Grans % 0.4; MCH 32.6 pg (27.0-33.0); MCV 99 fL (80-95); Monocytes % 7.3; Neutrophils % 57.1; Platelet Count 228 10^3/uL (130-400); RBC 3.89 10^6/uL (4.36-5.78); RDW 12.6 % (11.8-14.1); RDW-SD 45.1 fL
[2022-11-10 03:27] LABS: Prothrombin Time 49.1 sec (9.3-11.0)
[2022-11-10 03:37] LABS: ALT 32 U/L (16-63); AST 29 U/L (15-37); Albumin 3.8 g/dL (3.4-5.0); Alkaline Phosphatase 74 U/L (46-116); Anion Gap 8.6 mmol/L (3-11); BUN 7 mg/dL (7-18); Bilirubin, Total 0.3 mg/dL (0.2-1.0); CO2 29.4 mmol/L (21.0-32.0); CREATININE 0.7 mg/dL (0.70-1.30); Calcium 8.3 mg/dL (8.5-10.1); Chloride 108 mmol/L (98-107); Estimated GFR 92.57 (mL/min/1.73m2); Glucose 84 mg/dL (74-106); Magnesium 2.1 mg/dL (1.8-2.4); Potassium 3.9 mmol/L (3.5-5.1); Sodium 146 mmol/L (136-145); Troponin I < 50 ng/L (<or=60)
[2022-11-10 03:38] LABS: ETHANOL BLOOD 175.3 mg/dL (<10)
[2022-11-10 03:39] LABS: INR 5.4 (0.9-1.1)
[2022-11-10] MEDS: MORPHine 10 MG/ML VIAL 2 MG IVP (03:50)
--- NOTE | 2022-11-10 04:00 | DI.CT_ITS ---
Exam(s) CT CHEST PE CTA EXAM: CT CHEST PE CTA CLINICAL HISTORY: Hx DVT. L chest pain, elev INR. TECHNIQUE: Imaging Protocol: Axial CT angiography was performed with multi-slice acquisition and mu lti-planar reconstructions as well as axial, coronal and sagittal MIP reconstructions. CONTRAST MATERIAL: Intravenous: Omnipaque 350 Contrast volume:100 ml COMPARISON: CT CT CHEST PE CTA from 04/14/2022 CT,NM,TMT NM MPI REST STRESS GRP from 04/29/2022 CR,XR XR CHEST 2V PA LATERAL from 11/10/2022 FINDINGS: Pulmonary Arteries: No evidence of filling defect to suggest pulmonary emboli. Tracheobronchial tree: Patent where visualized. Mediastinum and Deanne: No dominant adenopathy or fluid collection. Pulmonary parenchyma: Dependent changes and mild respiratory motion. No consolidation or dominant me asurable mass. Pleura: No effusion or pneumothorax. Heart: The heart is mildly dilated. Coronary artery calcifications are seen. Aorta: Thoracic aorta non-dilated. No aneurysm. No dissection. Upper abdomen: Small hiatal hernia. Mild fatty infiltration of the liver. Bones: Prominent flowing osteophytes in the thoracic spine. IMPRESSION: No evidence of pulmonary embolism or other acute abnormality.. RADIATION DOSE DELIVERED: 473.98mGy.cm Total DLP DATA REPOSITORY: All CT scans at this facility are submitted to the National Radiology Data Registry (NRDR) Dose Index Registry (DIR) with the [employer] (ACR). RADIATION OPTIMIZATION: All CT scans at this facility use at least one of these dose optimization te chniques: automated exposure control; mA and/or kV adjustment per patient size (includes targeted exa ms where dose is matched to clinical indication); or iterative reconstruction.
--- NOTE | 2022-11-10 04:31 | NUR.NOTE ---
Referral faxed to [facility] Sania Cherry to have a 2-3 day f/u for and INR as it is elevated at ED visit. Patient came to ED for chest pain.Nursing Note:
--- NOTE | 2022-11-10 04:47 | NUR.NOTE ---
Attempted to fax f/u referral to [facility]. Transmission failed, will continue to try faxing.Nursing Note:
[2022-11-10] MEDS: Omnipaque 350 MG/ML 50 ML BTL IJ ×2 (05:03→05:04)
--- NOTE | 2022-11-10 05:13 | DI.VRAD_ITS ---
PROCEDURE INFORMATION: Exam: XR Chest Exam date and time: 11/10/2022 4:00 AM Age: 82 years old Clinical indication: Pain; Chest pressure TECHNIQUE: Imaging protocol: Radiologic exam of the chest. Views: 2 views. COMPARISON: CR XR CHEST 2V PA LATERAL 04/14/2022 5:44 PM FINDINGS: Limitations: Imaging was obtained with lordotic patient positioning. Lungs: No pulmonary consolidation is seen. Pleural spaces: No pleural effusion or pneumothorax is demonstrated. Heart/Mediastinum: Heart size is normal. Bones/joints: Within the limits of the exam, the visualized bony structures appear grossly intact. There are osteophytes along the spinal margin. There are surgical anchors in the humeral heads bilaterally. IMPRESSION: No active disease is seen in the chest. Dictated and Authenticated by: Jamey Oneal MD. Ordering:RITU Barber MD
--- NOTE | 2022-11-10 05:18 | DI.VRAD_ITS ---
PROCEDURE INFORMATION: Exam: CTA Chest With Contrast Exam date and time: 11/10/2022 4:37 AM Age: 82 years old Clinical indication: Pain; Chest pressure TECHNIQUE: Imaging protocol: Computed tomographic angiography of the chest with contrast. 3D rendering (Not supervised by radiologist): MIP and/or 3D reconstructed images were created by the technologist. Contrast material: OMNIPAQUE 350; Contrast volume: 100 ml; Contrast route: INTRAVENOUS (IV); COMPARISON: CT CHEST PE CTA 04/14/2022 6:55 PM FINDINGS: Pulmonary arteries: No pulmonary embolism identified. Small and distal pulmonary arteries partially obscured by artifact and not well evaluated for diagnosis or exclusion of small or distal pulmonary emboli. Aorta: No thoracic aortic aneurysm or dissection. Thyroid: Thyroid gland partially obscured by artifact but grossly normal in size Lungs: Mild dependent atelectasis. No pulmonary consolidation. Pleural spaces: No pleural effusion or pneumothorax. Heart: Normal sized heart. Lymph nodes: No pathologically enlarged mediastinal or hilar lymph nodes. Diaphragm: Small hiatal hernia. Liver: Diffuse fatty infiltration of the liver. Bones/joints: Lower ribs partially excluded from view and incompletely evaluated. Otherwise, no acute fracture seen among the bones of the chest. Spinal degenerative change with anterior osteophytes flowing along the anterior spinal margin. Partial fusion across multiple thoracic disc spaces. Soft tissues: No gross soft tissue mass or fluid collection seen in the chest wall. IMPRESSION: 1. Small hiatal hernia. 2. No active disease seen in the chest. 3. Diffuse fatty infiltration of the liver. Dictated and Authenticated by: Jamey Oneal MD. Ordering:RITU Barber MD
[2022-11-10] MEDS: Phytonadione 5 MG TABLET PO (05:40)
== END 2022-11-10 06:45 | disposition home or self-care (01) ==
PROVIDERS: Emergency Provider Emergency Medicine; PCP Nurse Practitioner
DX: R79.1 Abnormal coagulation profile (principal); I10 Essential (primary) hypertension; Z86.718 Personal history of other venous thrombosis and embolism; Z79.01 Long term (current) use of anticoagulants; Z79.899 Other long term (current) drug therapy
CPT/HCPCS: 71275; 80053; 93005; 96374; 99285; 71046; 80320; 83735; 84484; 85025; 85610; 93010; 99284; J2270; Q9967

== ENCOUNTER 2022-11-19 06:28 | Emergency (ER) | payer MEDICARE, OTHER, SELFPAY ==
[2022-11-19] VITALS (43 sets, daily range): BP systolic 121–158; BP diastolic 64–96; PULSE 73–91; RESP 16–18; TEMP 36.6–36.9; O2SAT 95–100
--- NOTE | 2022-11-19 06:15 | RT.EKG_ITS ---
APPROVED REPORT Exam: Resting ECG Reason for Exam: short of breath Patient Location: E HR:80 bpm ECG Measurements Heart Rate 80 AXIS SC 300 P 45 QRSd 135 QRS -75 QT 404 T 82 QTc 465 Conclusion Sinus rhythm...normal P axis, V-rate 60- 99 Prolonged SC interval...SC >220, V-rate 50- 90 Left bundle branch block...QRSd>120, broad/notched R. Sinus. PVCs. LBBB. No significant change from previous EKG. No STEMI. I have reviewed and interpreted ECG and agree with software generated interpretation.
--- NOTE | 2022-11-19 06:45 | DI.RAD_ITS ---
Exam(s) XR CHEST 2V PA LATERAL EXAM: XR CHEST 2V PA LATERAL CLINICAL HISTORY: dizziness, sob, r/o acute disease. TECHNIQUE: 2D digital imaging was performed. COMPARISON: CR,XR XR CHEST 2V PA LATERAL from 11/10/2022 FINDINGS: 2 views: Heart size is normal. The mediastinum is not widened. Lungs remain clear. No infiltrates nor pleural effusions. Evidence of previous bilateral shoulder surgery again noted. IMPRESSION: No acute pulmonary findings. Bilateral shoulder surgery. DATA REPOSITORY: RADIATION DOSE DELIVERED:
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
[2022-11-19 07:09] LABS: Bilirubin Negative (Negative); Blood Negative (Negative); Clarity Sl Cloudy (Clear); Glucose Negative (Negative); Ketones Negative (Negative); Leukocyte Esterase Negative (Negative); Nitrite Negative (Negative); Urobilinogen 0.2 EU/dL (Up TO 0.2)
[2022-11-19 07:15] LABS: Abs Immature Grans 0.03 10^3/uL (0.0-0.06); Absolute Basophil Count 0.05 10^3/uL (0.0-0.2); Absolute Eosinophil Count 0.19 10^3/uL (0.0-0.7); Absolute Lymphocyte Count 1.47 10^3/uL (1.2-3.4); Absolute Monocyte Count 0.64 10^3/uL (0.1-0.8); Absolute Neutrophil Count 4.44 10^3/uL (1.2-6.7); Basophils % 0.7; Eosinophils % 2.8; HCT 49.5 % (40.0-50.0); HGB 16.7 g/dL (13.5-17.5); Immature Grans % 0.4; Lymphocytes % 21.6; MCH 32.6 pg (27.0-33.0); MCHC 33.7 % (32.0-36.0); MCV 97 fL (80-95); MPV 9.2 fL (8.0-11.0); Monocytes % 9.4; Neutrophils % 65.1; Platelet Count 291 10^3/uL (130-400); RBC 5.12 10^6/uL (4.36-5.78); RDW-SD 43.5 fL; WBC 6.82 10^3/uL (4.4-10.8)
[2022-11-19 07:29] LABS: INR 1.5 (0.9-1.1); PTT Activated 28.3 sec (21.0-27.5); Prothrombin Time 14.5 sec (9.3-11.0)
[2022-11-19 07:31] LABS: ALT 33 U/L (16-63); AST 28 U/L (15-37); Albumin 3.8 g/dL (3.4-5.0); Alkaline Phosphatase 89 U/L (46-116); BUN 7 mg/dL (7-18); Bilirubin, Total 0.6 mg/dL (0.2-1.0); CREATININE 0.8 mg/dL (0.70-1.30); Calcium 9.1 mg/dL (8.5-10.1); Chloride 103 mmol/L (98-107); Estimated GFR 88.91 (mL/min/1.73m2); Glucose 102 mg/dL (74-106); Magnesium 1.9 mg/dL (1.8-2.4); Potassium 3.8 mmol/L (3.5-5.1); Sodium 140 mmol/L (136-145); Total Protein 7.4 g/dL (6.4-8.2); Troponin I < 50 ng/L (<or=60)
[2022-11-19 07:47] LABS: D-Dimer 739 ng/mlFEU (<500)
[2022-11-19] MEDS: Normal Saline 250 ML IV (07:58)
--- NOTE | 2022-11-19 08:18 | DI.CT_ITS ---
Exam(s) CT HEAD WO EXAM: CT HEAD WO CLINICAL HISTORY: dizziness, r/o acute disease. TECHNIQUE: Imaging Protocol: Axial computed tomography images with coronal and sagittal reformatted images were created and reviewed COMPARISON: CT CT HEAD WO from 04/14/2022 FINDINGS: There are no skull fractures. There is no fluid in the visualized paranasal sinuses. There is no evidence of intracranial hemorrhage, mass effect, or shift of midline structures. There are no extra-axial fluid collections. The ventricles are not enlarged or shifted and there is no blo od within the ventricular system nor within the basal cisterns. There is relatively symmetrical periventricular hypodensity consistent with chronic small vessel dise ase. Also a small nonacute appearing lacunar infarct in the immediate left periventricular white mat ter is noted. Also 80 10 x 9 millimeter area of infarct in the right cerebellar hemisphere again not ed. Calcification in the vertebral arteries at the skull base is again evident. IMPRESSION: There is moderate amount of bilateral periventricular hypodensity consistent with chronic small vesse l disease. Also lacunar infarcts in the left periventricular white matter as well as in the right ce rebellar hemisphere which do not have acute appearance. If clinically indicated follow-up MRI can be performed for added sensitivity and specificity. Called to ER physician. RADIATION DOSE DELIVERED: 877.05mGy.cm Total DLP DATA REPOSITORY: All CT scans at this facility are submitted to the National Radiology Data Registry (NRDR) Dose Index Registry (DIR) with the [employer] (A[employer]). RADIATION OPTIMIZATION: All CT scans at this facility use at least one of these dose optimization te chniques: automated exposure control; mA and/or kV adjustment per patient size (includes targeted exa ms where dose is matched to clinical indication); or iterative reconstruction.
--- NOTE | 2022-11-19 09:47 | W.EDPROG ---
Date of service: 11/19/22 Time of Service: 09:49 Medical Decision Making Care was signed out by Dr. Hooker with plan to follow-up on CT of the head as well as chest x-ray and discuss Coumadin dosing with the patient. CT of the head was interpreted by radiology: There is moderate amount of bilateral periventricular hypodensity consistent with chronic small vessel disease.? Also lacunar infarcts in the left periventricular white matter as well as in the right cerebellar hemisphere which do not have acute appearance. If clinically indicated follow-up MRI can be performed for added sensitivity and specificity. Chest x-ray was interpreted by radiology:No acute pulmonary findings. Bilateral shoulder surgery. He was reassessed and notes that he believes his symptoms today were related to anxiety. He notes he was prescribed anxiolytic that did help in the past but has run out. I discussed with him his subparagraph therapeutic INR. He notes his INR was elevated and he held a dose. He did not yet take notes today. I will give prescribed dose of 5 mg now. He understands his next dose should be tomorrow. I spoke with the patient's PCP, Sania shaikhetry, she will follow-up with the patient and refill prescription for benzodiazepine. Sign Out Sign Out Data: Sign Out Comment: Intermittent shortness of breath and dizziness since last night. Follow-up on labs and imaging and final disposition. Last updated by Sepideh Hooker DO at 11/19/22 07:20 Discharge Plan Disposition Patient Disposition: Home Condition: Stable Discharge Details Clinical Impression: Anxiety, Subtherapeutic international normalized ratio (INR), Shortness of breath Primary Care Provider: Sania Cherry ED Provider: Raul Howell Home Meds and New Rx's Prescriptions: Continued CBD oil topical PRN (Reason: Right shoulder pain) atorvastatin 40 mg tablet 40 mg PO QPM Qty: 90 3RF tramadol 50 mg tablet 50 mg PO TID PRN (Reason: pain) Qty: 9 0RF Metamucil 3.4 gram/5.4 gram powder 1 tbsp PO DAILY Rx Instructions: mix into at least 8 oz of water or juice before administering apple cider vinegar 1 oz PO DAILY sildenafil 100 mg tablet 100 mg PO DAILY PRN (Reason: sexual activity) Qty: 5 0RF Rx Instructions: administer 30 minutes to 4 hours before activity calcium carbonate [Tums] 200 mg calcium (500 mg) tablet,chewable 200 mg PO BID PRN warfarin 5 mg tablet 5 mg PO DIRECTED Qty: 100 3RF Hold Instructions: Home Medication placed on hold at Doctor's office Protocol: Dose Management Condition: Friday Dose/Route: 5 mg Instruction: 1 x 5 mg tablet Condition: Friday Dose/Route: 5 mg Instruction: 1 x 5 mg tablet Condition: Friday Dose/Route: 5 mg Instruction: 1 x 5 mg tablet Condition: Friday Dose/Route: 5 mg Instruction: 1 x 5 mg tablet Condition: Dose/Route: 5 mg Instruction: 1 x 5 mg tablet Condition: Friday Dose/Route: 5 mg Instruction: 1 x 5 mg tablet Condition: Friday Dose/Route: 5 mg Instruction: 1 x 5 mg tablet Protocol Text: Adjustment Start Date: Friday10/28/22 INR Value: 2.2 INR Date: 10/28/22 Recheck Date: 11/25/22 acetaminophen 500 mg tablet 500 mg PO Q6H PRN (Reason: pain) Qty: 60 2RF Discharge Instructions Instructions: Dyspnea (ED), Anxiety (ED) Additional Instructions: Please contact your primary care physician to arrange follow-up. Return to the ER immediately for any worsening or new concerning symptoms. Referrals: Sania Cherry NP [Primary Care Provider] -
[2022-11-19 11:00] LABS: Troponin I < 50 ng/L (<or=60)
== END 2022-11-19 11:34 | disposition home or self-care (01) ==
PROVIDERS: Physician Assistant; Emergency Provider Student in an Organized Health Care Education/Training Program; PCP Nurse Practitioner
DX: F41.9 Anxiety disorder, unspecified (principal); R06.02 Shortness of breath; R79.1 Abnormal coagulation profile; I10 Essential (primary) hypertension; E78.5 Hyperlipidemia, unspecified; Z20.822 Contact with and (suspected) exposure to COVID-19; Z86.711 Personal history of pulmonary embolism
CPT/HCPCS: 80053; 93005; 96360; 99284; 99285; 70450; 71046; 81003; 83735; 84484; 85025; 85379; 85610; 85730; 93010

== ENCOUNTER → 2022-11-29 11:10 | Outpatient (BNVA) | payer MEDICARE, OTHER, SELFPAY | PROVIDERS: PCP Nurse Practitioner; Referring Provider Nurse Practitioner; Visit Provider Student in an Organized Health Care Education/Training Program | DX: G56.22 Lesion of ulnar nerve, left upper limb (principal); G56.02 Carpal tunnel syndrome, left upper limb | CPT/HCPCS: 99213 ==

== ENCOUNTER 2022-12-09 02:49 | Outpatient (CLI) | payer MEDICARE, OTHER, SELFPAY ==
[2022-12-09 09:29] LABS: ALT 33 U/L (16-63); AST 27 U/L (15-37); Albumin 3.9 g/dL (3.4-5.0); Alkaline Phosphatase 89 U/L (46-116); BUN 11 mg/dL (7-18); Bilirubin, Total 0.8 mg/dL (0.2-1.0); CREATININE 0.8 mg/dL (0.70-1.30); Calculated LDL 52 mg/dL (<100); Chloride 103 mmol/L (98-107); Cholesterol 131 mg/dL (<200); Estimated GFR 88.91 (mL/min/1.73m2); Glucose 94 mg/dL (74-106); HDL Cholesterol 57 mg/dL (40-60); Potassium 4.2 mmol/L (3.5-5.1); Sodium 139 mmol/L (136-145); Total Protein 7.3 g/dL (6.4-8.2); Triglyceride 111 mg/dL (<150)
== END 2022-12-09 02:50 | disposition home or self-care (01) ==
PROVIDERS: PCP Nurse Practitioner; Visit Provider Nurse Practitioner
DX: I25.5 Ischemic cardiomyopathy (principal); I10 Essential (primary) hypertension; E78.5 Hyperlipidemia, unspecified
CPT/HCPCS: 36415; 80053; 80061

== ENCOUNTER 2022-12-10 11:37 | Day surgery (SDC) | payer MEDICARE, OTHER, SELFPAY ==
--- NOTE | 2022-12-10 09:32 | W.PM.DSUDISC ---
Date of service: 12/10/22 Time of Service: 13:18 Discharge Plan Disposition Patient Disposition: Home Condition: Good Discharge Details Reason For Visit: Left carpal and cubital tunnel syndromes Attending Provider: Maykel Rogers Primary Care Provider: Sania Cherry Home Meds and New Rx's Prescriptions: New tramadol 50 mg tablet 50 mg PO BID PRNQty: 12 0RF acetaminophen 500 mg tablet 1,000 mg PO TID Qty: 90 0RF ibuprofen 600 mg tablet 600 mg PO TID PRN (Reason: pain) Qty: 90 0RF Continued CBD oil topical PRN (Reason: Right shoulder pain) atorvastatin 40 mg tablet 40 mg PO QPM Qty: 90 3RF Metamucil 3.4 gram/5.4 gram powder 1 tbsp PO DAILY Rx Instructions: mix into at least 8 oz of water or juice before administering apple cider vinegar 1 oz PO DAILY sildenafil 100 mg tablet 100 mg PO DAILY PRN (Reason: sexual activity) Qty: 5 0RF Label Comments: I don't take this because it's too expensive Rx Instructions: administer 30 minutes to 4 hours before activity calcium carbonate [Tums] 200 mg calcium (500 mg) tablet,chewable 200 mg PO BID PRN warfarin 5 mg tablet 5 mg PO DIRECTED Qty: 100 3RF Hold Instructions: Home Medication placed on hold at Doctor's office Protocol: Dose Management Condition: Friday Dose/Route: 5 mg Instruction: 1 x 5 mg tablet Condition: Friday Dose/Route: 5 mg Instruction: 1 x 5 mg tablet Condition: Friday Dose/Route: 5 mg Instruction: 1 x 5 mg tablet Condition: Friday Dose/Route: 5 mg Instruction: 1 x 5 mg tablet Condition: Dose/Route: 5 mg Instruction: 1 x 5 mg tablet Condition: Friday Dose/Route: 5 mg Instruction: 1 x 5 mg tablet Condition: Friday Dose/Route: 5 mg Instruction: 1 x 5 mg tablet Protocol Text: Adjustment Start Date: Friday11/26/22 INR Value: 2.4 INR Date: 11/26/22 Recheck Date: 12/24/22 Additional Instructions: Pt scheduled for 4 week INR recheck. lorazepam 0.5 mg tablet 0.5 mg PO DAILY PRN (Reason: anxiety) Qty: 28 0RF Discontinued tramadol 50 mg tablet 50 mg PO TID PRN (Reason: pain) Qty: 9 0RF acetaminophen 500 mg tablet 500 mg PO Q6H PRN (Reason: pain) Qty: 60 2RF Label Comments: I don't take this because it's too expensive Discharge Instructions Additional Instructions: Cubital Tunnel Decompression Discharge Instructions Activity: You should stay in the sling for the first 2 weeks. You may come out of the sling for gentle motion and hygiene but should largely remain in the sling to allow the incision site to heal. Gentle motion of the elbow, hand, wrist, and fingers is okay and encouraged after the first few days, but no repetitive activities nor heavy lifting. You may apply ice. Medications: - You should take Tylenol and Ibuprofen around the clock. - You have been prescribed Tramadol for breakthrough pain. Dressings: - The initial surgical dressing should stay in place for 3 days. It may then be removed and kept clean and dry. You should cover with a light gauze dressing. - You may shower after 3 days and get the wound wet. Follow-up: 10 days Stand Alone Forms: Ken Coronado Tunnel Release Referrals: Maykel Rogers MD [ [facility] STAFF PHYSICIAN] - Equipment/Supplies: Sling Activity:: Activity as Tolerated Remove Dressings/Wound Care:: 72 hours Shower/Bathe:: 72 hours Diet:: As Tolerated Discharge Orders Discharge Orders: Discharge Order (Routine); Ordered 12/10/22 Ordered By: Esmer Rondon
--- NOTE | 2022-12-10 10:59 | ANES.PREOP_ITS ---
General Info Date of Service Date Performed: 12/10/22 Height: 5 ft 7 in Weight: 86.908 kg Body Mass Index (BMI): 29.9 Surgical Procedure: Operation Date: 12/10/22 14:10 Proposed Procedure Side Surgeon p Wrist Open Carpal Tunnel Release Left Maykel Rogers MD s Cubital Tunnel Release Left Maykel Rogers MD Meds Allergies and Home Medications Allergies Allergy/AdvReac Type Severity Reaction Status Date / Time codeine AdvReac Intermediate N/V Verified 11/29/22 11:18 Home Medication Medication Instructions Recorded psyllium husk 3.4 gram/5.4 gram 1 tbsp PO DAILY 04/18/21 oral powder (Metamucil) acetaminophen 500 mg tablet 500 mg PO Q6H PRN pain #60 tabs 06/13/21 apple cider vinegar 1 oz PO DAILY 07/02/21 calcium carbonate 200 mg calcium 200 mg PO BID PRN 10/25/21 (500 mg) chewable tablet (Tums) warfarin 5 mg tablet 5 mg PO DIRECTED #100 tabs 04/02/22 CBD oil topical PRN Right shoulder pain 07/24/22 atorvastatin 40 mg tablet 40 mg PO QPM #90 tabs 09/03/22 sildenafil 100 mg tablet 100 mg PO DAILY PRN sexual 09/03/22 activity #5 tabs tramadol 50 mg tablet 50 mg PO TID PRN pain #9 tabs 10/08/22 lorazepam 0.5 mg tablet 0.5 mg PO DAILY PRN anxiety #28 11/19/22 tabs Current Visit Medications: Current Medications Generic Name Dose Route Start Last Admin Trade Name Freq PRN Reason Stop Dose Admin Acetaminophen 650 mg 12/10/22 09:30 Acetaminophen 325 Mg Tab PO Q4H PRN PRN Hydrocodone Bitart/Acetaminophen 0 tab 12/10/22 09:30 Hydrocodone 5/Acetaminophen 325 Tab PO Q3H PRN PRN Pain Ringer's Solution 1,000 mls @ 80 mls/hr 12/10/22 06:00 IV 01/08/23 23:59 INFUSION VITA Cefazolin Sodium/Dextrose 2 gm in 50 mls @ 100 mls/hr 12/10/22 06:00 Ancef Duplex IVPB 12/10/22 16:00 PREOP VITA IV Miscellaneous Supplies 1 each 12/10/22 06:00 Iv Access IV 01/08/23 23:59 DIRECTED VITA Sodium Chloride 0 ml 12/10/22 06:00 Normal Saline Flush 10 Ml Syr IV 01/08/23 23:59 PRN PRN Sodium Chloride 0 ml 12/10/22 06:00 Normal Saline 10 Ml Vial IJ 01/08/23 23:59 DIRECTED PRN Sterile Water 0 ml 12/10/22 06:00 Water,Injection,Sterile 10 Ml Vial IJ 01/08/23 23:59 DIRECTED PRN PFSH Active Problems Active Problems: Problem Status Onset Code Knee pain, left M25.562 History of Surgical Procedure Z98.89 Sleep apnea G47.30 Adenoma of large intestine 04/22/13 D12.6 Erectile dysfunction of organic origin 12/12/15 N52.9 History of tobacco use 04/22/13 Z87.891 Hypogonadism in male 01/12/16 E29.1 Libido, decreased 12/12/15 R68.82 Other seborrheic keratosis 02/13/12 L82.1 Obesity 04/22/13 E66.9 Osteoarthritis of knee 06/16/13 M17.10 Right heart failure with reduced right ventricular function I50.810 Anticoagulation monitoring, INR range 2-3 Z79.01 RAHEEM positive R76.8 Nicotine dependence 07/09/13 F17.200 S/P colonoscopy ~08/02/19 Z98.890 Long-term (current) use of anticoagulants, INR goal 2.0-3.0 Z79.01 Urinary frequency R35.0 Dysuria R30.0 UTI (urinary tract infection), uncomplicated N39.0 Abdominal mass R19.00 Burning with urination R30.0 Tubular adenoma of colon ~09/2020 D12.6 Hyperplastic colon polyp ~09/2020 K63.5 Cervical strain, acute S16.1XXA Left carpal tunnel syndrome G56.02 Acute diverticulitis K57.92 History of pulmonary embolism Z86.711 History of DVT (deep vein thrombosis) Z86.718 Abdominal pain R10.9 Near syncope R55 Subtherapeutic international normalized ratio (INR) R79.1 Elevated troponin I level R77.8 Panic attacks F41.0 Chronic HFrEF (heart failure with reduced ejection fraction) I50.22 Osteoarthritis of right shoulder region M19.011 Osteoarthritis of left shoulder region M19.012 ASCVD (arteriosclerotic cardiovascular disease) ~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 I25.10 Ischemic cardiomyopathy ~07/2022 I25.5 Rotator cuff tear, right M75.101 Cubital tunnel syndrome on left G56.22 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 M18.12 Left carpal tunnel syndrome G56.02 Supratherapeutic INR R79.1 Anxiety F41.9 Subtherapeutic international normalized ratio (INR) R79.1 Shortness of breath R06.02 Medical History Medical History Anxiety BPH (benign prostatic hypertrophy) Cervical radiculopathy (01/01/17) Chest tightness per caregiver states this is anxiety related CHI (closed head injury) Cough Depressive disorder (07/09/13) DISH (diffuse idiopathic skeletal hyperostosis) (02/07/20) [facility] Diverticulosis DVT (deep venous thrombosis) 03/25/19 [facility] Right and Left: extensive, acute, non-occlusive DVT Erectile dysfunction Esophageal reflux (02/13/12) GERD (gastroesophageal reflux disease) Hematuria Hemorrhoids History of diverticulitis Hyperlipidemia (02/13/12) Lipids 2010: 226/115/58/149 Statin made his GERD worse Hypertension IFG (impaired fasting glucose) 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 helicoptered to [facility] .. s/p TPA, now on lovenox, starting warfarin. Heart strain noted, fu with cardiology in 3 mos. Hem/Onc work up planned ([facility] [ ]).. Hx Lovenox for PE in past? Right ventricular dilation Serrated adenoma of colon (~09/2020) SOB (shortness of breath) Surgical History Surgical History Endoscopic Carpal Tunnel release (06/19/15) R Dr Moore H/O elbow surgery right H/O shoulder surgery bilaterally History of carpal tunnel surgery of left wrist (06/13/21) History of colonoscopy (~10/2021) History of total hip arthroplasty History of total knee replacement (05/30/14) left S/P cataract extraction and insertion of intraocular lens (~03/17/14) left S/P cataract extraction and insertion of intraocular lens (03/31/14) OD S/P trigger finger release Tobacco Smoking/Tobacco Use Status: Former Tobacco Use Smokeless tobacco user: other Alcohol Alcohol Intake: current Alcohol intake frequency: a few times a month Alcohol type: beer Substance Use Substance use: Never Substance use type: does not use Vital Signs and Lab Results Vital Signs Most Recent Vital Signs in EMR: Temp Pulse Resp BP Pulse Ox 36.3 C L 73 16 118/72 96 12/10/22 12:08 12/10/22 12:08 12/10/22 12:08 12/10/22 12:08 12/10/22 12:08 Lab Results Blood Type / Crossmatch: No Data to Display Complete Blood Count: White Blood Count 6.82 10^3/uL (4.4-10.8) 11/19/22 06:45 Red Blood Count 5.12 10^6/uL (4.36-5.78) 11/19/22 06:45 Hemoglobin 16.7 g/dL (13.5-17.5) 11/19/22 06:45 Hematocrit 49.5 % (40.0-50.0) 11/19/22 06:45 Platelet Count 291 10^3/uL (130-400) 11/19/22 06:45 Complete Metabolic Panel: Sodium 139 mmol/L (136-145) 12/09/22 08:26 Potassium 4.2 mmol/L (3.5-5.1) 12/09/22 08:26 Chloride 103 mmol/L (98-107) 12/09/22 08:26 Carbon Dioxide 30.0 mmol/L (21.0-32.0) 12/09/22 08:26 BUN 11 mg/dL (7-18) 12/09/22 08:26 Creatinine 0.8 mg/dL (0.70-1.30) 12/09/22 08:26 Est GFR (CKD-EPI 2020) 88.91 (mL/min/1.73m2) 12/09/22 08:26 Magnesium 1.9 mg/dL (1.8-2.4) 11/19/22 06:45 Calcium 9.0 mg/dL (8.5-10.1) 12/09/22 08:26 Albumin 3.9 g/dL (3.4-5.0) 12/09/22 08:26 Glucose 94 mg/dL (74-106) 12/09/22 08:26 Liver Function Panel: Alanine Aminotransferase (ALT/SGPT) 33 U/L (16-63) 12/09/22 08: 26 Aspartate Amino Transf (AST/SGOT) 27 U/L (15-37) 12/09/22 08:26 Coagulation Panel: INR International Normalized Ratio 2.4 (0.9-1.1) H 11/26/22 09: 04 Prothrombin Time 14.5 sec (9.3-11.0) H 11/19/22 06:45 Activated Partial Thromboplast Time 28.3 sec (21.0-27.5) H 11/19/22 06:45 D-Dimer 739 ng/mlFEU (<500) H 11/19/22 06:45 Cardiac Panel: Troponin I < 50 ng/L (<or=60) 11/19/22 Arterial Blood Gas: No Data to Display Venous Blood Gas: No Data to Display Pancreas Panel: No Data to Display Thyroid Panel: No Data to Display Infectious Disease: No Data to Display Blood Cultures: No Data to Display Toxicology Panel: No Data to Display Imaging and Studies Imaging and Studies Study information below may be from another EMR and interpreted by another provider. Please see original notes in EMR for more complete details. EKG Summary: DATE/TIME OF SERVICE: 11/19/22635 : 1940ERFORMING LOCATION: ER APPROVED REPORT Exam: Resting ECG Reason for Exam: short of breath Patient Location: E HR:80 bpm ECG Measurements Heart Rate 80 AXIS AZ 300 P 45 QRSd 135 QRS -75 QT 404 T82 QTc 465 Conclusion Sinus rhythm...normal P axis, V-rate 60- 99 Prolonged AZ interval...AZ >220, V-rate 50- 90 Left bundle branch block...QRSd>120, broad/notched R. Sinus. PVCs. LBBB. No significant change from previous EKG. No STEMI. 03/05/21 Conclusion Sinus or ectopic atrial rhythm...P axis (-45,135) Prolonged AZ interval...AZ >220, V-rate 50- 90 Left bundle branch block...QRSd>120, broad/notched R Stress Test Summary: 04/29/22: MPI Conclusion There is no evidence of myocardial ischemia. The inferior wall appears infarcte d EF is 39%. There is inferior wall akinesis 12/16/2018 1. Myocardial perfusion imaging: No myocardial perfusion defects noted. 2. The left ventricular end-systolic volume is 92ml. The calculated left ventricular ejection fraction after stress: 45%. LV global systolic function is mildly reduced. Diffuse left ventricular regional motion abnormalities. LV function most likely underestimated due to gating error. 3. Stress ECG conclusions: The stress ECG is negative. 4. Baseline ECG: Normal sinus rhythm with left bundle branch block. 5. Imaging information: gated. Image quality reduced due to body habitus. Echocardiogram Summary: Date of Exam: 04/15/22Sex: M Admission Date: 04/14/22 : 1940 Age: 81 APPROVED REPORT EXAM: Comprehensive 2D, Doppler, and color-flow Echocardiogram Patient Location: In-Patient Room/Bed: [facility] Team Member: Ophelia Barnett RDCS (AE) Other Information Study Quality: Adequate Conclusion Normal left ventricular wall thickness and chamber size. Estimated ejection fraction is 45% with global hypokinesis Normal right ventricular size and systolic function Both atria are normal in size The aortic valve is trileaflet and sclerotic with trace to mild regurgitation. No aortic stenosis Thickened mitral leaflets with mild regurgitation Normal tricuspid valve with trace regurgitation Estimated right ventricular systolic pressure is 26 mmHg 10/26/2018 1. Left ventricle: The cavity size was normal. The estimated ejection fraction was 40%. Diffuse hypokinesis. Findings consistent with diastolic dysfunction. There was no evidence of elevated ventricular filling pressure by Doppler parameters. 2. Aortic valve: There was mild regurgitation. 3. Mitral valve: There was mild regurgitation. 4. Left atrium: The atrium was mildly dilated. 5. Right ventricle: The cavity size was mildly dilated. Systolic function was mildly reduced. 6. Right atrium: The atrium was mildly dilated. 7. Atrial septum: No defect or patent foramen ovale was identified. 8. Pulmonary arteries: Pulmonary systolic pressure was in the range of 30mm Hg to 40mm Hg. 9. Inferior vena cava: The vessel was patent and normal in size. The respirophasic diameter changes were in the normal range (greater than or equal to 50%), consistent with normal central venous pressure. Pulmonary Function Summary: 01/31/2014 INTERPRETATION SPIROMETRY: Spirometry shows no evidence of obstructive airways disease. No bronchodilator testing was carried out. LUNG VOLUMES: Lung volumes show no evidence of restriction. DIFFUSION CAPACITY: Normal. AIRWAY RESISTANCE: Normal. IMPRESSION: Normal pulmonary function study. Clinical correlation recommended. Anesthesia Assessment and Plan Anesthesia History Personal History: No History of Anesthesia Complications Family History: No Family History of Anesthesia Complications Exercise Tolerance Exercise Tolerance: Metabolic Equivalents>4 Pertinent Negatives Pertinent Negatives: No Symptoms of GERD Cardiac & Pulmonary Exam Cardiac Exam: Normal S1/S2 Heart Sounds Pulmonary Exam: Clear Bilateral Breath Sounds Implantable Cardiac Device Does patient have a Pacemaker or an ICD?: No Airway Exam Known Difficult Airway: No Mallampati Class: 1 Mouth Opening: Normal (> 3cm) Thyromental Distance: Greater than 3 cm Neck Range of Motion: Full ROM Neck Circumference: Normal Teeth Condition: Edentulous ASA Classification ASA Score: ASA 3 Emergency Case?: No NPO Status NPO Status: NPO Clears >2 hours, Solids >8 hours Anesthesia Plan Resuscitation Status: DNR Modified During Perioperative Period Resuscitation Modifications: Other (No prolonged resuscitation. No transfer to larger hospital.) Anesthesia Technique: General Anesthesia Airway Planned: Natural Airway Monitors Used: Standard Monitors
[2022-12-10 12:08] VITALS: BP 118/72; PULSE 73; RESP 16; TEMP 36.3; O2SAT 96
[2022-12-10] MEDS: Lactated Ringers 1,000 ML 80 ML IV (12:25)
[2022-12-10 12:36] VITALS: BMI 29.9
[2022-12-10] MEDS: ceFAZolin 2 GM/50 ML BAG IVPB (13:14)
[2022-12-10] MEDS: Bupivacaine 0.5% Pres-Free W/EPI 10 ML VIAL (13:28)
[2022-12-10 14:37] VITALS: BP 154/86; PULSE 74; RESP 16; TEMP 36.2; O2SAT 100
[2022-12-10 14:40] VITALS: BP 154/83; PULSE 61; RESP 16; TEMP 36.4; O2SAT 96
--- NOTE | 2022-12-10 15:14 | W.ANESPOSTOP ---
Postoperative Evaluation Date, Time and Location Date Performed: 12/10/22 Time Performed: 15:15 Patient Location: Day Surgery Unit Vital Signs Most Recent Imported Vital Signs: Most Recent Vital Signs Temp Pulse Resp BP Pulse Ox 36.2 C L 74 16 154/86 H 100 12/10/22 14:37 12/10/22 14:37 12/10/22 14:37 12/10/22 14:37 12/10/22 14:37 Pain Score Most Recent Pain Score: Most Recent Pain Score Pain Level 0 12/10/22 14:37 Assessment Mental Status: Awake (Alert & Oriented to Patient Baseline) Airway and Respiratory Function: Patent airway with normal (patient baseline) respiratory exam Cardiovascular Function: Hemodynamically Stable Hydration Status: Adequately Hydrated Nausea & Vomiting: No Nausea or Vomiting Pain: Pt. Denies Any Pain Peripheral Nerve Block: Patient did not receive a nerve block
--- NOTE | 2022-12-10 21:17 | W.PM.OP ---
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 Nerve conduction studies identified the carpal and cubital tunnel as the point of compression. He had a previous endoscopic release of the left carpal tunnel but unfortunately had only short-lived improvements and then continual decline. Given failure of nonoperative treatments and persistent symptoms, I offered operative intervention. I reviewed the technical details of a open carpal tunnel release and cubital tunnel decompression with possible anterior subcutaneous transposition. I reviewed the risk of the procedure to include bleeding, infection, pain, stiffness, nerve instability, damage to superficial nerves, persistent symptoms, and incomplete release. Despite these risks, the patient elected to proceed. Findings: The carpal tunnel was release with an extended, open technique without difficulty and excellent visualization. There was significant scarring seen around the median nerve with tight scarring around the nerve. There was a tightened cubital tunnel. The ulnar nerve was unstable. The ulnar nerve was release from the first motor branch distally through the [place] proximally and then transposed anteriorly. Procedure Description: Adebayo was greeted in the preoperative holding area where the correct side was identified and marked. The consent was reviewed with the patient and signed. The history and physical was updated. All questions were answered. He was taken back to the operating room. The patient was placed into the supine position on the operating room table with the left arm on an arm board. A nonsterile tourniquet was placed high onto the arm, into the axilla. All bony prominences were well padded. Prophylactic antibiotics in the form of Cefazolin were administered. The right arm was then prepped with Chloraprep and draped in a standard fashion with stockinette and extremity drape. A timeout to confirm correct identity, side and site, procedure, allergies, anesthesia, and medical concerns was performed. Starting with the cubital tunnel release, the skin of the medial elbow was incised only with the elbow in some flexion and on a bump. The deep tissue and subcutaneous fat was dissected with a tenotomy scissors trying to protect any branches of the medial antebrachial cutaneous nerve. Any branches that were identified were retracted out of the way. The ulnar nerve was palpated and identified. The nerve was noted to be quite unstable, subluxating over the medial epicondyle. A small window into the cubital tunnel, sheath overlying the nerve, was created and the nerve was able to be palpated with the [place]. A Metzenbaum scissor was then used to open up the sheath starting with Osorio's ligament. I then worked distal over the ulnar nerve releasing any constraints against the nerve all the way to the fascia of the FCU muscle belly. This muscle belly was bluntly all the way down to the first motor branch of the ulnar nerve and the overlying fascia was incised. Likewise starting there at the medial epicondyle, I proceeded to work proximally to release any constraints over the ulnar nerve. This was taken all the way to the arc[place] of [place]. The medial intermuscular septum was also palpated and any sharp edges against the ulnar nerve were resected and released. After fully releasing the nerve it was inspected visually. I was also able to palpate the nerve fully and reach one finger up into the proximal and distal aspects to make sure there were no constraints against the nerve. A freer elevator was also used to slide easily against the ulnar nerve without any points of constriction. The arm was then taken through range of motion. The ulnar nerve did sublux/dislocate out of its groove behind the lateral epicondyle. Therefore, I performed an anterior subcutaneous transposition. Space overlying the medial epicondyle was then created. A flap of fascia from the flexor pronator origin was then elevated. The nerve was moved anteriorly and checked for any other additionaly points of compression. With none identified the fsacial flap was secured to the deep dermis overlying the medial epicondyle. This created a sling to hold the nerve anterior. A freer was passed along the nerve to ensure there was no additional compression. A wet raytec was placed into the wound and attention was turned to the wrist. The proposed surgical site was then anesthetized with 0.5% bupivacaine with epinephrine. This was drawn initially as a longitudinal incision in line with the radial border of the fourth ray. A Bella type incision was carried over the wrist creases. The skin was incised sharply. The deep tissues were dissected bluntly until the palmar fascia was identified. This was then incised and a [place] was placed inside the carpal tunnel at its ulnar aspect. The transcarpal ligament was incised. The flexor tendons were identified. The median nerve was actually encased in a thick scar which had significant pression onto the median nerve. The incision was taken slightly more proximal and distal to fully evaluate the median nerve to help the exit point but also proximally. Proximally showed significant adherence. Working from a distal to proximal direction I then elevated off the scar tissue from the nerve such that the nerve is free circumferentially. This was taken proximally all the way into the distal aspect the form where there is notable adherence to the nerve. There is no laceration or injury to the nerve identified but there was notable compression of the scar tissue against the nerve in the region of the carpal tunnel. The nerve inspected both visually and also with a [place] to make sure there is no point to compression all the way to the bifurcation of the nerve. The wound was then irrigated. The tourniquet was then deflated. Any areas of bleeding were cauterized with bipolar electrocautery. Starting with the elbow, the deep tissue was closed with a 3-0 Vicryl. The skin was closed with a 4-0 nylon. Then, the wrist wound was closed with interrupted 4-0 nylon. The wounds were dressed with Xeroform, 4 x 4's, ABD, Kerlix and an Usman wrap. Adebayo was placed into a sling. He was transferred back to the PACU in a stable condition.
== END 2022-12-10 15:35 | disposition home or self-care (01) ==
PROVIDERS: PCP Nurse Practitioner; Visit Provider Student in an Organized Health Care Education/Training Program
PROC: (CPT 64721; principal; 2022-12-10 14:00)
PROC: (CPT 64718; 2022-12-10 14:00)
DX: G56.01 Carpal tunnel syndrome, right upper limb; G56.21 Lesion of ulnar nerve, right upper limb; I10 Essential (primary) hypertension; K21.9 Gastro-esophageal reflux disease without esophagitis; R73.01 Impaired fasting glucose
CPT/HCPCS: 64718; 64721; J0131; J0690; J1100; J2405

== ENCOUNTER → 2022-12-20 10:24 | Outpatient (BNVA) | payer MEDICARE, OTHER, SELFPAY | PROVIDERS: PCP Nurse Practitioner; Referring Provider Nurse Practitioner; Visit Provider Physician Assistant | DX: Z48.811 Encounter for surgical aftercare following surgery on the nervous system (principal); R20.0 Anesthesia of skin ==

== ENCOUNTER → 2023-01-23 09:01 | Outpatient (BNVA) | payer MEDICARE, OTHER, SELFPAY | PROVIDERS: PCP Nurse Practitioner; Referring Provider Nurse Practitioner; Visit Provider Student in an Organized Health Care Education/Training Program | DX: Z47.89 Encounter for other orthopedic aftercare (principal); R20.0 Anesthesia of skin; R20.2 Paresthesia of skin ==

== ENCOUNTER 2023-06-16 16:41 | Outpatient (REF) | payer MEDICARE, SELFPAY ==
[2023-06-16 21:40] LABS: Abs Immature Grans 0.04 10^3/uL (0.0-0.06); Absolute Basophil Count 0.04 10^3/uL (0.0-0.2); Absolute Eosinophil Count 0.03 10^3/uL (0.0-0.7); Absolute Lymphocyte Count 1.82 10^3/uL (1.2-3.4); Absolute Monocyte Count 0.77 10^3/uL (0.1-0.8); Absolute Neutrophil Count 6.52 10^3/uL (1.2-6.7); Basophils % 0.4; Eosinophils % 0.3; HCT 49.6 % (40.0-50.0); HGB 16.6 g/dL (13.5-17.5); Immature Grans % 0.4; Lymphocytes % 19.7; MCH 31.1 pg (27.0-33.0); MCHC 33.5 % (32.0-36.0); MCV 93 fL (80-95); MPV 9.9 fL (8.0-11.0); Monocytes % 8.4; Neutrophils % 70.8; Platelet Count 293 10^3/uL (130-400); RBC 5.33 10^6/uL (4.36-5.78); RDW 13.2 % (11.8-14.1); RDW-SD 45.3 fL; WBC 9.22 10^3/uL (4.4-10.8)
[2023-06-16 22:04] LABS: ALT 31 U/L (16-63); AST 30 U/L (15-37); Alkaline Phosphatase 93 U/L (46-116); Anion Gap 9.3 mmol/L (3-11); BUN 9 mg/dL (7-18); Bilirubin, Total 1.1 mg/dL (0.2-1.0); CO2 28.7 mmol/L (21.0-32.0); Calcium 8.8 mg/dL (8.5-10.1); Chloride 103 mmol/L (98-107); Estimated GFR 75.61 (mL/min/1.73m2); Glucose 106 mg/dL (74-106); Potassium 3.9 mmol/L (3.5-5.1); Sodium 141 mmol/L (136-145); TSH 1.52 uIU/mL (0.36-3.74); Total Protein 7.1 g/dL (6.4-8.2)
== END 2023-06-16 16:42 | disposition home or self-care (01) ==
LOC: LBN 16:41
PROVIDERS: PCP Nurse Practitioner; Visit Provider Nurse Practitioner Family
DX: R42 Dizziness and giddiness (principal); F41.8 Other specified anxiety disorders; I10 Essential (primary) hypertension; E78.5 Hyperlipidemia, unspecified
CPT/HCPCS: 80053; 84443; 85025

== ENCOUNTER 2023-08-22 12:48 | Observation (INO) | payer MEDICARE, OTHER, SELFPAY ==
[2023-08-22] VITALS (76 sets, daily range): BP systolic 114–174; BP diastolic 31–107; PULSE 42–130; RESP 12–43; TEMP 35.7–36.4; O2SAT 90–100
--- NOTE | 2023-08-22 12:45 | RT.EKG_ITS ---
APPROVED REPORT Exam: Resting ECG Reason for Exam: Dizziness Patient Location: E HR:93 bpm ECG Measurements Heart Rate 93 AXIS IA [id number] P [id number] QRSd 142 QRS -80 QT 393 T 82 QTc 490 Conclusion Atrial fibrillation...? atrial activity Left ventricular hypertrophy...multiple LVH criteria Inferior infarct, old...Q >35mS, II III aVF Unclear underlying rhythm. Some P waves are present. LAD. Nonspecific IVCD. When commpared to prio r 11/19/22 not clear sinus rhythm WD
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
--- NOTE | 2023-08-22 15:15 | DI.CT_ITS ---
Exam(s) CT BRAIN NECK CTA EXAM: CT BRAIN NECK CTA CLINICAL HISTORY: new a fib; dizzy/unsteady gait. TECHNIQUE: Imaging Protocol: Axial CT angiography was performed with multi-slice acquisition and mu lti-planar and/or 3D reconstructions. CONTRAST MATERIAL: Intravenous: Omnipaque 350 Contrast volume:structured data in ml COMPARISON: CT CT CHEST PE CTA from 11/10/2022 FINDINGS: CTA Neck W: Aortic arch anatomy: The aortic arch anatomy is conventional and there is no significant stenosis at the origin of the great vessels off of the aortic arch. No intimal flap evident. Anterior circulation: Both common carotid arteries ascend with normal luminal diameters. There is calcified plaque in the distal left common carotid artery and there is heavily calcified kasi que at the left carotid bulb and proximal left ICA. There is approximately 40 percent stenosis at th is level. Above this level the left ICA is patent in the upper neck, albeit somewhat tortuous prior to entering the skull base. The right common carotid artery also exhibits heavily calcified plaque at the bulb and proximal ICA. There is approximately 50-60 percent stenosis at this level. The right ICA above this level in the upper neck is patent as well as in the skull base. Posterior circulation: Both vertebral arteries originate in conventional fashion off of the subclavian arteries. Some calci fied plaque is noted at their origins. In the foramen transverse area the left vertebral artery is d ominant.. The right vertebral artery is a thinner vessel throughout its course. It appears to termi елена at the level of the posterior inferior cerebellar artery. The basilar artery is predominately f ormed by the dominant left vertebral artery. CTA Brain W: Anterior circulation: Both internal carotid arteries are patent in the skull base-carotid canals as well as within the cave rnous sinuses. However, the bryson of both intra cavernous ICAs are heavily calcified and there is al so mural calcification in the supraclinoid internal carotid arteries. No aneurysms at these levels. The left A1 segment is patent. Both anterior cerebral arteries are patent. The right CONNIE is fed vi a the anterior communicating artery. There is no aneurysm at this level evident. Both middle cerebral arteries are patent with no evidence of significant stenosis nor intraluminal th rombus. There also no aneurysms of these vessels. Posterior circulation: The basilar artery ascends in the midline. Distally it gives off patent bilateral superior cerebella r arteries. Above this level the basilar artery terminates as patent bilateral posterior cerebral arteries. There is no evidence of aneurysm at the tip of the basilar artery nor elsewhere in the [id number] is. CT BRAIN: There is no evidence of intracranial hemorrhage, mass effect, or shift of midline structures. There are no extra-axial fluid collections. Ventricles are not enlarged or shifted. There are no ring enh ancing lesions in the brain and no abnormal meningeal enhancement. There is prominent bilateral periventricular hypodensity consistent with chronic small vessel disease . IMPRESSION: 1. Heavily calcified plaque at both carotid bulbs and proximal ICAs. There is approximately 50-60 pe rcent stenosis in the proximal right ICA and approximately 40 percent stenosis in the proximal left I CA. 2. Left vertebral artery is patent and main contributor to the formation of the basilar artery at th e skull base. 3. Patent intracranial arteries. No aneurysm seen. 4. Chronic small-vessel white matter ischemic changes in the brain. No ring enhancing lesions and no abnormal meningeal enhancement. No evidence of intracranial hemorrhage. Called by myself to ER physician. RADIATION DOSE DELIVERED: 2,004.92mGy.cm Total DLP DATA REPOSITORY: All CT scans at this facility are submitted to the National Radiology Data Registry (NRDR) Dose Index Registry (DIR) with the [employer] (ACR). RADIATION OPTIMIZATION: All CT scans at this facility use at least one of these dose optimization te chniques: automated exposure control; mA and/or kV adjustment per patient size (includes targeted exa ms where dose is matched to clinical indication); or iterative reconstruction.
[2023-08-22 15:43] LABS: Bilirubin Negative (Negative); Blood Trace-lysed (Negative); Clarity Clear (Clear); Glucose Negative (Negative); Ketones Trace mg/dL (Negative); Leukocyte Esterase Negative (Negative); Nitrite Negative (Negative); Specific Gravity 1.015 (1.005-1.025); Urobilinogen 0.2 mg/dL (Up to 0.2); pH 7.5 (5-8)
[2023-08-22 15:51] LABS: Abs Immature Grans 0.02 10^3/uL (0.0-0.06); Absolute Basophil Count 0.07 10^3/uL (0.0-0.2); Absolute Eosinophil Count 0.06 10^3/uL (0.0-0.7); Absolute Lymphocyte Count 1.97 10^3/uL (1.2-3.4); Absolute Monocyte Count 0.64 10^3/uL (0.1-0.8); Absolute Neutrophil Count 4.51 10^3/uL (1.2-6.7); Eosinophils % 0.8; HGB 17.7 g/dL (13.5-17.5); Immature Grans % 0.3; Lymphocytes % 27.1; MCH 31.7 pg (27.0-33.0); MCHC 32.8 % (32.0-36.0); MCV 97 fL (80-95); MPV 9.1 fL (8.0-11.0); Monocytes % 8.8; Platelet Count 230 10^3/uL (130-400); RBC 5.58 10^6/uL (4.36-5.78); RDW 13.2 % (11.8-14.1); RDW-SD 47.4 fL; WBC 7.27 10^3/uL (4.4-10.8)
[2023-08-22 15:54] LABS: Bacteria Negative HPF (Negative); C & S Indicated? No; Casts Negative LPF (Negative); Crystals Negative HPF (Negative); Epithelial Cells Rare HPF (Negative); Mucus Negative (Negative); RBC 0-2 HPF (0-2); WBC 0-2 HPF (0-5)
[2023-08-22 16:03] LABS: ALT 29 U/L (16-63); AST 24 U/L (15-37); Albumin 3.7 g/dL (3.4-5.0); Alkaline Phosphatase 95 U/L (46-116); Anion Gap 10.7 mmol/L (3-11); BUN 8 mg/dL (7-18); Bilirubin, Total 1.1 mg/dL (0.2-1.0); CO2 24.3 mmol/L (21.0-32.0); CREATININE 0.8 mg/dL (0.70-1.30); Chloride 103 mmol/L (98-107); Estimated GFR 88.36 (mL/min/1.73m2); Glucose 99 mg/dL (74-106); Magnesium 1.9 mg/dL (1.8-2.4); Potassium 3.6 mmol/L (3.5-5.1); Sodium 138 mmol/L (136-145); Total Protein 7.4 g/dL (6.4-8.2); Troponin I < 50 ng/L (<or=60)
[2023-08-22 16:05] LABS: Prothrombin Time 45.8 sec (9.3-11.0)
[2023-08-22 16:09] LABS: INR 4.6 (0.9-1.1)
[2023-08-22] MEDS: Metoprolol 5 MG/5 ML VIAL IVP (16:23)
[2023-08-22] MEDS: Metoprolol 12.5 MG TAB PO (16:31)
[2023-08-22] MEDS: Normal Saline Flush 10 ML SYR IVP (17:35)
[2023-08-22] MEDS: Omnipaque 350 MG/ML 100 ML BTL 85 ML IJ (17:37)
[2023-08-22] MEDS: Normal Saline - Diluent 50 ML VIAL IJ (17:37)
--- NOTE | 2023-08-22 18:30 | RT.EKG_ITS ---
APPROVED REPORT Exam: Resting ECG Reason for Exam: Dizziness Patient Location: E HR:101 bpm ECG Measurements Heart Rate 101 AXIS RI [id number] P [id number] QRSd 183 QRS -84 QT 458 T 58 QTc 595 Conclusion Atrial fibrillation...V-rate 89-116, irreg A-activity RBBB and LAFB...QRSd >120mS, axis(-40,240) Probable left ventricular hypertrophy...(RaVL+SV3)xQRSd >280 Left Wallula I have reviewed and interpreted ECG and agree with software generated interpretation.
--- NOTE | 2023-08-22 22:15 | RT.EKG_ITS ---
APPROVED REPORT Exam: Resting ECG Reason for Exam: ? ST change, TELE ST up from prior EKG Patient Location: I HR:70 bpm ECG Measurements Heart Rate 70 AXIS GA 288 P 0 QRSd 152 QRS -79 QT 413 T 75 QTc 446 Conclusion Sinus rhythm...normal P axis, V-rate 50- 99 Prolonged GA interval...GA >220, V-rate 50- 90 Left bundle branch block...QRSd>120, broad/notched R
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
[2023-08-23] VITALS (8 sets, daily range): BP systolic 108–142; BP diastolic 64–81; PULSE 43–86; RESP 16–24; TEMP 36–37.3; O2SAT 93–99
[2023-08-23] MEDS: Melatonin 3 MG TAB PO ×2 (00:03→20:12)
[2023-08-23] MEDS: Acetaminophen 500 MG TAB 1000 MG PO (00:04)
[2023-08-23 07:09] LABS: Abs Immature Grans 0.02 10^3/uL (0.0-0.06); Absolute Basophil Count 0.06 10^3/uL (0.0-0.2); Absolute Eosinophil Count 0.14 10^3/uL (0.0-0.7); Absolute Lymphocyte Count 1.83 10^3/uL (1.2-3.4); Absolute Neutrophil Count 2.98 10^3/uL (1.2-6.7); Eosinophils % 2.4; HCT 46.5 % (40.0-50.0); HGB 15.8 g/dL (13.5-17.5); Immature Grans % 0.3; Lymphocytes % 31.9; MCH 31.7 pg (27.0-33.0); MCV 93 fL (80-95); MPV 9.5 fL (8.0-11.0); Monocytes % 12.2; Neutrophils % 52.2; Platelet Count 202 10^3/uL (130-400); RBC 4.98 10^6/uL (4.36-5.78); RDW 13.3 % (11.8-14.1); RDW-SD 45.8 fL; WBC 5.73 10^3/uL (4.4-10.8)
[2023-08-23 07:21] LABS: INR 3.5 (0.9-1.1); Prothrombin Time 35.3 sec (9.3-11.0)
[2023-08-23 07:43] LABS: TSH (W/Ref FT4) 1.81 uIU/mL (0.36-3.74)
[2023-08-23] MEDS: Metoprolol 12.5 MG TAB PO ×2 (07:44→20:12)
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
--- NOTE | 2023-08-23 15:23 | PGE_ITS ---
Date of Service Date of service: 08/23/23 Time of Service: 15:23 Assessment and Plan Assessment and plan (1) New onset atrial fibrillation: Status: Acute Assessment and plan: Patient had documented orthostasis with pulse increasing by 40-50 BPM with standing. At least 2 of the EKGs show atrial fibrillation. He did seem to respond well to low dose metoprolol, though he did have some bradycardia after getting IV and po metoprolol His clinical orthostatic symptoms have imrpoved since admission. Has been in and out of afib with a better controlled rate. Continue metoprolol for rate control, monitor pulse closely He is already anticoagulated He has risk factors of coronary ischemia, untreated CPAP, and some alcohol use. Doubtful the 100mg gabapentin can be blamed for his presentation, but holding for now; restart tomorrow if continues to do well. (2) History of pulmonary embolism: Status: Acute Assessment and plan: Will continue warfarin, but holding for now as his INR was supertherapeutic. (3) Ischemic cardiomyopathy: Status: Acute Assessment and plan: No symptoms of CHF, fluid status euvolemic. Monitor on metoprolol low dose. (4) Discharge planning issues: Status: Acute Assessment and plan: Monitor on telemetry for new atrial fibrillation. He would benefit from repeat echocardiogram but if symptoms imrpove this can be done as outpaitient. Subjective Subjective Patient reports: no new complaints, feels better, bowel movement (loose) and afebrile; denies nausea, vomiting or shortness of breath Interval history since last seen: Lying in bed. Moves to a sitting position w/o any symptoms Exam Narrative Exam Narrative: GEN: Alert and oriented x 3, pleasant and cooperative, gives linear history with redirection. NAD HEENT: Sclera clear. MMM, LUNGS: CTAB with normal effort CV: Irreg Irreg. Mildly tachy. ABD: +BS, soft, NT/ND EXT: no cyanosis, clubbing, or edema MSK: No joint redness or swelling NEURO: No focal motor deficits. Speech is normal. SKIN: No rashes or open wounds. PSYCH: normal mood and affect Objective Last Vital Signs Temp 36.6 C 08/23/23 11:17 Pulse 84 08/23/23 14:20 Resp 18 08/23/23 11:17 BP 125/74 08/23/23 14:20 Pulse Ox 97 08/23/23 11:17 Laboratory Results - last 24 hr 08/22/23 08/22/23 08/22/23 15:34 15:38 15:38 WBC 7.27 RBC 5.58 Hgb 17.7 H Hct 54.0 H MCV 97 H MCH 31.7 MCHC 32.8 RDW 13.2 Plt Count 230 MPV 9.1 Immature Gran % 0.3 Neutrophils % 62.0 Lymphocytes % 27.1 Monocytes % 8.8 Eosinophils % 0.8 Basophils % 1.0 Nucleated RBC % 0.0 Absolute Neutrophils 4.51 Absolute Lymphocytes 1.97 Absolute Monocytes 0.64 Absolute Eosinophils 0.06 Absolute Basophils 0.07 PT INR VBG Lactate Sodium 138 Potassium 3.6 Chloride 103 Carbon Dioxide 24.3 Anion Gap 10.7 BUN 8 Creatinine 0.8 Est GFR (CKD-EPI 2020) 88.36 Glucose 99 Calcium 9.0 Magnesium 1.9 Total Bilirubin 1.1 H AST 24 ALT 29 Alkaline Phosphatase 95 Troponin I < 50 Total Protein 7.4 Albumin 3.7 TSH Urine Color Yellow Urine Clarity Clear Urine pH 7.5 Ur Specific Napier 1.015 Urine Protein Negative Urine Ketones Trace H Urine Blood Trace-lysed H Urine Nitrite Negative Urine Bilirubin Negative Urine Urobilinogen 0.2 Ur Leukocyte Esterase Negative Urine RBC 0-2 Urine WBC 0-2 Ur Epithelial Cells Rare Urine Crystals Negative Urine Bacteria Negative Urine Casts Negative Urine Mucus Negative Ur Culture Indicated? No Urine Glucose Negative 08/22/23 08/22/23 08/23/23 15:38 17:46 06:58 WBC RBC Hgb Hct MCV MCH MCHC RDW Plt Count MPV Immature Gran % Neutrophils % Lymphocytes % Monocytes % Eosinophils % Basophils % Nucleated RBC % Absolute Neutrophils Absolute Lymphocytes Absolute Monocytes Absolute Eosinophils Absolute Basophils PT 45.8 H INR 4.6 H* VBG Lactate 1.0 Sodium Potassium Chloride Carbon Dioxide Anion Gap BUN Creatinine Est GFR (CKD-EPI 2020) Glucose Calcium Magnesium Total Bilirubin AST ALT Alkaline Phosphatase Troponin I Cancelled Total Protein Albumin TSH Urine Color Urine Clarity Urine pH Ur Specific Napier Urine Protein Urine Ketones Urine Blood Urine Nitrite Urine Bilirubin Urine Urobilinogen Ur Leukocyte Esterase Urine RBC Urine WBC Ur Epithelial Cells Urine Crystals Urine Bacteria Urine Casts Urine Mucus Ur Culture Indicated? Urine Glucose 08/23/23 08/23/23 08/23/23 06:58 06:58 06:58 WBC 5.73 RBC 4.98 Hgb 15.8 Hct 46.5 MCV 93 D MCH 31.7 MCHC 34.0 RDW 13.3 Plt Count 202 MPV 9.5 Immature Gran % 0.3 Neutrophils % 52.2 Lymphocytes % 31.9 Monocytes % 12.2 Eosinophils % 2.4 Basophils % 1.0 Nucleated RBC % 0.0 Absolute Neutrophils 2.98 Absolute Lymphocytes 1.83 Absolute Monocytes 0.70 Absolute Eosinophils 0.14 Absolute Basophils 0.06 PT 35.3 H INR 3.5 H VBG Lactate Sodium Potassium Chloride Carbon Dioxide Anion Gap BUN Creatinine Est GFR (CKD-EPI 2020) Glucose Calcium Magnesium Total Bilirubin AST ALT Alkaline Phosphatase Troponin I Total Protein Albumin TSH 1.81 Urine Color Urine Clarity Urine pH Ur Specific Napier Urine Protein Urine Ketones Urine Blood Urine Nitrite Urine Bilirubin Urine Urobilinogen Ur Leukocyte Esterase Urine RBC Urine WBC Ur Epithelial Cells Urine Crystals Urine Bacteria Urine Casts Urine Mucus Ur Culture Indicated? Urine Glucose PAWSS Have you Been Recently Intoxicated or Drunk Within the Last 30 days?: No Have you Ever Experienced Previous Episodes of Alcohol Withdrawal?: No Have you ever Experienced Withdrawal Seizures?: No Have you ever Experienced Delirium Tremens(DT)s?: No Have you ever undergone Alcohol Rehabilitation Treatment (i.e, inpt ot outpatient treatment programs)?: No Have you ever Experienced Blackouts?: No Have you ever Combined Alcohol with other Downers within the last 90 days?: No Have you ever Combined Alcohol with any other Substance of Abuse during the last 90 days?: No Positive Blood Alcohol level on Presentation? [PCS.BAL]: No Evidence of Increased Autonomic Activity (i.e. HR>120, tremor, sweating, agitation, nausea)?: No Result: 0 Time Spent with Patient Time Spent with Patient: 25-34 minutes Time was spent: preparing to see the patient(eg.review tests), obtaining and/or reviewing separately otained hiistory, ordering medications,tests, procedures, referring, communicating with other health complex care nurse practitioner, indepentently interpreting results, counseling the patient and care coordination
[2023-08-23] MEDS: Potassium Chloride 20 MEQ TABCR PO ×2 (16:54→20:11)
[2023-08-23] MEDS: Metoprolol 25 MG TAB PO (16:58)
[2023-08-23 17:25] LABS: C Diff PCR Negative (Negative)
[2023-08-23] MEDS: Atorvastatin 40 MG TAB PO (20:11)
[2023-08-24 06:00] VITALS: BP 122/58; PULSE 70; RESP 18; TEMP 36.4; O2SAT 99
[2023-08-24] MEDS: Metoprolol 12.5 MG TAB PO (07:49)
[2023-08-24] MEDS: Potassium Chloride 20 MEQ TABCR PO (07:50)
[2023-08-24 08:00] LABS: Anion Gap 7.6 mmol/L (3-11); BUN 11 mg/dL (7-18); CO2 26.4 mmol/L (21.0-32.0); CREATININE 0.8 mg/dL (0.70-1.30); Calcium 8.7 mg/dL (8.5-10.1); Chloride 106 mmol/L (98-107); Estimated GFR 88.36 (mL/min/1.73m2); Glucose 95 mg/dL (74-106); INR 1.8 (0.9-1.1); Prothrombin Time 17.9 sec (9.3-11.0); Sodium 140 mmol/L (136-145)
[2023-08-24] MEDS: Heparin 5,000 UNITS/ML VIAL 5000 UNITS SC (10:43)
[2023-08-24 14:56] VITALS: BP 125/75; BP 126/73; BP 127/70; PULSE 69; PULSE 71; PULSE 77
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
--- NOTE | 2023-08-24 15:33 | PDOC.CMDIS ---
Date of service: 08/24/23 Time of Service: 15:33 LACE Index Scoring Tool Questions: Length of Stay (in days): 2 Was the patient admitted via the E.D.?: Yes Comorbidities: Congestive Heart Failure E.D. Visits: 1 Answers: Total Score: 8 Risk of Readmission: Low Risk Care Management Discharge Plan Reason for Hospitalization: New onset atrial fibrillation, Ischemic cardiomyopathy Discharge Plan: Adebayo is discharged home via private vehicle with Lashon. He plans on staying with Lashon for a short time. He will follow up with community providers and his discharge plan of care as instructed. No new services are indicated prior to discharge. Adebayo will follow up with Cardiology, as scheduled. Patient/Family Education Needs: Review discharge instructions, limitations, medications and plan to follow up with community providers. Discuss ask me three.
== END 2023-08-24 16:22 | disposition home or self-care (01) ==
LOC: ER 20:38 → MS 21:12
PROVIDERS: Family Medicine; Registered Nurse Emergency; Admitting Provider Family Medicine; Emergency Provider Emergency Medicine; PCP Nurse Practitioner; Visit Provider Family Medicine
DX: I48.91 Unspecified atrial fibrillation (principal); I95.1 Orthostatic hypotension; I65.23 Occlusion and stenosis of bilateral carotid arteries; R26.81 Unsteadiness on feet; I67.89 Other cerebrovascular disease; G47.33 Obstructive sleep apnea (adult) (pediatric); I25.5 Ischemic cardiomyopathy; R79.1 Abnormal coagulation profile; M19.011 Primary osteoarthritis, right shoulder; M19.012 Primary osteoarthritis, left shoulder; I25.2 Old myocardial infarction; Z96.641 Presence of right artificial hip joint; Z79.01 Long term (current) use of anticoagulants; Z86.718 Personal history of other venous thrombosis and embolism; Z96.651 Presence of right artificial knee joint; Z86.711 Personal history of pulmonary embolism; Z87.891 Personal history of nicotine dependence; Z79.899 Other long term (current) drug therapy
CPT/HCPCS: 36415; 70496; 70498; 80048; 80053; 87493; 93005; 93270; 96372; 96374; 99285; 81003; 81015; 83605; 83735; 84443; 84484; 85025; 85610; 93010; 99233; 99239; G0378; J1644; J3490

== ENCOUNTER 2023-08-24 15:35 | Outpatient (RCR) | payer MEDICARE, OTHER, SELFPAY | END 2023-09-23 23:59 | disposition home or self-care (01) | LOC: LBN 15:35 | PROVIDERS: PCP Nurse Practitioner; Visit Provider Internal Medicine | DX: I48.91 Unspecified atrial fibrillation (principal) | CPT/HCPCS: 93270 ==

== ENCOUNTER → 2023-09-02 13:19 | Outpatient (CLI) | payer MEDICARE, OTHER, SELFPAY ==
--- NOTE | 2023-09-02 11:33 | DI.US_ITS ---
APPROVED REPORT EXAM: Comprehensive 2D, Doppler, and color-flow Echocardiogram Patient Location: Out-Patient Scroll Saw Operator: Ophelia Barnett RDCS (AE) Indications: New onset Atrial Fibrillation Other Information Study Quality: Adequate. Technically limited study due to body habitus. Conclusion Normal left ventricular wall thickness and chamber size. Ejection fraction is 55%. There are no seg mental wall motion abnormalities Normal right ventricular size and systolic function Both atria are moderately dilated Aortic valve is mildly sclerotic and trileaflet without stenosis or regurgitation Structurally normal mitral valve with mild to moderate regurgitation Normal tricuspid valve with mild regurgitation. Estimated right ventricular systolic pressure is 34 mmHg Wall motion Left Ventricle The left ventricle is normal size. The overall left ventricular systolic function appears normal. The re is normal left ventricular wall thickness. There is normal LV segmental wall motion. There is no v entricular septal defect visualized. LVEF is 55%. Right Ventricle Right ventricle is grossly normal in size. Right ventricular systolic function is grossly normal. Atria Left atrium is moderately dilated. Right atrium is moderately dilated. The interatrial septum is inta ct with no evidence for an atrial septal defect. Aortic Valve Aortic valve is mildly sclerotic Aortic valve is trileaflet. There is no aortic valvular stenosis. No aortic regurgitation is present. Mitral Valve The mitral valve is normal in structure. No evidence of mitral valve stenosis. Mild to moderate mitr al regurgitation. Tricuspid Valve The tricuspid valve is normal in structure. There is no tricuspid valve stenosis. Mild tricuspid regu rgitation. Pulmonic Valve The pulmonary valve is normal in structure. There is no pulmonic valvular stenosis. There is no pulmo gama valvular regurgitation. Great Vessels The aortic root is normal in size. The ascending aorta is normal in size. The IVC collapses <50% with inspiration. Pericardium There is no pericardial effusion. 2D Dimensions IVSD d PLAX 0.78 cm M: 0.6-1.2 Ao Root d 3.00 cm M: 3.1 - 3.7 LVPW d PLAX 0.78 cm M: 0.6 - 1.2 Ao Asc Diam d 3.42 cm M: 2.6 - 3.4 LVID d PLAX 5.12 cm M: 4.2 - 5.8 LVDs 3.75 cm M: 2.5 - 4.0 LV EF Teichholz 51.9 % FS 26.71 % LV EDV (Teich) 124.8 mL LV ESV (Teich) 60.1 mL M-Mode TAPSE 1.54 cm (M/F) >1.7 Auto EF LV EDV A4C 124.2 mL LV EDV A2C 90.3 mL LV EDV BP 108.4 mL LV ESV A4C 60.0 mL LV ESV A2C 44.2 mL LV ESV BP 49.8 mL LVEF(%) A4C 51.7 % LVEF(%) A2C 51.0 % LVEF(%) BP 54.0 % LV SV A4C 64.2 ml LV SV A2C 46.0 ml LV SV BP 58.6 ml LV CO A4C 4.1 L/min LV CO A2C 3.0 L/min LV CO BP 3.6 L/min HR A4C 64.38 BPM HR A2C 65.34 BPM LV EDV Index (BP) LA Volume LA Length A4C 6.7 cm LA Length A2C 5.7 cm LA Area A4C s 29.81 cm2 LA Area A2C s 24.51 cm2 LA Vol A4C A-L 112.11 mL LA Vol A2C A-L 89.68 mL LA Vol Biplane A-L 109.1 mL LA Vol/BSA A4C A-L LA Vol/BSA A2C A-L LA Vol/BSA BP A-L 55.1 mL/m2 LA Vol A4C MOD 102.0 mL LA Vol A2C MOD 83.4 mL LA Vol BP MOD 100.2 mL RA Volume RA Area A4C 15.5 cm2 RA ESV A4C (A-L) 35.6mL RA Vol/BSA A4C A-L RA Length A4C 5.7 cm RA ESV A4C (MOD) 35.0mL LV Diastology MV E' medial 0.077 (>0.07 m/s) MV E Vmax 0.59 (0.4-1.3 m/s) MV E/E' MED 7.70 (<14) MV A Vmax 0.75 (0.4-1.3 m/s) MV E' lateral 0.082 (>0.1 m/s) E/A Ratio 0.8 MV E/E' LAT 7.20 (<14) MV E' Average 0.080 m/s MV E/E'(average) 7.44 Aortic Valve AoV Vmax 1.23 m/s LVOT Vmax 1.07 m/s AoV Peak Grad 6.0 mmHg LVOT Peak Grad 4.6 mmHg AoV Area (Vmax) 2.37 cm2 LVOT VTI 0.241 m AoV VTI 0.288 m LVOT Mean Grad 2.6 mmHg AoV Mean Doron. 0.93 m/s LVOT SV 65.71 mL AoV Mean Grad 3.9 mmHg LVOT Diam s 1.85 cm AoV Area (VTI) 2.28 cm2 Velocity Ratio 0.87 Mitral Valve MV DT 212 (160-240 msec) MR Vmax 4.49 m/s MR VTI 1.667 m MR Peak Grad 80.8 mmHg MR Mean Grad 68.1 mmHg MR PISA Radius 0.76 cm MR Aliasing Velocity 0.36 m/s Pulmonary Valve PV Vmax 1.09 (0.5-1.5 m/s) RVOT Vmax 0.40 m/s PV Peak Grad 4.8 mmHg RVOT Peak Gr. 0.6 mmHg PV Mean Doron 0.72 m/s RVOT VTI 0.084 m PV Mean Grad 2.3 mmHg RVOT Mean Gr. 0.5 mmHg Tricuspid Valve RA Pressure 8.00 mmHg TR Vmax 2.57 m/s TR Peak Grad 26.3 mmHg RVSP (TR) 34.3 mmHg
== END ==
PROVIDERS: PCP Nurse Practitioner; Visit Provider Internal Medicine
DX: I48.91 Unspecified atrial fibrillation (principal)
CPT/HCPCS: 93306

== ENCOUNTER → 2023-09-09 13:50 | Outpatient (BNVA) | payer MEDICARE, OTHER, SELFPAY | PROVIDERS: PCP Nurse Practitioner; Visit Provider Urology | DX: R31.9 Hematuria, unspecified (principal); N42.89 Other specified disorders of prostate; R39.89 Other symptoms and signs involving the genitourinary system; I10 Essential (primary) hypertension | CPT/HCPCS: 99213 ==

== ENCOUNTER 2023-09-18 07:18 | Outpatient (CLI) | payer MEDICARE, OTHER, SELFPAY ==
--- NOTE | 2023-09-18 09:09 | W.CARDEVENT ---
Date of service: 09/18/23 Time of Service: 09:10 Cardiac Event Recorder Referring Provider:: Sania Cherry Indications:: Unspecified atrial fibrillation Cardiac Event Note: This is a cardiac event monitor. Patient was monitored for less than 1 day Rhythm appeared to be sinus with a long first-degree AV block and an IVCD. Atrial premature beats were noted there was no atrial fibrillation Average heart rate overall was 69
== END 2023-09-18 07:19 | disposition home or self-care (01) ==
LOC: CARDOPNVT 07:18
PROVIDERS: PCP Nurse Practitioner; Visit Provider Internal Medicine Cardiovascular Disease
DX: I48.91 Unspecified atrial fibrillation (principal); I49.1 Atrial premature depolarization; I44.0 Atrioventricular block, first degree
CPT/HCPCS: 93272

== ENCOUNTER 2023-09-19 04:26 | Observation (INO) | payer MEDICARE, OTHER, SELFPAY ==
[2023-09-19] VITALS (80 sets, daily range): BP systolic 113–181; BP diastolic 52–117; PULSE 50–129; RESP 12–32; TEMP 36.5–37.3; O2SAT 83–98
--- NOTE | 2023-09-19 04:15 | RT.EKG_ITS ---
APPROVED REPORT Exam: Resting ECG Reason for Exam: dizziness Patient Location: E HR:93 bpm ECG Measurements Heart Rate 93 AXIS ID 192 P 0 QRSd 156 QRS -85 QT 421 T 78 QTc 525 Conclusion Sinus rhythm...normal P axis, V-rate 60- 99 Atrial premature complex...SV complex w/ short R-R interval RBBB and LAFB...QRSd >120mS, axis(-40,240) Probable left ventricular hypertrophy...(RaVL+SV3)xQRSd >280 ST elevation secondary to LVH...Multiple VCG criteria sinus rhythm, left axis, RBBB, largely unchanged from most recent ecg
--- NOTE | 2023-09-19 04:30 | DI.RAD_ITS ---
Exam(s) XR CHEST 2V PA LATERAL EXAM: XR CHEST 2V PA LATERAL CLINICAL HISTORY: dizziness TECHNIQUE: 2D digital imaging was performed. COMPARISON: CR XR CHEST 2V PA LATERAL from 11/19/2022 FINDINGS: HEART: Normal size. Aorta: Not dilated. PULMONARY VASCULATURE: Normal. LUNGS: Clear. PLEURAL SPACE: No pleural effusion or pneumothorax. BONE:Unremarkable degenerative changes in the spine and shoulders. Previous surgery to both shoulder s. IMPRESSION: No acute abnormality. DATA REPOSITORY: RADIATION DOSE DELIVERED:
--- NOTE | 2023-09-19 04:30 | DI.CT_ITS ---
Exam(s) CT HEAD WO EXAM: CT HEAD WO CLINICAL HISTORY: dizziness. TECHNIQUE: Imaging Protocol: Axial computed tomography images with coronal and sagittal reformatted images were created and reviewed COMPARISON: CT CT BRAIN NECK CTA from 08/22/2023 FINDINGS: Ventricles and Extra axial spaces: Normal in size and morphology for the patient's age. Hemorrhage: None. Cerebral parenchyma: Atrophy consistent with the patient's age.. White matter changes consistent wi th small vessel disease. Midline shift: None. Brainstem/Cerebellum: Normal. Calvarium: Normal. Visualized Paranasal sinuses/Mastoids: Clear. IMPRESSION: No acute abnormality. RADIATION DOSE DELIVERED: Total DLP Total DLP DATA REPOSITORY: All CT scans at this facility are submitted to the National Radiology Data Registry (NRDR) Dose Index Registry (DIR) with the [employer] (ACR). RADIATION OPTIMIZATION: All CT scans at this facility use at least one of these dose optimization te chniques: automated exposure control; mA and/or kV adjustment per patient size (includes targeted exa ms where dose is matched to clinical indication); or iterative reconstruction.
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
[2023-09-19 04:39] LABS: Abs Immature Grans 0.02 10^3/uL (0.0-0.06); Absolute Basophil Count 0.05 10^3/uL (0.0-0.2); Absolute Eosinophil Count 0.03 10^3/uL (0.0-0.7); Absolute Lymphocyte Count 1.63 10^3/uL (1.2-3.4); Absolute Monocyte Count 0.68 10^3/uL (0.1-0.8); Absolute Neutrophil Count 5.42 10^3/uL (1.2-6.7); Basophils % 0.6; Eosinophils % 0.4; HGB 16.4 g/dL (13.5-17.5); Immature Grans % 0.3; Lymphocytes % 20.8; MCH 31.4 pg (27.0-33.0); MCHC 34.9 % (32.0-36.0); MCV 90 fL (80-95); MPV 8.6 fL (8.0-11.0); Monocytes % 8.7; Neutrophils % 69.2; Platelet Count 237 10^3/uL (130-400); RBC 5.22 10^6/uL (4.36-5.78); RDW 13.4 % (11.8-14.1); WBC 7.83 10^3/uL (4.4-10.8)
[2023-09-19] MEDS: Normal Saline 1,000 ML 1000 ML IV (04:39)
[2023-09-19 04:56] LABS: INR 1.9 (0.9-1.1); PTT Activated 31.6 sec (23.6-32.8); Prothrombin Time 17.9 sec (9.1-11.1)
[2023-09-19 05:10] LABS: ALT 38 U/L (16-63); AST 33 U/L (15-37); Albumin 3.7 g/dL (3.4-5.0); Alkaline Phosphatase 77 U/L (46-116); Anion Gap 10.3 mmol/L (3-11); BUN 9 mg/dL (7-18); CO2 26.7 mmol/L (21.0-32.0); CREATININE 0.8 mg/dL (0.70-1.30); Calcium 8.9 mg/dL (8.5-10.1); Chloride 101 mmol/L (98-107); Estimated GFR 88.36 (mL/min/1.73m2); Glucose 103 mg/dL (74-106); Magnesium 2.1 mg/dL (1.8-2.4); Potassium 3.6 mmol/L (3.5-5.1); Sodium 138 mmol/L (136-145); Total Protein 6.9 g/dL (6.4-8.2); Troponin I < 50 ng/L (<or=60)
--- NOTE | 2023-09-19 05:32 | DI.VRAD_ITS ---
PROCEDURE INFORMATION: Exam: XR Chest Exam date and time: 09/19/2023 5:06 AM Age: 83 years old Clinical indication: Other: Dizziness TECHNIQUE: Imaging protocol: Radiologic exam of the chest. Views: 2 views. COMPARISON: CR XR CHEST 2V PA LATERAL 11/19/2022 8:24 AM FINDINGS: Lungs: Unremarkable. No consolidation. Pleural spaces: Unremarkable. No pleural effusion. No pneumothorax. Heart/Mediastinum: Unremarkable. No cardiomegaly. Bones/joints: Unremarkable. IMPRESSION: No acute findings. Dictated and Authenticated by: Chavez Agosto MD. Ordering:PCARRI Tatum MD
--- NOTE | 2023-09-19 05:34 | DI.VRAD_ITS ---
PROCEDURE INFORMATION: Exam: CT Head Without Contrast Exam date and time: 09/19/2023 5:15 AM Age: 83 years old Clinical indication: Dizziness TECHNIQUE: Imaging protocol: Computed tomography of the head without contrast. COMPARISON: CT BRAIN NECK CTA 08/22/2023 5:28 PM FINDINGS: Brain: Volume loss and chronic small vessel ischemic change. No brain edema. No intracranial hemorrhage. Cerebral ventricles: No ventriculomegaly. Paranasal sinuses: Visualized sinuses are unremarkable. No fluid levels. Mastoid air cells: Unremarkable. Bones/joints: Unremarkable. No acute fracture. Soft tissues: Unremarkable. IMPRESSION: No acute brain findings. Dictated and Authenticated by: Chavez Agosto MD. Ordering:HAO Tatum MD
[2023-09-19] MEDS: Normal Saline 500 ML 1000 ML IV (06:00)
--- NOTE | 2023-09-19 06:39 | NUR.NOTE ---
PT attempted to give urine sample but was unable. ED MD notifiedNursing Note:
[2023-09-19 06:54] LABS: COVID-19 PCR Negative (Negative); Influenza A PCR Negative (Negative); Influenza B PCR Negative (Negative); RSV PCR Negative (Negative)
[2023-09-19 07:07] LABS: Source Nasopharynx
--- NOTE | 2023-09-19 07:14 | NUR.NOTE ---
Nursing Note: this RN took over care for patient from hourly shift manager. Patient pleasant, speaking in full sentences AOx3, LS Clear.
--- NOTE | 2023-09-19 07:59 | ED.PROG_ITS ---
Date of service: 09/19/23 Time of Service: 07:00 Medical Decision Making Assumed care of patient at 7 AM. 83-year-old male presents for evaluation of near syncope. Found to be orthostatic. During signout patient noted to have increased heart rate to low 100s. He does have a history of DVT and PE. He is on anticoagulation. CTA chest pending. CTA negative. On reassessment patient continues to have significant sensation of presyncope. Orthostatic vital signs were obtained and patient did not have orthostasis. I do feel that he will require admission due to ongoing symptoms. Case discussed with hospitalist who requested PT consultation. PT consult was placed. While awaiting PT consult patient sat up in bed to attempt to eat and heart rate went to the high 120s. Patient was evaluated by PT. They did not feel that patient had any vertiginous symptoms. Patient again complained of near syncope. On review of orthostatic measurements patient did have a drop in 20mmhg in systolic blood pressure and 10 point increase in heart rate. Case again discussed with hospitalist who will admit to their service. Lab Data Lab results reviewed: Yes I reviewed the patient's lab results. Sign Out Sign Out Data: Sign Out Comment: presyncope, worse with sitting and standing, orthostatic, dry on arrival, hx of DVT PE; pending UA, CTA chest, covid swab; dispo pending results and reassessment Last updated by Rc Polanco MD at 09/19/23 07:10 Discharge Plan Disposition Patient Disposition: Admit to [facility] Condition: Fair Discharge Details Clinical Impression: Orthostasis, Near syncope Primary Care Provider: Sania Cherry ED Provider: Kelli Cronin Meds and New Rx's Prescriptions: No Action CBD oil See Rx Instructions .ROUTE .COMPLEX PRN (Reason: Right shoulder pain) Rx Instructions: As directed on bottle. OTC med Metamucil 3.4 gram/5.4 gram powder 1 tbsp PO DAILY Patient Comments: Pt states not taking - ML 08/22/23 Rx Instructions: mix into at least 8 oz of water or juice before administering apple cider vinegar drops 1 oz PO DAILY calcium carbonate [Tums] 200 mg calcium (500 mg) tablet,chewable 200 mg PO BID PRN tamsulosin 0.4 mg capsule 0.4 mg PO DAILY Qty: 90 4RF atorvastatin 40 mg tablet 40 mg PO QPM Qty: 90 3RF metoprolol tartrate 25 mg tablet 12.5 mg PO BID Qty: 30 3RF acetaminophen 500 mg tablet 1,000 mg PO TID Qty: 90 0RF warfarin 5 mg tablet 5 mg PO DAILY@1800 Qty: 30 0RF Protocol: Dose Management Condition: Friday Dose/Route: 5 mg Instruction: 1 x 5 mg tablet Condition: Friday Dose/Route: 5 mg Instruction: 1 x 5 mg tablet Condition: Friday Dose/Route: 5 mg Instruction: 1 x 5 mg tablet Condition: Friday Dose/Route: 5 mg Instruction: 1 x 5 mg tablet Condition: Dose/Route: 5 mg Instruction: 1 x 5 mg tablet Condition: Friday Dose/Route: 5 mg Instruction: 1 x 5 mg tablet Condition: Friday Dose/Route: 5 mg Instruction: 1 x 5 mg tablet Protocol Text: Adjustment Start Date: Friday09/12/23 INR Value: 3.4 INR Date: 09/12/23 Recheck Date: 09/26/23
[2023-09-19 08:09] LABS: Bilirubin Negative (Negative); Blood Trace-intact (Negative); Clarity Clear (Clear); Glucose Negative (Negative); Ketones 15 mg/dL (Negative); Leukocyte Esterase Negative (Negative); Nitrite Negative (Negative); Specific Gravity 1.015 (1.005-1.025); Urobilinogen 0.2 mg/dL (Up to 0.2)
[2023-09-19 08:24] LABS: Bacteria Negative HPF (Negative); C & S Indicated? No; Casts Negative LPF (Negative); Crystals Negative HPF (Negative); Epithelial Cells Rare HPF (Negative); Mucus Negative (Negative); RBC 0-2 HPF (0-2); WBC Negative HPF (0-5)
[2023-09-19] MEDS: Normal Saline - Diluent 50 ML VIAL IJ (08:24)
[2023-09-19] MEDS: Omnipaque 350 MG/ML 500 ML BTL-Imaging package 100 ML IJ (08:33)
[2023-09-19] MEDS: Normal Saline Flush 10 ML SYR IVP (08:35)
--- NOTE | 2023-09-19 08:36 | DI.CT_ITS ---
Exam(s) CT CHEST PE CTA EXAM: CT CHEST PE CTA CLINICAL HISTORY: pre syncope, hx of PE. TECHNIQUE: Imaging Protocol: Axial CT angiography was performed with multi-slice acquisition and mu lti-planar reconstructions as well as axial, coronal and sagittal MIP reconstructions. CONTRAST MATERIAL: Intravenous: Omnipaque 350 Contrast volume:100 ml COMPARISON: CT CT CHEST PE CTA from 11/10/[address] BRAIN NECK CTA from 08/22/2023 CR,XR XR CHEST 2V PA LATERAL from 09/19/2023 FINDINGS: Pulmonary Arteries: No evidence of filling defect to suggest pulmonary emboli. Tracheobronchial tree: Patent where visualized. Mediastinum and Deanne: No dominant adenopathy or fluid collection. Pulmonary parenchyma: Mild dependent changes. No consolidation or dominant measurable mass. Pleura: No effusion or pneumothorax. Heart: The heart is mildly dilated. coronary artery calcifications are seen. Aorta: Thoracic aorta non-dilated. No aneurysm. No dissection. Atherosclerotic changes. Upper abdomen: Small hiatal hernia. Mild fatty infiltration of the liver. Bones: No prominent osteophytes in the thoracic spine. Bones are osteopenic. Tubes, Catheters, and Lines: None IMPRESSION: No evidence of pulmonary embolism or other acute abnormality.. RADIATION DOSE DELIVERED: Total DLP DATA REPOSITORY: All CT scans at this facility are submitted to the National Radiology Data Registry (NRDR) Dose Index Registry (DIR) with the [employer] (ACR). RADIATION OPTIMIZATION: All CT scans at this facility use at least one of these dose optimization te chniques: automated exposure control; mA and/or kV adjustment per patient size (includes targeted exa ms where dose is matched to clinical indication); or iterative reconstruction.
[2023-09-19 08:43] LABS: Troponin I < 50 ng/L (<or=60)
--- NOTE | 2023-09-19 10:30 | RT.EKG_ITS ---
APPROVED REPORT Exam: Resting ECG Reason for Exam: tachy Patient Location: E HR:84 bpm ECG Measurements Heart Rate 84 AXIS AR 240 P 0 QRSd 161 QRS -84 QT 417 T 65 QTc 487 Conclusion Sinus rhythm...normal P axis, V-rate 60- 99 Atrial premature complex...SV complex w/ short R-R interval Prolonged AR interval...AR >220, V-rate 50- 90 Right bundle branch block...QRSd>120, terminal axis(90,270) ST elevation secondary to LVH...Multiple VCG criteria Sinus rhythm with first degree AV block, left axis, RBBB, no signifiant change from prior. WD
[2023-09-19] MEDS: Meclizine 25 MG TAB PO (10:33)
--- NOTE | 2023-09-19 11:53 | IN_ITS ---
PT Notes Visit Reasons: [facility] Physical Therapy Inpatient Initial Evaluation Date: 09/19/2023 Referring Doctor: Kelli Cronin MD PT Orders: PT CONSULT: Evaluate for BPPV Precautions: Fall. Standard. Activity as tolerated. Patient Profile/Admitting Diagnosis: Patient is an 83-year-old male with past medical history significant PE and CHF who presented to the ED for near syncipe episode, orthostasis, and lightheadedness. Referred to PT for assessment of BPPV. PMHX: All Active Problems (Updated 09/09/23 @ 14:28 by Franklin Mario MD) Lower urinary tract symptoms (LUTS) (Acute) Carotid stenosis, bilateral (Acute) Orthostasis (Acute) New onset atrial fibrillation (Acute) Bilateral shoulder pain (Acute) Knee pain, left (Acute) History of Surgical Procedure (Chronic) a. Meniscectomy, left knee. b. Right toal knee replacement. c. Right total hip replacement. d. Bilateral cataract surgery. e. Medial epicondylitis surgery. f. Bilateral rotator cuff surgery. g. Left ring finger trigger finger release. h. Multiple surgeries for lipoma excisions. i. Colonoscopies. Sleep apnea (Chronic) a. Not on CPAP. 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 Sessile serrated adenoma x7 Long-term (current) use of anticoagulants, INR goal 2.0-3.0 (Acute) Urinary frequency (Acute) Dysuria (Acute) UTI (urinary tract infection), uncomplicated (Acute) Abdominal mass (Acute) Burning with urination (Acute) Tubular adenoma of colon (Acute ~09/2020) Hyperplastic colon polyp (Acute ~09/2020) Cervical strain, acute (Acute) Left carpal tunnel syndrome (Acute) s/p OCTR DOS: 12/10/22 Acute diverticulitis (Acute) History of pulmonary embolism (Acute) History of DVT (deep vein thrombosis) (Acute) Abdominal pain (Acute) Near syncope (Acute) Subtherapeutic international normalized ratio (INR) (Acute) Elevated troponin I level (Acute) Panic attacks (Acute) Chronic HFrEF (heart failure with reduced ejection fraction) (Chronic) Osteoarthritis of right shoulder region (Acute) Steroid injection: 08/14/2022 Osteoarthritis of left shoulder region (Acute) Steroid injection: 08/14/2022 ASCVD (arteriosclerotic cardiovascular disease) (Acute ~07/2022) Ischemic cardiomyopathy (Acute ~07/2022) Rotator cuff tear, right (Acute) Cubital tunnel syndrome on left (Acute) s/p cubital tunnel release and anterior transposition DOS: 12/10/22 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 (Acute) Left carpal tunnel syndrome (Acute) Medical History Anxiety BPH (benign prostatic hypertrophy) Cervical radiculopathy (01/01/17) Chest tightness per caregiver states this is anxiety related CHI (closed head injury) Cough Depressive disorder (07/09/13) DISH (diffuse idiopathic skeletal hyperostosis) (02/07/20) [facility] Diverticulosis DVT (deep venous thrombosis) 03/25/19 [facility] Right and Left: extensive, acute, non-occlusive DVT Erectile dysfunction Esophageal reflux (02/13/12) GERD (gastroesophageal reflux disease) Hematuria Hemorrhoids History of diverticulitis Hyperlipidemia (02/13/12) Lipids 2010: 226/115/58/149 Statin made his GERD worse Hypertension IFG (impaired fasting glucose) Impotence of organic origin (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 helicoptered to [facility] .. s/p TPA, now on lovenox, starting warfarin. Heart strain noted, fu with cardiology in 3 mos. Hem/Onc work up planned ([facility] [ ]).. Hx Lovenox for PE in past?Right ventricular dilation Serrated adenoma of colon (~09/2020) SOB (shortness of breath) Surgical History Endoscopic Carpal Tunnel release (06/19/15) R, Dr Moore H/O elbow surgery right H/O shoulder surgery bilaterally History of carpal tunnel surgery of left wrist (06/13/21) History of colonoscopy (~10/2021) History of total hip arthroplasty History of total knee replacement (05/30/14) left S/P cataract extraction and insertion of intraocular lens (~03/17/14) left S/P cataract extraction and insertion of intraocular lens (03/31/14) OD S/P trigger finger release Social History/Home Situation: Lives alone in a private home. Independent with all aspects of ADLs prior to admission. Has a FWW and SPC but mohinder snot use them. Equipment Owned/DME: FWW, SPC SUBJECTIVE: Patient reported a feeling of fainting or passing out which he states has happened to him already in the past once. Adds that sitting up and standing up make it worse but not sitting down neither lying back down in bed from sitting up. Sensation does not last long, it is not affected by head turning side to side nor up and down. Feels himself breathing hard and his heart beating up so fast when sitting up/standing up. Denies headache and chest pain but did report being weak and unable to scoot up while long sitting in bed. Onset: ?09/09/22 when getting out of bed Quality: feels like fainting, feels like passing out when he sits up Duration: ?Dizzy only when sitting up and standing up, head turning side to side, up and down dodo not aggravat symptom Previous Episodes: Yes, experienced same in the past once Exacerbating Factors: Sitting up Nausea/Vomitting: None Hearing Loss: None Tinnitus: None Fullness in Ear: None Imbalance: Yes due to weakness Red Flags: ? Visual changes: None ? Dysphagia or Dysarthria: Yes, has been going on for quite a while ? Facial Weakness: None ? Incoordination: Mild OBJECTIVE: General Observation: Supine in bed. Telemetry monitoring in place. Mental Status: Alert and oriented as to person, place, time, and purpose. Able to pay attention, focus, and respond appropriately. Pain: None Vital Signs: BP 137/117 mm Hg at edge of bed with RR at 30 bpm and HR at 120 bpm; could not stand long enough to have the standing BP taken as he complained of feeling of passing out ROM: Cervical AROM: WFL for rotation to L/R and to flexion; extension to neutral only; limited lateral flexion due pre existing cervical radiculopathy Right Upper Extremity: Shoulder Flexion lacks the last 25% of AROM. Shoulder abduction lacks the last 25% of AROM. Elbow flexion WFL. Wrist flexion WFL. Functional opening and closing of hand WFL. Left Upper Extremity: Shoulder Flexion lacks the last 25% of AROM. Shoulder abduction lacks the last 25% of AROM. Elbow flexion WFL. Wrist flexion WFL. Functional opening and closing of hand WFL. Right Lower Extremity: Hip flexion lacks the last 25% of AROM. Hip abduction WFL. Knee flexion 20 degrees to 90 degrees. Ankle dorsiflexion to neutral only. Ankle plantarflexion WFL. Left Lower Extremity: Hip flexion lacks the last 25% of AROM. Hip abduction WFL. Knee flexion 20 degrees to 90 degrees. Ankle dorsiflexion to neutral only. Ankle plantarflexion WFL. Strength: CERVICAL: 3/5 for L/R rotators and flexors; 3-/5 for extensors; 2-/5 for lateral flexors Right Upper Extremity: Shoulder flexors 3-/5. Shoulder abductors 3-/5. Elbow flexors 4-/5. Elbow extensors 4-/5. Newspaper Correspondent strong. Left Upper Extremity: Shoulder flexors 3-/5. Shoulder abductors 3-/5. Elbow flexors 4-/5. Elbow extensors 4-/5. Newspaper Correspondent strong. Right Lower Extremity: Hip flexors 3-/5. Hip abductors 4-/5. Knee flexors 3-/5. Knee extensors 3-/5. Ankle dorsiflexors 3-/5. Ankle plantarflexors 4-/5. Left Lower Extremity:Hip flexors 3-/5. Hip abductors 4-/5. Knee flexors 3-/5. Knee extensors 3-/5. Ankle dorsiflexors 3-/5. Ankle plantarflexors 4-/5. Bed Mobility/Transfers: Rolling stand by assist, uses b hands for support Supine to sit minimal assist with cues for safe/correct technique Sit to supine minimal assist with cues for safe/correct technique Sit to stand minimal assist with cues for safe/correct technique, unable to tolerate standing for too long due to sensation of passing out Stand to sit minimal assist with cues for safe/correct technique, unable to tolerate standing for too long due to sensation of passing out Gait: Deferred. Unsafe for ambulation testing at this time. Balance: Static Sitting: Fair Dynamic Sitting: Poor Static Standing: Unable Dynamic Standing: Unable no time Special Tests: Mobility Limitations Standardized Measure [facility] 6 clicks Basic Mobility Inpatient Short Form: Raw Score: 14 CMS Score: 61% deficit Special Tests: ? Rhomberg: Unable to test due to safety reasons ? Coordination: Some difficulty with faster Alternating movement ? Fine Motor: Intact ? Visual Tracking: Decrease in smooth pursuit on either side ? Head Thrust: Deferred due to cervical AROM limitations/pathology ? Reading-Halpike: Negative bilaterally ? Supine Roll Test: Negative on either side Informed Consent/Education: Patient was instructed in purpose of PT consult and agreeable to BPPV testing. Assessment: Tested negative for anterior/posterior/lateral canal/cupula BPPV. Patient with sensation of fainting/passing out with sitting upright and standing only, symptoms unaffected by head positioning. HR and BP aberration associated with positional change. Generalized weakness and anxiety over upright positioning due to fainting symptoms limited today's mobility assessment. Patient may require further assessment and observation by hospitalist for underlying cause of ongoing symptoms apart from BPPV. Unsafe to go home alone at this time due to inability to tolerate standing position. Patient presents with clinical signs and symptoms consistent with current/admitting diagnoses that have resulted to mobility limitations, gait instability, generalized weakness, and overall ADL decline as demonstrated by the following impairment level findings: 1. Decreased strength to B UE/LE major muscle groups 2. Impaired sitting/standing balance 3. Impaired activity tolerance 4. Limitation of joint range of motion as above 5. Shortness of breath 6. HR and BP instabilities with positional change Impairments are contributing to the following functional limitations: 1. Decline in bed mobility skills 2. Decline in transfer skills 3. Difficulty with ambulation without assistive device and physical assistance 4. Increased completion time for mobility ADL performance 5. Increased risk for falls Patient is assessed as a [id number] moderate complexity based on the following: History: 83-year-old male with past medical history as indicated above Examination: Demonstrable impairment in strength, balance, and mobility level with underlying impairments and functional limitations as exhibited above as well as deficit score of 61% utilizing the [facility] Mobility Inpatient Short Form Presentation: Evolving Decision Makin moderate complexity Goals: N/A. PT evaluation only. Plan of Care/Treatment Plan: N/A. PT evaluation only. DISCHARGE RECOMMENDATIONS: [] Home with no services [] [] Home with services [specify] [] Home with outpatient PT [] [] SNF for continued rehabilitation [] [] [facility] [] [] SNF versus LTC based on ability to participate and progress [] [X] Re-evaluation and further assessment by PT when symptoms subside/resolve to determine safest discharge destination TREATMENT CODE/TIME: 98892 x 26 minutes beginning at 11:25 AM. Thank you for the opportunity to participate in the care of this patient. Mariposa Graves PT, DPT, CLT [facility] [place], [place] Social History/Home Situation: [] Equipment Owned/DME: [] Subjective: [] Objective: [] General Observation: [] Mental Status: Alert and oriented as to person, place, time, and purpose. Able to pay attention, focus, and respond appropriately. Pain: []/10 in [] [] Vital Signs: [] ROM: Right Upper Extremity: Shoulder Flexion WFL. Shoulder abduction WFL. Elbow flexion WFL. Wrist flexion WFL. Functional opening and closing of hand WFL. Left Upper Extremity: Shoulder Flexion WFL. Shoulder abduction WFL. Elbow flexion WFL. Wrist flexion WFL. Functional opening and closing of hand WFL. Right Lower Extremity: Hip flexion WFL. Hip abduction WFL. Knee flexion WFL. Ankle dorsiflexion WFL. Ankle plantarflexion WFL. Left Lower Extremity: Hip flexion WFL. Hip abduction WFL. Knee flexion WFL. Ankle dorsiflexion WFL. Ankle plantarflexion WFL. Strength: Right Upper Extremity: Shoulder flexors []/5. Shoulder abductors []/5. Elbow flexors []/5. Elbow extensors []/5. Newspaper Correspondent strong. Left Upper Extremity: Shoulder flexors []/5. Shoulder abductors []/5. Elbow flexors []/5. Elbow extensors []/5. Newspaper Correspondent strong. Right Lower Extremity: Hip flexors []/5. Hip abductors []/5. Knee flexors []/5. Knee extensors []/5. Ankle dorsiflexors []/5. Ankle plantarflexors []/5. Left Lower Extremity: Hip flexors []/5. Hip abductors []/5. Knee flexors []/5. Knee extensors []/5. Ankle dorsiflexors []/5. Ankle plantarflexors []/5. Bed Mobility/Transfers: Rolling with [] cues for safe/correct technique Supine to sit with [] cues for safe/correct technique Sit to supine with [] cues for safe/correct technique Sit to stand with [] with [] cues for safe/correct technique Stand to sit with [] with [] cues for safe/correct technique Bed to bedside commode with [] with [] cues for safe/correct technique Bedside commode to bed with [] with [] cues for safe/correct technique Bed to reclining chair with [] with [] cues for safe/correct technique Reclining chair to bed with [] with [] cues for safe/correct technique Gait: Instructed patient with level surface ambulation of [] feet requiring [] assist. Tg []. Step height []. Step length []. Balance: Static Sitting: [] Dynamic Sitting: [] Static Standing: [] Dynamic Standing: [] Special Tests: Mobility Limitations Standardized Measure [facility] AM-PAC 6 clicks Basic Mobility Inpatient Short Form: Raw Score: [] CMS Score: []% deficit Informed Consent/Education: Patient was instructed in purpose of PT consult and plan of care. Agreeable to proceed with established PT POC to achieve personal goals. Assessment: Patient presents with clinical signs and symptoms consistent with current/admitting diagnoses that have resulted to mobility limitations, gait instability, generalized weakness, and overall ADL decline as demonstrated by the following impairment level findings: 1. Decreased strength to [] [] major muscle groups 2. Impaired sitting/standing balance 3. Impaired activity tolerance 4. Limitation of joint range of motion in [] 5. Shortness of breath 6. Swelling Impairments are contributing to the following functional limitations: 1. Decline in bed mobility skills 2. Decline in transfer skills 3. Difficulty with ambulation without assistive device and physical assistance 4. Increased completion time for mobility ADL performance 5. Increased risk for falls 6. Difficulty with managing steps alone safely Patient is assessed as a [] complexity based on the following: History: []-year-old [] with past medical history as indicated above Examination: Demonstrable impairment in strength, balance, and mobility level with underlying impairments and functional limitations as exhibited above as well as deficit score of []% utilizing the [facility] Mobility Inpatient Short Form Presentation: [] Decision Making: [] complexity Goals: Goals X1 week 1. Supine-Sit independent 2. Sit-Supine independent 3. Sit-Stand independent 4. Stand-Sit independent with [] 5. Bed-Chair independent with [] 6. Chair-Bed independent with [] 7. Independent gait on level surface with use of [] for at least [] feet without report of pain nor dyspnea 8. Independent stair negotiation while holding onto [] rails for at least [] steps without report of pain nor dyspnea 9. Independent with home exercise program 10. Good static and dynamic standing balance/tolerance Plan of Care/Treatment Plan: 1-2x/day, 7 days/week x 1 week. Plan of care has been reviewed with the RODENT EXTERMINATOR providing the service under Physical Therapy direction. Initiate Physical Therapy intervention for pain management as needed, strengthening, bed mobility, transfers, gait, stairs, balance training, and use of assistive device. DISCHARGE RECOMMENDATIONS: [] Home with no services [] [] Home with services [specify] [] Home with outpatient PT [] [] SNF for continued rehabilitation [] [] [facility] [] [] SNF versus LTC based on ability to participate and progress [] TREATMENT CODE/TIME: [] Thank you for the opportunity to participate in the care of this patient. Mariposa Graves PT, DPT, CLT [facility] [place], [place]
[2023-09-19] MEDS: Warfarin 5 MG TAB PO (16:21)
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
[2023-09-19] MEDS: Lactated Ringers 1,000 ML 100 ML IV (18:59)
--- NOTE | 2023-09-19 19:00 | RT.EKG_ITS ---
APPROVED REPORT Exam: Resting ECG Reason for Exam: [facility] Patient Location: I HR:87 bpm ECG Measurements Heart Rate 87 AXIS ME 274 P 213 QRSd 161 QRS -86 QT 427 T 64 QTc 514 Conclusion Sinus or ectopic atrial rhythm...P axis (-45,135) Sinus pause...long R-R interval, normal QRSd Prolonged ME interval...ME >220, V-rate 50- 90 RBBB and LAFB...QRSd >120mS, axis(-40,240)
[2023-09-19 20:17] LABS: INR 1.4 (0.9-1.1); Prothrombin Time 13.6 sec (9.1-11.1)
[2023-09-19] MEDS: Atorvastatin 40 MG TAB PO (20:36)
[2023-09-20 03:14] VITALS: BP 130/75; PULSE 82; RESP 17; TEMP 36.2; O2SAT 94
[2023-09-20] MEDS: Lactated Ringers 1,000 ML 100 ML IV ×2 (04:58→14:43)
[2023-09-20 07:34] LABS: Abs Immature Grans 0.01 10^3/uL (0.0-0.06); Absolute Basophil Count 0.04 10^3/uL (0.0-0.2); Absolute Eosinophil Count 0.22 10^3/uL (0.0-0.7); Absolute Monocyte Count 0.51 10^3/uL (0.1-0.8); Absolute Neutrophil Count 2.52 10^3/uL (1.2-6.7); Basophils % 0.8; Eosinophils % 4.6; HCT 41.4 % (40.0-50.0); HGB 14.3 g/dL (13.5-17.5); Immature Grans % 0.2; Lymphocytes % 31.3; MCH 32.3 pg (27.0-33.0); MCHC 34.5 % (32.0-36.0); MCV 94 fL (80-95); MPV 9.4 fL (8.0-11.0); Monocytes % 10.6; Neutrophils % 52.5; Platelet Count 185 10^3/uL (130-400); RBC 4.43 10^6/uL (4.36-5.78); RDW 13.9 % (11.8-14.1); RDW-SD 47.3 fL
[2023-09-20 07:46] LABS: INR 1.3 (0.9-1.1)
[2023-09-20 07:48] LABS: Anion Gap 10.5 mmol/L (3-11); BUN 7 mg/dL (7-18); CO2 24.5 mmol/L (21.0-32.0); CREATININE 0.8 mg/dL (0.70-1.30); Chloride 106 mmol/L (98-107); Estimated GFR 88.36 (mL/min/1.73m2); Glucose 98 mg/dL (74-106); Magnesium 2.1 mg/dL (1.8-2.4); Potassium 3.6 mmol/L (3.5-5.1); Sodium 141 mmol/L (136-145)
[2023-09-20 07:58] VITALS: BP 135/78; PULSE 74; RESP 18; TEMP 36; O2SAT 97
[2023-09-20] MEDS: Psyllium PKT 1 EACH PO (08:20)
[2023-09-20 08:30] VITALS: BP 123/63; BP 132/71; BP 136/60; PULSE 75; PULSE 83; PULSE 89
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
--- NOTE | 2023-09-20 09:50 | IN_ITS ---
Date of service: 09/20/23 Time of Service: 09:30 PT Notes Visit Reasons: Orthostatic Hypotension Inpatient Physical Therapy Evaluation Date: September 20, 2023 Referring Doctor: Peggy Miguel PT Orders: PT CONSULT: Precautions: Standard Patient Profile/Admitting Diagnosis: Patient is an 83-year-old male with past medical history significant PE and CHF who presented to the ED for near syncipe episode, orthostasis, and lightheadedness. PMHX: All Active Problems (Updated 09/09/23 @ 14:28 by Franklin Mario MD) Lower urinary tract symptoms (LUTS) (Acute) Carotid stenosis, bilateral (Acute) Orthostasis (Acute) New onset atrial fibrillation (Acute) Bilateral shoulder pain (Acute) Knee pain, left (Acute) History of Surgical Procedure (Chronic) a. Meniscectomy, left knee. b. Right toal knee replacement. c. Right total hip replacement. d. Bilateral cataract surgery. e. Medial epicondylitis surgery. f. Bilateral rotator cuff surgery. g. Left ring finger trigger finger release. h. Multiple surgeries for lipoma excisions. i. Colonoscopies. Sleep apnea (Chronic) a. Not on CPAP. 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 denies this Anticoagulation monitoring, INR range 2-3 (Acute) 03/24/19 [facility] [place] Continue warfarin longterm for secondary VTE prophylaxis RAHEEM positive (Chronic) Nicotine dependence (Acute 07/09/13) S/P colonoscopy (Acute ~08/02/19) Tubular adenoma x11. Sessile serrated adenoma x7 Long-term (current) use of anticoagulants, INR goal 2.0-3.0 (Acute) Urinary frequency (Acute) Dysuria (Acute) UTI (urinary tract infection), uncomplicated (Acute) Abdominal mass (Acute) Burning with urination (Acute) Tubular adenoma of colon (Acute ~09/2020) Hyperplastic colon polyp (Acute ~09/2020) Cervical strain, acute (Acute) Left carpal tunnel syndrome (Acute) s/p OCTR DOS: 12/10/22 Acute diverticulitis (Acute) History of pulmonary embolism (Acute) History of DVT (deep vein thrombosis) (Acute) Abdominal pain (Acute) Near syncope (Acute) Subtherapeutic international normalized ratio (INR) (Acute) Elevated troponin I level (Acute) Panic attacks (Acute) Chronic HFrEF (heart failure with reduced ejection fraction) (Chronic) Osteoarthritis of right shoulder region (Acute) Steroid injection: 08/14/2022 Osteoarthritis of left shoulder region (Acute) Steroid injection: 08/14/2022 ASCVD (arteriosclerotic cardiovascular disease) (Acute ~07/2022) Ischemic cardiomyopathy (Acute ~07/2022) Rotator cuff tear, right (Acute) Cubital tunnel syndrome on left (Acute) s/p cubital tunnel release and anterior transposition DOS: 12/10/22 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 (Acute) Left carpal tunnel syndrome (Acute) Medical History Anxiety BPH (benign prostatic hypertrophy) Cervical radiculopathy (01/01/17) Chest tightness per caregiver states this is anxiety related CHI (closed head injury) Cough Depressive disorder (07/09/13) DISH (diffuse idiopathic skeletal hyperostosis) (02/07/20) [facility] [place] Diverticulosis DVT (deep venous thrombosis) 03/25/19 [facility] [place] Right and Left: extensive, acute, non-occlusive DVT Erectile dysfunction Esophageal reflux (02/13/12) GERD (gastroesophageal reflux disease) Hematuria Hemorrhoids History of diverticulitis Hyperlipidemia (02/13/12) Lipids 2010: 226/115/58/149 Statin made his GERD worse Hypertension IFG (impaired fasting glucose) Impotence of organic origin (02/13/12) Insomnia Numbness and tingling in both hands Obstructive sleep apnea syndrome (02/13/13) [facility], SLEEP STUDY 02/13/13 BIPAP RECOMMENDED ([facility]) PT ISN'T USING and returned BiPAP on own 04/2013 Periodic limb movement disorder (02/13/13) [facility], SLEEP STUDY 02/13/13 Pulmonary embolism Acute saddle PE found @ [facility] Friday, 08/10 .. helicoptered to [facility] [place] .. s/p TPA, now on lovenox, starting warfarin. Heart strain noted, fu with cardiology in 3 mos. Hem/Onc work up planned ([facility] [place] [facility] [ ]).. Hx Lovenox for PE in past?Right ventricular dilation Serrated adenoma of colon (~09/2020) SOB (shortness of breath) Surgical History Endoscopic Carpal Tunnel release (06/19/15) R, Dr Moore H/O elbow surgery right H/O shoulder surgery bilaterally History of carpal tunnel surgery of left wrist (06/13/21) History of colonoscopy (~10/2021) History of total hip arthroplasty History of total knee replacement (05/30/14) left S/P cataract extraction and insertion of intraocular lens (~03/17/14) left S/P cataract extraction and insertion of intraocular lens (03/31/14) OD S/P trigger finger release Social History/Home Situation: Lives alone in a private home. Independent with all aspects of ADLs prior to admission. Has a FWW and SPC but does not use them. Equipment Owned/DME: FWW, SPC Subjective: Adebayo reports he is feeling much better this morning declines any dizziness. Unsure what brought the dizziness on or why it happened. Feels general weakness in the arms and legs this morning. Agreeable to PT evaluation this a.m. Objective: General Observation: IV right upper extremity Mental Status: Alert and oriented x3 Pain: Declines pain at time of evaluation however does note of bilateral shoulder arthritis Vital Signs: O2 saturation 98% on room air, heart rate of 81 beats per minutes ROM: Right Upper Extremity: Shoulder Flexion lacks the last 25% of AROM. Shoulder abduction lacks the last 25% of AROM. Elbow flexion WFL. Wrist flexion WFL. Functional opening and closing of hand WFL. Left Upper Extremity: Shoulder Flexion lacks the last 25% of AROM. Shoulder abduction lacks the last 25% of AROM. Elbow flexion WFL. Wrist flexion WFL. Functional opening and closing of hand WFL. Right Lower Extremity: Hip flexion lacks the last 25% of AROM. Hip abduction WFL. Knee flexion 20 degrees to 90 degrees. Ankle dorsiflexion to neutral only. Ankle plantarflexion WFL. Left Lower Extremity: Hip flexion lacks the last 25% of AROM. Hip abduction WFL. Knee flexion 20 degrees to 90 degrees. Ankle dorsiflexion to neutral only. Ankle plantarflexion WFL. Strength: Right Upper Extremity: Shoulder flexors 3/5. Shoulder abductors 3/5. Elbow flexors 4-/5. Elbow extensors 4-/5. Transportation Attendant strong. Left Upper Extremity: Shoulder flexors 3/5. Shoulder abductors 3/5. Elbow flexors 4-/5. Elbow extensors 4-/5. Transportation Attendant strong. Right Lower Extremity: Hip flexors 4/5. Hip abductors 4-/5. Knee flexors 4/5. Knee extensors 4/5. Ankle dorsiflexors 4/5. Ankle plantarflexors 4-/5. Left Lower Extremity:Hip flexors 4/5. Hip abductors 4-/5. Knee flexors 4/5. Knee extensors 4/5. Ankle dorsiflexors 4/5. Ankle plantarflexors 4-/5. Sensation: Intact to light touch bilateral UE/LE Bed Mobility/Transfers: Supine to sit: Supervision Sit to stand: Supervision Stand to sit: Supervision with cueing for proper hand placement Bed to chair: Supervision with front wheel walker Chair to toilet: Supervision with front wheel walker Gait: FWW, 300 ft, good jean, without dyspnea or fatigue noted, Supervision Balance: Static Sitting: Normal Dynamic Sitting: Good Static Standing: Good Dynamic Standing: Fair Special Tests: Mobility Limitations Standardized Measure [facility] AM-PAC 6 clicks Basic Mobility Inpatient Short Form: Raw Score: 22 CMS Score: 21% Informed Consent/Education: Patient instructed in purpose of PT consult and plan of care. Assessment: Patient is a 83 year old male referred to physical therapy services with the diagnosis of hypotensive. Patient presents with clinical signs and symptoms consistent with diagnosis, as demonstrated by the following impairment level findings: Limited activity tolerance, requiring use of assistive device for balance and gait. Impairments are contributing to the following functional limitations: Bilateral shoulder weakness due to OA/rotator cuff dysfunction, impaired dynamic standing balance, decreased functional endurance. Patient is assessed as a Low 50636 complexity based on the following: History: As above Examination: As above Presentation: Stable Decision Making: Low Goals: Goals X1 week 1. Supine-Sit independent 2. Sit-Supine independent 3. Sit-Stand independent 4. Stand-Sit independent 5. Bed-Chair independent with front wheeled walker 6. Chair-Bed independent with front wheeled walker 7. Gait independent with use of front wheeled walker of least restrictive assistive device as needed 8. Stairs able to ascend/descend 2-3 stairs Plan of Care/Treatment Plan: 1-2x/day, 7 days/week x 1 week. Plan of care has been reviewed with the MAINTENANCE AIDE providing the service under Physical Therapy direction. Initiate Physical Therapy intervention for strengthening, bed mobility, transfers, gait, stairs, balance training, use of assistive device. DISCHARGE RECOMMENDATIONS: Home with no services once medically cleared. Do recommend use of assistive device TREATMENT CODE/TIME: 88442, IE, 25 minutes, 9:30 am RABIA Sawant [facility] Disclaimer: This note was created using [employer] voice recognition software. It was reviewed for major content. However, there may be multiple small discrepancies and errors due to the voice recognition aspects of the software.
[2023-09-20 10:50] VITALS: BP 139/74; PULSE 74; RESP 16; TEMP 36.4; O2SAT 97
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
--- NOTE | 2023-09-20 13:41 | NUR.NOTE ---
Went in to prepare and position pt for preocedure. I asked pt if she knew what we were doing. She said, no, so I told her that we were preparing to take more fluid off her, through thorocentesis. She looked at me and said, no, no, no.Nursing Note:
[2023-09-20 15:01] VITALS: BP 154/91; PULSE 79; RESP 20; TEMP 36.5; O2SAT 95
--- NOTE | 2023-09-20 15:11 | W.PM.PROGNOT ---
Date of Service Date of service: 09/20/23 Time of Service: 15:11 Assessment and Plan Assessment and plan (1) Orthostasis: Status: Acute Assessment and plan: IVF Monitor labs Check orthostatic vs and monitor sx Patient in chronic AFib - recently dx (2) Atrial fibrillation: Status: Chronic Assessment and plan: Recently dx - 08/16 ED reported NSR EKG, AFib on arrival to floor per telemetry, EKG done which confirmed. Same sx when he was here in Jul with AFib Echo 09/02 EF 55%; no wall motion abn. INR subtherapeutic 1.3 - 5 mg Coumadin orally given after usual dose of 5 mg orally. Trend (3) History of pulmonary embolism: Status: Acute Assessment and plan: Will continue warfarin CTA negative (4) Ischemic cardiomyopathy: Status: Acute Assessment and plan: No symptoms of CHF, fluid status euvolemic. Monitor on metoprolol low dose. (5) Discharge planning issues: Status: Acute Assessment and plan: Monitor on telemetry for new atrial fibrillation dx 3 weeks ago. Cardiology consult ordered for Friday for pacemaker v tx Subjective Subjective Patient reports: no new complaints, tolerating liquids well, tolerating a regular diet, bowel movement and afebrile; denies flatus, diarrhea, nausea, vomiting or shortness of breath Interval history since last seen: Reports feeling better, no dizziness. Exam Narrative Exam Narrative: Physical Examination General: alert, awake, cooperative, resting comfortably, no acute distress HEENT: normocephalic, atraumatic; PERRL, EOM intact, conjunctiva normal; no nasal discharge; dry oral mucosa Neck: supple, trachea midline; full ROM Chest: normal to inspection Respiratory: normal respiratory effort, speaking in full sentences, clear to auscultation, no wheezing, rales or rhonchi Cardiac: irregular rate, regular rhythm, S1S2 intact, no murmurs rubs or gallops GI: abdomen soft, non-tender, non-distended; no palpable mass or hepatosplenomegaly Skin: Dry skin Neuro: AAOx3, normal speech, moving all extremities; 5/5 strength upper and lower extremities bilaterally cranial nerves II through XII intact, sensation intact no truncal ataxia Extremities: No peripheral edema Psych: Appropriate mood and affect Objective Last Vital Signs Temp 36.5 C 09/20/23 15:01 Pulse 79 09/20/23 15:01 Resp 20 09/20/23 15:01 BP 154/91 H 09/20/23 15:01 Pulse Ox 95 09/20/23 15:01 Laboratory Results - last 24 hr 09/19/23 09/20/23 20:00 06:30 WBC 4.80 RBC 4.43 Hgb 14.3 D Hct 41.4 MCV 94 D MCH 32.3 MCHC 34.5 RDW 13.9 Plt Count 185 MPV 9.4 Immature Gran % 0.2 Neutrophils % 52.5 Lymphocytes % 31.3 Monocytes % 10.6 Eosinophils % 4.6 Basophils % 0.8 Nucleated RBC % 0.0 Absolute Neutrophils 2.52 Absolute Lymphocytes 1.50 Absolute Monocytes 0.51 Absolute Eosinophils 0.22 Absolute Basophils 0.04 PT 13.6 H 13.0 H INR 1.4 H 1.3 H Sodium 141 Potassium 3.6 Chloride 106 Carbon Dioxide 24.5 Anion Gap 10.5 BUN 7 Creatinine 0.8 Est GFR (CKD-EPI 2020) 88.36 Glucose 98 Calcium 8.0 L Magnesium 2.1 Time Spent with Patient Time Spent with Patient: 35-49 minutes Time was spent: preparing to see the patient(eg.review tests), ordering medications,tests, procedures, referring, communicating with other health home health care physician, indepentently interpreting results, counseling the patient and care coordination
[2023-09-20] MEDS: Warfarin 5 MG TAB PO ×2 (15:57→19:34)
[2023-09-20 19:28] VITALS: BP 140/73; PULSE 74; RESP 20; TEMP 36.9; O2SAT 95
[2023-09-20] MEDS: Atorvastatin 40 MG TAB PO (19:34)
[2023-09-21] VITALS (7 sets, daily range): BP systolic 111–157; BP diastolic 69–90; PULSE 60–82; RESP 17–20; TEMP 36.2–37; O2SAT 95–100
[2023-09-21 06:57] LABS: Abs Immature Grans 0.02 10^3/uL (0.0-0.06); Absolute Basophil Count 0.06 10^3/uL (0.0-0.2); Absolute Eosinophil Count 0.24 10^3/uL (0.0-0.7); Absolute Lymphocyte Count 1.52 10^3/uL (1.2-3.4); Absolute Monocyte Count 0.59 10^3/uL (0.1-0.8); Absolute Neutrophil Count 3.44 10^3/uL (1.2-6.7); Eosinophils % 4.1; HCT 45.1 % (40.0-50.0); HGB 15.4 g/dL (13.5-17.5); Immature Grans % 0.3; Lymphocytes % 25.9; MCH 31.6 pg (27.0-33.0); MCHC 34.1 % (32.0-36.0); MCV 92 fL (80-95); MPV 9.2 fL (8.0-11.0); Monocytes % 10.1; Neutrophils % 58.6; Platelet Count 186 10^3/uL (130-400); RBC 4.88 10^6/uL (4.36-5.78); RDW 13.9 % (11.8-14.1); RDW-SD 47.4 fL; WBC 5.87 10^3/uL (4.4-10.8)
[2023-09-21 07:12] LABS: INR 1.6 (0.9-1.1); Prothrombin Time 15.7 sec (9.1-11.1)
[2023-09-21 07:16] LABS: Anion Gap 11.9 mmol/L (3-11); BUN 6 mg/dL (7-18); CO2 24.1 mmol/L (21.0-32.0); CREATININE 0.7 mg/dL (0.70-1.30); Calcium 8.5 mg/dL (8.5-10.1); Chloride 105 mmol/L (98-107); Glucose 97 mg/dL (74-106); Magnesium 2.3 mg/dL (1.8-2.4); Potassium 3.8 mmol/L (3.5-5.1); Sodium 141 mmol/L (136-145)
[2023-09-21] MEDS: Psyllium PKT 1 EACH PO (08:05)
--- NOTE | 2023-09-21 09:21 | PGE_ITS ---
Date of Service Date of service: 09/21/23 Time of Service: 09:21 Assessment and Plan Assessment and plan (1) Orthostasis: Status: Acute Assessment and plan: IVF discontinued, improved orthostasis Monitor labs Wiil continue to check orthostatic vs and monitor sx Patient in chronic AFib history as per recent diagnosis but in a sinusal rhythm on telemetry this AM (2) Atrial fibrillation: Status: Chronic Assessment and plan: Recently dx - 08/16 ED reported NSR EKG, AFib on arrival to floor per telemetry, EKG done which confirmed.Might be paroxysmal Same sx when he was here in Jul with AFib Echo 09/02 EF 55%; no wall motion abn. Will restart metoprolol 12.5 mg oral BID with parameters as patient did not have time to get his refill and might have missed doses and has less orthostasis INR subtherapeutic 1.6 - was 1.3 on 09/20 dose increased to 7.5 mg PO tonight. Pt reports missing doses dt memory issues INR remains subtherapeutic today again; will increase Coumadin to 7.5 mg PO as per pharmacy consultation for a goal of 2.5 as per [facility] [place] on 09/11/2023 (3) History of pulmonary embolism: Status: Acute Assessment and plan: Will continue warfarin CTA was negative (4) Ischemic cardiomyopathy: Status: Acute Assessment and plan: No symptoms of CHF, fluid status euvolemic. We will continue metoprolol low dose and monitor. (5) Discharge planning issues: Status: Acute Assessment and plan: Monitor on telemetry for new atrial fibrillation dx 3 weeks ago. Probably paroxysmal as rhythm changes on and off on telemetry reading Cardiology consult ordered for Friday for pacemaker, pharmacological control or ablation consideration Subjective Subjective Patient reports: no new complaints (reports on run of palpitation HR 120-140 non-sustained A-Fib , BP stable despite dizziness), feels better (but reports insomnia ), tolerating liquids well, tolerating a regular diet, voiding w/o difficulty, bowel movement, shortness of breath, afebrile and other (reports forgetfulness, skipping doses of metoprolol and warfarin at home, questioning maybe taking 2 doses at time, Thing RN for Rx might be beneficial ); denies flatus, diarrhea, nausea or vomiting Exam Narrative Exam Narrative: Constitutional The patient is sitting in chair comfortable and cooperative during the interview. The patient is well groomed without acute distress and has average body habitus HENMT: Head is atraumatic, normocephalic. Facial structures with normal appearance Eyes: Well aligned Neck: Normal ROM Neuro:alert and oriented to self, person, place time and situation. No neurological focal deficit, PERRLA Chest:Chest is symmetrical and normal appearance Resp: Normal respiratory pattern, speaks in full sentences, unlabored breathing, clear lung bilaterally Cardio: Telemetry: WAP/ 1AVB 78, S1, S2 no murmur, capillary refill<3 sec., bilateral radial and dorsalis pedis pulses are positive, palpable GI: Abdomen is not distended, soft and non tender, bowel sounds are present : Negative Costovertebral angle tenderness Back/spine/Pelvis: No back tenderness, normal alignment Integumentary: No skin lesions or rash Extremities: strength 5/5 to bilateral lower and upper extremities Psych: RASS 0, congruent mood and normal affect. Objective Last Vital Signs Temp 36.3 C L 09/21/23 07:28 Pulse 78 09/21/23 07:57 Resp 18 09/21/23 07:28 BP 157/80 H 09/21/23 07:28 Pulse Ox 97 09/21/23 07:28 Laboratory Results - last 24 hr 09/20/23 09/20/23 09/21/23 19:15 19:30 06:33 WBC 5.87 RBC 4.88 Hgb 15.4 Hct 45.1 MCV 92 MCH 31.6 MCHC 34.1 RDW 13.9 Plt Count 186 MPV 9.2 Immature Gran % 0.3 Neutrophils % 58.6 Lymphocytes % 25.9 Monocytes % 10.1 Eosinophils % 4.1 Basophils % 1.0 Nucleated RBC % 0.0 Absolute Neutrophils 3.44 Absolute Lymphocytes 1.52 Absolute Monocytes 0.59 Absolute Eosinophils 0.24 Absolute Basophils 0.06 PT Cancelled Cancelled 15.7 H INR Cancelled Cancelled 1.6 H Sodium 141 Potassium 3.8 Chloride 105 Carbon Dioxide 24.1 Anion Gap 11.9 H BUN 6 L Creatinine 0.7 Est GFR (CKD-EPI 2020) 92.00 Glucose 97 Calcium 8.5 Magnesium 2.3 Time Spent with Patient Time Spent with Patient: >50 minutes Time was spent: preparing to see the patient(eg.review tests), ordering medications,tests, procedures, referring, communicating with other health ocular care aide, indepentently interpreting results, counseling the patient and care coordination
--- NOTE | 2023-09-21 09:46 | PT.INTREAT ---
PT Notes Visit Reasons: Orthostatic Hypotension Inpatient Physical Therapy Treatment Note [facility] Date: 09/21/23 SUBJECTIVE: Pt reports that he took a nap this am and when he woke up his heart was racing. Pt reports he is doing well now. OBJECTIVE: ? VITALS: ? Pre-Treatment: pre bp WNL ? Therapeutic Activities (00526j[1]): Direct one-on-one instruction in dynamic activities to improve functional performance. ? BED MOBILITY/TRANSFERS? Sit-supine: SBA ? Sit-stand: SBA? Stand-sit: SBA ? GAIT? Assistive Device: FWW? Weight bearing: Full Assist: SBA? Distance:? Small loop ? Therapeutic Exercises (56085u[1]): Direct one-on-one instruction in therapeutic exercises to develop strength, endurance, range of motion and flexibility. ? Exercises ? Seated shoulder circles x 10 each eay Seated LAQ x 10 Seated shoulder horz abd x 20 Seated shoulder flexion x 10 Seated UE rowing x 20 Reclined hip abd x 10 Reclined SLR x 10 Standing HR x 20 Squats x 20 Standing SSH x 10 ASSESSMENT:? Pt was very motivated during his session today and had zero symptoms with dizziness or heart racing. PLAN: Cont as per PT POC. TREATMENT CODE/TIME: 9:20-9:45 (25) TA TP
[2023-09-21] MEDS: WARFARIN 5 MG, WARFARIN 2.5 MG 7.5 MG PO (16:05)
[2023-09-21 19:50] LABS: INR 1.9 (0.9-1.1); Prothrombin Time 18.3 sec (9.1-11.1)
[2023-09-21] MEDS: Atorvastatin 40 MG TAB PO (20:13)
[2023-09-21] MEDS: Melatonin 3 MG TAB PO (21:37)
[2023-09-22] VITALS (7 sets, daily range): BP systolic 94–137; BP diastolic 57–81; PULSE 53–88; RESP 17–18; TEMP 36.1–36.5; O2SAT 96–97
[2023-09-22 06:53] LABS: INR 2.2 (0.9-1.1); Prothrombin Time 20.6 sec (9.1-11.1)
[2023-09-22 06:54] LABS: HCT 49.1 % (40.0-50.0); HGB 16.4 g/dL (13.5-17.5); MCH 31.2 pg (27.0-33.0); MCHC 33.4 % (32.0-36.0); MCV 94 fL (80-95); MPV 9.1 fL (8.0-11.0); Platelet Count 195 10^3/uL (130-400); RBC 5.25 10^6/uL (4.36-5.78); RDW 13.9 % (11.8-14.1); RDW-SD 47.6 fL; WBC 6.68 10^3/uL (4.4-10.8)
[2023-09-22 07:00] LABS: Anion Gap 8.4 mmol/L (3-11); BUN 9 mg/dL (7-18); CO2 26.6 mmol/L (21.0-32.0); CREATININE 0.8 mg/dL (0.70-1.30); Calcium 8.9 mg/dL (8.5-10.1); Chloride 105 mmol/L (98-107); Estimated GFR 88.36 (mL/min/1.73m2); Glucose 95 mg/dL (74-106); Potassium 4.1 mmol/L (3.5-5.1); Sodium 140 mmol/L (136-145)
[2023-09-22] MEDS: Metoprolol 12.5 MG TAB PO (07:48)
[2023-09-22] MEDS: Psyllium PKT 1 EACH PO (07:48)
--- NOTE | 2023-09-22 08:29 | PDOC.CMPRO ---
Date of service: 09/22/23 Time of Service: 08:29 Care Management Progress Note Progress Note Text Progress Note Text: S/O:Jam was sitting up in a chair when CM met with him. He stated he is feeling well and anticipates that he will be discharged home today. [facility] sent a referral to [place] [facility] this weekend for Meals on Wheels and called and confirmed receipt this morning. A: Jam is an 83 year old man admitted with orthostatic hypotension on 09/19/23 P:Jam will likely be discharged home with no services when medically cleared by provider. A referral was sent by [facility] to [facility] [place] [facility] for Meals on Wheels He will follow up with his PCP, cardiology and plan of care as instructed. He will be transported home via [facility] private local [place] truck driver coordinated by RADU when ready. [facility] will continue to follow.
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
--- NOTE | 2023-09-22 10:38 | PGE_ITS ---
Date of Service Date of service: 09/22/23 Time of Service: 10:38 Assessment and Plan Assessment and plan (1) Orthostasis: Status: Acute Assessment and plan: IVF discontinued, improved orthostasis Monitor labs Wiil continue to check orthostatic vs and monitor sx Patient in chronic AFib history as per recent diagnosis but in a sinusal rhythm on telemetry this AM (2) Atrial fibrillation: Status: Chronic Assessment and plan: Recently dx - 08/16 But as per cardiology consult the patient might have never had A-Fib recommends liberal salt intake and prevent dehydration We will initiate LR 250 cc bolus as the patient was back to being orthostatic this AM after the morning dose of lopressor , we will hold it for now and reevaluate ED reported NSR EKG, AFib on arrival to floor per telemetry, EKG done which confirmed.Might be paroxysmal Same sx when he was here in Jul with AFib Echo 09/02 EF 55%; no wall motion abn. Will hold metoprolol 12.5 mg oral BID with parameters as patient did not have time to get his refill and might have missed doses and has less orthostasis INR subtherapeutic 1.6 - was 1.3 on 09/20 dose increased to 7.5 mg PO tonight. Pt reports missing doses dt memory issues INR remains subtherapeutic today again; will increase Coumadin to 7.5 mg PO as per pharmacy consultation for a goal of 2.5 as per [facility] cardiology on 09/11/2023 Qualifiers: Atrial fibrillation type: paroxysmal Qualified Code(s): I48.0 - Paroxysmal atrial fibrillation (3) History of pulmonary embolism: Status: Acute Assessment and plan: Will continue warfarin CTA was negative (4) Ischemic cardiomyopathy: Status: Acute Assessment and plan: No symptoms of CHF, fluid status euvolemic. We will continue metoprolol low dose and monitor. (5) Discharge planning issues: Status: Acute Assessment and plan: Monitor on telemetry for new atrial fibrillation dx 3 weeks ago. Probably paroxysmal as rhythm changes on and off on telemetry reading Cardiology consult ordered for Friday for pacemaker, pharmacological control or ablation consideration Subjective Subjective Patient reports: no new complaints (reports on run of palpitation HR 120-140 non-sustained A-Fib , BP stable despite dizziness), feels better (but reports insomnia ), tolerating liquids well, tolerating a regular diet, voiding w/o difficulty, bowel movement, shortness of breath, afebrile and other (reports forgetfulness, skipping doses of metoprolol and warfarin at home, questioning maybe taking 2 doses at time, Thing HH RN for Rx might be beneficial ); denies flatus, diarrhea, nausea or vomiting Exam Narrative Exam Narrative: Constitutional The patient is sitting in chair comfortable and cooperative during the interview. The patient is well groomed without acute distress and has average body habitus HENMT: Head is atraumatic, normocephalic. Facial structures with normal appearance Eyes: Well aligned Neck: Normal ROM Neuro:alert and oriented to self, person, place time and situation. No neurological focal deficit, PERRLA Chest:Chest is symmetrical and normal appearance Resp: Normal respiratory pattern, speaks in full sentences, unlabored breathing, clear lung bilaterally Cardio: Telemetry: WAP/ 1AVB 78, S1, S2 no murmur, capillary refill<3 sec., bilateral radial and dorsalis pedis pulses are positive, palpable GI: Abdomen is not distended, soft and non tender, bowel sounds are present : Negative Costovertebral angle tenderness Back/spine/Pelvis: No back tenderness, normal alignment Integumentary: No skin lesions or rash Extremities: strength 5/5 to bilateral lower and upper extremities Psych: RASS 0, congruent mood and normal affect. Objective Last Vital Signs Temp 36.1 C L 09/22/23 07:29 Pulse 63 09/22/23 10:02 Resp 17 09/22/23 07:29 BP 128/73 09/22/23 10:02 Pulse Ox 97 09/22/23 07:29 Laboratory Results - last 24 hr 09/21/23 09/21/23 09/22/23 13:30 19:34 06:10 WBC 6.68 RBC 5.25 Hgb 16.4 Hct 49.1 MCV 94 MCH 31.2 MCHC 33.4 RDW 13.9 Plt Count 195 MPV 9.1 PT Cancelled 18.3 H 20.6 H INR Cancelled 1.9 H 2.2 H Sodium 140 Potassium 4.1 Chloride 105 Carbon Dioxide 26.6 Anion Gap 8.4 BUN 9 Creatinine 0.8 Est GFR (CKD-EPI 2020) 88.36 Glucose 95 Calcium 8.9
--- NOTE | 2023-09-22 11:21 | PT.INTREAT ---
Date of service: 09/22/23 Time of Service: 11:01 PT Notes Visit Reasons: Orthostatic Hypotension Inpatient Physical Therapy Treatment Note [facility] Date: 09/22/23 PRECAUTIONS: Fall, standard, activity as tolerated SUBJECTIVE: Patient feels fine. OBJECTIVE: Supine in bed, agreeable to therapy. ? PAIN: none reported VITALS: monitored by nursing staff. ? BED MOBILITY/TRANSFERS? Rolling L/R: independent Supine-sit: independent ? Sit-supine: independent ? Sit-stand: independent ? Stand-sit: independent ? Bed-Chair: independent ? Chair-bed: independent Provided skilled cues and instruction on performance and technique throughout. Gait Training ([id number]): Direct one-on-one instruction and skilled instruction in: [] employing an assistive device [] modified weight-bearing status [x] movement sequencing [] turning and movement with proper form [] Provided verbal cues for equipment management and technique [x] Provided instruction in gait pattern [] Patient education regarding pacing and breathing techniques to maximize activity tolerance? GAIT? Assistive Device: FWW ? Weight bearing: full Assist: SBA ? Distance:? 300 feet ? Deviation: Patient pushes walker too far in front, lowering walker one click resolves the issue. Reduced step height, adequate step length, good jean. ? STAIRS: Ascends and descends 2 six inch stairs and 3 four inch stairs with bilateral railings and CGA. ? ASSESSMENT:? Patient tolerates therapy well, no complain of pain nor dyspnea, no complaint of fatigue or dizziness. PLAN: continue global strengthening per plan of care until patient is medically cleared for discharge. TREATMENT CODE/TIME: 15 minutes beginning at 11:01
--- NOTE | 2023-09-22 12:57 | CMDISCH_ITS ---
Date of service: 09/22/23 Time of Service: 12:57 LACE Index Scoring Tool Questions: Length of Stay (in days): 3 Was the patient admitted via the E.D.?: Yes Comorbidities: Congestive Heart Failure E.D. Visits: 2 Answers: Total Score: 10 Risk of Readmission: High Risk Care Management Discharge Plan Reason for Hospitalization: Orthostatic Hypotension Discharge Plan: Jam will be discharged home with no new services. A referral was sent by [facility] to [facility] [place] [facility] for Meals on Wheels. Jam will follow up with his PCP, cardiology and plan of care as instructed. He will be transported home via [facility] private explosives truck driver coordinated by [facility]U. Patient/Family Education Needs: Review of discharge instructions including medications, limitations and follow up plan of care; discuss Ask Me Three and self management. Services Needed at Discharge: Home Delivered Meals
[2023-09-22] MEDS: Normal Saline Flush 10 ML SYR IVP (13:23)
[2023-09-22] MEDS: Lactated Ringers 250 ML IV (13:23)
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
[2023-09-22] MEDS: WARFARIN 5 MG, WARFARIN 2.5 MG 7.5 MG PO (16:29)
--- NOTE | 2023-09-22 23:21 | PDOC.HHF2F_ITS ---
Home Health Referral Home Health Orders Clinical synopsis of why skilled professionals are needed: This 83 year old patient with past medical history of heart failure (with left ventricular ejection fraction of 55% on 09/02/23) pulmonary emboli PE presented to the [facility] ED on 09/19/2023 for evaluation of feeling lightheaded with standing. Orthostsis corrected with IVF, lopressor held but unable to resume as he was becoming more othostatic, first and 2nd degree AV block (brief). Cardiology consult: questionable A-fib. INR subtherapeutic, adjusting Warfarin. The patient will need daily BP checks, medicine administration daily as he is forgetfull, skips or double drugs at times but not sure, blood draw on 09/22, 09/24 for INR level, goal 2.5.(2 to 3). Result to be forwarded to PCP, please. Registered Nurse: Check all that apply Instruct on new or changed medication(s)/assess compliance: Ordered Assess for exacerbation of medical condition, instruct patient/caregivers on signs and symptoms to report for early detection: Ordered (Blood pressures direct results to PCP, please) Other: Patient forgets to take medicines Surface Lay Out Technician: Assist with community resources: Ordered Assist with exterminator termite care planning: Ordered Home Bound Status Requires the aid of supportive device (check all that apply): Walker Describe why leaving home would require a considerable and taxing effort: Requires frequent rest periods Encounter Date and Reason: I certify that a FTF encounter for this patient was performed on September 22, 2023 and that such encounter was related to the primary reason the patient requires home health services. The encounter was conducted in the following manner: * By me as the certifying physician, ACQUISITION ANALYST, PA or * By an inpatient physician, ACQUISITION ANALYST or PA during an inpatient stay who communicated findings to me, Certification And Authentication I certify that I composed the above information based on my clinical judgment relating to this patient's medical condition and, if applicable, clinical findings communicated to me by the NPP or inpatient physician who performed the FTF encounter. Name of Provider that will be monitoring home health services: Sania Cherry
== END 2023-09-22 17:28 | disposition home or self-care (01) ==
LOC: ER 12:59 → MS 15:55
PROVIDERS: Emergency Medicine; Nurse Practitioner Acute Care; Nurse Practitioner Family; Admitting Provider Internal Medicine; Emergency Provider Emergency Medicine Emergency Medical Services; PCP Nurse Practitioner; Visit Provider Internal Medicine
DX: I95.1 Orthostatic hypotension (principal); I48.0 Paroxysmal atrial fibrillation; I25.5 Ischemic cardiomyopathy; I44.1 Atrioventricular block, second degree; I11.0 Hypertensive heart disease with heart failure; I65.23 Occlusion and stenosis of bilateral carotid arteries; Z96.651 Presence of right artificial knee joint; Z96.641 Presence of right artificial hip joint; Z87.891 Personal history of nicotine dependence; Z79.01 Long term (current) use of anticoagulants; Z86.718 Personal history of other venous thrombosis and embolism; I50.22 Chronic systolic (congestive) heart failure; I25.10 Atherosclerotic heart disease of native coronary artery without angina pectoris; F41.9 Anxiety disorder, unspecified; N40.0 Benign prostatic hyperplasia without lower urinary tract symptoms; M54.12 Radiculopathy, cervical region; E78.5 Hyperlipidemia, unspecified; Z86.711 Personal history of pulmonary embolism; K21.9 Gastro-esophageal reflux disease without esophagitis; G47.33 Obstructive sleep apnea (adult) (pediatric); G47.61 Periodic limb movement disorder; G47.00 Insomnia, unspecified; R73.01 Impaired fasting glucose; I44.0 Atrioventricular block, first degree
CPT/HCPCS: 00123; 36415; 71275; 80048; 80053; 85027; 87637; 93005; 96360; 96361; 97110; 97116; 97161; 97162; 99222; 99285; 70450; 71046; 81003; 81015; 83735; 84443; 84484; 85025; 85610; 85730; 93010; 99232; 99233; 99239; G0378; J3490

== ENCOUNTER → 2023-09-22 08:47 | Outpatient (BNVA) | payer MEDICARE, OTHER, SELFPAY | PROVIDERS: PCP Nurse Practitioner; Referring Provider Nurse Practitioner; Visit Provider Internal Medicine Cardiovascular Disease ==

== ENCOUNTER 2023-12-15 05:39 | Emergency (ER) | payer MEDICARE, OTHER, SELFPAY ==
--- NOTE | 2023-12-15 05:45 | DI.RAD_ITS ---
Exam(s) XR CHEST 1V IN DI DEPT EXAM: XR CHEST 1V IN DI DEPT CLINICAL HISTORY: fall from standing TECHNIQUE: 2D digital imaging was performed. COMPARISON: CR,XR XR CHEST 2V PA LATERAL from 09/19/[address] CHEST PE CTA from 09/19/2023 FINDINGS: Exam somewhat limited due to poor pulmonary inflation. LUNGS: Mildly increased chronic interstitial markings otherwise clear. No pleural abnormality seen. HEART: Normal size. AORTA: Normal diameter. BONES: Flowing osteophytes in the spine. Soft tissues: Unremarkable. IMPRESSION: No acute findings. DATA REPOSITORY: RADIATION DOSE DELIVERED:
--- NOTE | 2023-12-15 05:45 | DI.CT_ITS ---
Exam(s) CT HEAD CERVICAL SPINE WO EXAM: CT HEAD CERVICAL SPINE WO CLINICAL HISTORY: fall, on warfarin, neck pain. TECHNIQUE: Imaging Protocol: Axial computed tomography images with coronal and sagittal reformatted images were created and reviewed COMPARISON: CT CT HEAD WO from 09/19/2023 FINDINGS: Head CT Ventricles and Extra axial spaces: Normal in size and morphology for the patient's age. Hemorrhage: None. Cerebral parenchyma: No evidence of mass or acute infarct. Atrophy. White matter changes of small vessel disease. Midline shift: None. Brainstem/Cerebellum: Normal. Calvarium: Normal. Visualized Paranasal sinuses/Mastoids: Clear. Soft tissues: Unremarkable. Cervical Spine CT BONES: Vertebral body heights are maintained. Alignment is normal. There is no evidence of acute frac ture. Degenerative disc changes and facet degenerative changes are seen . SOFT TISSUES: No paraspinal hematoma. The airway appears intact. No pneumothorax is seen at the lung apices. IMPRESSION: Head CT: No acute abnormality. C-spine CT: Degenerative changes, no acute abnormality. RADIATION DOSE DELIVERED: 1,281.87mGy.cm Total DLP DATA REPOSITORY: All CT scans at this facility are submitted to the National Radiology Data Registry (NRDR) Dose Index Registry (DIR) with the [employer] (A[employer]). RADIATION OPTIMIZATION: All CT scans at this facility use at least one of these dose optimization te chniques: automated exposure control; mA and/or kV adjustment per patient size (includes targeted exa ms where dose is matched to clinical indication); or iterative reconstruction.
--- NOTE | 2023-12-15 05:45 | RT.EKG_ITS ---
APPROVED REPORT Exam: Resting ECG Reason for Exam: lightheaded Patient Location: E HR:70 bpm ECG Measurements Heart Rate 70 AXIS MI [id number] P [id number] QRSd 143 QRS -77 QT 428 T 85 QTc 482 Conclusion Atrial fibrillation...V-rate 57- 93, irreg A-activity Left ventricular hypertrophy...multiple LVH criteria Inferior infarct, old...Q >35mS, II III aVF no ST segment or T wave abnormalities to suggest occlusive UT
--- NOTE | 2023-12-15 05:45 | DI.RAD_ITS ---
Exam(s) XR PELVIS AP EXAM: XR PELVIS AP CLINICAL HISTORY: fall from standing. TECHNIQUE: 2D digital imaging was performed. Single AP view. COMPARISON: CR RT HIP COMPLETE AP PELVIS from 09/17/2016 FINDINGS: BONES: No acute fracture is present. No bony destructive lesion is seen. JOINTS: No dislocation present. There has been no change in the right hip prosthesis were visualized . There are moderate degenerative changes of the left hip. There are advanced degenerative changes in the lower lumbar spine. SOFT TISSUE: Normal. IMPRESSION: No acute abnormality. DATA REPOSITORY: RADIATION DOSE DELIVERED:
[2023-12-15 05:50] VITALS: BP 153/57; PULSE 75; RESP 14; TEMP 36.8; O2SAT 98
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
[2023-12-15 06:04] VITALS: RESP 14
[2023-12-15 06:06] LABS: Abs Immature Grans 0.01 10^3/uL (0.0-0.06); Absolute Basophil Count 0.06 10^3/uL (0.0-0.2); Absolute Eosinophil Count 0.08 10^3/uL (0.0-0.7); Absolute Lymphocyte Count 1.58 10^3/uL (1.2-3.4); Absolute Monocyte Count 0.63 10^3/uL (0.1-0.8); Absolute Neutrophil Count 2.99 10^3/uL (1.2-6.7); Basophils % 1.1; Eosinophils % 1.5; HCT 43.6 % (40.0-50.0); HGB 14.9 g/dL (13.5-17.5); Immature Grans % 0.2; Lymphocytes % 29.5; MCH 30.7 pg (27.0-33.0); MCHC 34.2 % (32.0-36.0); MCV 90 fL (80-95); MPV 8.9 fL (8.0-11.0); Monocytes % 11.8; Neutrophils % 55.9; Platelet Count 256 10^3/uL (130-400); RBC 4.85 10^6/uL (4.36-5.78); RDW 13.3 % (11.8-14.1); WBC 5.35 10^3/uL (4.4-10.8)
[2023-12-15 06:27] LABS: ALT 24 U/L (16-63); AST 23 U/L (15-37); Albumin 3.4 g/dL (3.4-5.0); Alkaline Phosphatase 74 U/L (46-116); Anion Gap 9.5 mmol/L (3-11); BUN 10 mg/dL (7-18); Bilirubin, Total 1.6 mg/dL (0.2-1.0); CO2 26.5 mmol/L (21.0-32.0); CREATININE 0.9 mg/dL (0.70-1.30); Chloride 103 mmol/L (98-107); Estimated GFR 85.27 (mL/min/1.73m2); Glucose 114 mg/dL (74-106); Lipase 59 U/L (16-77); Potassium 3.3 mmol/L (3.5-5.1); Sodium 139 mmol/L (136-145); Total Protein 6.4 g/dL (6.4-8.2); Troponin I < 50 ng/L (< or =60)
--- NOTE | 2023-12-15 06:42 | DI.VRAD_ITS ---
PROCEDURE INFORMATION: Exam: CT Head Without Contrast Exam date and time: 12/15/2023 6:07 AM Age: 83 years old Clinical indication: Injury or trauma; Blunt trauma (contusions or hematomas); Consciousness not specified; Injury date: 12/10/23; Injury details: Fall, on thinners, neck pain TECHNIQUE: Imaging protocol: Computed tomography of the head without contrast. Radiation optimization: All CT scans at this facility use at least one of these dose optimization techniques: automated exposure control; mA and/or kV adjustment per patient size (includes targeted exams where dose is matched to clinical indication); or iterative reconstruction. COMPARISON: CT HEAD WO 09/19/2023 5:15 AM FINDINGS: Brain: There is no evidence of acute brain infarct, mass, shift of midline or parenchymal hemorrhage. Patchy periventricular white matter low attenuation present, a nonspecific finding but likely related to chronic small vessel ischemic change. No acute extra-axial fluid collection. Remote right cerebellar infarct Cerebral ventricles: Moderate dilatation of the ventricular system and sulci diffusely, compatible with volume loss. Paranasal sinuses: Visualized sinuses are unremarkable. No fluid levels. Mastoid air cells: Visualized mastoid air cells are well aerated. Bones/joints: Unremarkable. No acute fracture. Soft tissues: Unremarkable. IMPRESSION: No acute intracranial hemorrhage PROCEDURE INFORMATION: Exam: CT Cervical Spine Without Contrast Exam date and time: 12/15/2023 6:07 AM Age: 83 years old Clinical indication: Injury or trauma; Blunt trauma (contusions or hematomas); Consciousness not specified; Injury date: 12/10/23; Injury details: Fall, on thinners, neck pain TECHNIQUE: Imaging protocol: Computed tomography of the cervical spine without contrast. Radiation optimization: All CT scans at this facility use at least one of these dose optimization techniques: automated exposure control; mA and/or kV adjustment per patient size (includes targeted exams where dose is matched to clinical indication); or iterative reconstruction. COMPARISON: CT BRAIN NECK CTA 08/22/2023 5:28 PM FINDINGS: Bones/joints: Multilevel degenerative disc disease. No evidence of acute fracture Lungs: Lung apices are normal. Soft tissues: Unremarkable. IMPRESSION: No evidence of acute fracture. Dictated and Authenticated by: Joanna Mason MD. Ordering:CHUYITA Oakes MD
--- NOTE | 2023-12-15 06:47 | DI.VRAD_ITS ---
PROCEDURE INFORMATION: Exam: XR Pelvis Exam date and time: 12/15/2023 6:39 AM Age: 83 years old Clinical indication: Injury or trauma; Blunt trauma (contusions or hematomas); Does not apply; Pelvic region; Injury date: 12/15/23; Injury details: Fall from standing; Prior surgery; Surgery date: 6+ months; Surgery type: R hip replacement TECHNIQUE: Imaging protocol: Radiologic exam of the pelvis. Views: 1 or 2 view. COMPARISON: CT ABDOMEN PELVIS W 10/23/2021 9:52 AM FINDINGS: Bones/joints: Right hip total arthroplasty. Moderate osteoarthritis left hip. Degenerative disc disease lower lumbar spine. No acute fracture Soft tissues: Unremarkable. IMPRESSION: No evidence of acute fracture. Dictated and Authenticated by: Joanna Mason MD. Ordering:CHUYITA Oakes MD
--- NOTE | 2023-12-15 06:56 | DI.VRAD_ITS ---
PROCEDURE INFORMATION: Exam: XR Chest Exam date and time: 12/15/2023 6:37 AM Age: 83 years old Clinical indication: Injury or trauma; Fall; Blunt trauma (contusions or hematomas); Injury date: 12/15/23 TECHNIQUE: Imaging protocol: Radiologic exam of the chest. Views: 1 view. COMPARISON: CT CHEST PE CTA 09/19/2023 8:20 AM FINDINGS: Lungs: Diffuse interstitial markings. Crowding of the bronchovascular markings from shallow inspiration . Mild left basilar atelectasis Pleural spaces: Unremarkable. No pleural effusion. No pneumothorax. Heart/Mediastinum: Stable cardiomegaly. Bones/joints: Unremarkable. IMPRESSION: Mild left basilar atelectasis Dictated and Authenticated by: Joanna Mason MD. Ordering:CHUYITA Oakes MD
[2023-12-15] MEDS: Acetaminophen 325 MG TAB 650 MG PO (07:25)
[2023-12-15] MEDS: Ketorolac 15 MG/ML VIAL IVP (07:28)
[2023-12-15] MEDS: Lidocaine 5% Patch 1 PATCH TP (07:30)
[2023-12-15 08:05] VITALS: BP 119/72; BP 126/80; BP 127/80; PULSE 80; PULSE 83; PULSE 90
[2023-12-15 08:16] LABS: INR 1.4 (0.9-1.1); Prothrombin Time 13.3 sec (9.1-11.1)
--- NOTE | 2023-12-15 08:35 | IN_ITS ---
PT Notes Visit Re[facility] In[facility] Initial Evaluation Date: 12/15/2023 Referring Doctor: Violette Taylor MD PT Orders: PT CONSULT: Safety consult for D/C Precautions: Fall. Standard. Activity as tolerated. Patient Profile/Admitting Diagnosis: Adebayo is an 83-year-old male admitted to the ED today with report of neck pain and headache due to a fall on 12/10/2023 and 12/14/2023. Hed CT did not reveal any acute abnormality. Pelvic X-ray showed no fracture/disclocation. Chest x- ray inidncative of a mild L basilar atelectasis. PMHX: All Active Problems (Updated 09/23/23 @ 00:04 by BARBRA PEREZ) Near syncope (Acute) Lower urinary tract symptoms (LUTS) (Acute) Carotid stenosis, bilateral (Acute) Orthostasis (Acute) New onset atrial fibrillation (Acute) Bilateral shoulder pain (Acute) Knee pain, left (Acute) History of Surgical Procedure (Chronic) a. Meniscectomy, left knee. b. Right toal knee replacement. c. Right total hip replacement. d. Bilateral cataract surgery. e. Medial epicondylitis surgery. f. Bilateral rotator cuff surgery. g. Left ring finger trigger finger release. h. Multiple surgeries for lipoma excisions. i. Colonoscopies.Sleep apnea (Chronic) a. Not on CPAP.Adenoma of large intestine (Acute 04/22/13) 2007 Reina 06/26/2013 Tommy Erectile dysfunction of organic origin (Acute 12/12/15) History of tobacco use (Acute 04/22/13) Chew, quit 2011 Hypogonadism in male (Acute 01/12/16) Libido, decreased (Acute 12/12/15) Other seborrheic keratosis (Acute 02/13/12) Back Obesity (Acute 04/22/13) Osteoarthritis of knee (Acute 06/16/13) 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 denies thisAnticoagulation monitoring, INR range 2-3 (Acute) 03/24/19 [facility] Continue warfarin snf for secondary VTE prophylaxis RAHEEM positive (Chronic) Nicotine dependence (Acute 07/09/13) S/P colonoscopy (Acute ~08/02/19) Tubular adenoma x11. Sessile serrated adenoma [id number] (current) use of anticoagulants, INR goal 2.0-3.0 (Acute) Urinary frequency (Acute) Dysuria (Acute) UTI (urinary tract infection), uncomplicated (Acute) Abdominal mass (Acute) Burning with urination (Acute) Tubular adenoma of colon (Acute ~09/2020) Hyperplastic colon polyp (Acute ~09/2020) Cervical strain, acute (Acute) Left carpal tunnel syndrome (Acute) s/p OCTR DOS: 12/10/22 Acute diverticulitis (Acute) History of pulmonary embolism (Acute) History of DVT (deep vein thrombosis) (Acute) Abdominal pain (Acute) Near syncope (Acute) Subtherapeutic international normalized ratio (INR) (Acute) Elevated troponin I level (Acute) Panic attacks (Acute) Chronic HFrEF (heart failure with reduced ejection fraction) (Chronic) Osteoarthritis of right shoulder region (Acute) Steroid injection: 08/14/2022 Osteoarthritis of left shoulder region (Acute) Steroid injection: 08/14/2022 ASCVD (arteriosclerotic cardiovascular disease) (Acute ~07/2022) Ischemic cardiomyopathy (Acute ~07/2022) Rotator cuff tear, right (Acute) Cubital tunnel syndrome on left (Acute) s/p cubital tunnel release and anterior transposition DOS: 12/10/22 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 (Acute) Left carpal tunnel syndrome (Acute) Medical History . Hemorrhoids Hematuria History of diverticulitis CHI (closed head injury) Erectile dysfunction Numbness and tingling in both hands IFG (impaired fasting glucose) Insomnia Serrated adenoma of colon (~09/2020) DISH (diffuse idiopathic skeletal hyperostosis) (02/07/20) [facility] Chest tightness per caregiver states this is anxiety relatedSOB (shortness of breath) Diverticulosis Depressive disorder (07/09/13) DVT (deep venous thrombosis) 03/25/19 [facility] Right and Left: extensive, acute, non-occlusive DVT Right ventricular dilation Pulmonary embolism Acute saddle PE found @ [facility] Friday, 08/10 .. helicoptered to [facility] .. s/p TPA, now on lovenox, starting warfarin. Heart strain noted, fu with cardiology in 3 mos. Hem/ Onc work up planned ([facility] [ ]).. Hx Lovenox for PE in past? Periodic limb movement disorder (02/13/13) [facility], SLEEP STUDY 02/13/13 Obstructive sleep apnea syndrome (02/13/13) [facility], SLEEP STUDY 02/13/13 BIPAP RECOMMENDED ([facility]) PT ISN'T USING and returned BiPAP on own 04/2013 Impotence of organic origin (02/13/12) Hyperlipidemia (02/13/12) Lipids 2010: 226/115/58/149 Statin made his GERD worse Esophageal reflux (02/13/12) Cervical radiculopathy (01/01/17) GERD (gastroesophageal reflux disease) Anxiety BPH (benign prostatic hypertrophy) Hypertension Stable Surgical History History of colonoscopy (~10/2021) History of carpal tunnel surgery of left wrist (06/13/21) H/O elbow surgery right H/O shoulder surgery bilaterally S/P trigger finger release S/P cataract extraction and insertion of intraocular lens (03/31/14) OD S/P cataract extraction and insertion of intraocular lens (~03/17/14) left History of total hip arthroplasty History of total knee replacement (05/30/14) left Endoscopic Carpal Tunnel release (06/19/15) R Dr Moore Social History/Home Situation: Lives alone in a private home with 3 steps to enter with rails on B sides. Thinking about giving up driving. Gets meals on wheels. Has a cleaning lady who comes in once a month. Equipment Owned/DME: FWW, SPC Subjective: Denies headache, chest pain, and lightheadedness throughout session. Did reports some soreness in his forehead that hit against something when he fell. Agreeable to using FWW for today's walk. Denies blurriness of vision Objective: General Observation: Resting on stretcher. Telemetry monitoring in place. Mental Status: Alert and oriented as to person, place, time, and purpose. Able to pay attention, focus, and respond appropriately. Pain: Soreness in forehead Vital Signs: [place] monitored via tele ROM: Right Upper Extremity: Shoulder Flexion WFL. Shoulder abduction WFL. Elbow flexion WFL. Wrist flexion WFL. Functional opening and closing of hand WFL. Left Upper Extremity: Shoulder Flexion WFL. Shoulder abduction WFL. Elbow flexion WFL. Wrist flexion WFL. Functional opening and closing of hand WFL. Right Lower Extremity: Hip flexion WFL. Hip abduction WFL. Knee flexion WFL. Ankle dorsiflexion WFL. Ankle plantarflexion WFL. Left Lower Extremity: Hip flexion WFL. Hip abduction WFL. Knee flexion WFL. Ankle dorsiflexion WFL. Ankle plantarflexion WFL. Strength: Right Upper Extremity: Shoulder flexors 4-/5. Shoulder abductors 4-/5. Elbow flexors 4-/5. Elbow extensors 4-/5. Provider Network Manager strong. Left Upper Extremity: Shoulder flexors 4-/5. Shoulder abductors 4-/5. Elbow flexors 4-/5. Elbow extensors 4-/5. Provider Network Manager strong. Right Lower Extremity: Hip flexors 4-/5. Hip abductors 4-/5. Knee flexors 4-/5. Knee extensors 4-/5. Ankle dorsiflexors 3+/5. Ankle plantarflexors 4-/5. Left Lower Extremity: Hip flexors 4-/5. Hip abductors 4-/5. Knee flexors 4-/5. Knee extensors 4-/5. Ankle dorsiflexors 3+/5. Ankle plantarflexors 4-/5. Bed Mobility/Transfers: MInimal cueing provided for use of B hands as needed for support, movement sequence, Ad management, and and posture to reduce fall risk and minimize pain report Rolling independent Supine to sit independent Sit to supine independent Sit to stand supervision Stand to sit supervision Gait: Facilitated safe and correct performance of level surface ambulation covering a distance of 150 feet using front wheeled walker with minimal verbal cueing provided for hand placement, movement sequence, AD management, and and posture to reduce fall risk. Balance: Static Sitting: Normal Dynamic Sitting: Normal Static Standing: Good Dynamic Standing: Fair Special Tests: Mobility Limitations Standardized Measure [facility] AM-PAC 6 clicks Basic Mobility Inpatient Short Form: Raw Score: 24 CMS Score: 0% deficit Romberg Test: Positive 4-stage Balance Test: Able to maintaining feet together for 10 seconds but not for semi-tandem, full tandem, and one-legged stance. Informed Consent/Education: Patient was instructed in purpose of PT consult. Assessment: Patient requires use of a front wheeled walker for all mobility ADL performance to maximize independence and reduce fall risk at home. Patient is agreeable to home health PT for continue to work on strengthening and balance to reduce fall risk Patient presents with clinical signs and symptoms consistent with current/admitting diagnoses that have resulted to mobility limitations, gait instability, generalized weakness, and overall ADL decline as demonstrated by the following impairment level findings: 1. Decreased strength to B UE/LE major muscle groups 2. Impaired sitting/standing balance 3. Impaired activity tolerance Impairments are contributing to the following functional limitations: 1. Difficulty with ambulation without assistive device 2. Increased completion time for mobility ADL performance 3. Increased risk for falls 4. Difficulty with managing steps alone safely Patient is assessed [place] a 52570 moderate complexity based on the following: History: 83-year-old male with past medical history as indicated above Examination: Demonstrable impairment in strength, balance, and mobility level with underlying impairments and functional limitations as exhibited above Presentation: Stable Decision Makin mderate complexity Goals: N/A. PT evaluation only. Plan of Care/Treatment Plan: N/A. PT evaluation only. DISCHARGE RECOMMENDATIONS: [] Home with no services [] [X] Home with services. Patient will benefit from home health PT services in order to progress mobility level using least restrictive assistive ambulatory device, assess home safety, identify additional equipment needs, and establish a functional maintenance program that will increase ability of patient to remain at home. [] Home with outpatient PT [] [] SNF for continued rehabilitation [] [] Long-Term Care [] [] SNF versus LTC based on ability to participate and progress [] TREATMENT CODE/TIME: 23157 x 25 minutes for 1 unit beginning at 8:36 AM. Thank you for the opportunity to participate in the care of this patient. Mariposa Graves PT, DPT, CLT [facility] [place], [place]
[2023-12-15 09:41] VITALS: BP 139/56; PULSE 72; RESP 15; O2SAT 100
== END 2023-12-15 09:49 | disposition home or self-care (01) ==
PROVIDERS: Student in an Organized Health Care Education/Training Program; Emergency Provider Emergency Medicine; PCP Nurse Practitioner
DX: R55 Syncope and collapse (principal); R53.83 Other fatigue; R29.6 Repeated falls; Z86.79 Personal history of other diseases of the circulatory system; W01.198A Fall on same level from slipping, tripping and stumbling with subsequent striking against other object, initial encounter
CPT/HCPCS: 36415; 80053; 83690; 93005; 96374; 97161; 99284; 70450; 71045; 72125; 72170; 84484; 85025; 85610; 93010; 99283; J1885

== ENCOUNTER → 2024-01-02 12:58 | Outpatient (BNVA) | payer MEDICARE, OTHER, SELFPAY | PROVIDERS: PCP Nurse Practitioner; Referring Provider Nurse Practitioner; Visit Provider Urology | DX: N40.1 Benign prostatic hyperplasia with lower urinary tract symptoms (principal); R35.1 Nocturia | CPT/HCPCS: 99214 ==

== ENCOUNTER → 2024-03-01 10:04 | Outpatient (BNVA) | payer MEDICARE, OTHER, SELFPAY | PROVIDERS: PCP Nurse Practitioner; Referring Provider Nurse Practitioner; Visit Provider Student in an Organized Health Care Education/Training Program | DX: Z47.1 Aftercare following joint replacement surgery (principal); Z96.641 Presence of right artificial hip joint; M47.26 Other spondylosis with radiculopathy, lumbar region | CPT/HCPCS: 99213 ==

== ENCOUNTER 2024-04-05 14:45 | Emergency (ER) | payer MEDICARE, OTHER, SELFPAY ==
[2024-04-05] VITALS (15 sets, daily range): BP systolic 117–164; BP diastolic 46–124; PULSE 63–108; RESP 13–26; O2SAT 95
--- NOTE | 2024-04-05 14:45 | RT.EKG_ITS ---
APPROVED REPORT Exam: Resting ECG Reason for Exam: dizzy Patient Location: E HR:81 bpm ECG Measurements Heart Rate 81 AXIS OH 304 P 48 QRSd 157 QRS -82 QT 410 T 75 QTc 470 Conclusion Sinus rhythm atrial ectopy RBBB
--- NOTE | 2024-04-05 15:00 | RT.EKG_ITS ---
APPROVED REPORT Exam: Resting ECG Reason for Exam: dizzy Patient Location: E HR:90 bpm ECG Measurements Heart Rate 90 AXIS ME 306 P -89 QRSd 164 QRS -83 QT 410 T 72 QTc 504 Conclusion first degree block 306 bigeminy RBBB
[2024-04-05] MEDS: Meclizine 25 MG TAB PO (15:39)
[2024-04-05 15:53] LABS: Abs Immature Grans 0.05 10^3/uL (0.0-0.06); Absolute Basophil Count 0.04 10^3/uL (0.0-0.2); Absolute Eosinophil Count 0.07 10^3/uL (0.0-0.7); Absolute Lymphocyte Count 1.51 10^3/uL (1.2-3.4); Absolute Monocyte Count 0.68 10^3/uL (0.1-0.8); Absolute Neutrophil Count 6.75 10^3/uL (1.2-6.7); Basophils % 0.4 %; Eosinophils % 0.8 %; HGB 14.8 g/dL (13.5-17.5); Immature Grans % 0.5 %; Lymphocytes % 16.6 %; MCH 31.4 pg (27.0-33.0); MCHC 35.2 % (32.0-36.0); MCV 89 fL (80-95); MPV 9.2 fL (8.0-11.0); Monocytes % 7.5 %; Neutrophils % 74.2 %; Platelet Count 233 10^3/uL (130-400); RBC 4.71 10^6/uL (4.36-5.78); RDW 14.4 % (11.8-14.1); RDW-SD 47.5 fL
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
[2024-04-05 16:12] LABS: INR 1.9 (0.9-1.1); PTT Activated 37.8 sec (23.6-32.8); Prothrombin Time 18.2 sec (9.1-11.1)
[2024-04-05 16:21] LABS: ALT 29 U/L (16-63); AST 27 U/L (15-37); Albumin 3.2 g/dL (3.4-5.0); Alkaline Phosphatase 89 U/L (46-116); Anion Gap 9.1 mmol/L (3-11); BUN 15 mg/dL (7-18); Bilirubin, Total 1.7 mg/dL (0.2-1.0); CO2 25.9 mmol/L (21.0-32.0); CREATININE 0.8 mg/dL (0.70-1.30); Chloride 103 mmol/L (98-107); Estimated GFR 88.36 (mL/min/1.73m2); Glucose 108 mg/dL (74-106); Magnesium 1.8 mg/dL (1.8-2.4); Potassium 3.6 mmol/L (3.5-5.1); Sodium 138 mmol/L (136-145); TSH 1.56 uIU/Ml (0.36-3.74); Total Protein 6.6 g/dL (6.4-8.2); Troponin I < 50 ng/L (< or =60)
--- NOTE | 2024-04-05 17:17 | DI.CT_ITS ---
Exam(s) CT HEAD WO EXAM: CT HEAD WO CLINICAL HISTORY: dizzy. TECHNIQUE: Imaging Protocol: Axial computed tomography images with coronal and sagittal reformatted images were created and reviewed COMPARISON: CT CT HEAD CERVICAL SPINE WO from 12/15/2023 FINDINGS: There are no skull fractures. There is no fluid in the visualized paranasal sinuses. There is no evidence of intracranial hemorrhage, mass effect, or shift of midline structures. There are no extra-axial fluid collections. The ventricles are not enlarged or shifted and there is no blo od within the ventricular system nor within the basal cisterns. Again noted is abundant bilateral periventricular hypodensity consistent with chronic small vessel di sease. No obvious acute infarct. Also symmetrical chronic ischemic changes in the posterior fossa-c erebellar hemispheres. IMPRESSION: No acute intracranial findings on this noninfused CT scan of the brain. Chronic white matter ischemi c changes. If clinically indicated follow-up MRI with diffusion imaging can be performed Called by myself to ER physician. RADIATION DOSE DELIVERED: 758.34mGy.cm Total DLP DATA REPOSITORY: All CT scans at this facility are submitted to the National Radiology Data Registry (NRDR) Dose Index Registry (DIR) with the [employer] ([employer]). RADIATION OPTIMIZATION: All CT scans at this facility use at least one of these dose optimization te chniques: automated exposure control; mA and/or kV adjustment per patient size (includes targeted exa ms where dose is matched to clinical indication); or iterative reconstruction.
--- NOTE | 2024-04-05 18:03 | W.EDPROG ---
Date of service: 04/05/24 Time of Service: 18:[address] CT unremarkable, he is sleeping on my assessment and awakens easily to voice. He says he feels better and requesting discharge home, he does note that he has some sinus pressure and congestion for about 2 weeks, and localizes it to the maxillary sinuses, given this we will start him on Augmentin. I did offer to have him admitted for observation, given he feels well he declines this and has decision-making capacity. He had a recent admission in August for similar symptoms with unremarkable workup at that time. He will follow-up with his PCP and return precautions given. He was able to stand and ambulate here without any symptoms. Quality:[facility] Health Related Social Needs: No Data to Display Sign Out Sign Out Data: Sign Out Comment: pending: head CT repeat ortho static vitals recheck symptoms if still dizzy: would obs for tele monitoring, coumadin adjustment Last updated by Asael Mcmullen MD at 04/05/24 16:37 Discharge Plan Disposition Patient Disposition: Home Condition: Stable Discharge Details Clinical Impression: Near syncope, Subtherapeutic international normalized ratio (INR), Dizziness, Atrial dysrhythmia Primary Care Provider: Sania Cherry ED Provider: Isaac Oshea [place] Meds and New Rx's Prescriptions: New amoxicillin-pot clavulanate 875-125 mg tablet 1 tab PO BID Qty: 14 0RF Continued diclofenac sodium [Voltaren Arthritis Pain] 1 % gel 2 g topical QID PRN Metamucil 3.4 gram/5.4 gram powder 1 tbsp PO DAILY Patient Comments: Pt states not taking - ML 08/22/23 Rx Instructions: mix into at least 8 oz of water or juice before administering calcium carbonate [Tums] 200 mg calcium (500 mg) tablet,chewable 200 mg PO BID PRN acetaminophen 500 mg tablet 1,000 mg PO TID PRN (Reason: fever or pain) Qty: 300 12RF atorvastatin 40 mg tablet 40 mg PO QPM Qty: 90 3RF warfarin 5 mg tablet 5 mg PO DAILY@1800 Qty: 30 0RF Protocol: Dose Management Condition: Friday Dose/Route: 5 mg Instruction: 1 x 5 mg tablet Condition: Friday Dose/Route: 5 mg Instruction: 1 x 5 mg tablet Condition: Friday Dose/Route: 7.5 mg Instruction: 1.5 x 5 mg tablets Condition: Friday Dose/Route: 7.5 mg Instruction: 1.5 x 5 mg tablets Condition: Dose/Route: 7.5 mg Instruction: 1.5 x 5 mg tablets Condition: Friday Dose/Route: 5 mg Instruction: 1 x 5 mg tablet Condition: Friday Dose/Route: 5 mg Instruction: 1 x 5 mg tablet Protocol Text: Adjustment Start Date: Friday03/08/24 INR Value: 2.0 INR Date: 03/08/24 Recheck Date: 04/05/24 Discharge Instructions Additional Instructions: Your blood work and CAT scan did not show any concerning findings at this time Follow-up with your primary care provider within 1 week especially if you are still having symptoms If you feel more ill, have difficulty breathing or chest pain return to the emergency department for reevaluation
== END 2024-04-05 18:19 | disposition home or self-care (01) ==
PROVIDERS: Emergency Medicine; Emergency Provider Emergency Medicine; PCP Nurse Practitioner
DX: R42 Dizziness and giddiness (principal); R79.1 Abnormal coagulation profile; I49.8 Other specified cardiac arrhythmias; I10 Essential (primary) hypertension; Z86.79 Personal history of other diseases of the circulatory system
CPT/HCPCS: 00123; 36415; 80053; 93005; 99284; 70450; 83735; 84443; 84484; 85025; 85610; 85730; 93010; 99283

== ENCOUNTER 2024-04-05 22:46 | Inpatient (IN) | payer MEDICARE, OTHER, SELFPAY ==
[2024-04-05] VITALS (60 sets, daily range): BP systolic 133–154; BP diastolic 70–92; PULSE 58–97; RESP 13–29; TEMP 36.3; O2SAT 96
--- NOTE | 2024-04-05 22:45 | RT.EKG_ITS ---
APPROVED REPORT Exam: Resting ECG Reason for Exam: chest discomfort Patient Location: E HR:91 bpm ECG Measurements Heart Rate 91 AXIS W[place] [id number] P [id number] QRSd 161 QRS -84 QT 408 T 75 QTc 503 Conclusion Atrial fibrillation...? 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
[2024-04-05 23:31] LABS: Abs Immature Grans 0.03 10^3/uL (0.0-0.06); Absolute Basophil Count 0.05 10^3/uL (0.0-0.2); Absolute Eosinophil Count 0.12 10^3/uL (0.0-0.7); Absolute Lymphocyte Count 1.96 10^3/uL (1.2-3.4); Absolute Monocyte Count 0.82 10^3/uL (0.1-0.8); Absolute Neutrophil Count 5.59 10^3/uL (1.2-6.7); Basophils % 0.6 %; Eosinophils % 1.4 %; HGB 14.5 g/dL (13.5-17.5); Immature Grans % 0.4 %; Lymphocytes % 22.9 %; MCHC 34.5 % (32.0-36.0); MCV 90 fL (80-95); Monocytes % 9.6 %; Neutrophils % 65.1 %; Platelet Count 221 10^3/uL (130-400); RBC 4.67 10^6/uL (4.36-5.78); RDW 14.2 % (11.8-14.1); RDW-SD 46.3 fL; WBC 8.57 10^3/uL (4.4-10.8)
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
[2024-04-05 23:44] LABS: INR 1.8 (0.9-1.1); PTT Activated 38.7 sec (23.6-32.8); Prothrombin Time 16.8 sec (9.1-11.1)
--- NOTE | 2024-04-05 23:45 | DI.CT_ITS ---
Exam(s) CT BRAIN NECK CTA EXAM: CT BRAIN NECK CTA CLINICAL HISTORY: dizzy. TECHNIQUE: Imaging Protocol: Axial CT angiography was performed with multi-slice acquisition and mu lti-planar and/or 3D reconstructions. CONTRAST MATERIAL: Intravenous: Omnipaque 350 Contrast volume:structured data in ml COMPARISON: CT CT CHEST PE CTA from 09/19/2023 FINDINGS: CTA Neck W: Aortic arch anatomy: The aortic arch anatomy is conventional and there is no significant stenosis at the origin of the great vessels off of the aortic arch. No intimal flap evident. Anterior circulation: Both common carotid arteries ascend with normal luminal diameters. At the level the right carotid bulb and proximal right ICA there is mixed calcified and noncalcified plaque. Moderate stenosis is noted, most prominent in the proximal right ICA where there is approxim ately 50-69 percent relatively focal luminal stenosis. Above this level the right ICA is patent in t he upper neck and skull base. At the level of the left carotid bulb and proximal left ICA there is a lesser amount of plaque eviden t with predominately calcified mural plaque evident at the bulb and proximal left ICA. Stenosis james mated at less than 30 percent. Left ICA in the upper neck is nicely patent as well as in the skull b ase. Posterior circulation: Both vertebral arteries originate in conventional fashion off of the subclavian arteries and there is no obvious stenosis at the origin of the vertebral arteries. The left vertebral artery is dominant, exhibiting diameter of 4.5 mm within the foramen transverse ar ea. The smaller right vertebral artery exhibits luminal diameter of 2 mm. It is even thinner at the skull base both reviewed to the formation of the basilar artery at the skull base. CTA Brain W: Anterior circulation: Both internal carotid arteries are patent in the skull base-carotid canals as well as within the cave rnous sinuses. The intracavernous ICAs are peripherally calcified but without significant stenosis n or aneurysms. The supraclinoid aspects of the ICAs are patent. Both A1 segments are patent as are the anterior cer ebral arteries and there is no evidence of aneurysm at the level of the anterior communicating artery . Both middle cerebral arteries are patent. There is a mild focal stenosis in the left middle cerebral artery approximately 6 mm lateral to its origin. No thrombus at this level. Posterior circulation: The basilar artery ascends in the midline. Distally it gives off patent bilateral superior cerebella r arteries. Above this level the basilar artery terminates as patent bilateral posterior cerebral arteries. There is no evidence of aneurysm at the tip of the basilar artery nor elsewhere in the [id number] is. CT BRAIN: There is no evidence of intracranial hemorrhage, mass effect, or shift of midline structures. There are no extra-axial fluid collections. Ventricles are not enlarged or shifted. There are no ring enh ancing lesions in the brain and no abnormal meningeal enhancement. There is, however, moderate-advanced amount of periventricular hypodensity consistent with chronic sm all vessel disease. 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 IMPRESSION: 1. 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 There is a lesser amount of stenosis on t he opposite-left side, less than 30 percent. 2. Patent vertebral arteries. Left vertebral artery is dominant. 3. Patent intracranial arteries. Mild stenosis just beyond the origin of the left middle cerebral ar wesley. 4. No aneurysms evident. No evidence of vascular malformation. Other findings as above. RADIATION DOSE DELIVERED: 2,237.92mGy.cm Total DLP DATA REPOSITORY: All CT scans at this facility are submitted to the National Radiology Data Registry (NRDR) Dose Index Registry (DIR) with the [employer] ([employer]). RADIATION OPTIMIZATION: All CT scans at this facility use at least one of these dose optimization te chniques: automated exposure control; mA and/or kV adjustment per patient size (includes targeted exa ms where dose is matched to clinical indication); or iterative reconstruction.
[2024-04-05 23:54] LABS: ALT 30 U/L (16-63); AST 23 U/L (15-37); Albumin 3.3 g/dL (3.4-5.0); Alkaline Phosphatase 86 U/L (46-116); Anion Gap 9.4 mmol/L (3-11); BUN 13 mg/dL (7-18); Bilirubin, Total 1.4 mg/dL (0.2-1.0); CO2 27.6 mmol/L (21.0-32.0); CREATININE 0.8 mg/dL (0.70-1.30); Calcium 8.4 mg/dL (8.5-10.1); Chloride 102 mmol/L (98-107); Estimated GFR 88.36 (mL/min/1.73m2); Glucose 94 mg/dL (74-106); NT-proBNP 1836 pg/mL (<300); Potassium 3.4 mmol/L (3.5-5.1); Sodium 139 mmol/L (136-145); TSH (W/Ref FT4) 3.11 uIU/mL (0.36-3.74); Total Protein 6.6 g/dL (6.4-8.2); Troponin I < 50 ng/L (< or =60)
[2024-04-05] MEDS: Normal Saline 500 ML IV (23:59)
[2024-04-06] VITALS (109 sets, daily range): BP systolic 107–155; BP diastolic 60–80; PULSE 60–84; RESP 10–27; TEMP 36.6–37; O2SAT 94–97
--- NOTE | 2024-04-06 00:15 | DI.RAD_ITS ---
Exam(s) XR PORTABLE CHEST AP EXAM: XR PORTABLE CHEST AP CLINICAL HISTORY: cough. TECHNIQUE: 2D digital imaging was performed. COMPARISON: No exams were available for comparison FINDINGS: Single AP portable view. Heart size is upper normal. The mediastinum is not widened. Lungs are clear. No infiltrates nor obvious pleural effusions. IMPRESSION: No acute pulmonary findings on this single AP portable view of the chest. DATA REPOSITORY: RADIATION DOSE DELIVERED:
[2024-04-06] MEDS: Normal Saline - Diluent 50 ML VIAL IJ (00:24)
[2024-04-06] MEDS: Omnipaque 350 MG/ML 100 ML BTL IJ (00:25)
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
--- NOTE | 2024-04-06 01:40 | DI.VRAD_ITS ---
PROCEDURE INFORMATION: Exam: CTA Head With Contrast, Arteriography Exam date and time: 04/06/2024 12:04 AM Age: 83 years old Clinical indication: Other: Dizzy TECHNIQUE: Imaging protocol: Computed tomographic angiography of the head with contrast. Exam focused on the arteries. 3D rendering (Not supervised by radiologist): MIP and/or 3D reconstructed images were created by the technologist. Contrast material: OMNI 350; Contrast volume: 100 ml; Contrast route: INTRAVENOUS (IV); COMPARISON: CT BRAIN NECK CTA 08/22/2023 5:28 PM FINDINGS: ANTERIOR CIRCULATION: Right internal carotid artery: Intracranial segment is patent with no significant stenosis. No aneurysm. Right middle cerebral artery: No occlusion or significant stenosis. No aneurysm. Right anterior cerebral artery: No occlusion or significant stenosis. No aneurysm. Left internal carotid artery: Intracranial segment is patent with no significant stenosis. No aneurysm. Left middle cerebral artery: No occlusion or significant stenosis. No aneurysm. Left anterior cerebral artery: No occlusion or significant stenosis. No aneurysm. POSTERIOR CIRCULATION: Right vertebral artery: No occlusion or significant stenosis. No aneurysm. Left vertebral artery: No occlusion or significant stenosis. No aneurysm. Basilar artery: No occlusion or significant stenosis. No aneurysm. Right posterior cerebral artery: No occlusion or significant stenosis. No aneurysm. Left posterior cerebral artery: No occlusion or significant stenosis. No aneurysm. Brain: No definite mass, mass effect, or midline shift. Cerebral ventricles: No ventriculomegaly. Bones/joints: Unremarkable. No acute fracture. Soft tissues: Unremarkable. IMPRESSION: No large vessel stenosis or occlusion. PROCEDURE INFORMATION: Exam: CTA Neck With Contrast Exam date and time: 04/06/2024 12:04 AM Age: 83 years old Clinical indication: Other: Dizzy TECHNIQUE: Imaging protocol: Computed tomographic angiography of the neck with contrast. Exam focused on the cervical segments of the vasculature. 3D rendering (Not supervised by radiologist): MIP and/or 3D reconstructed images were created by the technologist. Contrast material: OMNI 350; Contrast volume: 100 ml; Contrast route: INTRAVENOUS (IV); COMPARISON: CT BRAIN NECK CTA 08/22/2023 5:28 PM FINDINGS: Right common carotid artery: Atherosclerosis of the right carotid bulb and proximal right internal carotid artery with approximately 50-69% luminal stenosis of a short segment proximal right internal carotid artery secondary to mixed atherosclerotic plaque. No thrombosis or occlusion. Right internal carotid artery: See Right common carotid artery finding. Right external carotid artery: No occlusion or stenosis of the origin. Left common carotid artery: Atherosclerosis of the left carotid bulb and proximal left internal carotid artery without significant luminal narrowing. No thrombosis or occlusion. Left internal carotid artery: See Left common carotid artery finding. Left external carotid artery: No occlusion or stenosis of the origin. Right vertebral artery: No stenosis. No dissection or occlusion. Left vertebral artery: No stenosis. No dissection or occlusion. Soft tissues: Normal. No significant soft tissue swelling. Bones/joints: No acute fracture. IMPRESSION: No acute vascular findings. REFERENCES: NASCET CRITERIA. The degree of stenosis in the cervical segment of the internal carotid artery is based on NASCET criteria. Normal is no stenosis. Mild is less than 50% stenosis. Moderate is 50-69% stenosis. Severe is 70% to 99% stenosis. Total occlusion is no detectable patent lumen. Dictated and Authenticated by: Chavez Agosto MD. Ordering:JAMES Gannon MD
--- NOTE | 2024-04-06 01:42 | DI.VRAD_ITS ---
PROCEDURE INFORMATION: Exam: XR Chest Exam date and time: 04/06/2024 12:38 AM Age: 83 years old Clinical indication: Cough TECHNIQUE: Imaging protocol: Radiologic exam of the chest. Views: 1 view. COMPARISON: CR XR CHEST 1V IN DI DEPT 12/15/2023 6:37 AM FINDINGS: Lungs: Unremarkable. No consolidation. Pleural spaces: Unremarkable. No pleural effusion. No pneumothorax. Heart/Mediastinum: Unremarkable. No cardiomegaly. Bones/joints: Unremarkable. IMPRESSION: No acute findings. Dictated and Authenticated by: Chavez Agosto MD. Ordering:JAMES Gannon MD
[2024-04-06] MEDS: Furosemide 40 MG/4 ML VIAL IVP (03:58)
[2024-04-06] MEDS: Potassium Chloride 20 MEQ TABCR 40 MEQ PO ×2 (03:58→20:51)
[2024-04-06] MEDS: Normal Saline Flush 10 ML SYR IVP ×3 (03:59→20:52)
[2024-04-06] MEDS: Atorvastatin 40 MG TAB PO (04:30)
[2024-04-06 05:12] LABS: Bilirubin Negative (Negative); Blood Negative (Negative); Clarity Clear (Clear); Glucose Negative (Negative); Ketones Negative (Negative); Leukocyte Esterase Negative (Negative); Nitrite Negative (Negative); Specific Gravity 1.015 (1.005-1.025)
[2024-04-06] MEDS: Metoprolol 12.5 MG TAB PO (05:29)
[2024-04-06] MEDS: Diclofenac 1% Gel 100 GM TUBE TP (05:32)
[2024-04-06 06:46] LABS: COVID-19 PCR Negative (Negative); Influenza A PCR Negative (Negative); Influenza B PCR Negative (Negative); RSV PCR Negative (Negative)
[2024-04-06 06:50] LABS: Source Nasopharynx
[2024-04-06 07:19] LABS: HCT 45.2 % (40.0-50.0); HGB 15.8 g/dL (13.5-17.5); MCH 31.2 pg (27.0-33.0); MCV 89 fL (80-95); MPV 9.6 fL (8.0-11.0); Platelet Count 250 10^3/uL (130-400); RBC 5.06 10^6/uL (4.36-5.78); RDW 14.4 % (11.8-14.1); RDW-SD 46.5 fL; WBC 8.35 10^3/uL (4.4-10.8)
[2024-04-06 07:26] LABS: INR 1.9 (0.9-1.1); Prothrombin Time 17.7 sec (9.1-11.1)
[2024-04-06 07:35] LABS: ALT 31 U/L (16-63); AST 25 U/L (15-37); Albumin 3.6 g/dL (3.4-5.0); Alkaline Phosphatase 95 U/L (46-116); Anion Gap 10.4 mmol/L (3-11); BUN 10 mg/dL (7-18); Bilirubin, Total 1.6 mg/dL (0.2-1.0); CO2 25.6 mmol/L (21.0-32.0); CREATININE 0.7 mg/dL (0.70-1.30); Calcium 8.7 mg/dL (8.5-10.1); Chloride 104 mmol/L (98-107); Glucose 100 mg/dL (74-106); Magnesium 1.8 mg/dL (1.8-2.4); Potassium 3.4 mmol/L (3.5-5.1); Sodium 140 mmol/L (136-145); Total Protein 7.2 g/dL (6.4-8.2); Troponin I < 50 ng/L (< or =60)
--- NOTE | 2024-04-06 08:00 | DI.US_ITS ---
APPROVED REPORT EXAM: Comprehensive 2D, Doppler, and color-flow Echocardiogram Patient Location: In-Patient Room/Bed: 229 Paper Feeder: Ophelia Barnett RDCS (AE) Indications: Near syncope, Atrial Fibrillation Echo Enhancing Agent Indication: Rule out Shunt Agent(s) / Amount(s) Used: Agitated Saline 30.0 cc Comments: Contrast study was performed with 3 IV injections of 10ccs of agitated normal saline, at re st, with cough and post valsalva maneuver. Valsalva maneuver was not successfully completed. Negative contrast study for shunt flow. Other Information Study Quality: Fair Conclusion Normal left ventricular wall thickness and chamber size. Ejection fraction is 45%. There is global hypokinesis Normal right ventricular size and function Left atrium is mildly dilated. Right atrial size is normal Aortic valve is trileaflet and sclerotic with trace regurgitation Normal mitral valve with mild regurgitation Normal tricuspid valve with mild regurgitation. Estimated right ventricular systolic pressure is 36 mmHg No intracardiac shunting is identified Wall motion Left Ventricle The left ventricle is normal size. Left ventricular systolic function is decreased. There is normal left ventricular wall thickness. There is global hypokinesis of the left ventricle. There is no ventr icular septal defect visualized. LVEF is 45%. Right Ventricle The right ventricle is normal size. The right ventricular systolic function is normal. Atria Left atrium is mildly dilated. The right atrium size is normal. The interatrial septum is intact with no evidence for an atrial septal defect. Aortic Valve The Aortic valve is sclerotic. Aortic valve is trileaflet. There is no aortic valvular stenosis. Trac e aortic regurgitation. Mitral Valve The mitral valve is normal in structure. No evidence of mitral valve stenosis. Mild mitral regurgit ation. Tricuspid Valve The tricuspid valve is normal in structure. There is no tricuspid valve stenosis. Mild tricuspid regu rgitation. The RVSP is 36.0 mmHg. Pulmonic Valve The pulmonary valve is normal in structure. There is no pulmonic valvular stenosis. Trace pulmonic r egurgitation. Great Vessels The aortic root is normal in size. Ascending aorta is not well visualized. Aortic arch is not well vi sualized. IVC is normal in size and collapses >50% with inspiration. Pericardium There is no pericardial effusion. 2D Dimensions IVSD d PLAX 1.01 cm M: 0.6-1.2 Ao Root d 3.44 cm M: 3.1 - 3.7 LVPW d PLAX 1.03 cm M: 0.6 - 1.2 LVID d PLAX 4.93 cm M: 4.2 - 5.8 LVDs 3.86 cm M: 2.5 - 4.0 LV EF Teichholz 43.9 % FS 21.74 % LV EDV (Teich) 114.3 mL LV ESV (Teich) 64.2 mL M-Mode TAPSE 2.35 cm (M/F) >1.7 Auto EF LV EDV A4C 141.9 mL LV EDV A2C 148.5 mL LV EDV BP 149.2 mL LV ESV A4C 79.5 mL LV ESV A2C 83.3 mL LV ESV BP 82.1 mL LVEF(%) A4C 44.0 % LVEF(%) A2C 43.9 % LVEF(%) BP 45.0 % LV SV A4C 62.4 ml LV SV A2C 65.1 ml LV SV BP 67.0 ml LV CO A4C 5.6 L/min LV CO A2C 5.1 L/min LV CO BP 5.3 L/min HR A4C 89.56 BPM HR A2C 77.93 BPM LV EDV Index (BP) LA Volume LA Length A4C 6.3 cm LA Length A2C 5.5 cm LA Area A4C s 25.22 cm2 LA Area A2C s 21.43 cm2 LA Vol A4C A-L 85.63 mL LA Vol A2C A-L 70.52 mL LA Vol Biplane A-L 83.0 mL LA Vol/BSA A4C A-L LA Vol/BSA A2C A-L LA Vol/BSA BP A-L 41.9 mL/m2 LA Vol A4C MOD 80.1 mL LA Vol A2C MOD 66.5 mL LA Vol BP MOD 77.8 mL RA Volume RA Area A4C 24.1 cm2 RA ESV A4C (A-L) 77.2mL RA Vol/BSA A4C A-L RA Length A4C 6.4 cm RA ESV A4C (MOD) 73.7mL LV Diastology MV E' medial 0.049 (>0.07 m/s) MV E Vmax 0.57 (0.4-1.3 m/s) MV E/E' MED 11.70 (<14) MV A Vmax 0.65 (0.4-1.3 m/s) MV E' lateral 0.076 (>0.1 m/s) E/A Ratio 0.9 MV E/E' LAT 7.53 (<14) MV E' Average 0.063 m/s MV E/E'(average) 9.16 Aortic Valve AoV Vmax 1.45 m/s LVOT Vmax 0.94 m/s AoV Peak Grad 8.4 mmHg LVOT Peak Grad 3.6 mmHg AoV Area (Vmax) 2.01 cm2 LVOT VTI 0.196 m AoV VTI 0.322 m LVOT Mean Grad 2.0 mmHg AoV Mean Doron. 1.10 m/s LVOT SV 60.65 mL AoV Mean Grad 5.4 mmHg LVOT Diam s 1.95 cm AoV Area (VTI) 1.89 cm2 Velocity Ratio 0.65 Mitral Valve MV DT 419 (160-240 msec) MV Vmax TIPS 0.91 m/s MV Mean Grad 1.3 (<2mmHg) MV VTI 0.176 m Pulmonary Valve PV Vmax 0.96 (0.5-1.5 m/s) RVOT Vmax 0.47 m/s PV Peak Grad 3.8 mmHg RVOT Peak Gr. 0.9 mmHg PV Mean Doron 0.67 m/s RVOT VTI 0.099 m PV Mean Grad 2.0 mmHg RVOT Mean Gr. 0.5 mmHg Tricuspid Valve RA Pressure 3.00 mmHg TR Vmax 2.87 m/s TV S' 0.14 m/s TR Peak Grad 32.9 mmHg RVSP (TR) 36.0 mmHg
--- NOTE | 2024-04-06 08:00 | DI.MRI_ITS ---
Exam(s) MR BRAIN WO EXAM: MR BRAIN WO CLINICAL HISTORY: Near syncope with atrial fibrillation TECHNIQUE: Multiplanar multisequence MRI of the brain was performed. COMPARISON: CT CT BRAIN NECK CTA from 04/06/2024 FINDINGS: CEREBRAL PARENCHYMA: There is no evidence of intracranial hemorrhage, mass effect, or shift of midline structures. There are no extra-axial fluid collections. Ventricles are not enlarged or shifted. There is no significant acute focal signal abnormality in the cerebellar hemispheres nor within the p ons, midbrain, and thalami. There is bilateral periventricular signal abnormality consistent with relatively symmetrical chronic ischemic disease. However, there is no significant focal signal abnormality evident on diffusion imaging to suggest acu te ischemic event. PITUITARY GLAND: No mass nor parasellar abnormality. No obvious abnormality in the cavernous sinuses. FLOW VOIDS: The expected flow void are noted. No evidence of obvious aneurysm nor obvious vascular ma lformation. PARANASAL SINUSES: The visualized paranasal sinuses appear unremarkable. No obvious finding ORBITS: No obvious findings. IMPRESSION: Abundant bilateral periventricular signal abnormality consistent with chronic small-vessel white george er disease. There is no restricted diffusion to suggest acute ischemic event. No hemorrhage. Invol utional change consistent with this patient's advanced age. DATA REPOSITORY:
[2024-04-06] MEDS: Psyllium PKT 1 EACH PO ×3 (08:44→17:02)
[2024-04-06] MEDS: Doxycycline Hyclate 100 MG CAP PO ×2 (08:45→20:51)
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
[2024-04-06] MEDS: Warfarin 5 MG TAB PO (16:13)
--- NOTE | 2024-04-06 16:38 | CHAPLAIN ---
Adebayo was resting in bed when I visited. He told me he doesn't hear well. His friend, Lashon, was with him. Adebayo said he had lots of tests today and he's waiting to hear the results. He told me the story of his [place] grandmother being told by the mri special procedures technologist give him 10 percent of her household income, and then showing up to take it from her so she got angry and left the religion, and then became a Jainism. He said that explains why he's a Malay [place] Jainism instead of a Confucianism like most Malay Canadians.
[2024-04-06] MEDS: Atorvastatin 40 MG TAB 80 MG PO (20:51)
[2024-04-07 00:29] VITALS: PULSE 87
[2024-04-07 03:45] VITALS: BP 122/79; PULSE 83; RESP 16; TEMP 36.4; O2SAT 100
[2024-04-07 06:49] LABS: Abs Immature Grans 0.03 10^3/uL (0.0-0.06); Absolute Basophil Count 0.07 10^3/uL (0.0-0.2); Absolute Eosinophil Count 0.22 10^3/uL (0.0-0.7); Absolute Neutrophil Count 4.84 10^3/uL (1.2-6.7); Basophils % 0.9 %; Eosinophils % 2.9 %; HCT 42.9 % (40.0-50.0); HGB 14.6 g/dL (13.5-17.5); Immature Grans % 0.4 %; Lymphocytes % 22.8 %; MCH 30.9 pg (27.0-33.0); MCV 91 fL (80-95); MPV 9.3 fL (8.0-11.0); Platelet Count 237 10^3/uL (130-400); RBC 4.72 10^6/uL (4.36-5.78); RDW 14.2 % (11.8-14.1); RDW-SD 47.8 fL; WBC 7.46 10^3/uL (4.4-10.8)
[2024-04-07 06:54] LABS: Prothrombin Time 19.3 sec (9.1-11.1)
[2024-04-07 07:05] LABS: Anion Gap 7.6 mmol/L (3-11); BUN 11 mg/dL (7-18); CO2 24.4 mmol/L (21.0-32.0); CREATININE 0.7 mg/dL (0.70-1.30); Calcium 8.3 mg/dL (8.5-10.1); Chloride 106 mmol/L (98-107); Glucose 101 mg/dL (74-106); Potassium 3.7 mmol/L (3.5-5.1); Sodium 138 mmol/L (136-145)
[2024-04-07 07:23] VITALS: BP 136/73; PULSE 72; RESP 16; TEMP 36.4; O2SAT 96
[2024-04-07] MEDS: Psyllium PKT 1 EACH PO ×2 (08:11→11:43)
[2024-04-07] MEDS: Doxycycline Hyclate 100 MG CAP PO (08:11)
[2024-04-07] MEDS: Potassium Chloride 20 MEQ TABCR 40 MEQ PO (08:12)
--- NOTE | 2024-04-07 10:48 | IN_ITS ---
PT Notes Visit Reasons: Near syncope, Atrial fibrillation, Ischemic cardio Physical Therapy Inpatient Initial Evaluation Date: 04/07/2024 Referring Doctor: Juliet Beltrán NP PT Orders: PT CONSULT: Safety consult for D/C Precautions: Fall. Standard. Activity as tolerated. Patient Profile/Admitting Diagnosis: Adebayo is an 83-year-old male admitted to the ED on 04/05/2024 with complaints of lightheadedness. Patient was admitted same day for management of near syncope, bronchitis, hypokalemia, AF, chronic HFrEF, and ischemic cardiomyopathy. PMHX: All Active Problems (Updated 04/06/24 @ 03:40 by Jordan Palencia) Bronchitis (Acute) Hypokalemia (Acute) Sinusitis (Acute) Near syncope (Acute) Atrial dysrhythmia (Acute) Dizziness (Acute) Subtherapeutic international normalized ratio (INR) (Acute) Other spondylosis with radiculopathy, lumbar region (Acute) Status post right hip replacement (Acute) Anticoagulation goal of INR 2 to 3 (Acute) Near syncope (Acute) Lower urinary tract symptoms (LUTS) (Acute) Carotid stenosis, bilateral (Acute) Orthostasis (Acute) New onset atrial fibrillation (Acute) Bilateral shoulder pain (Acute) Knee pain, left (Acute) History of Surgical Procedure (Chronic) a. Meniscectomy, left knee. b. Right toal knee replacement. c. Right total hip replacement. d. Bilateral cataract surgery. e. Medial epicondylitis surgery. f. Bilateral rotator cuff surgery. g. Left ring finger trigger finger release. h. Multiple surgeries for lipoma excisions. i. Colonoscopies.Sleep apnea (Chronic) a. Not on CPAP. 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 denies this Anticoagulation monitoring, INR range 2-3 (Acute) 03[place]24/19 [facility] Continue warfarin group home for secondary VTE prophylaxis RAHEEM positive (Chronic) Nicotine dependence (Acute 07/09/13) S/P colonoscopy (Acute ~08/02/19) Tubular adenoma x11. Sessile serrated adenoma [id number] (current) use of anticoagulants, INR goal 2.0-3.0 (Acute) Urinary frequency (Acute) Dysuria (Acute) UTI (urinary tract infection), uncomplicated (Acute) Abdominal mass (Acute) Burning with urination (Acute) Tubular adenoma of colon (Acute ~09/2020) Hyperplastic colon polyp (Acute ~09/2020) Cervical strain, acute (Acute) Left carpal tunnel syndrome (Acute) s/p OCTR DOS: 12/10/22Acute diverticulitis (Acute) History of pulmonary embolism (Acute) History of DVT (deep vein thrombosis) (Acute) Abdominal pain (Acute) Near syncope (Acute) Subtherapeutic international normalized ratio (INR) (Acute) Elevated troponin I level (Acute) Panic attacks (Acute) Chronic HFrEF (heart failure with reduced ejection fraction) (Chronic) Osteoarthritis of right shoulder region (Acute) Steroid injection: 08/14/2022 Osteoarthritis of left shoulder region (Acute) Steroid injection: 08/14/2022 ASCVD (arteriosclerotic cardiovascular disease) (Acute ~07/2022) Ischemic cardiomyopathy (Chronic ~07/2022) Rotator cuff tear, right (Acute) Cubital tunnel syndrome on left (Acute) s/p cubital tunnel release and anterior transposition DOS: 12/10/22 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 (Acute) Left carpal tunnel syndrome (Acute) Medical History Atrial fibrillation Hemorrhoids Hematuria History of diverticulitis CHI (closed head injury) Erectile dysfunction Numbness and tingling in both hands IFG (impaired fasting glucose) Insomnia Serrated adenoma of colon (~09/2020) DISH (diffuse idiopathic skeletal hyperostosis) (02/07/20) [facility] Cough Chest tightness per caregiver states this is anxiety related SOB (shortness of breath) Diverticulosis Depressive disorder (07/09/13) DVT (deep venous thrombosis) 03/25/19 [facility] Right and Left: extensive, acute, non-occlusive DVT Right ventricular dilation Pulmonary embolism Acute saddle PE found @ [facility] Friday, 08/10 .. helicoptered [place] [facility] .. s/p TPA, now on lovenox, starting warfarin. Heart strain noted, fu with cardiology in 3 mos. Hem/ Onc work up planned ([facility] [ [place]. Hx Lovenox for PE in past? Periodic limb movement disorder (02/13/13) [facility]EP DISORD[facility], SLEEP STUDY 02/13/13 Obstructive sleep apnea syndrome (02/13/13) [facility] FOR SLEEP DISORDER, SLEEP STUDY 02/13/13 BIPAP RECOMMENDED ([facility]) PT ISN'T USING and returned BiPAP on own 04/2013 Impotence of organic origin (02/13/12) Hyperlipidemia (02/13/12) Lipids 2010: 226/115/58/149 Statin made his GERD worse Esophageal reflux (02/13/12) Cervical radiculopathy (01/01/17) GERD (gastroesophageal reflux disease) Anxiety BPH (benign prostatic hypertrophy) Hypertension Surgical History History of colonoscopy (~10/2021) History of carpal tunnel surgery of left wrist (06/13/21) H/O elbow surgery right H/O shoulder surgery bilaterally S/P trigger finger release S/P cataract extraction and insertion of intraocular lens (03/31/14) OD S/P cataract extraction and insertion of intraocular lens (~03/17/14) left History of total hip arthroplasty History of total knee replacement (05/30/14) left Endoscopic Carpal Tunnel release (06/19/15) Jailene Moore Social History/Home Situation: Lives alone in a private home with 3 steps to enter with rails on B sides. Thinking about giving up driving. Gets meals on wheels. Has a cleaning lady who comes in once a month. Equipment Owned/DME: FWW, SPC Subjective: Denies headache, chest pain, and lightheadedness throughout session. Agreeable to using FWW for today's walk. feels at baseline mobility at this time. Objective: General Observation: Seated on chair. Telemetry monitoring in place. Mental Status: Alert and oriented as to person, place, time, and purpose. Able to pay attention, focus, and respond appropriately. Pain: None reported Vital Signs: Affer walking 250 feet: BP 148/64 mmHg, O2 Sat 99% on RA, HR 79 bpm ROM: Right Upper Extremity: Shoulder Flexion WFL. Shoulder abduction WFL. Elbow flexion WFL. Wrist flexion WFL. Functional opening and closing of hand WFL. Left Upper Extremity: Shoulder Flexion WFL. Shoulder abduction WFL. Elbow flexion WFL. Wrist flexion WFL. Functional opening and closing of hand WFL. Right Lower Extremity: Hip flexion WFL. Hip abduction WFL. Knee flexion WFL. Ankle dorsiflexion WFL. Ankle plantarflexion WFL. Left Lower Extremity: Hip flexion WFL. Hip abduction WFL. Knee flexion WFL. Ankle dorsiflexion WFL. Ankle plantarflexion WFL. Strength: Right Upper Extremity: Shoulder flexors 4-/5. Shoulder abductors 4-/5. Elbow flexors 4-/5. Elbow extensors 4-/5. Store Mgr strong. Left Upper Extremity: Shoulder flexors 4-/5. Shoulder abductors 4-/5. Elbow flexors 4-/5. Elbow extensors 4-/5. Store Mgr strong. Right Lower Extremity: Hip flexors 4-/5. Hip abductors 4-/5. Knee flexors 4-/5. Knee extensors 4-/5. Ankle dorsiflexors 3+/5. Ankle plantarflexors 4-/5. Left Lower Extremity: Hip flexors 4-/5. Hip abductors 4-/5. Knee flexors 4-/5. Knee extensors 4-/5. Ankle dorsiflexors 3+/5. Ankle plantarflexors 4-/5. Bed Mobility/Transfers: Minimal cueing provided for use of B hands as needed for support, movement sequence, Ad management, and and posture to reduce fall risk and minimize pain report Rolling independent Supine to sit independent Sit to supine independent Sit to stand supervision Stand to sit supervision Gait: Facilitated safe and correct performance of level surface ambulation covering a distance of 250 feet + 100 feet using front wheeled walker with minimal verbal cueing provided for hand placement, movement sequence, AD management, and and posture to reduce fall risk. Stand by assist only. Balance: Static Sitting: Normal Dynamic Sitting: Normal Static Standing: Good Dynamic Standing: Fair Special Tests: Mobility Limitations Standardized Measure [facility] 6 clicks Basic Mobility Inpatient Short Form: Raw Score: 24 CMS Score: 0% deficit Romberg Test: Positive 4-stage Balance Test: Able to maintaining feet together for 10 seconds but not for semi-tandem, full tandem, and one-legged stance. Informed Consent/Education: Patient was instructed in purpose of PT consult. Assessment: Patient requires use of a front-wheeled walker for all mobility ADL performance to maximize independence and reduce fall risk at home. Patient is agreeable to home health PT for continue to work on strengthening and balance to reduce fall risk Patient presents with clinical signs and symptoms consistent with current/admitting diagnoses that have resulted to mobility limitations, gait instability, generalized weakness, and overall ADL decline as demonstrated by the following impairment level findings: 1. Decreased strength to B UE/LE major muscle groups 2. Impaired sitting/standing balance 3. Impaired activity tolerance Impairments are contributing to the following functional limitations: 1. Difficulty with ambulation without assistive device 2. Increased completion time for mobility ADL performance 3. Increased risk for falls 4. Difficulty with managing steps alone safely Patient is assessed as a 37231 moderate complexity based on the following: History: 83-year-old male with past medical history as indicated above Examination: Demonstrable impairment in strength, balance, and mobility level with underlying impairments and functional limitations as exhibited above Presentation: Stable Decision Makin mderate complexity Goals: Goals X1 week 1. Supine-Sit independent 2. Sit-Supine independent 3. Sit-Stand independent 4. Stand-Sit independent 5. Bed-Chair independent 6. Chair-Bed independent 7. Independent gait on level surface with use of least restrictive device for at least 300 feet without report of pain nor dyspnea 8. Independent stair negotiation while holding onto bilateral rails for at least 10 steps without report of pain nor dyspnea 9. Independent with home exercise program 10. Good static and dynamic standing balance/tolerance Plan of Care/Treatment Plan: Patient will highly benefit from skilled physical therapy services including functional mobility training, bed mobility/transfer training, gait and balance training, therapeutic exercises, therapeutic activity, caregiver/staff/family education and training 1-2x/day, 7 days/week x 1 week. Plan of care has been reviewed with the ICT PROJECT MANAGER providing the service under Physical Therapy direction. Initiate Physical Therapy intervention for strengthening, bed mobility, transfers, gait, stairs, balance training, use of assistive device. DISCHARGE RECOMMENDATIONS: [] Home with no services [] [X] Home with services. Patient will benefit from home health PT services in order to progress mobility level using least restrictive assistive ambulatory device, assess home safety, identify additional equipment needs, and establish a functional maintenance program that will increase ability of patient to remain at home. [] Home with outpatient PT [] [] SNF for continued rehabilitation [] [] [facility] [] [] SNF versus LTC based on ability to participate and progress [] TREATMENT CODE/TIME: 45524 x 23 minutes for 1 unit (10:48-11:11). Thank you for the opportunity to participate in the care of this patient. Mariposa Graves PT, DPT, CLT [facility] [place], [place]
[2024-04-07 11:14] VITALS: BP 123/77; PULSE 86; RESP 18; TEMP 36.4; O2SAT 97
--- NOTE | 2024-04-07 11:30 | RT.EKG_ITS ---
APPROVED REPORT Exam: Resting ECG Reason for Exam: irregular rhythm Patient Location: I HR:89 bpm ECG Measurements Heart Rate 89 AXIS LA 278 P 245 QRSd 155 QRS -84 QT 393 T 60 QTc 479 Conclusion Sinus or ectopic atrial rhythm...P axis (-45,135) Atrial premature complex...SV complex w/ short R-R interval Prolonged LA interval...LA >220, V-rate 50- 90 RBBB and LAFB...QRSd >120mS, axis(-40,240) Inferior infarct, old...Q >35mS, II III aVF
--- NOTE | 2024-04-07 12:17 | PDOC.CMDIS ---
Date of service: 04/07/24 Time of Service: 12:17 LACE Index Scoring Tool Questions: Length of Stay (in days): 1 Was the patient admitted via the E.D.?: Yes Comorbidities: Any Tumor E.D. Visits: 2 Answers: Total Score: 8 Risk of Readmission: Low Risk Care Management Discharge Plan Reason for Hospitalization: Near syncope, Afib, Ischemic cardiomyopathy Discharge Plan: Adebayo will return home with new orders for home health PT, he will follow up with his PCP and plan of care as prescribed. Adebayo will transport via private vehicle. Patient/Family Education Needs: Review discharge instructions, discuss Ask Me Three self care needs upon discharge. Services Needed at Discharge: Home Health Care Services (PT) SDOH Health Related Social Needs: No Data to Display
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
[2024-04-07 12:36] VITALS: BP 120/72; BP 123/56; PULSE 81; PULSE 89
--- NOTE | 2024-04-07 13:20 | PDOC.HHF2F_ITS ---
Home Health Referral Home Health Orders Clinical synopsis of why skilled professionals are needed: new medication changes, high risk for decompensation, Medical diagnosis necessitation home health referral: HFrEF, afib, near syncope Registered Nurse: Check all that apply Instruct on new or changed medication(s)/assess compliance: Ordered Assess for exacerbation of medical condition, instruct patient/caregivers on signs and symptoms to report for early detection: Ordered (Blood pressures direct results to PCP, please) Other: Patient forgets to take medicines Physical Therapist: Check all that apply Increase strength & endurance for safe mobility at home: Ordered To design/establish home maintenance program: Ordered Fall reduction therapy program for patient with history of frequent falls: Ordered Traffic Analysis Technician: Assist with community resources: Ordered Assist with termite treater helper care planning: Ordered Home Bound Status Requires the aid of supportive device (check all that apply): Walker Describe why leaving home would require a considerable and taxing effort: Safety Concerns: describe Encounter Date and Reason: I certify that a FTF encounter for this patient was performed on April 07, 2024 and that such encounter was related to the primary reason the patient requires home health services. The encounter was conducted in the following manner: * By me as the certifying physician, INSOLVENCY CONSULTANT, PA or * By an inpatient physician, INSOLVENCY CONSULTANT or PA during an inpatient stay who communicated findings to me, Certification And Authentication I certify that I composed the above information based on my clinical judgment relating to this patient's medical condition and, if applicable, clinical findings communicated to me by the NPP or inpatient physician who performed the FTF encounter. Name of Provider that will be monitoring home health services: Sania Cherry
== END 2024-04-07 13:57 | disposition home health service (06) | DRG 309 ==
LOC: ER 04-06 02:54 → MS 04-06 03:28
PROVIDERS: Nurse Practitioner Acute Care; Admitting Provider Family Medicine; Emergency Provider Student in an Organized Health Care Education/Training Program; PCP Nurse Practitioner; Visit Provider Family Medicine
DX: I48.91 Unspecified atrial fibrillation (principal); I50.22 Chronic systolic (congestive) heart failure; R55 Syncope and collapse; E87.6 Hypokalemia; I25.5 Ischemic cardiomyopathy; F41.9 Anxiety disorder, unspecified; Z79.01 Long term (current) use of anticoagulants; I65.21 Occlusion and stenosis of right carotid artery; J20.9 Acute bronchitis, unspecified; Z86.711 Personal history of pulmonary embolism; Z86.718 Personal history of other venous thrombosis and embolism; M47.26 Other spondylosis with radiculopathy, lumbar region; Z96.641 Presence of right artificial hip joint; Z96.651 Presence of right artificial knee joint; Z87.891 Personal history of nicotine dependence; G47.33 Obstructive sleep apnea (adult) (pediatric); E78.5 Hyperlipidemia, unspecified; K21.9 Gastro-esophageal reflux disease without esophagitis; N40.0 Benign prostatic hyperplasia without lower urinary tract symptoms; I11.0 Hypertensive heart disease with heart failure
CPT/HCPCS: 00123; 36415; 70496; 70498; 80048; 80053; 85027; 87637; 93005; 93306; 93308; 96360; 97162; 99284; 99285; 70450; 70551; 71045; 81003; 83735; 83880; 84443; 84484; 85025; 85610; 85730; 93010; 99223; 99239; 99283; J1940; J3490

== ENCOUNTER 2024-04-07 13:03 | Outpatient (RCR) | payer MEDICARE, OTHER, SELFPAY | END 2024-04-23 23:59 | disposition home or self-care (01) | LOC: RT 13:03 | PROVIDERS: PCP Nurse Practitioner; Visit Provider Nurse Practitioner Acute Care | DX: R55 Syncope and collapse (principal); I48.91 Unspecified atrial fibrillation | CPT/HCPCS: 93270 ==

== ENCOUNTER 2024-05-11 08:18 | Outpatient (CLI) | payer MEDICARE, OTHER, SELFPAY ==
--- NOTE | 2024-05-11 08:45 | W.CARDEVENT ---
Date of service: 05/11/24 Time of Service: 08:45 Cardiac Event Recorder Referring Provider:: aSnia Cherry Indications:: Syncope, PAF Cardiac Event Note: This is a cardiac event monitor. Patient was monitored for 29 days. Predominant rhythm was sinus. Average heart rate was 75 Several episodes of atrial fibrillation occurred, maximum rate was 100/min. PVCs were seen. There were several brief runs of nonsustained ventricular tachycardia. The longest of these was 8 beats in duration There appeared to be periods of Mobitz 1 second-degree AV block (Wenckebach) but also AV dissociation/high-grade AV block. Heart rates during these episodes was generally no lower than 40. Episodes did not appear to be during sleep. Minimum heart rate was 27 at 12:33 AM day 28 and did appear to be A-V dissociation not second-degree AV block
== END 2024-05-11 08:19 | disposition home or self-care (01) ==
LOC: CARDOPNVT 08:18
PROVIDERS: PCP Nurse Practitioner; Visit Provider Internal Medicine Cardiovascular Disease
DX: I49.8 Other specified cardiac arrhythmias (principal); I48.91 Unspecified atrial fibrillation; I44.1 Atrioventricular block, second degree
CPT/HCPCS: 93272

== ENCOUNTER → 2024-05-24 03:09 | Outpatient (CLI) | payer MEDICARE, OTHER, SELFPAY ==
--- NOTE | 2024-05-24 07:15 | DI.DEXA_ITS ---
Exam(s) XR DEXA BONE DENSITY W/WO BALDOMERO EXAM: XR DEXA BONE DENSITY W/WO BALDOMERO CLINICAL HISTORY: ? osteoporosis, comp fx lumbar spine,M48.56xa TECHNIQUE: COMPARISON: CR RT HIP COMPLETE AP PELVIS from 09/17/[address] ABDOMEN PELVIS W from 10/23/[address] CHEST PE CTA from 09/19/2023 FINDINGS: Lateral Spine Image: There is an old compression deformity of L5. Mild stable compression deformitie s are also seen at L2 and L3. Left hip: Total T-Score: 0.0 Total Z-Score: 1.2 T- and Z-scores: Within normal limits. Lumbar Spine: Total T-Score: 2.0 Total Z-Score: 3.3 T- and Z-scores: Within normal limits. IMPRESSION: No evidence of osteoporosis.
== END ==
PROVIDERS: PCP Nurse Practitioner; Visit Provider Nurse Practitioner Family
DX: M48.56XA Collapsed vertebra, not elsewhere classified, lumbar region, initial encounter for fracture (principal)
CPT/HCPCS: 77080

== ENCOUNTER 2024-08-10 08:25 | Outpatient (CLI) | payer MEDICARE, OTHER, SELFPAY ==
[2024-08-10 08:45] VITALS: BP 155/74; PULSE 82; RESP 18; TEMP 36.6; O2SAT 98
--- NOTE | 2024-08-10 09:04 | PDOC.PAIN2 ---
History of Present Illness History of Present Illness Chief Complaint: Low back pain History of Present Illness: Problem 1: Low back pain The pain is impacting the patient's ability to continue with their usual daily activities and resulting in decreased quality of life.? The patient?s symptoms and physical exam are most consistent with lumbar spondylosis. History of Present Illness: The patient has a history of low back pain and returns today for medial branch blocks. Patient's pain started in April with severe pain that brought him to the emergency department. He was seen by Dr. Patel on July 29 and was scheduled for lumbar medial branch blocks with me today. This is my first time meeting him. He really is having no pain at this time. He does complain of dizziness which has been an ongoing issue. His imaging shows a L5 compression fracture age-indeterminate. He has had bone density exam which is negative for osteoporosis. He does not recall any serious trauma other than when he was a child. Interval History: Resolution of back pain ?The patient denies fever or chills.? The patient denies saddle anesthesia or recent onset of bowel or bladder incontinence. Review of Systems:? Negative except for pertinent positive and negative findings as specified in the HPI. Physical Exam: General:? The patient is awake,alert communicates easily and makes good eye contact Eyes:? Anicteric, symmetric pupils Respiratory:? Breathing comfortably Cardiovascular:? No JVD, no peripheral edema Back: Kemps maneuver negative Neuro exam: Patient ambulates with the aid of a walker but neurologically grossly intact motor and sensory in the lower extremities Images: No recent imaging Assessment: Low back pain subacute that is resolving on its own. He does have compression fractures age-indeterminate with no osteoporosis. Neurologically he is grossly intact ? This problem is an exacerbated chronic medical condition Plan: Orders: none Referrals: none Interventions: none at this time. Medication Management: No changes. Other Recommendations/Discussion: Would get updated dedicated imaging of the spine if his symptoms return. Risks, benefits, and alternatives of the plan and treatments were discussed in detail.? The patient indicated understanding potential risks and benefits and would like to proceed as outlined above. Follow up: As needed Medical Decision Making Treatment and diagnostic options discussed and/or considered for the patient?s problem include physical therapy, prescription medications, and targeted interventional therapy. Patient specific risk factors considered in selection of treatment options include history of requirement for chronic anticoagulation or antiplatelet therapy. Notes from each unique source reviewed today: Previous notes Results from each unique test reviewed today: Previous imaging Review of Systems Medications/Allergies Allergies Allergy/AdvReac Type Severity Reaction Status Date / Time tamsulosin (From Flomax) Allergy Intermediate Skin Rash Verified 08/10/24 08:36 codeine AdvReac Intermediate N/V Verified 08/10/24 08:36 Medications: Current Medications Bupivacaine HCl (Bupivacaine 0.5% Pres-Free 10 Ml Vial) 0 ml IJ DIRECTED VITA Stop: 08/10/24 23:59 Bupivacaine HCl (Bupivacaine 0.5% Pres-Free 30 Ml Vial) 0 ml IJ DIRECTED VITA Stop: 08/10/24 23:59 Miscellaneous (Nerve Block Tray) 1 each MC DIRECTED VITA Stop: 08/10/24 23:59 Ambulatory Orders ?Medication ?Instructions ?Recorded calcium carbonate (Tums) 200 mg PO BID PRN 10/25/21 atorvastatin 40 mg tablet 40 mg PO QPM #90 tabs 09/15/23 acetaminophen 500 mg tablet 1,000 mg (2 x 500 mg) PO TID PRN 10/14/23 fever or pain #300 tabs diclofenac sodium 1 % topical gel 2 g topical QID PRN 01/12/24 (Voltaren Arthritis Pain) warfarin 5 mg tablet 5 mg PO DAILY@1600 04/06/24 psyllium husk 3.4 gram/5.4 gram 1 tbsp PO TID 04/20/24 oral powder (Metamucil) lidocaine 5 % topical patch 1 patch topical DAILY 05/18/24 lidocaine 5 % topical cream 1 applic topical BID PRN 07/06/24 tramadol 50 mg tablet 50 mg PO BID PRN pain #20 tabs 07/21/24
== END 2024-08-10 08:26 | disposition home or self-care (01) ==
LOC: PC 08:25
PROVIDERS: PCP Nurse Practitioner; Visit Provider Anesthesiology Pain Medicine
DX: Z53.09 Procedure and treatment not carried out because of other contraindication (principal)
CPT/HCPCS: J0665

== ENCOUNTER 2024-08-31 08:11 | Outpatient (CLI) | payer MEDICARE, OTHER, SELFPAY ==
--- NOTE | 2024-08-31 08:06 | PDOC.PAIN_ITS ---
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 Chronic pain syndrome Postoperative diagnosis: 1. meralgia paresthetica 2.? Chronic pain syndrome RIGHT sided ultrasound guided lateral femoral?cutaneous nerve (LFCN) block Surgeon: Abdifatah Atwood MD Anesthesia: Local Sedation: none Complications: None EBL: <1ml COMMENT: Description of procedure: The patient was met in the preoperative area.? A discussion of the risk benefits and alternatives ensued.? Informed sent was obtained and surgical sofia was placed over the right thigh.? The patient was then brought to the procedure area and placed in the supine position on the fluoroscopy table.? The skin overlying the right upper thigh and was then widely prepped and draped in normal fashion with chlorhexidine skin prep.? Utilizing ultrasound guidance the right satorius and tensor fascia latae muscle was then identified with the LFCN lateral to the satorius .? The skin was anesthetized with 2 mL of 1% lidocaine.? Through the anesthetized tissue was passed a 21-gauge 100mm Pajunk needle advanced under ultrasound guidance until the proper needle position was obtai sreedhar.? Again under direct ultrasound guidance a total of 3 mL of 0.5% bupivacaine with 40 mg depomedrol was injected circumferentially around the LFCN nerve.? The needle was then withdrawn and a sterile bandage dressing was placed over the needle insertion site.? The patient was brought to the recovery area and monitored post procedurally with no immediate post-procedural complications noted.? The patient was subsequently discharged home in satisfactory stable condition with postprocedural instructions and follow-up appoint provided Plan: f/u PRN PAIN PRE-PROCEDURE 05/03 POST PROCEDURE 010 COMMENT: repeat prn
[2024-08-31 08:28] VITALS: BP 125/81; PULSE 72; RESP 18; TEMP 36.6; O2SAT 99
[2024-08-31 08:57] VITALS: O2SAT 96
[2024-08-31 09:00] VITALS: O2SAT 98
[2024-08-31] MEDS: methylPREDNISolone ACETATE 40 MG/ML VIAL IJ (09:18)
[2024-08-31] MEDS: Bupivacaine 0.5% Pres-Free 10 ML VIAL IJ (09:18)
[2024-08-31] MEDS: Nerve Block Tray 1 EACH MC (09:18)
== END 2024-08-31 08:12 | disposition home or self-care (01) ==
LOC: PC 08:11
PROVIDERS: PCP Nurse Practitioner; Visit Provider Anesthesiology Pain Medicine
DX: G57.11 Meralgia paresthetica, right lower limb (principal)
CPT/HCPCS: 00123; 64447; J0665; J1010

== ENCOUNTER → 2024-09-14 14:12 | Outpatient (BNVA) | payer MEDICARE, OTHER, SELFPAY | PROVIDERS: PCP Nurse Practitioner; Visit Provider Urology | DX: N40.1 Benign prostatic hyperplasia with lower urinary tract symptoms (principal); R35.0 Frequency of micturition; R31.9 Hematuria, unspecified | CPT/HCPCS: 51798; 81003; 99213 ==

== ENCOUNTER → 2024-12-17 14:21 | Outpatient (BNVA) | payer MEDICARE, OTHER, SELFPAY | PROVIDERS: PCP Nurse Practitioner; Referring Provider Nurse Practitioner; Visit Provider Urology | DX: N42.89 Other specified disorders of prostate (principal); R31.9 Hematuria, unspecified | CPT/HCPCS: 99213 ==

== ENCOUNTER → 2025-03-28 09:48 | Outpatient (BNVA) | payer MEDICARE, OTHER, SELFPAY | PROVIDERS: PCP Nurse Practitioner; Referring Provider Nurse Practitioner; Visit Provider Student in an Organized Health Care Education/Training Program | DX: G56.22 Lesion of ulnar nerve, left upper limb (principal); G56.02 Carpal tunnel syndrome, left upper limb; R20.0 Anesthesia of skin | CPT/HCPCS: 99213 ==

== ENCOUNTER 2025-04-11 14:41 | Emergency (ER) | payer MEDICARE, OTHER, SELFPAY ==
[2025-04-11] VITALS (17 sets, daily range): BP systolic 147–186; BP diastolic 69–109; PULSE 62–82; RESP 12–33; TEMP 36.6; O2SAT 96–99
--- NOTE | 2025-04-11 14:15 | RT.EKG_ITS ---
APPROVED REPORT Exam: Resting ECG Reason for Exam: sob, dizzy Patient Location: E HR:72 bpm ECG Measurements Heart Rate 72 AXIS TX [id number] P [id number] QRSd 162 QRS -81 QT 423 T 67 QTc 464 Conclusion Atrial fibrillation, rate 72 RBBB and Q waves II, III, aVF, unchanged from priors No STEMI
--- NOTE | 2025-04-11 14:30 | DI.RAD_ITS ---
Exam(s) XR CHEST 2V PA LATERAL EXAM: XR CHEST 2V PA LATERAL CLINICAL HISTORY: SOB, dizzy TECHNIQUE: 2D digital imaging was performed. Two views. COMPARISON: CR,XR XR PORTABLE CHEST AP from 04/06/2024 FINDINGS: HEART: Normal size. Aorta: Not dilated. PULMONARY VASCULATURE: Normal. MEDIASTINUM: Unremarkable. LUNGS: Clear. PLEURAL SPACE: No pleural effusion or pneumothorax. BONE:Spinal syndesmophytes. SOFT TISSUES: Unremarkable. IMPRESSION: No acute abnormality. DATA REPOSITORY: RADIATION DOSE DELIVERED:
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
[2025-04-11 14:58] LABS: Abs Immature Grans 0.03 10^3/uL (0.0-0.06); Absolute Basophil Count 0.05 10^3/uL (0.0-0.2); Absolute Lymphocyte Count 1.73 10^3/uL (1.2-3.4); Absolute Monocyte Count 0.44 10^3/uL (0.1-0.8); Absolute Neutrophil Count 3.78 10^3/uL (1.2-6.7); Basophils % 0.8 %; Eosinophils % 1.6 %; HCT 46.4 % (40.0-50.0); HGB 15.5 g/dL (13.5-17.5); Immature Grans % 0.5 %; Lymphocytes % 28.2 %; MCH 31.1 pg (27.0-33.0); MCHC 33.4 % (32.0-36.0); MCV 93 fL (80-95); Monocytes % 7.2 %; Neutrophils % 61.7 %; Platelet Count 248 10^3/uL (130-400); RBC 4.99 10^6/uL (4.36-5.78); RDW 14.1 % (11.8-14.1); RDW-SD 47.9 fL; WBC 6.13 10^3/uL (4.4-10.8)
[2025-04-11 14:59] LABS: Bilirubin Negative (Negative); Blood Negative (Negative); Clarity Clear (Clear); Glucose Negative (Negative); Ketones Negative (Negative); Leukocyte Esterase Negative (Negative); Nitrite Negative (Negative); Urobilinogen 0.2 mg/dL (Up to 0.2); pH 6.5 (5-8)
[2025-04-11 15:11] LABS: INR 2.1 (0.9-1.1); Prothrombin Time 20.1 sec (9.1-11.1)
[2025-04-11 15:19] LABS: ALT 36 U/L (16-63); AST 26 U/L (15-37); Albumin 3.9 g/dL (3.4-5.0); Alkaline Phosphatase 74 U/L (46-116); Anion Gap 7.4 mmol/L (3-11); BUN 11 mg/dL (7-18); Bilirubin, Total 0.5 mg/dL (0.2-1.0); CO2 30.6 mmol/L (21.0-32.0); CREATININE 0.8 mg/dL (0.70-1.30); Calcium 8.9 mg/dL (8.5-10.1); Chloride 104 mmol/L (98-107); Estimated GFR 87.81 (mL/min/1.73m2); Glucose 101 mg/dL (74-106); Magnesium 2.1 mg/dL (1.8-2.4); NT-proBNP 1029 pg/mL (<300); Potassium 4.2 mmol/L (3.5-5.1); Sodium 142 mmol/L (136-145); Total Protein 7.4 g/dL (6.4-8.2); Troponin I 9 ng/L (<or=76)
[2025-04-11] MEDS: Lactated Ringers 500 ML IV (15:39)
[2025-04-11 16:24] LABS: Troponin I 9 ng/L (<or=76)
== END 2025-04-11 16:58 | disposition home or self-care (01) ==
PROVIDERS: Emergency Provider Emergency Medicine; PCP Nurse Practitioner
DX: I95.1 Orthostatic hypotension (principal); R42 Dizziness and giddiness; Z79.01 Long term (current) use of anticoagulants
CPT/HCPCS: 99283; 99284; 36415; 80053; 93005; 96360; 71046; 81003; 83735; 83880; 84484; 85025; 85610; 93010

== ENCOUNTER → 2025-04-25 14:04 | Outpatient (BNVA) | payer MEDICARE, OTHER, SELFPAY | PROVIDERS: PCP Nurse Practitioner; Visit Provider Urology | DX: R39.9 Unspecified symptoms and signs involving the genitourinary system (principal); N40.1 Benign prostatic hyperplasia with lower urinary tract symptoms | CPT/HCPCS: 99214; 51798 ==

== ENCOUNTER 2025-05-05 09:52 | Outpatient (RCR) | payer MEDICARE, OTHER, SELFPAY | END 2025-05-23 23:59 | disposition home or self-care (01) | LOC: CARDOPNVT 09:52 | PROVIDERS: PCP Nurse Practitioner; Referring Provider Family Medicine; Visit Provider Internal Medicine Cardiovascular Disease | DX: I48.0 Paroxysmal atrial fibrillation (principal); I49.3 Ventricular premature depolarization | CPT/HCPCS: 93227; 93225; 93226 ==

== ENCOUNTER → 2025-07-06 10:02 | Outpatient (BNVA) | payer MEDICARE, OTHER, SELFPAY | PROVIDERS: PCP Nurse Practitioner; Referring Provider Student in an Organized Health Care Education/Training Program; Visit Provider Nurse Practitioner Adult Health | DX: G56.22 Lesion of ulnar nerve, left upper limb (principal); G56.02 Carpal tunnel syndrome, left upper limb; M79.645 Pain in left finger(s) | CPT/HCPCS: 99214; 95909 ==

== ENCOUNTER 2025-08-01 16:09 | Outpatient (CLI) | payer MEDICARE, OTHER, SELFPAY ==
--- NOTE | 2025-08-01 14:45 | DI.RAD_ITS ---
Exam(s) XR HAND LT COMPLETE EXAM: XR HAND LT COMPLETE CLINICAL HISTORY: left hand pain. TECHNIQUE: 2D digital imaging was performed. Three views. COMPARISON: No exams were available for comparison FINDINGS: BONES: No acute fracture is present. No bony destructive lesion is seen. JOINTS: No dislocation present. There are mild degenerative changes of the metacarpophalangeal joints. There are [id number] degenerative changes of the proximal interphalangeal joints. There are more advanced degenerative changes involving the distal interphalangeal joints, greater at the index and middle fingers where there is prominent periarticular spurring.. SOFT TISSUE: Vascular calcifications. IMPRESSION: Degenerative changes, greatest at the 2nd and 3rd distal interphalangeal joints. DATA REPOSITORY: RADIATION DOSE DELIVERED:
== END 2025-08-01 16:10 | disposition home or self-care (01) ==
LOC: DIORS 16:09
PROVIDERS: PCP Nurse Practitioner; Referring Provider Nurse Practitioner; Visit Provider Student in an Organized Health Care Education/Training Program
DX: G56.02 Carpal tunnel syndrome, left upper limb (principal); G56.22 Lesion of ulnar nerve, left upper limb; M18.12 Unilateral primary osteoarthritis of first carpometacarpal joint, left hand; M79.642 Pain in left hand
CPT/HCPCS: 20604; J1010; 73130

== ENCOUNTER → 2025-08-30 10:21 | Outpatient (BNVA) | payer MEDICARE, OTHER, SELFPAY | PROVIDERS: PCP Nurse Practitioner; Referring Provider Nurse Practitioner; Visit Provider Urology | DX: N40.1 Benign prostatic hyperplasia with lower urinary tract symptoms (principal); R39.9 Unspecified symptoms and signs involving the genitourinary system | CPT/HCPCS: 99214 ==

== ENCOUNTER 2025-09-14 03:31 | Inpatient (IN) | payer MEDICARE, OTHER, SELFPAY ==
[2025-09-14] VITALS (41 sets, daily range): BP systolic 121–162; BP diastolic 59–102; PULSE 43–81; RESP 12–33; TEMP 35.8–36.8; O2SAT 94–100
--- NOTE | 2025-09-14 03:00 | RT.EKG_ITS ---
APPROVED REPORT Exam: Resting ECG Reason for Exam: dizzy, afib Patient Location: E HR:72 bpm ECG Measurements Heart Rate 72 AXIS WA 244 P 0 QRSd 167 QRS -82 QT 428 T 76 QTc 470 Conclusion Sinus rhythm...normal P axis, V-rate 60- 99 Supraventricular bigeminy...bigeminy string>4 w/ SV complexes Prolonged WA interval...WA >220, V-rate 50- 90 Right bundle branch block...QRSd>120, terminal axis(90,270) Left ventricular hypertrophy...multiple LVH criteria A-V dissociation RBBB no acute ST changes
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
[2025-09-14 03:37] LABS: Abs Immature Grans 0.01 10^3/uL (0.0-0.06); HCT 45.0 % (40.0-50.0); HGB 15.1 g/dL (13.5-17.5); Immature Grans % 0.2 %; MCH 30.7 pg (27.0-33.0); MCHC 33.6 % (32.0-36.0); MCV 92 fL (80-95); MPV 9.3 fL (8.0-11.0); Platelet Count 254 10^3/uL (130-400); RBC 4.92 10^6/uL (4.36-5.78); RDW 14.0 % (11.8-14.1); RDW-SD 47.6 fL; WBC 5.57 10^3/uL (4.4-10.8)
[2025-09-14 03:47] LABS: INR 3.1 (0.9-1.1); Prothrombin Time 28.7 sec (9.1-11.1)
[2025-09-14 03:54] LABS: ALT 37 U/L (16-63); AST 22 U/L (15-37); Albumin 3.7 g/dL (3.4-5.0); Alkaline Phosphatase 75 U/L (46-116); Anion Gap 9.2 mmol/L (3-11); BUN 12 mg/dL (7-18); Bilirubin, Total 0.6 mg/dL (0.2-1.0); CO2 27.8 mmol/L (21.0-32.0); Calcium 8.6 mg/dL (8.5-10.1); Chloride 103 mmol/L (98-107); Estimated GFR 84.22 (mL/min/1.73m2); Glucose 92 mg/dL (74-106); Magnesium 2.2 mg/dL (1.8-2.4); Potassium 3.9 mmol/L (3.5-5.1); Sodium 140 mmol/L (136-145); Total Protein 7.0 g/dL (6.4-8.2); Troponin I 13 ng/L (<or=76)
--- NOTE | 2025-09-14 04:39 | NUR.NOTE ---
Attempted to stand pt up out of bed to urinate at bedside. Upon sitting pt up in upright position, pt became severely dizzy. This RN deemed it to be unsafe to continue bedside toileting at this time. Pt unable to use urinal lying down d/t enlarged prostate. Dr. Neville and Dr. Moore aware of situation and myers catheter to be placed for pt safety.
[2025-09-14 04:44] LABS: Troponin I 12 ng/L (<or=76)
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
[2025-09-14 05:19] LABS: Abs Immature Grans 0.01 10^3/uL (0.0-0.06); HCT 43.9 % (40.0-50.0); HGB 14.6 g/dL (13.5-17.5); Immature Grans % 0.2 %; MCH 30.5 pg (27.0-33.0); MCHC 33.3 % (32.0-36.0); MCV 92 fL (80-95); MPV 9.3 fL (8.0-11.0); Platelet Count 230 10^3/uL (130-400); RBC 4.79 10^6/uL (4.36-5.78); RDW 14.1 % (11.8-14.1); RDW-SD 47.5 fL; WBC 5.68 10^3/uL (4.4-10.8)
--- NOTE | 2025-09-14 05:24 | W.PCEDHO ---
Registration Status: REG ER Primary Language: Preferred Language: Setswana ED Information & Data Chief Complaint Dizzy/Sync 09/14/25 03:19 Chief Complaint Dizzy/Sync 09/14/25 03:11 Triage Note Pt BIBA with complaints of 09/14/25 03:11 lightheadedness and dizziness. Pt has hx of afib Medical / Surgical History (Last Reviewed 07/07/25 @ 13:04 by Kaitlin Lozano) Atrial fibrillation Hemorrhoids Hematuria History of diverticulitis CHI (closed head injury) Erectile dysfunction Numbness and tingling in both hands IFG (impaired fasting glucose) Insomnia Serrated adenoma of colon (~09/2020) DISH (diffuse idiopathic skeletal hyperostosis) (02/07/20) Cough Chest tightness SOB (shortness of breath) Diverticulosis Depressive disorder (07/09/13) DVT (deep venous thrombosis) Right ventricular dilation Pulmonary embolism Periodic limb movement disorder (02/13/13) Obstructive sleep apnea syndrome (02/13/13) Impotence of organic origin (02/13/12) Hyperlipidemia (02/13/12) Esophageal reflux (02/13/12) Cervical radiculopathy (01/01/17) GERD (gastroesophageal reflux disease) Anxiety BPH (benign prostatic hypertrophy) Hypertension (Last Reviewed 07/07/25 @ 13:04 by Kaitlin Lozano) History of colonoscopy (~10/2021) History of carpal tunnel surgery of left wrist (06/13/21) H/O elbow surgery H/O shoulder surgery S/P trigger finger release S/P cataract extraction and insertion of intraocular lens (03/31/14) S/P cataract extraction and insertion of intraocular lens (~03/17/14) History of total hip arthroplasty History of total knee replacement (05/30/14) Endoscopic Carpal Tunnel release (06/19/15) Most Recent Vital Signs Temperature 35.8 C L 09/14/25 03:11 Pulse 56 L 09/14/25 05:00 Pulse 56 L 09/14/25 05:00 Respiratory Rate 15 09/14/25 05:00 Respiratory Effort Normal, Non-Labored 09/14/25 03:19 Respiratory Depth Normal 09/14/25 03:19 Respiratory Pattern Normal 09/14/25 03:19 Blood Pressure 162/99 H 09/14/25 03:11 Blood Pressure Position Supine 09/14/25 03:11 Pulse Oximetry 95 09/14/25 05:00 Oxygen Delivery Method Room Air 09/14/25 03:11 Oxygen Flow Rate 0 09/14/25 03:11 Pain Level 0 09/14/25 03:11 Allergies tamsulosin (From Flomax) Allergy (Intermediate, Verified 08/30/25 10:26) Skin Rash peanut Allergy (Unknown, Verified 08/30/25 10:26) unknown codeine Adverse Reaction (Intermediate, Verified 08/30/25 10:26) N/V Precautions Isolation Standard precaution 09/14/25 03:19 IV IV Catheter Type [Left Saline Lock Antecubital] IV Catheter Gauge [Left 18 Antecubital] Diet Orders Category Date Time Status Regular/Normal [DIET] Nutrition 09/14/25 Breakfast Active Diagnostics 09/14/25 09/14/25 09/14/25 Range/Units 05:10 04:18 03:18 WBC 5.68 5.57 (4.4-10.8) 10^3/uL RBC 4.79 4.92 (4.36-5.78) 10^6/uL Hgb 14.6 15.1 (13.5-17.5) g/dL Hct 43.9 45.0 (40.0-50.0) % MCV 92 92 (80-95) fL MCH 30.5 30.7 (27.0-33.0) pg MCHC 33.3 33.6 (32.0-36.0) % RDW 14.1 14.0 (11.8-14.1) % Plt Count 230 254 (130-400) 10^3/uL MPV 9.3 9.3 (8.0-11.0) fL Immature Gran % 0.2 0.2 % Neutrophils % 60.0 47.4 % Lymphocytes % 25.5 39.1 % Monocytes % 11.3 9.9 % Eosinophils % 1.9 2.5 % Basophils % 1.1 0.9 % Nucleated RBC % 0.0 0.0 (0.0-0.3) % Absolute Neutrophils 3.41 2.64 (1.2-6.7) 10^3/uL Absolute Lymphocytes 1.45 2.18 (1.2-3.4) 10^3/uL Absolute Monocytes 0.64 0.55 (0.1-0.8) 10^3/uL Absolute Eosinophils 0.11 0.14 (0.0-0.7) 10^3/uL Absolute Basophils 0.06 0.05 (0.0-0.2) 10^3/uL PT Pending 28.7 H (9.1-11.1) sec INR Pending 3.1 H (0.9-1.1) Sodium Pending 140 (136-145) mmol/L Potassium Pending 3.9 (3.5-5.1) mmol/L Chloride Pending 103 (98-107) mmol/L Carbon Dioxide Pending 27.8 (21.0-32.0) mmol/L Anion Gap Pending 9.2 (3-11) mmol/L BUN Pending 12 (7-18) mg/dL Creatinine Pending 0.9 (0.70-1.30) mg/dL Est GFR (CKD-EPI 2020) Pending 84.22 (mL/min/1.73m2) Glucose Pending 92 (74-106) mg/dL Calcium Pending 8.6 (8.5-10.1) mg/dL Magnesium 2.2 (1.8-2.4) mg/dL Total Bilirubin Pending 0.6 (0.2-1.0) mg/dL AST Pending 22 (15-37) U/L ALT Pending 37 (16-63) U/L Alkaline Phosphatase Pending 75 (46-116) U/L Troponin I 12 13 (<or=76) ng/L Total Protein Pending 7.0 (6.4-8.2) g/dL Albumin Pending 3.7 (3.4-5.0) g/dL Intake and Output - 24 Hour Total 09/14/25 03:04 thru 09/14/25 04:39 Output Total 700 Balance -700 Weight 87.9 kg Output: Urine 700 Other: Urine Color Yellow Urine Appearance Clear Urinary Catheter Urinary Catheter Date of 09/14/25 Insertion [Coude] Time of insertion [Coude] 04:39 Falls Risk Assessment History of Falls No History 09/14/25 03:19 Contributing Factors Unstable 09/14/25 03:19 Ambulatory Aids Independent 09/14/25 03:19 Tubes/Lines With any additional score 09/14/25 03:19 Gait Evaluation No gait disturbance 09/14/25 03:19 Cognition No cognitive impairment 09/14/25 03:19 Fall Total Score 23 09/14/25 03:19 Level of Risk Standard/Low Risk 09/14/25 03:19 Problems (Last Reviewed 07/07/25 @ 13:04 by Kaitlin Lozano) Heart block atrioventricular (Acute) Heart block (Acute) Notes 09/14/25 04:39 Nursing Notes by Fariba Macedo Attempted to stand pt up out of bed to urinate at bedside. Upon sitting pt up in upright position, pt became severely dizzy. This RN deemed it to be unsafe to continue bedside toileting at this time. Pt unable to use urinal lying down d/t enlarged prostate. Dr. Neville and Dr. Moore aware of situation and myers catheter to be placed for pt safety. Initialized on 09/14/25 04:39 - END OF NOTE v v v v v v v v v Sending and/or Receiving Nurses: Please use comment section below to note any information pertinent to the patient hand-off not included above. Information / Comments: Report received from: Fariba Coronado RN
[2025-09-14 05:33] LABS: ALT 34 U/L (16-63); AST 20 U/L (15-37); Albumin 3.5 g/dL (3.4-5.0); Alkaline Phosphatase 68 U/L (46-116); Anion Gap 6.9 mmol/L (3-11); BUN 11 mg/dL (7-18); Bilirubin, Total 0.6 mg/dL (0.2-1.0); CO2 28.1 mmol/L (21.0-32.0); Calcium 8.5 mg/dL (8.5-10.1); Chloride 104 mmol/L (98-107); Estimated GFR 87.27 (mL/min/1.73m2); Glucose 94 mg/dL (74-106); Potassium 3.9 mmol/L (3.5-5.1); Sodium 139 mmol/L (136-145); Total Protein 6.5 g/dL (6.4-8.2)
[2025-09-14 05:41] LABS: INR 3.4 (0.9-1.1); Prothrombin Time 31.4 sec (9.1-11.1)
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
[2025-09-14] MEDS: Normal Saline Flush 10 ML SYR IVP ×2 (09:11→20:03)
[2025-09-14] MEDS: Psyllium PKT 1 EACH PO (12:28)
[2025-09-14] MEDS: Atorvastatin 40 MG TAB PO (20:03)
[2025-09-14] MEDS: Calcium Carbonate *TUMS* 500 MG CHEW PO (22:00)
[2025-09-14] MEDS: Pantoprazole 40 MG TABCR PO (22:30)
[2025-09-15] VITALS (22 sets, daily range): BP systolic 112–164; BP diastolic 53–88; PULSE 57–83; RESP 13–28; TEMP 36.5–37
[2025-09-15 06:03] LABS: INR 2.7 (0.9-1.1); Prothrombin Time 25.3 sec (9.1-11.1)
--- NOTE | 2025-09-15 08:26 | PDOC.CMPRO ---
Date of service: 09/15/25 Time of Service: 08:26 Care Management Progress Note Progress Note Text Progress Note Text: Jam was sitting up in bed when CM met with him. He reported that he is feeling better except for having a bit of heartburn. He was kept NPO until about 2 pm in hopes that he would get a bed at [facility] and be able to transfer down to get his pacemaker. Since no bed was available by 2pm he was allowed to eat. Jam stated that he gets heartburn whenever he does not eat regularly. Jam stated that he hopes to get a bed soon but won't be surprised if he is still here on Friday. Discharge Potential Discharge Needs: Other (transfer to tertiary care hospital) Anticipated Barriers to Discharge: Bed availability Transportation: EMS Plan: Jam was admitted with heart block and is waiting to be transferred to [facility] when a bed becomes available. He will be transported via EMS coordinate by the nursing central supply supervisor. CM will follow. Social Determinants of Health Screening Social Determinants of health last assessed in clinic: 09/15/25 Will the Patient Participate in the Screening?: Yes Do you worry about having a steady place to live?: no Problems where you live: no known problems In the past 12 months, have you had to go without electric, gas, oil or water in your home?: no 1. Within the past 12 months, we worried whether our food would run out before we got money to buy more.: Never true 2. Within the past 12 months, the food we bought just didn't last and we didn't have money to get more.: Never true Has lack of transportation kept you from medical appointments or from doing things needed for daily living?: no Has anyone in your life made you feel unsafe or unsupported?: no How hard is it for you to pay for the very basics like food, housing, medical care, and heating? Would you say it is:: Not hard at all Do you want help finding or keeping work or a job?: I do not need or want help If for any reason you need help with day-to-day activities such as bathing, preparing meals, shopping, managing finances, etc., do you get the help you need?: I get all the help I need How often do you feel lonely or isolated from those around you?: Rarely Do you speak a language other than Eritrean at home?: No Does the patient want assistance with any of the above?: No Health Related Social Needs Health related social needs: feeling lonely/isolated (Z60.8) Health related social needs details: Says he always gets what he needs and does not have trouble paying but does have meals on wheels - 5 meals a week and goes to the food shelf. States he doesn't usually feel lonely because he has gotten used to it.
[2025-09-15] MEDS: Normal Saline Flush 10 ML SYR IVP (08:35)
[2025-09-15] MEDS: Pantoprazole 40 MG TABCR PO (08:35)
[2025-09-15] MEDS: Calcium Carbonate *TUMS* 500 MG CHEW PO (13:31)
--- NOTE | 2025-09-15 14:08 | PHACLINREV_ITS ---
Pharmacy Admission Review Admission Clinical Review Admission Pharmacy Review: Heart block atrioventricular (Acute) Heart block (Acute) tamsulosin (From Flomax) Allergy (Intermediate, Verified 08/30/25 10:26) Skin Rash peanut Allergy (Unknown, Verified 08/30/25 10:26) unknown codeine Adverse Reaction (Intermediate, Verified 08/30/25 10:26) N/V Resuscitation Status DNR/DNI Height 5 ft 7 in Weight 75.1 kg Pharmacy Admission Review Renal Dosing Renal Dosing: BUN 11 mg/dL (7-18) 09/14/25 05:10 Creatinine 0.8 mg/dL (0.70-1.30) 09/14/25 05:10 Medications needing adjustments: Reviewed (CrCl 58.4 mL/min) List of meds needing interventions: Current medications are okay Anticoagulation Anticoagulation: Hgb 14.6 g/dL (13.5-17.5) 09/14/25 05:10 Hct 43.9 % (40.0-50.0) 09/14/25 05:10 Plt Count 230 10^3/uL (130-400) 09/14/25 05:10 INR 2.7 (0.9-1.1) H 3.4 (0.9-1.1) H 09/15/25 05:15 09/14/25 05:10 Creatinine 0.8 mg/dL (0.70-1.30) 09/14/25 05:10 DVT Prophylaxis: Intervened (verified with provider - warfarin on hold, patient being transferred [place] [facility] [place] pac[place]) Relevant Labs Relevant Labs: Sodium 139 mmol/L (136-145) 09/14/25 05:10 Potassium 3.9 mmol/L (3.5-5.1) 09/14/25 05:10 Chloride 104 mmol/L (98-107) 09/14/25 05:10 Magnesium 2.2 mg/dL (1.8-2.4) 09/14/25 03:18 Electrolytes, C-Reactive P, ESR: Reviewed (No new labs for today) Cardiac Review Cardiac Review: Troponin I 12 ng/L (<or=76) 09/14/25 04:18 BP, HR, EF%: Reviewed (BP and HR WNL) QTc Review QTc: Reviewed (470 from 09/14/25) IV to PO Switch IV Medications: Reviewed Home Meds Home Med List reviewed: Intervened Relevent Home Meds Not ordered & why?: diclofenac gel (PRN) and warfarin Verified with provider that warfarin is on hold pending procedure at [facility] (waiting on bed) Current Meds Current Medication Order Review: Reviewed
[2025-09-15] MEDS: Psyllium PKT 1 EACH PO (14:23)
--- NOTE | 2025-09-15 16:04 | W.PM.PROGNOT ---
Date of Service Date of service: 09/15/25 Time of Service: 16:04 Assessment and Plan Assessment and plan (1) Heart block atrioventricular: Status: Acute Assessment and plan: - Patient found to have type II heart block, excepted to [facility] cardiology for pacemaker placement by Dr. Hyman - Pacer pads in place, have not been needed thus far (2) Atrial fibrillation: Assessment and plan: - INR was 3.1 at admission - Holding warfarin as patient is independently-pacemaker placement Subjective Subjective Interval history since last seen: Patient states that he is doing well today unless he sits up where he becomes very lightheaded. He understands we are continuing to wait for bed availability at [facility] he has no other complaints or concerns at this time. Exam Narrative Exam Narrative: Well-appearing older gentleman laying in bed in no acute distress, ANO x 4, heart in the 60s to 80s with lungs the patient is not set up, lungs clear to auscultation bilaterally, abdomen soft, nontender, nondistended Objective Last Vital Signs Temp 97.7 F 09/15/25 14:32 Pulse 61 09/15/25 14:02 Resp 22 09/15/25 14:02 BP 164/78 H 09/15/25 14:02 Pulse Ox 95 09/14/25 16:01 Laboratory Results - last 24 hr 09/15/25 05:15 PT 25.3 H INR 2.7 H PAWSS Have you Been Recently Intoxicated or Drunk Within the Last 30 days?: Yes Have you Ever Experienced Previous Episodes of Alcohol Withdrawal?: No Have you ever Experienced Withdrawal Seizures?: No Have you ever Experienced Delirium Tremens(DT)s?: No Have you ever undergone Alcohol Rehabilitation Treatment (i.e, inpt ot outpatient treatment programs)?: No Have you ever Experienced Blackouts?: No Have you ever Combined Alcohol with other Downers within the last 90 days?: No Have you ever Combined Alcohol with any other Substance of Abuse during the last 90 days?: No Positive Blood Alcohol level on Presentation? [PCS.BAL]: No Evidence of Increased Autonomic Activity (i.e. HR>120, tremor, sweating, agitation, nausea)?: No Result: 1 Time Spent with Patient Time Spent with Patient: >50 minutes Time was spent: preparing to see the patient(eg.review tests), obtaining and/or reviewing separately otained hiistory, ordering medications,tests, procedures, referring, communicating with other health career based intervention coordinator, indepentently interpreting results, counseling the patient and care coordination
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
== END 2025-09-15 17:20 | disposition short-term general hospital (02) | DRG 309 ==
LOC: ER 04:44 → ICU 05:56
PROVIDERS: Admitting Provider Hospitalist; Emergency Provider Emergency Medicine; PCP Nurse Practitioner; Responsible Provider Family Medicine; Visit Provider Hospitalist
DX: I48.0 Paroxysmal atrial fibrillation; Z79.01 Long term (current) use of anticoagulants; R55 Syncope and collapse; G57.11 Meralgia paresthetica, right lower limb; I65.23 Occlusion and stenosis of bilateral carotid arteries; I44.1 Atrioventricular block, second degree; I50.22 Chronic systolic (congestive) heart failure; I11.0 Hypertensive heart disease with heart failure; F32.A Depression, unspecified; M47.27 Other spondylosis with radiculopathy, lumbosacral region; I25.10 Atherosclerotic heart disease of native coronary artery without angina pectoris; I25.5 Ischemic cardiomyopathy; M48.10 Ankylosing hyperostosis [Forestier], site unspecified; G47.61 Periodic limb movement disorder; G47.33 Obstructive sleep apnea (adult) (pediatric); K21.9 Gastro-esophageal reflux disease without esophagitis; F41.9 Anxiety disorder, unspecified; N40.0 Benign prostatic hyperplasia without lower urinary tract symptoms; Z96.641 Presence of right artificial hip joint; Z96.651 Presence of right artificial knee joint; Z87.891 Personal history of nicotine dependence; Z86.711 Personal history of pulmonary embolism; Z86.718 Personal history of other venous thrombosis and embolism
CPT/HCPCS: 00123; 36415; 51702; 80053; 93005; 99285; 83735; 84484; 85025; 85610; 93010; 99222; 99238

== ENCOUNTER 2025-09-26 19:13 | Outpatient (REF) | payer MEDICARE, OTHER, SELFPAY ==
[2025-09-26 19:17] LABS: Glucose Negative (Negative)
[2025-09-26 19:25] LABS: C & S Indicated? No; RBC 0-2 HPF (0-2)
== END 2025-09-26 19:14 | disposition home or self-care (01) ==
LOC: LBN 19:13
PROVIDERS: PCP Nurse Practitioner
DX: R30.0 Dysuria (principal)
CPT/HCPCS: 81003; 81015

== ENCOUNTER 2025-10-03 15:13 | Outpatient (REF) | payer MEDICARE, OTHER, SELFPAY ==
[2025-10-03 17:19] LABS: Glucose Negative (Negative)
== END 2025-10-03 15:14 | disposition home or self-care (01) ==
LOC: LBN 15:13
DX: R30.0 Dysuria (principal); R82.89 Other abnormal findings on cytological and histological examination of urine
CPT/HCPCS: 81003; 87086

== ENCOUNTER → 2025-10-06 15:00 | Outpatient (BNVA) | payer MEDICARE, OTHER, SELFPAY | PROVIDERS: Visit Provider Urology | DX: Z86.711 Personal history of pulmonary embolism (principal); Z86.718 Personal history of other venous thrombosis and embolism; I48.0 Paroxysmal atrial fibrillation; R39.12 Poor urinary stream; R39.89 Other symptoms and signs involving the genitourinary system; Z79.01 Long term (current) use of anticoagulants | CPT/HCPCS: 99215 ==

== ENCOUNTER 2025-10-14 15:48 | Outpatient (REF) | payer MEDICARE, OTHER, SELFPAY ==
[2025-10-14 17:24] LABS: Glucose Negative (Negative)
[2025-10-14 17:31] LABS: WBC >50 HPF (0-5)
== END 2025-10-14 15:49 | disposition home or self-care (01) ==
LOC: LBN 15:48
PROVIDERS: Visit Provider Urology
DX: R35.0 Frequency of micturition (principal); N40.0 Benign prostatic hyperplasia without lower urinary tract symptoms; Z87.440 Personal history of urinary (tract) infections
CPT/HCPCS: 87077; 81003; 81015; 87086; 87186